=== PATIENT | female | born 2000 | race Caucasian/White ===

== ENCOUNTER 2023-02-03 07:01 | Outpatient (RCR) | payer OTHER, SELFPAY | END 2023-02-16 14:00 | disposition home or self-care (01) | LOC: PT 07:01 | PROVIDERS: PCP Nurse Practitioner; Visit Provider Podiatrist Foot & Ankle Surgery | DX: M25.871 Other specified joint disorders, right ankle and foot (principal); M72.2 Plantar fascial fibromatosis | CPT/HCPCS: 97010; 97035; 97110; 97112; 97140; G0283 ==

== ENCOUNTER 2023-04-07 08:38 | Outpatient (OUT) | payer OTHER, SELFPAY ==
--- NOTE | 2023-04-07 08:46 | MR_ITS ---
The [place] [id number] Patient Name: MACY BYRD MRN: [id number] date: 2000 Sex: F Assigned Patient Location: MRI Current Patient Location: Accession/Order Number: [id number] Exam Date: 04/07/2023 08:56 Report Date: 04/08/2023 08:11 At the request of: SUZIE MENDOZA Procedure: MR ankle RT wo con EXAM: MR ankle RT wo con HISTORY: Plantar Fascial Fibromatosis, Ankle Instability right ankle pain COMPARISON: Right ankle x-rays 06/23/2022. TECHNIQUE: Multi planar, multisequence MR imaging of the right ankle without contrast. Findings: Bones and cartilage: No acute fracture or malalignment. No focal bone marrow edema. No significant degenerative change. No articular erosions. No osteochondral abnormality. Small region of susceptibility artifact anterior to the tibial plafond. No significant joint effusion. Muscles and tendons: No abnormal signal within the visualized musculature. The Achilles, anterior, medial and lateral tendons about the ankle are intact. No significant tendinosis or tenosynovitis. Ligaments: The medial and lateral ligaments about the ankle are intact. There is increased signal and thickening of the anterior talofibular ligament. The spring ligament is intact. Fat signal persists within the sinus Tarsi. Miscellaneous: There is mild increased signal thickening of the central band of the plantar fascia likely representing fasciitis. MR/MR ankle RT wo con IMPRESSION: 1. Mild plantar fasciitis. 2. Increased signal thickening of the anterior talofibular ligament may be postsurgical or related to sprain. Electronically authenticated by: CHARLES MCCLAIN Date: 04/08/2023 08:11
== END 2023-04-07 08:39 | disposition home or self-care (01) ==
LOC: MRI 08:40
PROVIDERS: PCP Nurse Practitioner; Visit Provider Podiatrist Foot & Ankle Surgery
DX: M72.2 Plantar fascial fibromatosis (principal); M25.371 Other instability, right ankle; M25.871 Other specified joint disorders, right ankle and foot
CPT/HCPCS: 73721

== ENCOUNTER 2023-05-23 09:02 | Outpatient (OUT) | payer OTHER, SELFPAY ==
--- NOTE | 2023-05-23 09:48 | PM.PRESUREVA ---
History of Present Illness History of Present Illness Chief complaint: plantar fascial fibromatosis Narrative: Patient presents for preadmission testing. Please see HPI from Dr. Li dated 05/04/2023. Review of Systems ROS Narrative REVIEW OF SYSTEMS: Constitutional: No fever , chills, weakness ENT: No sore throat or epistaxis Cardiovascular: No edema, chest pain, palpitations, or activity intolerance Respiratory: No shortness of breath, cough, or wheezing Gastrointestinal: No abdominal pain, constipation, diarrhea, or vomiting Genitourinary: No dysuria or hematuria Neurological: No numbness, tingling, weakness, or headache Psychiatric: No mood changes PFSH PFS Medical History (Updated 05/23/23 @ 09:44 by Julia Barkley NP) (08/2020) Surgical History (Updated 05/23/23 @ 09:44 by Julia Barkley NP) (2011) (10/18/22) (2020) Family History (Updated 05/23/23 @ 09:44 by Julia Barkley NP) Other Blood coagulation disorder Family history of heart disease Social History (Updated 05/23/23 @ 09:47 by Julia Barkley NP) Within the past year, how often did you have a drink containing alcohol: never Score interpretation: A score less than 3 is consistent with normal alcohol consumption. 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 Highest level of school completed/degree received: Bachelor's degree Meds Home Medications and Allergies Allergies Allergy/AdvReac Type Severity Reaction Status Date / Time latex Allergy Rash Verified 05/23/23 09:46 Exam Narrative Exam Narrative: Constitutional: Awake, alert, comfortable, well-appearing, nontoxic, interactive, vital signs as charted Head: Normocephalic, atraumatic Neck: Supple, normal appearance, normal range of motion, no meningeal signs, no lymphadenopathy Respiratory: No respiratory distress, breath sounds clear Cardiovascular: Regular rate and rhythm, strong and regular heart tones Skin: No rashes or induration, no lesions, only visible skin inspected Neuro: No neurological deficits, normal sensation Psychiatric: Oriented ?3, normal affect Assessment and Plan Assessment and Plan (1) Deformity of right lower extremity: (2) Plantar fascial fibromatosis: Plan Right endoscopic plantar fasciotomy, gastrocnemius recession scheduled with Dr. Li 05/30/2023.
[2023-05-23 09:57] LABS: Partial Thromboplastin Time 30.2 sec (22.3-36.2); Prothrombin Time 9.8 sec (9.0-11.6)
[2023-05-23 10:00] LABS: INR <0.93
== END 2023-05-23 09:03 | disposition home or self-care (01) ==
LOC: PST 09:03
PROVIDERS: PCP Nurse Practitioner; Visit Provider Podiatrist Foot & Ankle Surgery
DX: Z01.812 Encounter for preprocedural laboratory examination (principal); M72.2 Plantar fascial fibromatosis; M21.861 Other specified acquired deformities of right lower leg
CPT/HCPCS: 85610; 85730; G0463

== ENCOUNTER 2023-05-30 06:28 | Day surgery (SDC) | payer OTHER, SELFPAY ==
[2023-05-23 09:44] VITALS: BP 125/76; PULSE 57; RESP 14; TEMP 36.3; O2SAT 98; BMI 37.3
[2023-05-30] VITALS (12 sets, daily range): BP systolic 110–137; BP diastolic 74–88; PULSE 62–81; RESP 10–26; TEMP 36.3–36.4; O2SAT 92–98; BMI 36.9
[2023-05-30 06:44] LABS: Glucometer 86 mg/dL (74-106)
[2023-05-30 07:03] LABS: INR 0.94; Partial Thromboplastin Time 30.9 sec (22.3-36.2)
[2023-05-30 07:06] LABS: HCG Qualitative NEGATIVE (NEGATIVE)
[2023-05-30] MEDS: LACTATED RINGER'S SOLUTION 1,000 ML 50 ML IV (07:17)
[2023-05-30] MEDS: SCOPOLAMINE 1 MG/3 DAYS TRANSDERM PATCH 1 PATCH TD (07:18)
[2023-05-30] MEDS: CEFAZOLIN SODIUM/DEXTROSE,ISO 2 GM/50 ML PIGGYBACK IV (07:24)
[2023-05-30] MEDS: BETAMETHASONE ACE/BETAMETHASONE SOD PHOS 30 MG/5 ML 12 MG IM (08:00)
[2023-05-30] MEDS: BUPIVACAINE HCL 0.5% PF 50 MG/10 ML VIAL 20 ML INJ (08:02)
[2023-05-30 08:37] LABS: Glucometer 99 mg/dL (74-106)
[2023-05-30] MEDS: HYDROMORPHONE HCL 0.5 MG/0.5 ML SYRINGE IV (08:38)
[2023-05-30] MEDS: OXYCODONE HCL/ACETAMINOPHEN 5MG/325MG 1 TAB PO (08:44)
--- NOTE | 2023-05-30 13:24 | PM.ORONB ---
Brief Operative Note Date of procedure: 05/30/23 Pre-op diagnosis: right plantar fasciitis and equinus Post-op diagnosis: same as pre-op Procedure: PROCEDURES PERFORMED: right endoscopic plantar fasciotomy and gastrocnemius recession INTRAOPERATIVE FINDINGS: findings consistent with chronic plantar fasciitis with the fascia being thickened and very taut. Reduced ankle joint dorsiflexion was also noted prior to surgery PROCEDURE IN DETAIL: Patient was identified in pre op and consent was reviewed. Correct side and site were identified and marked. Pre-op antibiotics were started. Patient was brought to OR suite and place on table in a supine position. General anesthesia was administered. Tourniquet applied. Operative extremity was prepped and draped in usual sterile fashion. Formal time-out was performed and the foot/ankle were exsanguinated and tourniquet inflated. 20 mL of 0.5 percent Marcaine plain were injected around surgical sites A longitudinal incision over the medial aspect of the calf two finger breadths posterior to the posterior aspect of tibia was performed. Combination sharp and blunt dissection with all bleeders being coagulated gained access to the gastrocnemius aponeurosis. Once the aponeurosis was isolated a speculum was inserted from the medial to lateral position just superficial to the aponeurosis. The speculum allowed full visualization of the aponeurosis and the foot was held in maximal dorsiflexed position. A fifteen blade was used to transversely incise the gastrocnemius fascia to two separate location (one proximal and one distal) followed by release of the soleus fascia. 10 degrees of ankle joint dorsiflexion was obtained. The area was flushed with copious sterile saline and skin was closed in layers. Stab incision over the medial aspect of the in-step at the glabrous skin junction was used followed by blunt dissection and the medial band of the plantar fascia was identified. Trochar and cannula were then placed medial to lateral. A lateral stab incision was made to allow passage of the trochar and cannula. Camera was inserted into the lateral portal and a hook blade was placed into the medial portal. 50% of the plantar fascia was released and healthy muscle was noted. The site was flushed with saline and instrumentation was removed. Closure with nylon suture was then undertaken. A dry sterile dressing was placed followed by CAM boot. Patient tolerated the procedure and anesthesia well and was transferred to the recovery room with vital signs stable and brisk capillary refill to the toes. POSTOPERATIVE PLAN:Discharge home under family's care Post op instructions provided verbally and written prescription(s) were placed in chart Weightbearing as tolerated in cam boot for three weeks Patient should sleep in cam boot or night splint Follow-up in 1-3 weeks Implants: none Anesthesia: General-LMA Surgeon: Randall Li Barrel Charrer: Isaías Jacobsen Estimated blood loss (mL): 10 Pathology: none sent Condition: stable Disposition: PACU Preoperative Details Reason for procedure: patient is a 23-year-old female well known to my practice who over the last 6+ months has had right heel pain which was initially treated nonoperatively. Nonoperative treatment included but not limited to meloxicam/ibuprofen, physical therapy and home stretching program, activity and shoe modification. MRI was obtained and was consistent with plantar fasciitis. We reviewed the potential risks and benefits of surgical intervention patient wished to proceed with surgery.
== END 2023-05-30 10:20 | disposition home or self-care (01) ==
PROVIDERS: PCP Nurse Practitioner; Visit Provider Podiatrist Foot & Ankle Surgery
PROC: (CPT 27687; principal; 2023-05-30 07:30)
DX: M72.2 Plantar fascial fibromatosis (principal); M21.861 Other specified acquired deformities of right lower leg; D68.51 Activated protein C resistance; E66.9 Obesity, unspecified; Z68.35 Body mass index [BMI] 35.0-35.9, adult; M25.371 Other instability, right ankle; M25.871 Other specified joint disorders, right ankle and foot
CPT/HCPCS: 27687; 29893; 36415; 82948; 84703; 85610; 85730; J0702; J1170; J2704

== ENCOUNTER 2023-07-29 22:36 | Emergency (ER) | payer OTHER, SELFPAY ==
[2023-07-29] VITALS (12 sets, daily range): BP systolic 119–155; BP diastolic 59–86; PULSE 58–68; RESP 13–22; TEMP 36.8; O2SAT 97–100; BMI 36.6
--- NOTE | 2023-07-29 22:46 | ECG_ITS ---
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
--- NOTE | 2023-07-29 23:13 | ED.GENADUL1 ---
HPI - General Adult General Chief complaint: Nausea/Vomiting/Diarrhea Stated complaint: Vomiting Blood, Epistaxis Time Seen by Provider: 07/29/23 22:47 Source: patient Mode of arrival: walk-in Limitations: no limitations History of Present Illness HPI narrative: patient said that around 9pm she developed bleeding from the right nasal passage and began vomiting blood. She said that initially she vomited thin dark red blood without food,. Then she vomited again and had chunks of blood along with the pizza she ate for dinner. She saw stars and was dizzy after the 2nd episode of vomiting. Bleeding symptoms lasted about 10 minutes. About 30 minutes passed between the 1st and 2nd episode of vomiting. She still has some waxing and waning nausea. She denied any nasal or facial injury preceding the bloody nose and denied blowing, picking or scratching the nose. No abdominal pain No black tarry stool. Related Data Previous Rx's Medication Instructions Recorded famotidine 20 mg tablet (Pepcid) 20 mg PO BID #14 tabs 07/29/23 Allergies Allergy/AdvReac Type Severity Reaction Status Date / Time latex Allergy Rash Verified 05/23/23 09:46 [facility] Medical History (Updated 07/29/23 @ 23:56 by Heriberto Gould) Chronic interstitial cystitis ?N30.10 - Interstitial cystitis (chronic) without hematuria (ICD-10) COVID-19 (08/2020) ?U07.1 - COVID-19 (ICD-10) Deformity of right lower extremity ?M21.951 - Unspecified acquired deformity of right thigh (ICD-10) Factor V deficiency ?D68.2 - Hereditary deficiency of other clotting factors (ICD-10) Instability of ankle joint ?M25.373 - Other instability, unspecified ankle (ICD-10) Plantar fascial fibromatosis ?M72.2 - Plantar fascial fibromatosis (ICD-10) Postoperative nausea and vomiting ?R11.2 - Nausea with vomiting, unspecified (ICD-10) ?Z98.890 - Other specified postprocedural states (ICD-10) Rupture of peroneal tendon of right foot ?S86.311A - Strain of muscle(s) and tendon(s) of peroneal muscle group at lower leg level, right leg, initial encounter (ICD-10) Surgical History (Updated 05/23/23 @ 09:44 by Julia Barkley NP) H/O knee surgery (2011) ?Z98.890 - Other specified postprocedural states (ICD-10) History of ankle surgery (10/18/22) ?Z98.890 - Other specified postprocedural states (ICD-10) History of bladder surgery (2020) ?Z98.890 - Other specified postprocedural states (ICD-10) Family History (Updated 05/23/23 @ 09:44 by Julia Barkley NP) Other Blood coagulation disorder Family history of heart disease Social History (Updated 05/23/23 @ 09:47 by Julia Barkley NP) Within the past year, how often did you have a drink containing alcohol: never Score interpretation: A score less than 3 is consistent with normal alcohol consumption. 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 afebrile General: Well-appearing and in no apparent distress. Skin: Warm, dry, no pallor noted. No rash. Eye: Pupils are equal, round and EOMI. No scleral icterus. Ears, Nose, Mouth, and Throat: TM are clear, no nasal mucosal hypertrophy or sign of recent nosebleed. Oral mucosa is moist, no posterior oropharynx bleeding, uvula is mid-line Cardiovascular: Regular Rate and Rhythm without murmur, gallop or rub. Respiratory: No accessory muscle use or respiratory distress. Back: No CVA tenderness Musculoskeletal: normal ROM GI: Abdomen is soft, non-distended. Normal bowel sounds. No masses appreciated. No tenderness to palpation. No rebound, guarding, or rigidity noted. Neurological: A&O x4. No cranial nerve dysfunction observed. No truncal ataxia. Moves all extremities. Sensation intact. Psychiatric: Cooperative and interactive. Normal mood and affect. Constitutional Vital Signs, click to edit/add: Last Vital Signs Temp 98.2 F 07/29/23 22:37 Pulse 60 07/29/23 23:11 Resp 18 07/29/23 22:37 BP 119/59 07/29/23 23:11 Pulse Ox 97 07/29/23 22:37 O2 Del Method Room Air 07/29/23 22:37 Course Vital Signs Vital signs: Vital Signs Temperature 98.2 F 07/29/23 22:37 Pulse Rate 68 07/29/23 22:37 Respiratory Rate 18 07/29/23 22:37 Blood Pressure 155/79 H 07/29/23 22:37 Pulse Oximetry 97 07/29/23 22:37 Oxygen Delivery Method Room Air 07/29/23 22:37 Temperature 98.2 F 07/29/23 22:37 Pulse Rate 60 07/29/23 23:11 Respiratory Rate 18 07/29/23 22:37 Blood Pressure 119/59 07/29/23 23:11 Pulse Oximetry 97 07/29/23 22:37 Oxygen Delivery Method Room Air 07/29/23 22:37 Medical Decision Making MDM Narrative Medical decision making narrative: peripheral IV established. blood drawn and sent for testing. The patient received IV Protonix and IV Zofran. BUN and Cr barely elevated above upper limit of normal - I do not have comparison of prior labs available to review. PTT increased at 36.2 but PT and INR normal. Normal platelets, WBC and Hb. Electrolytes normal. LFTs normal except for elevated AST at 890 - likely reactionary from vomiting. Patient informed of results. She felt better after ED treatment and was discharged home with prescription for pepcid and recommendation to maintain a soft bland diet for the next 2 days. She sees Allison Aragon and can follow up with her PCP or return to the ED if she worsens. Medical Records Medical records reviewed: Yes I reviewed the patient's medical records Lab Data Lab results reviewed: Yes I reviewed the patient's lab results Labs: Lab Results 07/29/23 Range/Units 22:52 WBC 10.5 (4.0-11.0) 10^3/uL RBC 4.71 (4.20-5.40) 10^6/uL Hgb 13.8 (12.0-16.0) g/dL Hct 42.7 (36.0-48.0) % MCV 90.7 (81.0-99.0) fL MCH 29.3 (26.7-34.0) pg MCHC 32.3 (29.9-35.2) g/dL RDW 12.3 (11.0-15.0) % Plt Count 245 (150-450) 10^3/uL MPV 10.8 (9.5-13.5) fL Neut % (Auto) 72.6 (43.0-75.0) % Lymph % (Auto) 20.0 L (20.5-60.0) % [place] % (Auto) 6.0 (1.7-12.0) % Eos % (Auto) 0.8 L (0.9-7.0) % Baso % (Auto) 0.3 (0.2-2.0) % Neut # (Auto) 7.6 H (1.4-6.5) 10^3/uL Lymph # (Auto) 2.1 (1.2-3.8) 10^3/uL [place] # (Auto) 0.6 (0.3-0.8) 10^3/uL Eos # (Auto) 0.1 (0.0-0.7) 10^3/uL Baso # (Auto) 0.0 (0.0-0.1) 10^3/uL Abs Immat Gran (auto) 0.03 (0.00-0.03) 10^3/uL Imm/Tot Granulo (auto) 0.3 (0.0-0.5) % PT 9.7 (9.0-11.6) sec INR <0.93 APTT >36.2 H (22.3-36.2) sec Sodium 140 (136-145) mmol/L Potassium 3.8 (3.5-5.1) mmol/L Chloride 105 (98-107) mmol/L Carbon Dioxide 27.7 (21.0-32.0) mmol/L Anion Gap 11.1 BUN 20.0 H (7.0-18.0) mg/dL Creatinine 1.08 H (0.55-1.02) mg/dL Est GFR ( Amer) >60 (>=60) Est GFR (Non-Af Amer) >60 (>=60) BUN/Creatinine Ratio 18.5 Glucose 95 (74-106) mg/dL Calcium 8.7 (8.5-10.1) mg/dL Total Bilirubin 0.4 (0.2-1.0) mg/dL AST 89 H (15-37) U/L ALT 41 (14-59) U/L Alkaline Phosphatase 75 (46-116) U/L Total Protein 7.3 (6.4-8.2) g/dL Albumin 4.0 (3.4-5.0) g/dL Globulin 3.3 g/dL Albumin/Globulin Ratio 1.2 Discharge Plan Discharge Chief Complaint: Nausea/Vomiting/Diarrhea Clinical Impression: Epistaxis, Gastritis Patient Disposition: Home, Self-Care Time of Disposition Decision: 23:56 Prescriptions / Home Meds: New famotidine [Pepcid] 20 mg tablet 20 mg PO BID Qty: 14 0RF Instructions: Gastritis (ED), Nosebleed (ED) Stand Alone Forms: Portal Instructions Referrals: Allison Aragon NP [Primary Care Provider] - 1 week
[2023-07-29 23:19] LABS: Basophils Percent Auto 0.3 % (0.2-2.0); Eosinophils Absolute Auto 0.1 10^3/uL (0.0-0.7); Eosinophils Percent Auto 0.8 % (0.9-7.0); Hematocrit 42.7 % (36.0-48.0); Hemoglobin 13.8 g/dL (12.0-16.0); Immature Granulocytes Abs Auto 0.03 10^3/uL (0.00-0.03); Immature Granulocytes Pct Auto 0.3 % (0.0-0.5); Lymphocytes Absolute Auto 2.1 10^3/uL (1.2-3.8); Mean Corpuscular HGB Conc 32.3 g/dL (29.9-35.2); Mean Corpuscular Hemoglobin 29.3 pg (26.7-34.0); Mean Corpuscular Volume 90.7 fL (81.0-99.0); Mean Platelet Volume 10.8 fL (9.5-13.5); Monocytes Absolute Auto 0.6 10^3/uL (0.3-0.8); Neutrophils Absolute Auto 7.6 10^3/uL (1.4-6.5); Neutrophils Percent Auto 72.6 % (43.0-75.0); Platelet Count 245 10^3/uL (150-450); Red Blood Count 4.71 10^6/uL (4.20-5.40); Red Cell Distribution Width 12.3 % (11.0-15.0); White Blood Count 10.5 10^3/uL (4.0-11.0)
[2023-07-29] MEDS: ONDANSETRON PF 4 MG/2 ML VIAL IV (23:23)
[2023-07-29] MEDS: PANTOPRAZOLE SODIUM 40 MG VIAL IV (23:23)
[2023-07-29 23:31] LABS: Prothrombin Time 9.7 sec (9.0-11.6)
[2023-07-29 23:33] LABS: INR <0.93
[2023-07-29 23:34] LABS: Alanine Aminotransferase 41 U/L (14-59); Albumin Globulin Ratio 1.2; Alkaline Phosphatase 75 U/L (46-116); Anion Gap 11.1; Aspartate Amino Transferase 89 U/L (15-37); BUN Creatinine Ratio 18.5; Bilirubin Total 0.4 mg/dL (0.2-1.0); Calcium 8.7 mg/dL (8.5-10.1); Carbon Dioxide 27.7 mmol/L (21.0-32.0); Chloride 105 mmol/L (98-107); Estimated GFR (African America >60 (>=60); Estimated GFR (Non-African Ame >60 (>=60); Globulin 3.3 g/dL; Glucose 95 mg/dL (74-106); Potassium 3.8 mmol/L (3.5-5.1); Sodium 140 mmol/L (136-145); Total Protein 7.3 g/dL (6.4-8.2)
[2023-07-30 00:06] VITALS: BP 118/68; PULSE 78; RESP 17; O2SAT 100
== END 2023-07-30 00:09 | disposition home or self-care (01) ==
PROVIDERS: Emergency Provider Emergency Medicine; PCP Nurse Practitioner
DX: R04.0 Epistaxis (principal); K29.70 Gastritis, unspecified, without bleeding; Z86.16 Personal history of COVID-19; D68.2 Hereditary deficiency of other clotting factors; Z98.890 Other specified postprocedural states
CPT/HCPCS: 36415; 80053; 85025; 85610; 85730; 93005; 96374; 96375; 99284

== ENCOUNTER 2023-08-03 07:01 | Outpatient (RCR) | payer OTHER, SELFPAY | END 2023-09-04 09:00 | disposition home or self-care (01) | LOC: PT 07:01 | PROVIDERS: PCP Nurse Practitioner; Visit Provider Podiatrist Foot & Ankle Surgery | DX: M72.2 Plantar fascial fibromatosis (principal); R26.2 Difficulty in walking, not elsewhere classified | CPT/HCPCS: 20560; 97014; 97035; 97110; 97112; 97140; 97162 ==

== ENCOUNTER 2023-09-05 09:29 | Outpatient (RCR) | payer OTHER, SELFPAY | END 2023-09-06 16:06 | disposition home or self-care (01) | LOC: PT 09:29 | PROVIDERS: PCP Nurse Practitioner; Visit Provider Podiatrist Foot & Ankle Surgery | DX: M72.2 Plantar fascial fibromatosis (principal) ==

== ENCOUNTER 2023-10-05 15:41 | Outpatient (OUT) | payer OTHER, SELFPAY ==
--- NOTE | 2023-10-05 | XR_ITS ---
The [address] [address] Patient Name: MACY BYRD MRN: [id number] date: 2000 Sex: F Assigned Patient Location: RAD Current Patient Location: [facility] Accession/Order Number: [id number] Exam Date: 10/05/2023 15:54 Report Date: 10/05/2023 16:27 At the request of: SUZIE MENDOZA Procedure: XR foot RT min 3V PROCEDURE: XR foot RT min 3V COMPARISON: None. HISTORY: RIGHT FOOT PAIN FINDINGS: BONES:No acute fracture or dislocation. Mild plantar enthesopathic spurring of the calcaneus SOFT TISSUES:Negative. No visible soft tissue swelling. EFFUSION:None visible. OTHER: Negative. XR/XR foot RT min 3V IMPRESSION: Mild plantar calcaneal enthesopathy Electronically authenticated by: MCKENZIE POLLOCK Date: 10/05/2023 16:27
--- OUTSIDE RECORDS SUMMARY | 2023-10-05 15:46 | XMS_ITS | CCD ---
Author Name Unknown Address [address] [place] [address] Organization [facility] Care Team Providers Care Straw Hat Brim Raiser Operator Name Role Phone DILLON VERDIN Unavailable Unavailable [facility] Unavailable Unavailable [facility] Unavailable Unavailable DIALS, LEILA DICKINSON Attending Unavailable DIALS, LEILA DICKINSON Admitting Unavailable NO, PHYSICIAN Primary Care Unavailable Talat Pineda Primary Care Provider No, Physician Primary Care Provider Unavailabl e Mahesh RIVAS, Allison Moreno Primary Care Provider Roosevelt Costa Unavailable [phone] Pako Ahmadi Unavailable AichAllison nvaarro CNP Primary Care Provider Roosevelt Costa Unavailable Pako Ahmadi Unavailable AichholAllison woodall CNP Primary Care Provider [phone] Roosevelt Costa Unavailable Pako Ahmadi Unavailable NO FAMILY, PHYSICIAN Primary Care Provider Unava ilable Allison Aragon Attending Provider [phone] Allison Aragon Attending Unavailable Allison Aragon Admitting Unavailable NO FAMILY, PHYSICIAN Primary Care Unavailable ROBERT ERIC Referring Unavailable ALLISON ARAGON Primary Care Unavailable ROBERT ERIC Attending Unavailable PAKO AHMADI Referring Unavailable ALLISON ARAGON Primary Care Unavailable JASWANT KING Attending Unavailable ALLISON ARAGON Primary Care Unavailable SUZIE MENDOZA Attending Unavailable EVELYN ARAGON Primary Care Unavailable SUZIE MENDOZA D Admitting Unavailable SUZIE MENDOZA Consulting Unavailable KELLY, SUZIE Romero Admitting Unavailable AICHHOLZ, [facility] Primary Care Unavailable KELLY, SUZIE Romero Attending Unavailable ALEJANDRO ANDINO Consulting Unavailable DR SOHAIL COLBY Consulting Unavailable KELLY, SUZIE Romero Admitting Unavailable AICHHOLZ, [facility] FLUSHER ALLISON Primary Care Unavailable KELLY, SUZIE Romero Attending Unavailable SUZIE MENDOZA Consulting Unavailable KELLY, SUZIE Romero Attending Unavailable AICHHOLZ, [facility] Primary Care Unavailable HIGHLANDER, SUZIE Romero Admitting Unavailable NADIR ENGLAND Consulting Unavailable RYANANDER, SZUIE Romero Admitting Unavailable AICHHOLZ, CASING FLUSHER ALLISON Primary Care Unavailable HIGHLMANAN, SUZIE Romero Attending Unavailable KELLY, SUZIE Romero Attending Unavailable DR MCKENZIE POLLOCK V Consulting Unavailable AICHHOLZ, [facility] Primary Care Unavailable HIGHLANDER, SUZIE Romero Admitting Unavailable HIGHLMANAN, SUZIE Romero Consulting Unavailable BENITA RESENDIZ Consulting Unavailable YANI GRIER Consulting Unavailable BG ANDINO Unavailable Allergies Allergy Classification Reported Allergen(s) Allergy Type Date of Onset Reaction(s) Facility (1 source) Latex Drug allergy (disorder) 08-30-2020 [facility] Repository (2 sources) Latex Drug allergy (disorder) [facility] Rep[facility] Medications Current Medications Medication Drug Class(es) Dates Sig (Normalized) Sig (Original) drospirenone, contraceptive, (Slynd) 4 mg (28) Tab (1 source) take 1 tablet by mouth once daily drospirenone, contraceptive, (Slynd) 4 mg (28) Tab Take 4 mg by mouth daily . 0 Active ondansetron 4 mg disintegrating oral tablet (2 sources) Serotonin-3 Receptor Antagonist Start: 09-21-2020 End: 09-24-2020 take 1 tablet by mouth every six hours as needed ondansetron (ZOFRAN-ODT) 4 MG disintegrating tablet Dissolve 1 (one) tablet (4 mg total) on top of tongue every 6 (six) hours as needed . 10 tablet 0 09/21/2020 09/24/2020 Active Start: 09-20-2020 End: 09-20-2020 ondansetron (ZOFRAN) injecti on 4 mg semaglutide, weight loss, (WEGOVY) 0.25 mg/0.5 mL pen injector (2 sources) Start: 06-09-2022 End: 07-07-2022 semaglutide, weight loss, (WEGOVY) 0.25 mg/0.5 mL pen injector Indications: Class 2 obesity due to excess calories without serious comorbidity with body mass index (BMI) of 35.0 to 35.9 in adult Inject 0.5 mL subcutaneously one time a week for 28 days. 2 mL 0 06/09/2022 07/07/2022 Active Comment on above: Inject 0.5 mL subcut aneously one time a week for 28 days. Completed/Discontinued Medications Medication Drug Class(es) Dates Sig (Normalized) Sig (Original) drospirenone, contraceptive, (SLYND) 4 mg (28) tab (4 sources) drospirenone, contraceptive, (SLYND) 4 mg (28) tab Take by mouth. 0 Active Comment on above: Take by mouth. 1000 ml sodium chloride 9 mg/ml injection (2 sources) Start: 09-20-2020 End: 09-21-2020 sodium chloride 0.9% (NS) bolus 1,000 mL Start: 09-20-2020 End: 09-21-2020 sodium chloride (PF) (NS) fl ush 5 mL Problems Active Problems Problem Classification Problem Date Documented Date Episodic/Chronic Alcohol-related disorders (1 source) Alcohol intoxication; Translations: [Alcoholic intoxication with complication (HCC)] Chronic Coagulation and hemorrhagic disorders (1 source) Other primary thrombophilia; Translations: [OTHER PRIMARY THROMBOPHILIA] Onset: 10-21-2022 Chronic Joint disorders and dislocations; trauma-related (8 sources) Chondromalacia of patella; Translations: [Chondromalacia patellae, unspecified knee] Onset: 11-20-2013 11-20-2013 Chronic Nausea and vomiting (1 source) Nausea and vomiting; Translations: [Nausea and vomiting, intractability of vomiting not specified, unspecified vomiting type] Episodic Other connective tissue disease (1 source) Plantar fascial fibromatosis; Translations: [PLANTAR FASCIAL FIBROMATOSIS] Onset: 01-05-2023 Episodic Other non-traumatic joint disorders (5 sources) Other specified joint disorders, right ankle and foot; Translations: [OTHER SPEC JOINT D/O RT ANKLE FOOT] Onset: 10-10-2022 Episodic Other nutritional; endocrine; and metabolic disorders (1 source) Obesity; Translations: [Other obesity due to excess calories] Chronic Unclassified (1 source) Pain in right ankle and joints of right foot; Translations: [Pain in right ankle and joints of right foot] Onset: 06-16-2022 Unclassified (1 source) PERSONAL HISTORY OF COVID-19; Translations: [PERSONAL HISTORY OF COVID-19] Onset: 10-21-2022 Past or Other Problems Problem Classification Problem Date Documented Date Episodic/Chronic Joint disorders and dislocations; trauma-related (7 sources) Dislocation of patellofemoral joint; Translations: [Unspecified dislocation of unspecified patella, initial encounter] Onset: 11-01-2011 11-01-2011 Episodic Other aftercare (1 source) Other director long term care (current) drug therapy; Translations: [OTH LINING REPAIRER CURRENT DRUG THERAPY] Onset: 10-21-2022 Episodic Other connective tissue disease (1 source) Achilles tendinitis, right leg; Translations: [ACHILLES TENDINITIS RIGHT LEG] Onset: 07-06-2022 Episodic Other connective tissue disease (4 sources) Pain in right foot; Translations: [PAIN IN RIGHT FOOT] Onset: 06-23-2022 Episodic Other non-traumatic joint disorders (3 sources) Knee pain; Translations: [Pain, knee] Onset: 07-20-2012 07-20-2012 Episodic Other non-traumatic joint disorders (3 sources) Pain in right knee; Translations: [Pain in joint, lower leg] Onset: 07-20-2012 Episodic Other non-traumatic joint disorders (4 sources) Pain in unspecified knee; Translations: [Pain in joint, lower leg] Onset: 07-20-2012 07-20-2012 Episodic Other non-traumatic joint disorders (5 sources) Other instability, right ankle; Translations: [OTHER INSTABILITY RIGHT ANKLE] Onset: 07-01-2022 Episodic Other non-traumatic joint disorders (1 source) Pain in right ankle and joints of right foot; Translations: [PAIN IN RIGHT ANKLE] Onset: 06-27-2022 Episodic Residual codes; unclassified (3 sources) History of operative procedure on knee; Translations: [S/P knee surgery] Onset: 08-17-2012 08-17-2012 Episodic Sprains and strains (2 sources) Sprain of foot; Translations: [Unspecified sprain of left foot, initial encounter] Onset: 10-21-2022 08-30-2020 Episodic Results Test Name Value Interpretation Reference Range Facility POINT OF CARE GLUCOSEon 10-06 Glucose [Mass/Vol] 125 mg/dL Critically high 74-106 T [facility] Comment on above: Performed By: #### P OCGLUC #### [facility] [address] [address] [address] Alejandrina Monk Glucose [Mass/Vol] 96 mg/dL Normal 74-106 [facility] Comment on above: Performed By: #### P OCGLUC #### [facility] [address] [address] [address] Alejandrina Monk PREG QUANT HCGon 10-18-2022 HCG QUANT 3 mIU/mL Normal [facility] Comment on above: Performed By: #### P REGQNT #### [facility] [address] [address] [address] Alejandrina Monk HCG RANGE SEE BELOW Normal [facility] Comment on above: Result Comment: 5-50 0.2-1 WEEK 50-500 1-2 WEEKS 100-5,000 2-3 WEEKS 500-10,000 3-4 WEEKS 1,000-50,000 4-5 WEEKS 10,000-100,000 5-6 WEEKS 15,000-200,000 6-8 WEEKS 10,000-100,000 2-3 MONTHS Performed By: #### P REGQNT #### [facility] [address] [address] [address] Alejandrina Monk MRI ANKLE RT WO CONon 2021 MRI ANKLE RT WO CON EXAM: MRI ANKLE RT W O CON REASON FOR EXAM: Instability of joint of right ankle. TECHNIQUE: Multiplanar, multisequence imaging of the right ankle was performed without contrast COMPARISON: Plain radiograph 06/23/2022. FINDINGS: Study mildly degraded by motion. The Achilles tendon demonstrates mild thickening and intermediate signal consistent with tendinosis. No tear identified. The plantar fascia is intact without tear. Laterally, there is mild thickening and intermediate signal involving the peroneus longus tendon consistent with tendinosis. No tear identified. The peroneus brevis tendon is intact. The superficial peroneal retinaculum is intact. Thickening and intermediate signal involving the anterior talofibular ligament suggests prior lateral ligamentous injury. No evidence of acute lateral ligamentous injury identified. Medially, the medial flexor tendons demonstrate normal thickness and signal without tendinosis or tear. The deep deltoid ligament is intact. The Lisfranc ligament is intact. Anteriorly, the anterior extensor tendons demonstrate normal thickness and signal without tendinosis or tear. The bone marrow signal is without fracture or osteonecrosis. The talar dome is congruent. The subtalar joints intact. The sinus tarsi is mildly edematous. A small tibiotalar effusion is present. The midfoot appears congruent. The plantar musculature demonstrates normal bulk and signal. Remaining soft tissues are unremarkable. IMPRESSION: 1. Sequela of prior lateral ligamentous injury. No evidence of acute lateral ligamentous injury. 2. Achilles tendinosis without tear. 3. 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 Electronically authenticated by: ALEJANDRO ANDINO Date: 2022-07-05 09:26 Normal [facility] 06-18-[address] [facility] Telephone (ENDOMN) MACY BORJA ([id number]) 2000 F Date Time Provider Department 06/18/22 JASWANT KINGLA During your visit today, we recorded the following information about you: José Miguel Garay [facility] 06/18/2022 4:05 PM Signed Need to call pharmacy for insurance information. Not coming up in either [employer] or [employer] Need pa on wegovy José Miguel Garay [facility] 07/06/2022 2:48 PM Addendum Initiated PA for Wegovy through [employer] via [employer] Christensen: [id number] Waiting for next steps Need to call insurance for determination PA Christensen for Wegovy José Miguel Garay [facility] 07/06/2022 3:02 PM Addendum Called [employer] and PA's need to go through [employer]. Unable to process PA electronically. Requested to fax chart notes to [phone] Transmitted Successfully Can call for determination at [phone] Can take up to 10 days for determination Spent 6 minutes on the call José Miguel Elmore 07/06/2022 3:03 PM Signed Called [facility] for status of PA for Wegovy. Was informed by rep that Wegovy does not require a prior authorization. No further action taken. Allergies As of Date: 06/18/2022 (No Known Allergies) Date Reviewed: 04/14/2022 Reviewed by: Maggie Rodriguez Ma - Fully Assessed Reason for Visit: Insurance Authorization [[id number]] Cmt: Wegovy Prescriptions as of 07/06/2022 - semaglutide, weight loss, (WEGOVY) 0.25 mg/0.5 mL pen injector Inject 0.5 mL subcutaneously one time a week for 28 days. - drospirenone, contraceptive, (SLYND) 4 mg (28) tab Take by mouth. 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] 11/20/2013 Encounter Status:Closed by JOSÉ MIGUEL SCOTT on 06/18/22 Normal [facility] XR ankle RT min 3V*on 2021 XR ankle RT min 3V* [facility] [address] [place] [id number] XRay Report Signed Patient: Macy Borja MR#: [id number] : 2000 Acct:[id number] Age/Sex: 22 / F ADM Date: 06/16/22 Loc: ICXD Room: Type: [facility] Attending Dr: Allison Aragon Copies to: BEAU Jackson Ordering Provider: BEAU Jackson Date of Service: 06/16/22 XR/XR ankle RT min 3V*: pain RIGHT ANKLE - 3 views CLINICAL DATA: Right lateral ankle pain after running a week ago. COMPARISON: None AP, lateral and oblique views were obtained. There is no evidence of fracture or dislocation. The talar dome is intact. There is a tiny plantar calcaneal spur. There is anterolateral soft tissue swelling and a suspected small ankle effusion. XR/XR ankle RT min 3V* IMPRESSION: NO ACUTE BONY INJURY. Impression dictated by: Rosana Denise M.D.06/16/2022 2:30 PM Dictation Location: [place] [address] Transcribed By: [facility] 06/16/22 143 Dictated By: Rosana Denise MD 06/16/22 1429 Signed By: 06/16/[address] [facility] CNOVon 04-14-2022 CNOV Office Visit (ORMIDD ) MACY BORJA ([id number]) 2000 F Date Time Provider Department 04/14/22 9:50 AM ROBERT ERIC During your visit today, we recorded the following information about you: Robert Eric MD 04/14/2022 2:40 PM Signed DATE OF PROCEDURE: 08/08/2012 SURGEON: Heriberto Ramirez M.D. OPERATION: Arthroscopy of the right knee with chondroplasty of the patella and open proximal patellar alignment to include semitendinosus/MPFL reconstruction (modified Ochi technique). History of present illness: Macy Borja is a 21 year old female who comes in today with a chief complaint of right knee pain. Pain is anterior and anterolateral. She is very active. 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 With ADL's her pain is 4 - 6. On active days her pain is 7 - 9. Takes ibuprofen. Cortisone in March and january. No help. Takes glucosamine. Voltarehugh gel. Has seen multiple physicians in the past. Saw Dr. Calloway. Saw [place] doctor in [place]. ALLERGIES No Known Allergies PAST MEDICAL HISTORY Diagnosis Date Factor V Leiden (HCC) Hip pain Right Protein C deficiency (HCC) Seasonal depression (HCC) PAST SURGICAL HISTORY Procedure Laterality Date KNEE SURGERY HX Right 2011 NONE Current Outpatient Medications on File Prior to Visit Medication Sig drospirenone, contraceptive, (SLYND) 4 mg (28) tab Take by mouth. (Patient not taking: Reported on 05/28/2021 ) No current facility-administered medications on file prior to visit. No family history on file. Review of Symptoms: Cardiac: No chest pain Pulmonary: No trouble breathing Constitutional: No fevers, chills GI: No current GI upset Musculoskeletal: As above This is a well appearing, well nourished patient in no acute distress. Head is normocephalic and atraumatic. Patient has white sclera and pink conjunctiva. Mucous membranes are moist. Patient breathes easily and has normal chest wall excursion. Patient has a Normal. affect. Obese. Right knee with crepitance with range of motion. Pain with patellofemoral compression. Pain with squatting. No joint line pain. Trace effusion. Stable knee. Patella is stable. Incisions. Imaging: Plain films from [facility] are personally reviewed by me and demonstrates bilateral patellofemoral degenerative joint disease. Left is worse than right. Impression: Macy Borja is a 21 year old female with a bad problem. Bipolar chondral disease. Overweight. Prior surgery. Plan: Referred to get ready 2. Return to clinic after the MRI 3. Needs sizing x-rays at the next visit 4. Weight loss will be paramount and we probably should optimize her . Robert Eric MD Referring Provider: PAKO AHMADI [[id number]] Allergies As of Date: 04/14/2022 (No Known Allergies) Date Reviewed: 04/14/2022 Reviewed by: Maggie Rodriguez Ma - Fully Assessed Reason for Visit: New [[id number]] Primary Visit Diagnosis:Chronic pain of right knee [M25.561, G89.29] Order(s):MRI KNEE WO IVCON RT [[id number]] Order #: [id number] FUTURE ENDOCRINE MEDICAL WEIGHT MANAGEMENT [[id number]] Order #: [id number]: 1 FUTURE XR KNEE POST OP 3V AP/LAT/MERCHANT RIGHT [[id number]] Order #: [id number] FUTURE Prescriptions as of 04/14/2022 - drospirenone, contraceptive, (SLYND) 4 mg (28) tab Take by mouth. 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 Follow-up and Disposition History for Encounter Date Provider Department Center 04/14/2022 [id number] ERIC [facility] Encounter Status:Closed by ROBERT ERIC on 04/14/22 Normal [facility] XR KNEE 4V AP/PA BOTH+LAT/ME R RTon 04-14-2022 XR KNEE 4V AP/PA BOTH+LAT/MAGNUS RT * * *Final Report* * * DATE OF EXAM: Apr 14 2022 9:46AM MOX 5203 - XR KNEE 4V AP/PA BOTH+LAT/MAGNUS RT / PROCEDURE REASON: Right knee pain, unspecified chronicity * * * * Physician Interpretation * * * * HISTORY: Right knee pain, unspecified chronicity TECHNIQUE: 4 views right knee COMPARISON: None. RESULT: Suture anchors are in the patella from prior surgery. There is no acute fracture. There are tricompartmental marginal osteophytes and mild patellofemoral compartment narrowing from mild degenerative change. No joint effusion. Mild degenerative change of the left knee. IMPRESSION: POSTSURGICAL AND MILD DEGENERATIVE CHANGE Active Directory Systems Administrator: PSCB Transcribe Date/Time: Apr 14 2022 9:49A Dictated by : AUDREY ESTES MD This examination was interpreted and the report reviewed and electronically signed by: AUDREY ESTES MD on Apr 14 2022 9:50AM EST [id number] N Normal [facility] CNPNon 04-07-2022 CNPN Telephone (ORTHMN) ROCHELLEMACY ([id number]) 2000 F Date Time Provider Department 04/07/22 ROBERT ERIC During your visit today, we recorded the following information about you: Allison Ruggiero RN 04/07/2022 3:53 PM Signed Spoke with pt. Advised pt will need XR before seeing Dr Eric. Order is placed and pt to arrive early for her appt. Confirmed appt. Allergies As of Date: 04/07/2022 (No Known Allergies) Date Reviewed: 05/28/2021 Reviewed by: Emmett Calloway MD - Fully Assessed Reason for Visit: Care Coordination [3491] Prescriptions as of 04/07/2022 - drospirenone, contraceptive, (SLYND) 4 mg (28) tab Take by mouth. 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] 11/20/2013 Encounter Status:Closed by ALLISON RUGGIERO on 04/07/22 Normal [facility] Consent Formson 09-11-2021 Consent Forms [id number] [facility] Pulmonary Procedure [id number]#1 [facility] 09-07-2021 [facility] IqpixmerKYg6kSf+PGhlY WQ+RZ5ECWYuR05jjRHquB 8LC2oPDJ3LQCSTLJBZRP0 OMX7mkOC5ZGzdM8EjkrVd YcsgvWKbQX17OEt9ZSH4x NdyWIrwfN4hfGAmB5k3Cu MpQD35zD41YZprQRFoMqN 3LjZpbjsgbWFy Q7hmOoXupVRhSaz+PHRhY mxlIHdpZHRoPScxMDAlJy SicSbtCR7nDq5vJSPwZBE vbGxhcHNlOiBj p5nkEGDwIFbuTD4xhVwzZ 3KeiGQ9HYHbi1y0Rv93wD I+RATcCVI9dAusTVmyr62 2LaOvl6skHPR3 oEAuPPfcXUH8S26oh8L7X FHgDQTsMCV6eJZ3oT8vdP uwnjqiW2QslFPjOrD2MRF 9oWOfwJ7orVwv ijlmdF2nJkq+B46EHD7CR DHMOF0SGqs6Z1XtSzyqmN I+RL09JVWfSI59dPDpfQD te7ajzQi2KkSm CTMhCWR9nHeoUEpyu9GzM HInC52hhYLnd1D5BQYccU idxIPzLgWvfMS1pY6oLDz zkfdkt3ymtezd Pnbsn4bpgx79vK20L79hZ UiuJLYrGDV6ROWnAMBvlC nltv2eqZ2vTc7+NXxrp7g nc4ydlMv6TpRw MEHxzpMdoPpoSTT2n9HvF r79N7RzdSqnd9VaVnk9lp 56fLMxa9E7xUF2SQspHOO mlM7pBRqnNtU9 RZTwYmHxrJ86cVHyXEmaG k3fcAfleYiwQC0jFVJncq tjYJKvvG0cXZEkvYXbtMw hLA7qXCJibwip c164RvTsQDN2YBVnyICpW 1CkkT5tVyPkGVXgEPXpG4 MtgLDdMXkaK218XTcxEmL 3BGUatgDwD1Mr HIKnhBlvGfB3i2U3Ob3Jt 8ZihejxIGK4LPhhTBRxNs CaVqGyAzA7U3OtYkf9IJL qvNsqGK2nP3Tq AJPvttzcfcdyyLJ9CHGxD LNgtS00fQGzJWekLi7nr6 C3t334QVMaUBRanY45Vf6 udDogMTBwdCBU sI4qeqpjh5ewbjppUgEhB OJlLQo7TCg6MBQefGytRn CmEAJ3EsT7CLR3oKSybR9 laMxmpxnqqM8v Oyc+I15vmI1cBNJ8VWZ4f ribVMBvewTdKS46QU82G1 RyPjwvdGFibGU+PGRpdiB khXmuCO6pSiTh t5nsl8XoXXwxY4UoCOTkJ BotMgc1YRChLWH9cTV3pI 4kSZCeYBkcr4U1nMK4P1G xttMlql7ik0xo SSFeHZasY46etBZpf1Z9F PKbwUL3XADtgNvoZpZonF 93Oyc+JXScsVawo0ZoGsn yw6qiy4lihBj8 OcVjJTGtcwUrwTnlKFQ9o 8PrXp36E12cWDzdDBCmBP BqGTNnOZLisAsivd4ywD9 wIi8+PGNvbCB3 qHP1uO1hCHVtCsU3DYwhN 539NpHmvVXzTbgeh7sns3 lmlXn3FiFlTJMsvjPviPa bGCE9t0ScQk21 O71qFQqlTDGzVXWpFISnH QXuwVpioz9hjT2zGq9+PC 0cs3zlfe33uZ16nPU+PHR mUUL2rHurOVri DLFkjB2pLLmeUkT7PAYmH zYkyK76hWNwAHdiDi1ryI hfvLyoBE1tQMMpxdscb22 5LoOyq6ddDXSi oMMoKVybLDA3O01yh3M4T EYtAEEcOHO4gQI6vM4ubD lnbjogbGVmdDsgdmVydGl aOAjvLLmgH615 IHRvcDsnPlBhdGllbnQgT aMyLVc4T9GhTns1SOXmdY wxQB9idFXxZVzkWd0kySz jdPcgVH3sBBAb qvhqk239RuOka2xgFFYsp ETnQPwzIAS1H18vd4C2CL OqHNSkDDY5tFX4sB4vwRn nbjogbGVmdDsg ldQbjDvkDAbnNKncX379U HRvcDsnPkJpcnRoIERhdG N1HI61JF11rAAbc1E5jUP 9K9QmIQNplazp uzurwWV2XLZiNWMslO05X e5kdEtxDx8xCPHvUAP0YJ EgsCYkX1ZnoZ3uHxGuXYS uMVHaR1DsoMQi NFfvQ998YQwiZeJ6ZBCvd kEvO0BcDYWcsFmrEqO8w2 L1Zn2SK0M0SY87UD84tAP lg9B7tPP6A9Ad BBYcrpqhcfjgjST7MZKfD IZucI26Ck2ytMxmXa2hTC BhVIY8PMDrkBKjP2WztZ7 yOiAjMDAwMDAw X6UsgNIvWUivJ794CMshU lS5MNGyevHzZ0BfXFCpgV avRmY5g8G3Bc4IPDb2IO3 6EJ67fCHvy5N2 iOW1M9HtFVBxotzskqhhj DA4JOEmGODouB15Hr8mtI txVb7jFEJhFKK4BHPraNF lT6IodN9kInDg VMStXFCjZ0AwiPIzTSheU 411CCfyYzA4PCCfztSwY6 FyTNMkwXbfCiY9a2W1Qn0 JHFGyMD89REC2 mNM0OS78XD84L5ZvUjtnm GFibGU+PHRhYmxlIHdpZH RoPScxMDAlJyBzdHlsZT0 rMj2zYOTnXQPv hPsuoNYjFhLaz0fmINBmQ JhrZU6wmWqsL6RkbOJ3RQ Apb4t3Sy72X55qJ1UarEC +HJLxoUX1yBM6 cW1aUgLsIgP4TFurR940R lMpwUVtJeknq0ybt6eofH u7FgG4LSJelfTreDqnXUW 6m7RfVk35D16g IHdpZHRoPSIxNSUiIHZhb Qjdzf2guQ6yHb4+PGNvbC W7hDV8uC6dFrDyDqI5UZk zC254HoKxdKFe Uwsrw5rei3nuiIp4HxPoZ IEjftUxhWbhJZQ0o7TvZm 97U9GpuGxca1AcWrp2yh4 4mQIwk3E2fXN3 C2EjBCMcwuzenQTqmBluM F4dABTnrggdRLAsqI3gJI XwL8s7DxUyNkO1BQqzL1F enaT8FQAwfHPy JWjdYCM0K10ec9B5ROXoN CToTTV8iWI9lM5ghJcvxz ogbGVmdDsgdmVydGljYWw hRUcdB786WDYt bFyfPAPdaN4lBBUdnHUdx IrxFZ6rDQEoqyzeWe6KFn RJTiwgQURFTElORSBNQVJ JRTwvdGQ+PHRk QTE3hTmhJEcdYFRtkP2nP SCmE4f3VbZqTdB4ESwhC5 KaNHVekiqoGr41mV2aSiO aAcT0YPdlF9An udR7VEYrgLKyCRwfMNP9D 79uo4H9HRLmRGRcVYV7eI A0uD0jpSfsoiwzjUHmzYx gdmVydGljYWwt GVmdS524ABBljJnpQcB8W rBjPhS7FIt3J4LhHfk8LH CcjRmwSY1oaDLkLOzgQa2 vuTkqvQtxKT4e ODNlpflrKEAmqK2yCVJks JPzdPmhSL7iOXFjzdknn8 19WtWdYNV5YKSeoUZkZ6H tbK1oBkJoFATl KTNyP6PmmIDgBEsjA035X UbpClK4UMPsleTbC3FaYF DdzSpnAmY9o6A8Jm8tApH ZZWFyczwvdGQ+ QQEcLFZ2zXxlFTxaQCElr R0hBFOvO5i0KgRjKvU0MB snT2RkNMRptusgAh60bY2 sFdTtGyN8DXat V8UleoT9XEQboXOtIRopA FS0V22ur3V8DZKgDUAtMA H3sIE5dY2gwXaszakqlAL mdDsgdmVydGlj JMkrYDppG277ZEKftHtkH kZFTUFMRTwvdGQ+PHRkIH C8yUcfYXyrUPGkhS4sWXZ hZ2b9AmJnHrF1 PNokM7SgUWAljiifOl12g V6dWlJxDoB9KCexB9Kbqq G4OKRctDXwSHnlHSK6P13 yt5G7WMMmIBUn SIM7fBN5wD7bqAlgnwwvf GVmdDsgdmVydGljYWwtYW jtQ228OQMtkBatBb4UGP2 7GF96N2IyQndf dGFibGU+PHRhYmxlIHdpZ HRoPScxMDAlJyBzdHlsZT 0iCn4cWUMiLRPfrPhkdZT xTrLnp0gnMPNh TQsnLZ9ipSrpU5VfwAU6J BPqy1q7Vn64J21uI9TklP A+ERTlkOJ1tZX3xX4dJpM oGhP7UOoaR431 OnWwbAVgQukwr4bvc0rhn Yi4HeApPXMxdlVrgAsuUL X6v4NpLp41K82zLCldGPS oPSIyMCUiIHZh vWknqp6esM9dWi2+PGNvb QK3gXP8hE8yUySgFxD5CP yyC480PuDufFBqLtjoT38 sB9QfsJX+PHRy Lcl9NCXbeXxgZU6ztUCxU QltGd9zMXJ4SyIqMmTlST lxW7YlRBEyqoxftwhkxLI 6OWJeWDPmwM95 Zj4esJmdEo0dGANrVYV7G KFxaDKkH3LugQ0zZbHjJX LyGHXtQ2LokJPvMXowQ50 9XWinXxK5GVVp hcDjI4KaYCBfsIllCjN0e 1U6Ld0UpYqaeGWsMS7qDt BnAAj7S4SmFoz3BWLsjSi vZT7vsLJlNCgt Fo4xvFijtQwnBP9qLYJpo rxsx647CnTrd4hpQCXfaK QpFLxbMBA3S42bn9G8WRA gBIZiKHP5eWY5 kH6nsLsxsxycyTWacPsmy kCruKjyHGxmVAzuY212XS CwdDjyTnEHEzr1T9ZbPef 6FEKbyMwdHU2s xLHxVLrbCw2gaQnmgAucU N5fAKBmgklay792WzQsm9 wiMSWjaXDzYJbgGWG3A68 sd4R4FCAeSQAj GXL3jYD0fV0cnShxznfrp GVmdDsgdmVydGljYWwtYW nbE271DXDnvEksCo4IYsp 9N4XjBqj9QVHc oAqxYD6pgCThBTnyPp1or QbboInvLE2fJGFmdgysg6 16MxAgc8ozTWRkmDCkOHa jRIU4H63rv4X3 ZHLiBWZqBOQ8tVU5pR1dt GlnbjogbGVmdDsgdmVydG pwCVasDAocN704LDKgoSc nPlBheWVyOjwv dGQ+FV78oy63B7NtAtloK zk3RDWhVXO1wCR3qO1zTU OmHYsoo1W1eTK6Z5GrpvM ffd0ry6mvJRNi ZTo (more content not included)... Normal [facility] 2019 Novel Coronavirus (CoVI D-19), MEGAN LCon 09-02-2021 SARS-CoV-2 (COVID-19) RNA MEGAN+probe Ql (Unsp spec) Not detected Invalid Interpretation Code Not Detected [facility] Comment on above: Order Comment: [id number] 1 # [phone] Result Comment: This nucleic acid amplification test was developed and its performance characteristics determined by [email or web address]. Nucleic acid amplification tests include RT- PCR and TMA. This test has not been FDA cleared or approved. This test has been authorized by FDA under an Emergency Use Authorization (EUA). This test is only authorized for the duration of time the declaration that circumstances exist justifying the authorization of the emergency use of in vitro diagnostic tests for detection of SARS-CoV-2 virus and/or diagnosis of COVID-19 infection under section 564(b)(1) of the Act, 21 U.S.C. 360bbb-3(b) (1), unless the authorization is terminated or revoked sooner. When diagnostic testing is negative, the possibility of a false negative result should be considered in the context of a patient's recent exposures and the presence of clinical signs and symptoms consistent with COVID-19. An individual without symptoms of COVID-19 and who is not shedding SARS-CoV-2 virus would expect to have a negative (not detected) result in this assay. Performed At: [address] [id number] Abigail Franklin PhD Ph:[phone] Performed By: #### 6 [id number] #### [facility] (DEFAULT) [address] [place] [address] Release of Informationon Release of Information [id number] .[id number] [facility] Coding Summaryon 10-08-2020 Coding Summary CODING DATE: 10/08/2020 [facility] STATUS: Home PAYOR: [employer] ADMIT DX: REASON FOR VISIT DX: E66.9 Obesity, unspecified FINAL DX: PRINCIPAL: E66.9 Obesity, unspecified SECONDARY: PYMT PROC APC STAT DESCRIPTION DOCTOR NAME DATE NOTE: The code number assigned matches the documented diagnosis and / or procedure in the patient's chart. However, the narrative phrase printed from the coding software may appear abbreviated, or result in slightly different terminology. Coded By: Danitza Hernandez Date Saved: 10/08/2020 10:57 am [facility] Insulin LCon 10-08-2020 Insulin LC 16.9 uIU/mL Invalid Interpretation Code 2.6-24.[address] [facility] Comment on above: Result Comment: Perf ormed At: [facility] [address] [id number] Abigail Franklin PhD Ph:[phone] Performed By: #### 1 [id number], 73103199, 9230006989, 6743721084, 5681249, 85341118, 9734891, 6267389 #### [facility] (DEFAULT) [address] [place] [address] Provider Orderson 10-08-2020 Provider Orders [id number] .[id number] [facility] .Auto Diff 1on 10-07-2020 Auto Avery % 8 % Normal 1-[address] [facility] Comment on above: Performed By: #### 1 [id number], 50367464, 9914484362, 7232779922, 8145598, 37437638, 1218523, 8448864 #### [facility] (DEFAULT) [address] [place] [address] Baso Abs# 0.0 x10 Normal 0.0-0.[address] [facility] Comment on above: Performed By: #### 1 [id number], 44125549, 0178360442, 9903821459, 7943754, 10928082, 1808769, 9238251 #### [facility] (DEFAULT) [address] [place] [address] Basophils/100 WBC (Bld) 0.3 % Normal 0.2-2.[address] [facility] Comment on above: Performed By: #### 1 [id number], 13553191, 6158927554, 1657790325, 4445954, 46826622, 4264215, 8017846 #### [facility] (DEFAULT) [address] [place] [address]892 Eos Abs# 0.1 x10 Normal 0.0-0.[address] [facility] Comment on above: Performed By: #### 1 [id number], 62515715, 0882992305, 9979040988, 9236510, 61096017, 7342553, 5204140 #### [facility] (DEFAULT) [address] [place] [address] Eosinophils/100 WBC (Bld) 2.1 % Normal 0.9-4.[address] [facility] Comment on above: Performed By: #### 1 [id number], 13761974, 8134424453, 2262919643, 4074764, 66838615, 4251706, 1894264 #### [facility] (DEFAULT) [address] [place] [address] 75657 Lymph Abs# 1.5 x10 Normal 1.3-2.[address] [facility] Comment on above: Performed By: #### 1 [id number], 12838245, 4474075758, 4781104039, 4892588, 75008785, 3563740, 7571306 #### [facility] (DEFAULT) [address] [place] [address] 30270 Lymphocytes/100 WBC (Bld) 26 % Normal 14-[address] [facility] Comment on above: Performed By: #### 1 [id number], 88759497, 2910313892, 2345618181, 0763136, 10748727, 0691791, 2181244 #### [facility] (DEFAULT) [address] [place] [address]42 Avery Abs# 0.5 x10 Normal 0.0-0.[address] [facility] Comment on above: Performed By: #### 1 [id number], 26844740, 9642628306, 2134558249, 3392759, 22180744, 4720439, 0109287 #### [facility] (DEFAULT) [address] [place] [address] Neut Abs# 3.6 x10 Normal 1.5-9.[address] [facility] Comment on above: Performed By: #### 1 [id number], 04644618, 3401638743, 8822762663, 0640656, 44610499, 9079525, 9140794 #### [facility] (DEFAULT) [address] [place] [address] Neutrophils/100 WBC (Bld) 63 % Normal 44-[address] [facility] Comment on above: Performed By: #### 1 [id number], 84492427, 2425297291, 5702679935, 7311514, 26864843, 8655299, 2076564 #### [facility] (DEFAULT) [address] [place] [address] CBC w/ Auto Diffon Erythrocyte distribution width (RBC) [Ratio] 12.6 % Normal 11.5-15.[address] [facility] Comment on above: Performed By: #### 1 739290770, 36791624, 7886339855, 6660561492, 9033986, 67076071, 5883878, 5014040 #### [facility] (DEFAULT) [address] [place] [address] Hematocrit (Bld) [Volume fraction] 42.4 % High 33.7-40.[address] [facility] Comment on above: Performed By: #### 1 310792106, 81142362, 1168342581, 5279463604, 7265936, 72950833, 0135620, 2644388 #### [facility] (DEFAULT) [address] [place] [address] Hemoglobin (Bld) [Mass/Vol] 14.1 g/dL Normal 11.3-15.[address] [facility] Comment on above: Performed By: #### 1 199886519, 30624575, 1241533268, 2139359219, 7473953, 03062290, 4741868, 6649305 #### [facility] (DEFAULT) [address] [place] [address] Instr WBC 5.8 x10 Invalid Interpretation Code [facility] Comment on above: Performed By: #### 1 [id number], 17103827, 9507279641, 5293178000, 4105849, 93282460, 6226942, 0016182 #### [facility] (DEFAULT) [address] [place] [address] Man Diff? Auto Normal [facility] Comment on above: Performed By: #### 1 769736584, 49196500, 0891814852, 4862310024, 9154741, 90450339, 5225207, 8557551 #### [facility] (DEFAULT) [address] [place] [address] MCH (RBC) [Entitic mass] 28 pg Normal 24-[address] [facility] Comment on above: Performed By: #### 1 054166080, 37537103, 5804425473, 6778414692, 8116174, 79907856, 7400691, 4475774 #### [facility] (DEFAULT) [address] [place] [address] MCHC (RBC) [Mass/Vol] 33 g/dL Normal 26-[address] [facility] Comment on above: Performed By: #### 1 335729836, 76721764, 5734555507, 8953684219, 4824081, 43185929, 5673997, 1574189 #### [facility] (DEFAULT) [address] [place] [address] 92623 MCV (RBC) [Entitic vol] 86 fL Normal 81-[address] [facility] Comment on above: Performed By: #### 1 955644871, 07549913, 3364656354, 5969664896, 4579627, 85538471, 0778829, 0023274 #### [facility] (DEFAULT) [address] [place] [address] 58653 Platelet 264 x10 Normal 138-[address] [facility] Comment on above: Performed By: #### 1 897222959, 92477829, 3717917357, 0562819720, 0988446, 90384070, 7102131, 1273483 #### [facility] (DEFAULT) [address] [place] [address] Platelet mean volume (Bld) [Entitic vol] 9.7 fL Normal 6.3-10.[address] [facility] Comment on above: Performed By: #### 1 237557817, 58342570, 6882534465, 4662505301, 3367334, 80369045, 9477387, 3237759 #### [facility] (DEFAULT) [address] [place] [address] RBC 4.95 x10 Normal 3.70-5.[address] [facility] Comment on above: Performed By: #### 1 578492454, 22548563, 1090680975, 0705604608, 4424062, 60176172, 4243237, 7345540 #### [facility] (DEFAULT) [address] [place] [address] WBC 5.8 x10 Normal 3.5-10.[address] [facility] Comment on above: Performed By: #### 1 155099741, 28827118, 3931654131, 0923306232, 5130233, 46458266, 6032612, 1023559 #### [facility] (DEFAULT) [address] [place] [address] Standardon 10-07-2020 eGFR Non AA >60 Invalid Interpretation Code [facility] Comment on above: Performed By: #### 1 487172109, 26071441, 8296465271, 5545811291, 2079176, 40160302, 3804065, 3656580 #### [facility] (DEFAULT) [address] [place] [address] eGFR AA >60 Invalid Interpretation Code [facility] Comment on above: Result Comment: Certified Drug Counselor 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 Kidney Failure is indicated at less than 15 ml/min/1.73m2 Performed By: #### 1 008476941, 42397665, 7932977752, 1699164998, 5274897, 35167893, 7373238, 7974346 #### [facility] (DEFAULT) [address] [place] [address] Albumin [Mass/Vol] 4.4 g/dL Normal 3.5-5.0 [facility] Comment on above: Performed By: #### 1 116703001, 70479754, 1147381469, 0726396574, 9838016, 58579763, 8081692, 9083275 #### [facility] (DEFAULT) [address] [place] [address] Albumin/Globulin [Mass ratio] 1.5 {ratio} Normal 1.4-2.[address] [facility] Comment on above: Performed By: #### 1 429177190, 20990004, 5827497089, 4783968957, 4254669, 08599480, 0437381, 8536852 #### [facility] (DEFAULT) [address] [place] [address] Alk Phos 65 IU/L Normal 32-[address] [facility] Comment on above: Performed By: #### 1 258373328, 00714097, 3103020953, 0601528511, 5090319, 03367933, 8955958, 0159563 #### [facility] (DEFAULT) [address] [place] [address] ALT [Catalytic activity/Vol] 19.0 U/L Normal 14.0-54.[address] [facility] Comment on above: Performed By: #### 1 914160335, 23433679, 0990773363, 1638476130, 7566224, 13423953, 5989634, 8634357 #### [facility] (DEFAULT) [address] [place] [address] 06041 Anion gap [Moles/Vol] 13.0 mmol/L Normal 5.0-19.[address] [facility] Comment on above: Performed By: #### 1 383579894, 48852447, 9057976675, 2167950000, 5237550, 48871110, 6353297, 0525087 #### [facility] (DEFAULT) [address] [place] [address] 78200 AST [Catalytic activity/Vol] 17 U/L Normal 15-[address] [facility] Comment on above: Performed By: #### 1 273272116, 30691875, 3211306909, 1509685689, 8504272, 15966387, 2524955, 7869812 #### [facility] (DEFAULT) [address] [place] [address] 42440 Bili Total 0.7 mg/dL Normal 0.3-1.[address] [facility] Comment on above: Performed By: #### 1 451782609, 84758770, 1029261543, 2294333828, 4354339, 91102422, 9602473, 8731704 #### [facility] (DEFAULT) [address] [place] [address] 92663 Calcium [Mass/Vol] 9.2 mg/dL Normal 8.9-10.3 [facility] Comment on above: Performed By: #### 1 600030520, 06478041, 7388222730, 1876851342, 3549922, 40836221, 1855435, 3047410 #### [facility] (DEFAULT) [address] [place] [address] 98132 Chloride [Moles/Vol] 107 mmol/L Normal 101-[address] [facility] Comment on above: Performed By: #### 1 521597327, 67149550, 0076831208, 1785590124, 6478378, 88748380, 2190504, 8600305 #### [facility] (DEFAULT) [address] [place] [address] 62928 CO2 [Moles/Vol] 24 mmol/L Normal 21-[address] [facility] Comment on above: Performed By: #### 1 034889640, 96097094, 9023461876, 9450073082, 5086834, 90509744, 5561211, 4394563 #### [facility] (DEFAULT) [address] [place] [address] 93294 Creatinine [Mass/Vol] 0.82 mg/dL Normal 0.60-1.[address] [facility] Comment on above: Performed By: #### 1 217754620, 67168006, 9701672833, 6400792841, 7236100, 91682148, 6338898, 4514049 #### [facility] (DEFAULT) [address] [place] [address] 32907 Globulin (S) [Mass/Vol] 2.9 g/dL Normal 1.5-4.[address] [facility] Comment on above: Performed By: #### 1 527312215, 62710248, 8532368307, 8372081948, 9473303, 37734186, 6566576, 9708829 #### [facility] (DEFAULT) [address] [place] [address] 82206 Glucose [Mass/Vol] 105.0 mg/dL Normal 74.0-118.0 [facility] Comment on above: Performed By: #### 1 820052892, 13994647, 3195553732, 5229233434, 8427263, 97323736, 7036339, 3820922 #### [facility] (DEFAULT) [address] [place] [address] 57436 Osmolality 281 mOsm/L Invalid Interpretation Code [facility] Comment on above: Performed By: #### 1 187201768, 71623419, 3535371522, 6870596196, 3677768, 30806785, 6413714, 1640451 #### [facility] (DEFAULT) [address] [place] [address] 47211 Potassium [Moles/Vol] 3.7 mmol/L Normal 3.6-5.[address] [facility] Comment on above: Performed By: #### 1 403278017, 59910873, 2307206866, 2311220323, 8404353, 88760618, 5027907, 0841219 #### [facility] (DEFAULT) [address] [place] [address] 97963 Protein [Mass/Vol] 7.3 g/dL Normal 6.5-8.1 [facility] Comment on above: Performed By: #### 1 991893903, 48335517, 1844299851, 6225423211, 6964446, 59257424, 3466225, 6748510 #### [facility] (DEFAULT) [address] [place] [address] 03577 Sodium [Moles/Vol] 140.0 mmol/L Normal 136.0-144.0 [facility] Comment on above: Performed By: #### 1 437696431, 31010107, 7615935074, 5825013037, 7274951, 92625171, 8632995, 4940947 #### [facility] (DEFAULT) [address] [place] [address] 40094 Urea nitrogen [Mass/Vol] 16 mg/dL Normal 8-[address] [facility] Comment on above: Performed By: #### 1 199358896, 36094661, 3793617181, 0775846603, 8131195, 18810884, 7303230, 0841800 #### [facility] (DEFAULT) [address] [place] [address] Urea nitrogen/Creatinine [Mass ratio] 20.0 mg/mg High 4.6-16.[address] [facility] Comment on above: Performed By: #### 1 496003074, 82920325, 2855830211, 2062551384, 0430453, 17605265, 4639030, 7347320 #### [facility] (DEFAULT) [address] [place] [address] 59194 Free T4on 10-07-2020 Free T4 [Mass/Vol] 0.94 ng/dL Normal 0.61-1.12 [facility] Comment on above: Result Comment: Spec imens that contain high levels of Biotin may cause false high results Performed By: #### 1 299681273, 80082739, 9595773719, 4440739103, 0010625, 32807185, 0690527, 4638124 #### [facility] (DEFAULT) [address] [place] [address] 93681 HgbA1c Standardon 10-07-2020 .Hb 15.8 Invalid Interpretation Code [facility] Comment on above: Performed By: #### 1 748408335, 73521364, 9490917172, 6978719065, 3964247, 00013863, 1450845, 0496104 #### [facility] (DEFAULT) [address] [place] [address] 95873 .Hgb A1c 0.52 g/dL Invalid Interpretation Code [facility] Comment on above: Performed By: #### 1 164417988, 47249712, 7417321019, 6372689580, 6899516, 08575759, 6930533, 6624740 #### [facility] (DEFAULT) [address] [place] [address] Glucose [Mass/Vol] 102 mg/dL Invalid Interpretation Code [facility] Comment on above: Performed By: #### 1 423485289, 63519317, 2354687940, 6862649900, 5218205, 82702640, 1274447, 6679180 #### [facility] (DEFAULT) [address] [place] [address] HbA1c (Bld) [Mass fraction] 5.2 % Normal 4.6-6.[address] [facility] Comment on above: Performed By: #### 1 058301678, 04258857, 7238093109, 0661299547, 5758777, 49786385, 9736295, 8859655 #### [facility] (DEFAULT) [address] [place] [address] Lipid Panel Standardon 10-07 Cholesterol [Mass/Vol] 106.0 mg/dL Normal 66.0-200.[address] [facility] Comment on above: Result Comment: Zeny rable - Less than 200 mg/dL Borderline high risk - 200-239 mg/dL High risk - 240 mg/dL and over. Performed By: #### 1 417935066, 77018847, 2146371568, 3946821322, 9483034, 22650297, 3262851, 9607135 #### [facility] (DEFAULT) [address] [place] [address] Cholesterol in HDL [Mass/Vol] 38 mg/dL Low 40-[address] [facility] Comment on above: Result Comment: High risk - <40 mg/dL. Performed By: #### 1 884494967, 14159097, 7419957590, 1122775297, 6748804, 83273074, 7222099, 2064685 #### [facility] (DEFAULT) [address] [place] [address] 13443 Cholesterol in LDL [Mass/Vol] 57 mg/dL Normal 1-[address] [facility] Comment on above: Result Comment: Opti mal - Less than 100 mg/dL Borderline high risk - 130-159 mg/dL High risk - 160-189 mg/dL. Performed By: #### 1 188835088, 86445208, 0469011359, 6585288061, 1623918, 43552181, 6249698, 2600110 #### [facility] (DEFAULT) [address] [place] [address] 51944 Cholesterol.total/C holesterol in HDL [Mass ratio] 2.8 {ratio} Normal 0.0-4.[address] [facility] Comment on above: Performed By: #### 1 231555862, 13892137, 9790909775, 0142417924, 2722293, 02752109, 1641809, 9088200 #### [facility] (DEFAULT) [address] [place] [address] 91554 Triglyceride [Mass/Vol] 56.0 mg/dL Normal 0.0-150.[address] [facility] Comment on above: Performed By: #### 1 417692649, 87155204, 6065166023, 0183630452, 7633613, 63376700, 3198000, 5105867 #### [facility] (DEFAULT) [address] [place] [address] 35861 VLDL. 11 mg/dL Normal 5-[address] [facility] Comment on above: Performed By: #### 1 533410336, 38039381, 5456269584, 8641031901, 3001966, 18263600, 5470354, 0443054 #### [facility] (DEFAULT) [address] [place] [address] 01768 TSHon 10-07-2020 TSH Qn 2.03 m[IU]/L Normal 0.45-5.[address] [facility] Comment on above: Result Comment: Gene ral Population (males and non- females, aged 21-88) 0.45 - 5.33 Females, 1st Trimester 0.05 - 3.70 Females, 2nd Trimester 0.31 - 4.35 Females, 3rd Trimester 0.41 - 5.18 Performed By: #### 1 [id number] #### [facility] ([facility]) [address] [place] [address] [id number] Alcohol, Medicalon Ethanol [Mass/Vol] 207.0 mg/dL High <10.0 [facility] BMPon 09-21-2020 Anion gap [Moles/Vol] 18 mmol/L 10 - 20 mmol/L [facility] Calcium [Mass/Vol] 9.4 mg/dL 8.4 - 10. 2 mg/dL [facility] Chloride [Moles/Vol] 109 mmol/L High 98 - 108 mmol/L [facility] Creatinine [Mass/Vol] 1.08 mg/dL 0.40 - 1.10 [facility] GFR/1.73 sq M predicted among non-blacks MDRD (S/P/Bld) [Vol rate/Area] The eGFR should be used for monitoring renal function only and not for medication dosing. [facility] GFR/1.73 sq M.predicted CKD-EPI (S/P/Bld) [Vol rate/Area] 73 >=60 mL/min/1.73 m2 [facility] Glucose [Mass/Vol] 114 mg/dL High 65 - 99 mg/dL [facility] HCO3 [Moles/Vol] 23 mmol/L 21 - 32 mmol/L [facility] Potassium [Moles/Vol] 4.0 mmol/L 3.5 - 5.1 mmol/L [facility] Sodium [Moles/Vol] 146 mmol/L High 135 - 145 mmol/L [facility] Urea nitrogen [Mass/Vol] 13 mg/dL 8 - 25 mg/dL [facility] Urea nitrogen/Creatinine [Mass ratio] 12.0 mg/mg [facility] CBC WITH AUTO DIFFERENTIALon 09-21-2020 Basophils (Bld) [#/Vol] 0.02 10*3/uL [facility] Basophils/100 WBC (Bld) 0.3 % [facility] Eosinophils (Bld) [#/Vol] 0.10 10*3/uL [facility] Eosinophils/100 WBC (Bld) 1.3 % [facility] Erythrocyte distribution width (RBC) [Entitic vol] 11.9 % 11.6 - 14.8 % [facility] Hematocrit (Bld) [Volume fraction] 44.3 % 36.0 - 46.0 % [facility] Hemoglobin (Bld) [Mass/Vol] 14.4 g/dL 12.0 - 16.0 g/dL [facility] Immature granulocytes (Bld) [#/Vol] 0.05 10*3/uL [facility] Immature granulocytes/100 WBC (Bld) 0.60 % [facility] Comment on above: The IG parameter is the percentage of metamyelocytes, myelocytes and promyelocytes. An immature granulocyte count (IG) of 1% or more suggests the possibility of infection, an IG count of 3% is very likely related to an infection. Lymphocytes (Bld) [#/Vol] 2.17 10*3/uL [facility] Lymphocytes/100 WBC (Bld) 27.9 % [facility] MCH (RBC) [Entitic mass] 28.1 pg 26.0 - 34.0 pg [facility] MCHC (RBC) [Mass/Vol] 32.5 g/dL 31.0 - 37.0 g/dL [facility] MCV (RBC) [Entitic vol] 86.4 fL 80.0 - 100.0 fL [facility] Monocytes (Bld) [#/Vol] 0.55 10*3/uL [facility] Monocytes/100 WBC (Bld) 7.1 % [facility] Neutrophils (Bld) [#/Vol] 4.90 10*3/uL [facility] Neutrophils/100 WBC (Bld) 62.8 % [facility] Nucleated RBC (Bld) [#/Vol] 0.00 10*3/uL [facility] Nucleated RBC/100 WBC (Bld) [Ratio] 0.0 % [facility] Platelet mean volume (Bld) [Entitic vol] 9.8 fL 9.4 - 12.4 fL [facility] Platelets (Bld) [#/Vol] 271 10*3/uL [facility] RBC (Bld) [#/Vol] 5.13 10*6/uL [facility] WBC (Bld) [#/Vol] 7.79 10*3/uL [facility] HCG (QUALITATIVE)on 09-21-19 21 Beta HCG ( test) Ql Negative Negative [facility] Interpretation and review of laboratory results Normal [facility] Negative: The result is less than or equal to 5 mIU/mL of HCG. [facility] 09-21-2020 Interpretation and review of laboratory results Abnormal [facility] Vital Signs Date Time Vital Sign Value Performing Clinician Faci lity 06-09-2022 08:46-0400 Body height 185.4 cm Jaswant Christine DO Work Phone: [facility] 06-09-2022 08:46-0400 Body weight 123.38 kg Jaswant Christine DO Work Phone: [facility] 09-21-2020 06:10-0500 Body Temperature 98.8 [degF] [facility] 09-21-2020 06:10-0500 BP Diastolic 76 mm[Hg] [facility] 09-21-2020 06:10-0500 BP Systolic 122 mm[Hg] [facility] 09-21-2020 06:10-0500 Pulse (Heart Rate) 87 /min [facility] 09-21-2020 06:10-0500 Pulse Oximetry 99 % [place] [facility] 09-21-2020 06:10-0500 Respiratory Rate 16 /min [facility] Encounters Encounter Date Encounter Type Care Provider Facility Start: 01-05-2023 End: 02-02-2023 ambulatory SUZIE Romero [facility] Facility:H1 Start: 10-18-2022 End: 10-18-2022 [facility] Start: 10-14-2022 ambulatory SUZIE Romero [facility] Faci lity:H1 Start: 10-10-2022 Encounter for other preprocedural examination SUZIE MENDOZA [facility] Start: 10-08-2022 End: 10-09-2022 ambulatory NADIR ENGLAND Facility:H1 Start: 10-08-2022 End: 10-09-2022 Encounter for other preprocedural examination NADIR ENGLAND Facility:H1 Start: 07-01-2022 End: 07-02-2022 ambulatory SUZIE MENDOZA Facility:[facility]1 Start: 06-23-2022 End: 06-24-[address] SOHAIL COLBY Facility: Start: 06-18-2022 Telephone encounter Jaswant King Endocrinology Comment on above: Insurance Authorizat magalys (Lo) Start: 06-16-2022 End: 06-16-2022 ambulatory Allison Alley Aragon Facility:[facility] Start: 06-16-2022 End: 06-16-2022 ambulatory PHYSICIAN NO [facility] Work Phone: Start: 06-16-2022 End: 06-16-2022 Patient encounter procedure PHYSICIAN NO [facility] [address] Start: 06-09-2022 End: 06-09-2022 ambulatory JASWANT KING Facility:[facility] Start: 06-09-2022 End: 06-09-2022 ambulatory Jaswant Reginaldjuany DO Work Phone: Endocrinology Comment on above: Class 2 obesity due to excess calories without serious comorbidity with body mass index (BMI) of 35.0 to 35.9 in adult (Primary Dx); Chondromalacia of right patella Start: 06-09-2022 End: 06-09-2022 Telemedicine consultation with patient Jaswant King DO Work Phone: [facility] Start: 04-14-2022 End: 04-14-2022 ambulatory ROBERT ERIC Facility:[facility] Start: 04-14-2022 End: 04-14-2022 Patient encounter procedure Robert Eric MD Work Phone: Orthopedics Comment on above: Chronic pain of righ t knee (Primary Dx) Start: 04-07-2022 Orders Only Robert Eric MD Work Phone: Orthopaedics Comment on above: Right knee pain, uns pecified chronicity (Primary Dx) Start: 10-09-2020 End: 10-09-2020 Chart abstracting Gonzalo Diamond Work Phone: Hematology/Oncology Start: 10-07-2020 End: 10-07-2020 Patient encounter procedure External Provider [facility] Start: 10-07-2020 Results Only External Provider [facility] Start: 09-21-2020 End: 09-21-2020 Emergency department patient visit LEILA ROWE [facility] Start: 09-20-2020 End: 09-21-2020 Emergency department patient visit Leila Rowe Work Phone: [facility] Emergency Department Comment on above: Alcoholic intoxicati on with complication (HCC) (Primary Dx); Nausea and vomiting, intractability of vomiting not specified, unspecified vomiting type Start: 05-26-2018 Patient encounter DILLON Kline LAMBERT Jero acility:[facility] Procedures Date Procedure Procedure Detail Performing Clinician Start: 06-16-2022 X-ray of right ankle PH YSICIAN NO FAMILY Start: 10-07-2020 End: 10-07-2020 EXTERNAL LAB External Provider Start: 09-20-2020 Basic metabolic 2000 panel - Serum or Plasma Leila Rowe Work Phone: Start: 09-20-2020 Choriogonadotropin.b eta subunit ( test) [Presence] in Serum or Plasma Leila Dickinson [facility] Work Phone: Start: 09-20-2020 Complete blood count with white cell differential, automated Leila Karey [employer] Work Phone: Start: 09-20-2020 Complete blood count with white cell differential, manual Leila Dickinson [facility] Work Phone: Start: 09-20-2020 Ethanol [Mass/volume ] in Serum or Plasma Leila Dickinson [employer] [facility] Work Phone: Start: 08-17-2012 History of operative procedure on knee S/P knee surgery Robert Eric MD Work Phone: Plan of Treatment Date Care Activity Detail Author Start: 06-09-2022 End: 08-09-2022 CBC panel - Blood by Automated count CBC Lab Routine Class 2 obesity due to excess calories without serious comorbidity with body mass index (BMI) of 35.0 to 35.9 in adult Expected: 06/09/2022, Expires: 08/09/2022 [facility] Work Phone: Comment on above: Expected: 06/09/2022 , Expires: 08/09/2022 Start: 06-09-2022 End: 08-09-2022 Comprehensive metabolic 2000 panel - Serum or Plasma COMP METABOLIC PANEL Lab Routine Class 2 obesity due to excess calories without serious comorbidity with body mass index (BMI) of 35.0 to 35.9 in adult Expected: 06/09/2022, Expires: 08/09/2022 [facility] Work Phone: Comment on above: Expected: 06/09/2022 , Expires: 08/09/2022 Start: 06-09-2022 End: 08-09-2022 Hemoglobin A1c in Blood HGB A1C Lab Routine Class 2 obesity due to excess calories without serious comorbidity with body mass index (BMI) of 35.0 to 35.9 in adult Expected: 06/09/2022, Expires: 08/09/2022 [facility] Work Phone: Comment on above: Expected: 06/09/2022 , Expires: 08/09/2022 Start: 06-09-2022 End: 08-09-2022 Lipid 1996 panel - Serum or Plasma LIPID PANEL BASIC Lab Routine Class 2 obesity due to excess calories without serious comorbidity with body mass index (BMI) of 35.0 to 35.9 in adult Expected: 06/09/2022, Expires: 08/09/2022 [facility] Work Phone: Comment on above: Expected: 06/09/2022 , Expires: 08/09/2022 Start: 05-06-2022 Influenza vaccination INFLUENZA (#1) [facility] Start: 09-05-2021 DEPRESSION ASSESSMENT DEPRESSION ASS ESSMENT [facility] Start: 05-06-2020 Influenza vaccination INFLUENZA (#1) [facility] Start: 2019 PAP TESTING PAP TESTING [facility] Start: 2017 Urine microalbumin profile DTAP,TDAP,TD (1 - Tdap) [facility] Start: 2016 CHLAMYDIA SCREENING (18-24) CHLAMYDIA SCREENING (18-24) [facility] Start: 2016 GC (GONORRHEA) SCREE JANAY (18-24) GC (GONORRHEA) SCREENING (18-24) [facility] Start: 2016 HEPATITIS C SCREENING HEPATITIS C SC REEJANAY [facility] Start: 2016 HIV SCREENING HIV SCREENING [facility] Start: 2014 MENINGOCOCCAL B: Consider based on risk (2 of 2 - Risk Bexsero 2-dose series) MENINGOCOCCAL B: Consider based on risk (2 of 2 - Risk Bexsero 2-dose series) [facility] Start: 10-02-2013 HEPATITIS B (2 of 3 - 3-dose series) HEPATITIS B (2 of 3 - 3-dose series) [facility] Start: 2012 PEDS TO ADULT TRANSI TION ANNUAL ASSESSMENT PEDS TO ADULT TRANSITION ANNUAL ASSESSMENT [facility] Start: 2010 Adult depression screening assessment DEPRESSION SCREENING [facility] Start: 2010 PEDS TO ADULT TRANSI TION INITIAL DISCUSSION PEDS TO ADULT TRANSITION INITIAL DISCUSSION [facility] Start: 2009 HPV VACCINE (1 - 2-d ose series) HPV VACCINE (1 - 2-dose series) [facility] Start: 1998 COVID-19 VACCINE (#1) COVID-19 VACCI NE (#1) [facility] End: 05-14-2023 MRI KNEE WO IVCON RT MRI KNEE WO IVCON RT Radiology Routine Chronic pain of right knee 1 Occurrences starting 04/14/2022 until 05/14/2023 [facility] Work Phone: Comment on above: 1 Occurrences starti ng 04/14/2022 until 05/14/2023 End: 05-07-2023 XR KNEE GENERAL 4V AP BOTH/PA BOTH/LAT/MERC RIGHT XR KNEE GENERAL 4V AP BOTH/PA BOTH/LAT/MERC RIGHT Radiology Routine Right knee pain, unspecified chronicity 1 Occurrences starting 04/08/2022 until 05/07/2023 [facility] Work Phone: Comment on above: 1 Occurrences starti ng 04/08/2022 until 05/07/2023 End: 05-14-2023 XR KNEE POST OP 3V AP/LAT/MERCHANT RIGHT XR KNEE POST OP 3V AP/LAT/MERCHANT RIGHT Radiology Routine Chronic pain of right knee 1 Occurrences starting 04/14/2022 until 05/14/2023 [facility] Work Phone: Comment on above: 1 Occurrences starti ng 04/14/2022 until 05/14/2023 [facility] Immunizations Immunization Date Immunization Notes Care Provider Sven ayanmargarita 09-04-2013 hepatitis B vaccine, unspecified formulation Robert Eric MD Work Phone: [facility] Payers Date Payer Category Payer Self-pay [id number] 2020 Private Health Insurance [facility] [employer] CHO[employer] PLUS [id number] 2020-Present [phone] [address] [address] [place] [address] HMO [id number] 2020 Private Health Insurance [facility] [employer] CHOICE PLUS [id number] 2020-Present [phone] [address] [address] [place] [address] HMO [id number] 2017 Unknown [id number] 2017 Unknown [id number] 1998 Unknown [id number] 1998 Unknown [id number] 1998 Unknown [id number] 1998 Unknown [id number] 1998 Unknown [id number] 1998 Unknown [id number] 1998 Unknown [id number] 1959 Private Health Insurance [id number] 1959 Private Health Insurance [id number] Private Health Insurance [id number] Unknown [id number] Social History Date Type Detail Facility Start: 08-08-2012 Tobacco smoking stat [facility] Unknown if ever smoked [facility] Start: 2000 Sex Assigned At Not on file [facility] Exposure to SARS-CoV -2 (event) Unable to assess [facility] Start: 10-09-2020 End: 04-14-2022 Tobacco smoking status KSIS Never smoker [facility] Start: 10-09-2020 End: 04-14-2022 Tobacco use and exposure Never used [facility] Start: 10-09-2020 End: 04-14-2022 Alcohol intake Current drinker of alcohol (finding) [facility] Start: 1998 Sex Assigned At Female F [facility] Medical Equipment Procedure Code Equipment Code Equipment Origin al Text Equipment Identifier Dates Anchr Sut Gii Qanchr+ Othcrd - [id number] Start: 08-08-2012 Clinical Notes 04-14-2022 to 10-19-2022 Telephone Encounter - José Miguel Garay Adm - 06/18/2022 3:57 PM Galindo King DO - 06/09/2022 8:40 AM Kelly Eric MD - 04/14/2022 10:06 AM EDT Note Date & Type Note Facility 10-19-2022 Note PROCEDURE: XR ANKLE RT 2V COMPARISON: None. HISTORY: Pain FINDINGS: 16 seconds of fluoroscopy. 3 images 3 fluoroscopic images with and without stress. Stress images demonstrate widening of the posterior tibiotalar joint IMPRESSION: Widening of the posterior tibiotalar joint with stress Electronically authenticated by: MCKENZIE POLLOCK Date: 2022-10-19 07:27 [facility] 06-24-2022 Note PROCEDURE: XR ANKLE RT MIN 3 VIEWS, XR FOOT RT MIN 3 VIEWS HISTORY: Pain of right ankle joint ; acute lateral right foot and ankle pain; possible injury from playing tennis COMPARISON: None. FINDINGS: BONES:No fracture, acute abnormality, or significant arthropathy. SOFT TISSUES:Mild lateral soft tissue swelling. EFFUSION:None visible. OTHER: Negative. IMPRESSION: 1. No acute bone abnormality or degenerative joint disease. Electronically authenticated by: SOHAIL COLBY Date: 2022-06-24 06:17 [facility] 06-24-2022 Note PROCEDURE: XR ANKLE RT MIN 3 VIEWS, XR FOOT RT MIN 3 VIEWS HISTORY: Pain of right ankle joint ; acute lateral right foot and ankle pain; possible injury from playing tennis COMPARISON: None. FINDINGS: BONES:No fracture, acute abnormality, or significant arthropathy. SOFT TISSUES:Mild lateral soft tissue swelling. EFFUSION:None visible. OTHER: Negative. IMPRESSION: 1. No acute bone abnormality or degenerative joint disease. Electronically authenticated by: SOHAIL COLBY Date: 2022-06-24 06:17 [facility] 06-18-2022 Miscellaneous Notes Need to call pharmacy for insurance information. Not coming up in either [employer] or covermeds Need pa on lo documented in this encounter [facility] 06-09-2022 Note HNO ID: [id number] Author: Jaswant King, DO Service: ? Author Type: Physician Type: Progress Notes Filed: 06/09/2022 9:16 AM Note Text: [facility] CONSULT - NEW VISIT Macy Borja is here today at request of Dr. Robert Eric specifically for consultation of my opinion in regards to the chief complaint listed below. Correspondence will be shared today via the [facility] electronic health record or through regular mail, where applicable. CHIEF COMPLAINT: Right Knee OA management and medical optimization of its comorbidities (Obesity, elevated BP,) RELATED ENCOUNTERS: 04/14/22 Orthopedic Surgery Encounter HPI copied and Italicized from author Dr. Robert Eric, reviewed and changes have been made or updates noted within my note below. Plan: Referred to get ready 2. Return to clinic after the MRI 3. Needs sizing x-rays at the next visit 4. Weight loss will be paramount and we probably should optimize her . HISTORY OF PRESENT ILLNESS: Macy Borja is a 22 year old female who presents today for weight management/obesity and management of its comorbidities. . Weight Assessment Vitals 05/14/22 WEIGHT in POUNDS 272 lb WEIGHT in KILOGRAMS 123.378 kg HEIGHT in INCHES 73 in. HEIGHT in CM 185.4 cm SITTING BP PULSE OX BODY MASS INDEX 35.89 Was weighed at primary care office and stared phentermine on 05/14/22 Has a follow up appointment with Allison Aragon, EVELYN, [facility] FLUSHER Previously lost 40 lbs in 3 months with phentermine, and gradually gained all of the weight back Nutritional Assessment Do you think that you have a healthy diet? 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 Arthroscopy of the right knee with chondroplasty of the patella and open proximal patellar alignment to include semitendinosus/MPFL reconstruction (modified Ochi technique). Diabetes: no HTN borderline Depression yes, No medications GERD: no Fatty liver disease: no Hernia: no Hypothyroidism: no PCOS: no [place]: no Patient Entered Data PROMIS 10 06/08/2022 In general, would you say your health is: Good In general, would you say your quality of life is: Fair In general, how would you rate your physical health? Very good In general, how would you rate your mental health, including your mood and your ability to think? Poor In general, how would you rate your satisfaction with your social activities and relationships? Fair To what extent are you able to carry out your everyday physical activities such as walking, climbing stairs, carrying groceries, or moving a chair? Completely In general, please rate how well you carry out your usual social activities and roles. (This includes activities at home, at work and in your community, and responsibilities as a parent, child, spouse, employee, friend, etc.) Good How would you rate your pain on average? 6 How would you rate your fatigue on average? Mild How often have you been bothered by emotional problems such as feeling anxious, depressed or irritable? Often PROMIS Adult Short Form-Global Health Score (Physical) 50.8 (Very Good) PROMIS Adult Short Form-Global Health Score (Mental) 31.3 (Fair) No flowsheet data found. Hypoglycemia Questionnaire 06/08/2022 Do you have diabetes? No No flowsheet data found. Obesity Questionnaire 06/08/2022 What was your weight at age [age]? 245 What do you consider your ideal body weight? 189 At what age did you begin to develop a significant weight problem? Adolescence Please indicate any events or factors you believe are related to your weight gain: Eating too much fat and sugar, Stress, Depression, Lack of knowledge about healthful eating and exercise Please select all of your past diets and programs for attempts at weight loss: Self-directed dieting, Medically supervised diet program Have you used [id number] or prescribed weight loss medications? Yes Please select all medications you have used: Phentermine (Adipex) Have you had a surgical procedure for weight l (more content not included)... [facility] 06-09-2022 History of Presen t illness Narrative Images from the original note were not included. [facility] CONSULT - NEW VISIT Macy Borja is here today at request of Dr. Robert Eric specifically for consultation of my opinion in regards to the chief complaint listed below. Correspondence will be shared today via the [employer] electronic health record or through regular mail, where applicable. CHIEF COMPLAINT: Right Knee OA management and medical optimization of its comorbidities (Obesity, elevated BP,) RELATED ENCOUNTERS: 04/14/22 Orthopedic Surgery Encounter HPI copied and Italicized from author Dr. Robert Eric, reviewed and changes have been made or updates noted within my note below. Plan: Referred to get ready 2. Return to clinic after the MRI 3. Needs sizing x-rays at the next visit 4. Weight loss will be paramount and we probably should optimize her . HISTORY OF PRESENT ILLNESS: Macy Borja is a 22 year old female who presents today for weight management/obesity and management of its comorbidities. . Weight Assessment Vitals 05/14/22 WEIGHT in POUNDS 272 lb WEIGHT in KILOGRAMS 123.378 kg HEIGHT in INCHES 73 in. HEIGHT in CM 185.4 cm SITTING BP PULSE OX BODY MASS INDEX 35.89 Was weighed at primary care office and stared phentermine on 05/14/22 Has a follow up appointment with Allison Aragon, CASING FLUSHER, CASING FLUSHER Previously lost 40 lbs in 3 months with phentermine, and gradually gained all of the weight back Nutritional Assessment Do you think that you have a healthy diet? 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 Arthroscopy of the right knee with chondroplasty of the patella and open proximal patellar alignment to include semitendinosus/MPFL reconstruction (modified Ochi technique). Diabetes: no HTN borderline Depression yes, No medications GERD: no Fatty liver disease: no Hernia: no Hypothyroidism: no PCOS: no [place]: no Patient Entered Data PROMIS 10 06/08/2022 In general, would you say your health is: Good In general, would you say your quality of life is: Fair In general, how would you rate your physical health? Very good In general, how would you rate your mental health, including your mood and your ability to think? Poor In general, how would you rate your satisfaction with your social activities and relationships? Fair To what extent are you able to carry out your everyday physical activities such as walking, climbing stairs, carrying groceries, or moving a chair? Completely In general, please rate how well you carry out your usual social activities and roles. (This includes activities at home, at work and in your community, and responsibilities as a parent, child, spouse, employee, friend, etc.) Good How would you rate your pain on average? 6 How would you rate your fatigue on average? Mild How often have you been bothered by emotional problems such as feeling anxious, depressed or irritable? Often PROMIS Adult Short Form-Global Health Score (Physical) 50.8 (Very Good) PROMIS Adult Short Form-Global Health Score (Mental) 31.3 (Fair) No flowsheet data found. Hypoglycemia Questionnaire 06/08/2022 Do you have diabetes? No No flowsheet data found. Obesity Questionnaire 06/08/2022 What was your weight at age [age]? 245 What do you consider your ideal body weight? 189 At what age did you begin to develop a significant weight problem? Adolescence Please indicate any events or factors you believe are related to your weight gain: Eating too much fat and sugar, Stress, Depression, Lack of knowledge about healthful eating and exercise Please select all of your past diets and programs for attempts at weight loss: Self-directed dieting, Medically supervised diet program Have you used [id number] or prescribed weight loss medications? Yes Please select all medications you have used: Phentermine (Adipex) Have you had a surgical procedure for weight loss? No No flowsheet data found. No flowsheet data found. Review of Systems Constitutional: Negative for fatigue, night sweats and recent unintentional weight change. HENT: Negative for trouble swallowing, postnasal drip and thyroid pain (lower neck). Eyes: Negative for visual disturbance. Respiratory: Negative for difficulty breathing. Cardiovascular: Negative for chest pain, leg swelling and claudication. Gastrointestinal: Negative for heartburn, nausea, vomiting, abdominal pain, diarrhea and constipation. Genitourinary: Positive for urgency, frequent urination and menstruating. Negative for slower stream, irregular menses and amenorrhea. Musculoskeletal: Positive for myalgias and bone pain. Negative for muscle weakness. Skin: Negative for skin color change. Neurological: Negative for dizziness, headaches and numbness. Endo/Heme/Allergies: Negative for polydipsia, cold intolerance when others are comfortable, heat intolerance when others are comfortable, hot flashes, flushing and changes in body hair. MEDICATIONS: Current Outpatient Medications on File Prior to Visit Medication Sig drospirenone, contraceptive, (SLYND) 4 mg (28) tab Take by mouth. (Patient not taking: Reported on 05/28/2021 ) No current facility-administered medications on file prior to visit. SIGNIFICANT PAST MEDICAL AND SURGICAL HISTORY: PAST MEDICAL HISTORY Diagnosis Date Factor V Leiden (HCC) Hip pain Right Protein C deficiency (HCC) Seasonal depression (HCC) PAST SURGICAL HISTORY Procedure Laterality Date KNEE SURGERY HX Right 2011 NONE FAMILY HISTORY: No family history on file. SOCIAL HISTORY: Social History Tobacco Use Smoking status: Never Smokeless tobacco: Never Substance Use Topics Alcohol use: Yes Drug use: Never OTIS Modifiable Risk Factors (MoRF) Obesity Unknown Risk High: BMI > 40 Moderate: BMI 30-40 Normal: BMI < 30 Diabetes normal High: A1C > 8 Moderate: A1C 7-8 Normal: A1C < 7 Smoking normal High: Current smoker Normal: Non smoker Anemia normal High: Hgb < 11.5 (women) N/A: Hgb >= 11.5 (women) Nutritional Status normal High: Alb<3.4, or prealb<15, or serum transferrin<200, or total lymphocyte count<1500 Normal: normal labs Narcotics Use normal High:NarxCare >=300 Moderate: 100-299 Normal: 0-99 Obesity: height and/or weight are out of date (There is no height and/or weight reading in the past 365 days, so the below BMI readings may be inaccurate) BMI Readings from Last 3 Encounters: 06/09/22 : 35.89 kg/m 10/10/20 : 35.23 kg/m 11/20/13 : 27.05 kg/m (93 %, Z= 1.46)* * Growth percentiles are based on CDC (Girls, 2-20 Years) data. PHYSICAL EXAMINATION: General Appearance: Well appearing, alert, in no acute distress, well-hydrated, and well nourished Skin: Skin color, texture, turgor normal, no suspicious rashes or lesions noted Psychiatric: mood and affect are appropriate, patient is oriented to time, place and person Cardiovascular: RRR, without murmur and no signs of upper or lower extremity edema Respiratory: Clear to auscultation bilaterally, without wheezing, no labored breathing Neurologic: sensation is grossly intact Lymphatic: no lymph node enlargement noted in the examined area PERTINENT LABORATORY AND IMAGING: All pertinent laboratory results were reviewed. Please see HPI for further details. CLINICAL IMPRESSION / ASSESSMENT: Patient comes today for evaluation and weight management and its comorbidities. Patient has a BMI of BMI 35.89 kg/(m^2) that is consistent with OBESITY CLASS II. Patient tried different weight loss modalities in the past including Phentermine, diet and exercise. Pertinent comorbidities include Knee OA. Patient quality of life is compromised due to current weight and patient is motivated for weight loss. The main risk factors for current weight include increased consumption of high calorie/process foods, irregular eating patterns, suboptimal physical activity. Our goal is to treat obesity to decrease long-term medical complications, comorbidities and improve lifestyle. I discussed with the patient the possibility of starting an interdisciplinary lifestyle intervention-weight loss program involving improvement of her diet, a personalized exercise program and also consider the possibility of using medications to control her appetite in order to help patient to lose weight. Patient is in agreement. 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 -- portion control -- behavior changes -- Appetite control: -- I have also reviewed with the patient the possibility of using weight loss medications in an effort to reduce her appetite. -- I have reviewed the different therapeutic options available including phentermine, phentermine/topiramate, buproprion/naltrexone, and liraglutide -- Exercise -- discussed basic exercise recommendations, the role of exercise on weight loss and maintenance. Discussed the combination of aerobic and resistance exercise. - Fitness and Weight loss goals 4 weeks Weight loss goal is 1-2 pounds a week (8 pounds) Nutrition goal is Start tracking protein Exercise goal is continue to work with skills trainer - Commit Not To Quit Need to change to achieve my goal is get atleast 100grams of protein Willing to do to make my goal happen is Start tracking calories better Might sabotage my plan by over eating, or knee pain limiting exercise Verbal health education was given to patient. Patient verbalizes understanding and agrees with the treatment plan as detailed above. Medical Decision Making: Problems: Moderate: 1+ chronic illnesses with change Data: Unique source(s) for external note(s) reviewed: 1 Risk: Moderate: Drug management Medical Decision Making Level: 4 - Moderate Jaswant King DO documented in this encounter [facility] 04-14-2022 Note HNO ID: [id number] Author: Robert Eric MD Service: ? Author Type: Physician Type: Progress Notes Filed: 04/14/2022 2:40 PM Note Text: DATE OF PROCEDURE: 08/08/2012 SURGEON: Heriberto Ramirez M.D. OPERATION: Arthroscopy of the right knee with chondroplasty of the patella and open proximal patellar alignment to include semitendinosus/MPFL reconstruction (modified Ochi technique). History of present illness: Macy Borja is a 21 year old female who comes in today with a chief complaint of right knee pain. Pain is anterior and anterolateral. She is very active. 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 With ADL's her pain is 4 - 6. On active days her pain is 7 - 9. Takes ibuprofen. Cortisone in March and january. No help. Takes glucosamine. Voltaren gel. Has seen multiple physicians in the past. Saw Dr. Calloway. Saw another doctor in [place]. ALLERGIES No Known Allergies PAST MEDICAL HISTORY Diagnosis Date Factor V Leiden (HCC) Hip pain Right Protein C deficiency (HCC) Seasonal depression (HCC) PAST SURGICAL HISTORY Procedure Laterality Date KNEE SURGERY HX Right 2011 NONE Current Outpatient Medications on File Prior to Visit Medication Sig drospirenone, contraceptive, (SLYND) 4 mg (28) tab Take by mouth. (Patient not taking: Reported on 05/28/2021 ) No current facility-administered medications on file prior to visit. No family history on file. Review of Symptoms: Cardiac: No chest pain Pulmonary: No trouble breathing Constitutional: No fevers, chills GI: No current GI upset Musculoskeletal: As above This is a well appearing, well nourished patient in no acute distress. Head is normocephalic and atraumatic. Patient has white sclera and pink conjunctiva. Mucous membranes are moist. Patient breathes easily and has normal chest wall excursion. Patient has a Normal. affect. Obese. Right knee with crepitance with range of motion. Pain with patellofemoral compression. Pain with squatting. No joint line pain. Trace effusion. Stable knee. Patella is stable. Incisions. Imaging: Plain films from [facility] are personally reviewed by me and demonstrates bilateral patellofemoral degenerative joint disease. Left is worse than right. Impression: Mayc Borja is a 21 year old female with a bad problem. Bipolar chondral disease. Overweight. Prior surgery. Plan: Referred to get ready 2. Return to clinic after the MRI 3. Needs sizing x-rays at the next visit 4. Weight loss will be paramount and we probably should optimize her . Robert Eric MD [facility] 04-14-2022 Note HNO ID: [id number] Author: RT Calista(R) Service: ? Author Type: Technologist Type: Progress Notes Filed: 04/14/2022 9:46 AM Note Text: Radiology Service Progress Note PATIENT NAME: Macy Borja DATE OF SERVICE: April 14, 2022 TIME: 9:46 AM PATIENT IDENTITY VERIFICATION COMPLETED USING TWO (2) IDENTIFIERS: Name and Date of confirmed by patient verbally. FALL SCREENING: Has the patient had 2 falls in the last year or 1 fall with injury or currently using an Ambulatory Assistive Device (Walker, Cane, Wheelchair, Crutches, etc.)? No PATIENT GENDER DATA: Female. status: : No status: NO. PATIENT RELEVANT IMPLANT DATA REVIEWED: Not Applicable RADIOLOGY DEPARTMENT: General X-ray: Exam(s) Completed: Lower Extremity X-Ray(s): Knee, AP / Lat / Tunne / Merchant Right PERIPHERAL IV DATA: Not applicable SIGNED BY: RT Calista(R) April 14, 2022 9:46 AM [facility] 04-14-2022 History of Presen t illness Narrative DATE OF PROCEDURE: 08/08/2012 SURGEON: Heriberto Ramirez M.D. OPERATION: Arthroscopy of the right knee with chondroplasty of the patella and open proximal patellar alignment to include semitendinosus/MPFL reconstruction (modified Ochi technique). History of present illness: Macy Borja is a 21 year old female who comes in today with a chief complaint of right knee pain. Pain is anterior and anterolateral. She is very active. 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 With ADL's her pain is 4 - 6. On active days her pain is 7 - 9. Takes ibuprofen. Cortisone in March and january. No help. Takes glucosamine. Voltaren gel. Has seen multiple physicians in the past. Saw Dr. Calloway. Saw another doctor in [place]. ALLERGIES No Known Allergies PAST MEDICAL HISTORY Diagnosis Date Factor V Leiden (HCC) Hip pain Right Protein C deficiency (HCC) Seasonal depression (HCC) PAST SURGICAL HISTORY Procedure Laterality Date KNEE SURGERY HX Right 2011 NONE Current Outpatient Medications on File Prior to Visit Medication Sig drospirenone, contraceptive, (SLYND) 4 mg (28) tab Take by mouth. (Patient not taking: Reported on 05/28/2021 ) No current facility-administered medications on file prior to visit. No family history on file. Review of Symptoms: Cardiac: No chest pain Pulmonary: No trouble breathing Constitutional: No fevers, chills GI: No current GI upset Musculoskeletal: As above This is a well appearing, well nourished patient in no acute distress. Head is normocephalic and atraumatic. Patient has white sclera and pink conjunctiva. Mucous membranes are moist. Patient breathes easily and has normal chest wall excursion. Patient has a Normal. affect. Obese. Right knee with crepitance with range of motion. Pain with patellofemoral compression. Pain with squatting. No joint line pain. Trace effusion. Stable knee. Patella is stable. Incisions. Imaging: Plain films from [facility] are personally reviewed by me and demonstrates bilateral patellofemoral degenerative joint disease. Left is worse than right. Impression: Macy Borja is a 21 year old female with a bad problem. Bipolar chondral disease. Overweight. Prior surgery. Plan: Referred to get ready 2. Return to clinic after the MRI 3. Needs sizing x-rays at the next visit 4. Weight loss will be paramount and we probably should optimize her . Robert Eric MD documented in this encounter [facility] Evaluation note Diagnosis Right knee pain, unspecified chronicity- Primary [facility] Diagnosis Chronic pain of right knee- Primary [facility]* Diagnosis Class 2 obesity due to excess calories without serious comorbidity with body mass index (BMI) of 35.0 to 35.9 in adult- Primary Chondromalacia of right patella Chondromalacia of patella documented [facility] noteNo assessment information availableOhiohealth [facility] Work Phone: Reason for referral (narrative)* Diagnostic Procedure Only (Routine) - Pending Review Specialty Diagnoses / Procedures Referred By Antwon noe Referred To Contact XR IMAGING Diagnoses Right knee pain, unspecified chronicity Procedures XR KNEE GENERAL 4V AP BOTH/PA BOTH/LAT/MERC RIGHT RADIOLOGIC EXAM KNEE COMPLETE 4/MORE VIEWS Robert Eric MD [address] [place] [address] Xr Imaging Referral ID Status Reason Start Date Expiration Date Visits Requested Visits Authorized [id number] Pending Review Auto-Generat ed Referral 04/08/2022 05/07/2023 1 1 [facility] for referral (narrative)* Diagnostic Procedure Only (Routine) - Pending Review Specialty Diagnoses / Procedures Referred By Contac t Referred To Contact XR IMAGING Diagnoses Chronic pain of right knee Procedures XR KNEE POST OP 3V AP/LAT/MERCHANT RIGHT RADIOLOGIC EXAMINATION KNEE 3 VIEWS Robert Eric MD [address] [place] [address] Xr Imaging Referral ID Status Reason Start Date Expiration Date Visits Requested Visits Authorized [id number] Pending Review Auto-Generat ed Referral 04/14/2022 05/14/2023 1 1 * Consult, Test, Treat (Routine) - Authorized Specialty Diagnoses / Procedures Referred By Contac t Referred To Contact Diagnoses Chronic pain of right knee Procedures ENDOCRINE MEDICAL WEIGHT MANAGEMENT OFFICE/OUTPATIENT [facility] 60-74 MINUTES Robert Eric MD [address] [place] [address] Referral ID Status Reason Start Date Expiration Date Visits Requested Visits Authorized [id number] Authorized PCP Requested Referral 04/14/2022 04/14/2023 1 1 * MRI/CT (Routine) - Pending Review Specialty Diagnoses / Procedures Referred By Contaziza t Referred To Contact MR IMAGING Diagnoses Chronic pain of right knee Procedures MRI KNEE WO IVCON RT MRI ANY JT LOWER EXTREM W/O CONTRAST MATRL Robert Eric MD [address] [place] [address] Mr Imaging Referral ID Status Reason Start Date Expiration Date Visits Requested Visits Authorized [id number] Pending Review Auto-Generat ed Referral 04/14/2022 05/14/2023 1 1 [facility] Summary Purpose Family History No Family History Records FoundNo Family History Records FoundNo Family History Records FoundNo Family History Records FoundNo Family History Records FoundNo Family History Records Found Advance Directives No Advanced Directives Records FoundDocuments on File Type Date Recorded 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 Walk-in primary care visits-- but can also schedule an appointment to establish a new family doctor [facility] [place] [address] [facility] [address] Open Tuesday-Tuesday, 9am-9pm * Attachments The following attachments cannot be sent through Care Everywhere. * Alcohol Intoxication: Acute (Setswana) documented in this encounter Assessments Diagnosis Alcoholic intoxication with complication (HCC)- Primary Nausea and vomiting, intractability of vomiting not specified, unspecified vomiting type Reason for Referral Specialty Diagnoses / Procedures Referred By Antwon noe Referred To Contact Diagnoses Class 2 obesity due to excess calories without serious comorbidity with body mass index (BMI) of 35.0 to 35.9 in adult ReginaldJaswant harringtonDO [address] [place] [address] Referral ID Status Reason Start Date Expiration Date V isits Requested Visits Authorized [id number] Pending Review 1 1 Additional Source Comments INFORMATION SOURCE (unrecogn ized section and content) DATE CREATED AUTHOR 05/06/2018 [facility] DATE CREATED AUTHOR AUTHOR'S ORGANIZ ATION 09/28/2020 [facility] DATE CREATED AUTHOR AUTHOR'S ORGANIZ ATION 09/22/2021 [facility] DATE CREATED AUTHOR AUTHOR'S ORGANIZ ATION 06/29/2022 [facility] DATE CREATED AUTHOR AUTHOR'S ORGANIZ ATION 07/07/2022 [facility] DATE CREATED AUTHOR AUTHOR'S ORGANIZ ATION 02/11/2023 [facility] Source Comments (unrecognize d section and content) In the event this informatio n is protected by the Federal Confidentiality of Alcohol and Drug Abuse Patient Records regulations: The Federal rules restrict any use of the information to criminally investigate or prosecute any alcohol or drug abuse patient.[facility] the event this information is protected by the Federal Confidentiality of Alcohol and Drug Abuse Patient Records regulations: The Federal rules restrict any use of the information to criminally investigate or prosecute any alcohol or drug abuse patient.[facility] Hospital[facility] the event this information is protected by the Federal Confidentiality of Alcohol and Drug Abuse Patient Records regulations: The Federal rules restrict any use of the information to criminally investigate or prosecute any alcohol or drug abuse patient.[facility] HospitalIn the event this information is protected by the Federal Confidentiality of Alcohol and Drug Abuse Patient Records regulations: The Federal rules restrict any use of the information to criminally investigate or prosecute any alcohol or drug abuse patient.[facility] Hospital[facility] the event this information is protected by the Federal Confidentiality of Alcohol and Drug Abuse Patient Records regulations: The Federal rules restrict any use of the information to criminally investigate or prosecute any alcohol or drug abuse patient.[facility] Hospital[facility] the event this information is protected by the Federal Confidentiality of Alcohol and Drug Abuse Patient Records regulations: The Federal rules restrict any use of the information to criminally investigate or prosecute any alcohol or drug abuse patient.[facility] Hospital[facility] the event this information is protected by the Federal Confidentiality of Alcohol and Drug Abuse Patient Records regulations: The Federal rules restrict any use of the information to criminally investigate or prosecute any alcohol or drug abuse patient.[facility] Reason for Visit (unrecogniz ed section and content) Reason Comments Alcohol Intoxication Reason Comments New Reason Comments Medical Weight Management Reason Comments Insurance Authorization Milka Lopez RN - 09/21/2020 6:31 AM Milka Nicolas RN - 09/21/2020 6:10 AM Milka Nicolas RN - 09/21/2020 5:30 AM Milka Nicolas RN - 09/21/2020 4:30 AM EST ED Notes (unrecognized secti on and content) Lobo, pt friend, contacted regarding pt dispo. Lobo sts he lives just across the street and will walk to the ED entrance to picker and packer patient. Pt provided with belongings and a clean hospital gown/blankets to leave department in. Reviewed AVS with pt, educated pt regarding medications and follow up instructions, encouraged pt to fill out follow-up survey and return upon discharge, pt verbalized understanding. This RN answered all pt questions, no further needs expressed at this time. IV removed with no complications. VSS, NAD, AOx4, GCS 15. Officer Maximus takes patient to ED entrance via wheelchair. Pt provided with water and snacks. Pt reports she feels much better and would like to go home if able. Pt deemed clinically sober by this RN. Dr. Rowe notified. Will attempt to reach patient contact to pick pt up or provide a ride to address given by contact. Pt sleeping on cart in no acute distress. Resps even and unlabored. Skin warm and dry. Siderails up x2. Pt remains in lavender gown. Will continue to monitor. Pt sleeping on cart in no acute distress. Resps even and unlabored. Skin warm and dry. Siderails up x2. Pt remains in lavender gown. Will continue to monitor. Pt ambulates to bathroom with the assistance of this RN. Gait is upright, even and steady. Pt A&O x 3, GCS 15. Pt assisted back into bed. Lavender gown intact. Will continue to monitor. Pt sleeping on cart in no acute distress. Resps even and unlabored. Skin warm and dry. Siderails up x2. Pt remains in lavender gown. Will continue to monitor. Patient has identified the following person as a contact to update throughout their stay: Name: Lobo Acevedo Relationship: Friend Pt resting on cart in no acute distress. Resps even and unlabored. Skin warm and dry. Siderails up x2. Pt remains in lavender gown. Pt denies any additional needs at this time. Will continue to monitor. This RN assumes care for pt at this time. Pt resting on cart in no acute distress. Resps even and unlabored. Skin warm and dry. Pulses palpable x 4. Pt A&O x 2, being disoriented to her location and GCS is 14. Pt is tearful and appears anxious but cooperative. Pt remains in lavender gown. Pt updated on POC. Siderails up x2. Pt denies all complaints. Pt denies any additional needs at this time. Will continue to monitor. PCP - No primary care provider on file. [phone] Chief Complaint Patient presents with Alcohol Intoxication HPI: HPI 20 yo female arrives via EMS after having an elvin of drinking with friends. Friends called 911 after pt started vomiting. Pt shakes her head yes to drinking too much . Pt arrives with vomit in hair and on clothing. She is maintaining her own airway. Review of Systems All other systems reviewed negative except as mentioned above. Review of Systems Unable to perform ROS: Other (intoxicated) Constitutional: Negative for fever. Gastrointestinal: Positive for vomiting. Past Medical History Reviewed No past medical history on file. Past Surgical History Reviewed No past surgical history on file. Family History Reviewed and not pertinent No family history on file. Social History Reviewed Social History Socioeconomic History Marital status: Not on file Spouse name: Not on file Number of children: Not on file Years of education: Not on file Highest education level: Not on file Occupational History Not on file Social Needs Financial resource strain: Not on file Food insecurity Worry: Not on file Inability: Not on file Transportation needs Medical: Not on file Non-medical: Not on file Tobacco Use Smoking status: Not on file Substance and Sexual Activity Alcohol use: Not on file Drug use: Not on file Sexual activity: Not on file Lifestyle Physical activity Days per week: Not on file Minutes per session: Not on file Stress: Not on file Relationships Social connections Talks on phone: Not on file Gets together: Not on file Attends jain service: Not on file Active member of club or organization: Not on file Attends meetings of clubs or organizations: Not on file Relationship status: Not on file Other Topics Concern Not on file Social History Narrative Not on file Allergies Reviewed No Known Allergies Medications Patient's Medications No medications on file Physical Exam Initial Vital Signs BP 135/76 Pulse 76 Temp 98 F (36.7 C) (Oral) Resp 18 LMP (LMP Unknown) SpO2 100% Physical Exam Vitals signs and nursing note reviewed. Constitutional: General: She is not in acute distress. Appearance: Normal appearance. She is well-developed. She is obese. She is not ill-appearing, toxic-appearing or diaphoretic. HENT: Head: Normocephalic and atraumatic. Right Ear: External ear normal. Left Ear: External ear normal. Nose: Nose normal. Mouth/Throat: Mouth: Mucous membranes are moist. Eyes: General: No scleral icterus. Right eye: No discharge. Left eye: No discharge. Extraocular Movements: Extraocular movements intact. Conjunctiva/sclera: Conjunctivae normal. Pupils: Pupils are equal, round, and reactive to light. Neck: Musculoskeletal: Normal range of motion and neck supple. Cardiovascular: Rate and Rhythm: Normal rate and regular rhythm. Pulses: Normal pulses. Heart sounds: Normal heart sounds. Pulmonary: Effort: Pulmonary effort is normal. No respiratory distress. Breath sounds: Normal breath sounds. Abdominal: General: Bowel sounds are normal. Palpations: Abdomen is soft. Musculoskeletal: Normal range of motion. Skin: General: Skin is warm and dry. Neurological: General: No focal deficit present. Mental Status: She is alert and oriented to person, place, and time. Psychiatric: Mood and Affect: Mood normal. Behavior: Behavior normal. Thought Content: Thought content normal. Judgment: Judgment normal. MDM: pt will be monitored until clinically sober with safe ride home. Basic labs obtained with zofran provided. Iv hydration provided. Medical hold in place until clinically sober. Procedures: Procedures Labs Reviewed ALCOHOL, MEDICAL CBC AND DIFFERENTIAL Narrative: The following orders were created for panel order CBC w/ Diff. Procedure Abnormality Status --------- ------ CBC Auto Differential[[id number]] Please view results for these tests on the individual orders. BASIC METABOLIC PANEL CBC WITH AUTO DIFFERENTIAL No orders to display Vital Signs During ED Visit (as charted by nursing) Patient Vitals for the past 24 hrs: BP Temp Temp src Pulse Resp SpO2 09/20/20 2338 98 F (36.7 C) Oral 09/20/20 2337 135/76 76 18 100 % IMPRESSION: 1. Alcoholic intoxication with complication (HCC) This patient was independently seen and evaluated along with the Emergency Medicine Physician. All medical decision making was completed along with the physician. Christina Ha CNP 09/20/20 2348 Pt presents via ems for alcohol intoxication Bed: 19 Expected date: Expected time: Means of arrival: Comments: Medic 2 dials etoh documented in this encounter ED Update Note - Leila Rowe MD - 09/21/2020 6:21 AM ESTED Attestation Note - Leila Rowe MD - 09/21/2020 3:39 AM EST Miscellaneous Notes (unrecog nized section and content) On reevaluation this morning patient is clinically sober. She is amatory with a steady gait. She has had no more emesis in the ED. Patient states she feels well. Patient was discharged with a sober ride. Leila Rowe MD I personally interviewed the patient. I personally examined the patient. I discussed the patient with PARACHUTE PANEL JOINER/PA. I agree with the PARACHUTE PANEL JOINER/PA treatment plan. I agree with the PARACHUTE PANEL JOINER/PA plan of care. I agree with the PARACHUTE PANEL JOINER/PA dispo as documented. A 20-year-old female was brought in by EMS after patient started having nausea and vomiting after drinking alcohol tonight. Patient states she was drinking [place] ice tea with her friends. Patient appears intoxicated. She is alert maintaining her airway. She has vomit in her hair. Sodium 146. Alcohol 207. Glucose 114. White count normal. Patient given IV fluids and Zofran. She had no more emesis in the ED. Patient becoming more alert and clinically sober throughout her stay. Plan for discharge when clinically sober. Leila Rowe MD 09/21/20 documented in this encounter Care Teams (unrecognized sec tion and content) Straw Hat Brim Raiser Operator Relationship Specialty Start Date End Date Allison Aargon, CASING FLUSHER [address] [place] [address] PCP - General Family Practice 04/29/21 Roosevelt Costa [address] [place] [address] Referring Orthopedics 04/29/21 Pako Ahmadi [address] [place] [address] Referring Orthopedics 03/04/22 Straw Hat Brim Raiser Operator Relationship Specialty Start Date End Date Allison Aragon, CASING FLUSHER [address] [place] [address] PCP - General Family Practice 04/29/21 Roosevelt Costa [address] [place] [address] Referring Orthopedics 04/29/21 Pako Ahmadi [address] [place] [address] Referring Orthopedics 03/04/22 Straw Hat Brim Raiser Operator Relationship Specialty Start Date End Date Allison Aragon, CASING FLUSHER [address] [place] [address] PCP - General Family Medicine 04/29/21 Roosevelt Costa [address] [place] [address] Referring Orthopedics 04/29/21 Pako Ahmadi [address] [place] [address] Referring Orthopedics 03/04/22 Team Status: Inactive Member Role Status Dates PHYSICIAN NO FAMILY Primary Care Provider Active Allison Aragon Attending Provider Active Team Status: Active Member Role Status Dates PHYSICIAN NO FAMILY Primary Care Provider Active Straw Hat Brim Raiser Operator Relationship Specialty Start Date End Date Allison Aragon, CASING FLUSHER [address] [place] [address] PCP - General Family Medicine 04/29/21 Roosevelt Costa [address] [place] [address] Referring Orthopedics 04/29/21 Pako Ahmadi [address] [place] [address] Referring Orthopedics 03/04/22 Goals (unrecognized section and content) Goals may be documented in a n alternate section FOR RECORDS PERTAINING TO PATIENTS WHO ARE OR HAVE BEEN ENROLLED IN A CHEMICAL DEPENDENCY/SUBSTANCEABUSE PROGRAM, SOME INFORMATION MAY BE OMITTED. This clinical summary was aggregated from multiple sources. Caution should be exercised in using it in the provision of clinical care. This summary normalizes information from multiple sources, and as a consequence, information in this document may materially change the coding, format and clinical context of patient data. In addition, data may be omitted in some cases. CLINICAL DECISIONS SHOULD BE BASED ON THE PRIMARY CLINICAL RECORDS. [facility] [employer] provides no warranty or guarantee of the accuracy or completeness of information in this document.
== END 2023-10-05 15:42 | disposition home or self-care (01) ==
LOC: RAD 15:41
PROVIDERS: PCP Nurse Practitioner; Visit Provider Podiatrist Foot & Ankle Surgery
DX: M72.2 Plantar fascial fibromatosis (principal)
CPT/HCPCS: 73630

== ENCOUNTER 2023-10-12 08:12 | Outpatient (OUT) | payer OTHER, SELFPAY ==
--- OUTSIDE RECORDS SUMMARY | 2023-10-12 08:16 | XMS_ITS | CCD ---
Author Name Unknown Address [address] [place] [address] Organization [facility] Care Team Providers Care Tow Driver Name Role Phone DILLON VERDIN Unavailable Unavailable [facility] Unavailable Unavailable [facility] Unavailable Unavailable DIALS, LEILA DICKINSON Attending Unavailable DIALS, LEILA DICKINSON Admitting Unavailable NO, PHYSICIAN Primary Care Unavailable Talat Pineda Primary Care Provider [phone] No, Physician Primary Care Provider Unavailabl e Mahesh RIVAS, Allison Moreno Primary Care Provider [phone] Roosevelt Costa Unavailable Pako Ahmadi Unavailable AichAllison navarro CNP Primary Care Provider Roosevelt Costa Unavailable Pako Ahmadi Unavailable AichholAllison woodall CNP Primary Care Provider [phone] Roosevelt Costa Unavailable [phone] Pako Ahmadi Unavailable NO FAMILY, PHYSICIAN Primary Care Provider Unava ilable Allison Aragon Attending Provider Allison Aragon Attending Unavailable Allison Aragon Admitting Unavailable NO FAMILY, PHYSICIAN Primary Care Unavailable ROBERT ERIC Referring Unavailable ALLISON ARAGON Primary Care Unavailable ROBERT ERIC Attending Unavailable PAKO AHMADI Referring Unavailable ALLISON ARAGON Primary Care Unavailable JASWANT KING Attending Unavailable ALLISON RAAGON Primary Care Unavailable SUZIE MENDOZA Attending Unavailable EVELYN ARAGON Primary Care Unavailable SUZIE MENDOZA D Admitting Unavailable SUZIE MENDOZA Consulting Unavailable KELLY, SUZIE Romero Admitting Unavailable AICHHOLZ, [facility] Primary Care Unavailable KELLY, SUZIE Romero Attending Unavailable ALEJANDRO ANDINO Consulting Unavailable DR SOHAIL COLBY Consulting Unavailable KELLY, SUZIE Romero Admitting Unavailable AICHHOLZ, [employer] ALLISON Primary Care Unavailable KELLY, SUZIE Romero Attending Unavailable SUZIE MENDOZA Consulting Unavailable KELLY, SUZIE Romero Attending Unavailable AICHHOLZ, [facility] Primary Care Unavailable HIGHLANDER, SUZIE Romero Admitting Unavailable NADIR ENGLAND Consulting Unavailable RYANANDER, SUZIE Romero Admitting Unavailable AICHHOLZ, [employer] ALLISON Primary Care Unavailable HIGHLMANAN, SUZIE Romero Attending Unavailable KELLY, SUZIE Romero Attending Unavailable DR MCKENZIE POLLOCK V Consulting Unavailable AICHHOLZ, [facility] Primary Care Unavailable HIGHLANDER, SUZIE Romero Admitting Unavailable HIGHLMANAN, SUZIE Romreo Consulting Unavailable BENITA RESENDIZ Consulting Unavailable YANI GRIER Consulting Unavailable BG ANDINO Unavailable Allergies Allergy Classification Reported Allergen(s) Allergy Type Date of Onset Reaction(s) Facility (1 source) Latex Drug allergy (disorder) 08-30-2020 [facility] Repository (2 sources) Latex Drug allergy (disorder) [facility] Repository Medications Current Medications Medication Drug Class(es) [...] 11-01-2011 Episodic Other aftercare (1 source) 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 Alejandrina Monk Glucose [Mass/Vol] 96 mg/dL Normal 74-106 [facility] Comment on above: Performed By: #### P OCGLUC #### [facility] [address] [address] [address] Alejandrina Monk PREG QUANT HCGon 10-18-2022 HCG QUANT 3 mIU/mL Normal [facility] Comment on above: Performed By: #### P REGQNT #### [facility] [address] [address] [address] Alejandrina Mokn HCG RANGE SEE BELOW Normal [facility] Comment on above: Result Comment: 5-50 0.2-1 WEEK 50-500 1-2 WEEKS 100-5,000 2-3 WEEKS 500-10,000 3-4 WEEKS 1,000-50,000 4-5 WEEKS 10,000-100,000 5-6 WEEKS 15,000-200,000 6-8 WEEKS 10,000-100,000 2-3 MONTHS Performed By: #### P REGQNT #### [facility] [address] [address] [address] Alejandrina Monk MRI ANKLE RT WO [...] by: ALEJANDRO ANDINO Date: 2022-07-05 09:26 Normal [facility] 06-18-2022 [facility] Telephone (ENDOMN) MACY BORJA ([id number]) 2000 F Date Time Provider Department 06/18/22 JASWANT KINGAR During your visit today, we recorded the following information about you: José Miguel Garay [facility] 06/18/2022 4:05 PM Signed Need to call pharmacy for insurance information. Not coming up in either [employer] or [employer] Need pa on wegovy José Miguel Garay [facility] 07/06/2022 2:48 PM Addendum Initiated PA for Wegovy through [employer] via [employer] Christensen: [id number] Waiting for next steps Need to call insurance for determination PA Christensen for Wegovy José Miguel Garay [facility] 07/06/2022 3:02 PM Addendum Called [employer] and PA's need to go through [employer]. Unable to process PA electronically. Requested to fax chart notes to [phone] Transmitted Successfully Can call for determination at [phone] Can take up to 10 days for determination Spent 6 minutes on the call José Miguel Elmore 07/06/2022 3:03 PM Signed Called [facility] for status of PA for Wegovy. [...] by JOSÉ MIGUEL SCOTT on 06/18/22 Normal [facility] XR ankle RT min 3V*on 2021 XR ankle RT min 3V* [facility] Main [place] [id number] XRay Report Signed Patient: Macy Borja MR#: [id number] : 2000 Acct:[id number] Age/Sex: 22 / F ADM Date: 06/16/22 Loc: ICXD Room: Type: [facility] Attending Dr: Allison Aragon Copies to: BEAU [...] Rosana Denise M.D.06/16/2022 2:30 PM Dictation Location: [place] [address] Transcribed By: [facility] 06/16/22 143 Dictated By: Rosana Denise MD 06/16/22 1429 Signed By: 06/16/[address] [facility] CNOVon 04-14-2022 CNOV Office Visit (ORMIDD ) MACY BORJA ([id number]) 2000 F Date Time Provider Department 04/14/22 [...] Saw Dr. Calloway. Saw another doctor in [place]. ALLERGIES No Known Allergies PAST MEDICAL HISTORY [...] is stable. Incisions. Imaging: Plain films from [facility] are personally reviewed by me and demonstrates [...] Robert Eric MD Referring Provider: PAKO AHMADI [[id number]] Allergies As of Date: 04/14/2022 (No Known Allergies) Date Reviewed: 04/14/2022 Reviewed by: Maggie Rodriguez Ma - Fully Assessed Reason for Visit: New [[id number]] Primary Visit Diagnosis:Chronic pain of right knee [M25.561, G89.29] Order(s):MRI KNEE WO IVCON RT [[id number]] Order #: [id number] FUTURE ENDOCRINE MEDICAL WEIGHT MANAGEMENT [[id number]] Order #: [id number]: 1 FUTURE XR KNEE POST OP 3V AP/LAT/MERCHANT RIGHT [[id number]] Order #: [id number] FUTURE Prescriptions as of 04/14/2022 - drospirenone, contraceptive, (SLYND) 4 mg (28) tab Take by mouth. 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 Follow-up and Disposition History for Encounter Date Provider Department Center 04/14/2022 [id number] ERIC [facility] Encounter Status:Closed by ROBERT ERIC on 04/14/22 Normal [facility] XR KNEE 4V AP/PA BOTH+LAT/ME R RTon [...] knee. IMPRESSION: POSTSURGICAL AND MILD DEGENERATIVE CHANGE Machine Cloth Measurer: PSCB Transcribe Date/Time: Apr 14 2022 9:49A Dictated by : AUDREY ESTES MD This examination was interpreted and the report reviewed and electronically signed by: AUDREY ESTES MD on Apr 14 2022 9:50AM EST [id number] Normal [facility] CNPNon 04-07-2022 CNPN Telephone (ORTHMN) ROCHELLEMACY ([id number]) 2000 F Date Time Provider Department 04/07/22 [...] Status:Closed by ALLISON RUGGIERO on 04/07/22 Normal [facility] Consent Formson 09-11-2021 Consent Forms [id number]#[facility] Pulmonary Procedure [id number]#1 [facility] C[facility] Summaryon 09-07-2021 [facility] ZlxfmxkiQMx1ePq+PGhlY WQ+VJ4ONWNoF13lgGOrhH 1FS8vYMX6WYTNKPUMKMJ4 YXN8omMX8HSgwW9ZpewKf DprbzSNmTX04LEp0VDG0v FebKQxmmP2qfWPeA4j6Jf BbCC36eU37NRqrLUTuYpC 3LjZpbjsgbWFy X5ubGxGgxQLeUkm+PHRhY mxlIHdpZHRoPScxMDAlJy OamQctFI4vTb8dHQHkFTH vbGxhcHNlOiBj f3znWNAsCLxjEA6iaCijN 9KsrNY7EYNwa7e9Zn25rM I+JLLxPCZ1vXthFYake70 5GtAul8dyMJW5 pVGkARdkYXW4D08xf3M9L LAqWCTzGRS0eJL0dJ5oiU ewfdxcE9GiySFnHoU1MQB 0bGAhlB2yhLko wkubqB6cSto+I23BZV7GU PDAMW0NTwv6M8OgAqsagD I+KM22LODmSK56vLNmlGL uu7ejwPk3JkHk QIRhQIG2eAwgYUzrg4MgW IFiJ06dhVOqo9Y5XMGvgD fkaYMqOaZlcRA7rB6uZYx sigyew4vlshbp Naqhr2uovq93rS51P74wI QkqMKVoAFN6FQAqLHMtxV lmac5hjV2oYe2+OSptn5o xl5vvgYj0JnCk AKTdzfBiaZbxLRA9l3OdU v40Y4QqmXbhd7GqWyb3rj 76hMFfo2H6kGZ8SCzyWLD lbF0dYOmsGvE2 VSBeYvYxfT16iIBvJVwcG q1azIydkXhaII2uQSAagk ypDBJloI1lPPJtqIZocOz hUR0jHJKhupfn i755TlTnZJS8YLNowHHcH 2EffN0pUrUoTXZiNUWgZ7 ZzmLRpQNgdK163RMqyEjA 2KRRuqoRdM8Jw TAEfdMbqKjX4n0Y3Jx7Sz 7KdhlapHSQ7UZqwXKVwEn ReBpEaHhE7N1DyQed3JGE huRqlUR5eT7No XLHkyrctkxbyiZZ4PVTaA YEtcT38qSPbVRrzCj0of1 F9s042UTXbJHMqcB27Eu1 udDogMTBwdCBU aP7oezksa7hsikzkQgWwR SCoMRk2OAe0SSAffWmxMf SwXRF0FvW0MPK7zODepT7 vwOrdacnveC7q Oyc+N03ngK0vDKS0LMP0d ncnVNGxugXiOM45WC10O4 RyPjwvdGFibGU+PGRpdiB koJojBV7kXxFb i0knv2GeOPoxC4NuOFXzT EvrKpq6DYSgMUY6zAS1bO 6eDBTrWZqer5R0fXJ8V1Q uydZdos6mt0wd UYUdTUivI53imNJhx3I4F PIopIM3XLKodMbzYeLrkM 93Oyc+BWSygVqrb2OiLvi aq3mwl8moeFp7 ZeJoAEAkaxSzuOyzTXV9t 7GbDw90T37cOOgiNEYlFY AiYNLhLOOuaQehiy1vqZ3 wIi8+PGNvbCB3 tJK3bT8xCZOgXoO8IHfeM 292BuEkbHLjOznth7bmd0 mjrEn9DlUfUXHbleEwfOs lZCI3e2JaSv43 D41xVJdfSGPcDLPgQUMmB HHbtDmtll7sxK1wSr7+PC 1em7yvyz61xL88kED+PHR cIHZ3xElxOTqx FJOooK7yRXcmKgC1TNGvB yCsoD94mRJvVWbzNj7urH rplJzbGZ0sPQVwwozsz90 5SyZtz6tpMZWe qOKvRQjjXXC8N34px7M4N BXaPRLdUIG6sWQ7pF3zfY lnbjogbGVmdDsgdmVydGl aXDfaKJxlZ207 IHRvcDsnPlBhdGllbnQgT oFwQUr8R8BtPcp2FXJdsB upQN1laDCsBCzmOe5rgTs cyKcaLW6xCGYh cazna178HoPzz1rwTYCqd KNqAIqvKBA0T06se6M7BY HrKHOhSHJ8gSS4eM9szBg nbjogbGVmdDsg ttAurUnqSCgtURaxO679S HRvcDsnPkJpcnRoIERhdG T7QD90WE76gPIbk0V3fRW 5N0EgSZZnoduk vjbcgTI0RILkJMHzhF88O y9fhYuoFl1eHYHlODK3PB ZdvEOoW4AdsO3eRpQpUPJ eIRBnR5LquJPk ZSmiO959DHaqLhT9TSVju vYoN6LgKEWdnGnsRhP1x5 M5Fd8UM8C2VX64HO92aYR wu0O4jQT0X7Fo WMMpysmhatbgsNV9LUMyR UIfeY19Pr9ulTlqFd2mUF UuDJX5DEFqlQObT6AbfA7 yOiAjMDAwMDAw H9RtwMHwCMbnC095XJetX sJ7DXKmluCnX2WsXIIuhF ouUxA7f1K0Ww4LPXg8FU8 0IS34zLNit9Y7 gCR3P7TbIUDrvvfyrabbu TP1ACGnQCPwfA42Sx9lhO nyUc6yAJBsNHU4KWFmiHM gE3IhnV7nJpDn IJPaUMNsQ4YobPGwLTwlE 563ZShnPaP5KPFhsnWgQ4 DkTEPakVwxVhM0i6G8Za1 UUNFvRF74QOR9 wVB7MF01HX27T8AmFwouc GFibGU+PHRhYmxlIHdpZH RoPScxMDAlJyBzdHlsZT0 vZw6wHRHlTCLm bBypzTAlWzDou8qlVWVwW FtgIA0giYmhQ3TgbYQ4HK Ucx8j6Gl74S80cS3LiuST +KHWolTG2rEZ6 aQ7cMxKkYgM2ANkpB582O hMujZFbYiiuv6ave0psmD w9IfY6BGMyqsOxrFzhIVO 9w4RpRr68T18t IHdpZHRoPSIxNSUiIHZhb Ninpw1jrN3pKh3+PGNvbC W2jWY6hX3lJwKdEfY5AOb zJ177SxTqvJJw Yjphi0vfw5mnsWy3LbFnG CUpwoQmuNzvBZD1i3WnIl 84F4MftUiza0PdQqy2gg2 7aTDbt9Q8cBT9 O3EmEXTtqptddPCupEziB E7xJKQwgwqwEVGgaD8fTG WtI3e3TwVwKeF7FZflE3Q uagD5YJDgnJUg VIpvFXL5F98ny2J6PBUdV ZEjTOR1iBZ6mN0siWsjft ogbGVmdDsgdmVydGljYWw yTNptE807YZKj lQsfJUJwdT0jRIUtgABpc ZsdQD4mCXMdqnnnNd2LVe RJTiwgQURFTElORSBNQVJ JRTwvdGQ+PHRk LZM7vYdmSLeyGYQpiZ1jK DNgI3x5WtLwMuX9IVnkH0 KdVCYhxuanZj19bQ1xMtN bUmQ3FTxrN7Fo xjZ0PDAnwFBvXYijVVO4S 43yz0U0UINkKCKrZAX6vQ P1bV0oeGocvlfmhLCnxOd gdmVydGljYWwt QCmlV337OOBnuKtqCwY3E pCyPhA5BCp9B9ZzKgc3DO ErbLcnJX1tcPQxTKutRh5 bxUivdYgkYZ8z HAHocsflQREtpP2qXEEzc SSoyFvqDI2dPMKlnypsa4 91TaZtFYQ5WTEdxYWiI8E aaB8jCgUyQUKl PCXqG1XhhVQdUIinN432D HvhCfL0AVHmjeEzY3SbHH MzuZygNeZ7f5C0Lo4mLbU ZZWFyczwvdGQ+ VPTyPGW3vKawAInfEZKgd R9sAVHvY4o1HgChCnZ8SG xlV8IrKJYlwvcvLy98aQ3 dPuQsFpL1DIcd P7LiobT6SLMkdCBnYWvoF SY6W87bb9U8WWRtDDFbGM V2vMY2pX3rtRarwsgleSC mdDsgdmVydGlj RGpmIJxrT883AQWdpNezQ kZFTUFMRTwvdGQ+PHRkIH B2wMjbPIloAUMniD0cJOS yO2q7LgEtLfV6 LWwbI5FnLALjfehxHl14w J1cQpZpThG0YOueP6Fblm E3APOmcDRjPNcsAVT1Z28 lx2I5DZCcYXVx IEJ6mLL6lA0ggOlcnnwid GVmdDsgdmVydGljYWwtYW ulF191PVJopHybCb2MDA6 5EN94J0LkEvuf dGFibGU+PHRhYmxlIHdpZ HRoPScxMDAlJyBzdHlsZT 3eIc0zQCLtQJOecVbloZJ pScBrb5znRJQd BKdaLP2rcSrnG7VmfEA0O ZSsd2k5Ng23B02dX7VmbV A+BQZmhAC5sGP3jC5bOmB mEcV5IDddW406 ViIhnZFlBewtz3cml7kmk Hx0JqCvNZLdkgJhnEovIG N6d6LdHc38N17gCLdcNOT oPSIyMCUiIHZh cNbosd2roZ3rPd2+PGNvb XQ0lRR3kT4jXwLpQyV6IP eqV760UdBwtHShYphrZ27 fV6XgdOC+PHRy Pxo3LHSfgDgdMT6bpSBkB RroVr0vJGT3AzQrPrPbHD pdE6PjSZCbdneqhgdquPY 3DEMnCREopM91 Hf9zkJimZn4pEQQzFZD0G DPivTKuD0BihX6qTjAiMO ZvZAUaU7HldBJkFMzoU38 5QCyvEzT7VOEr ztHkH7IrDMJhmGalHyW4k 6M3Zo1EpGglhWZbOA2uCo MuLWb8Z7DnOyt7JKKzdQl gQZ7gaWVcJMfz Yp4vlHcgcDyqEC2oKXBoz bmrt434ZwPkj6noZVWcbU UrQZthMKQ9X86hy8E7AVZ qUESfONN4pSW5 lC0prHnsroiuqVNgwAjmc gGqpDxqDFlnJHinH755ZP FazMpvXuTLJlr9U2NyYzg 3BETujZduTS3e fDMfCMvjDq9kzPqotIapU N0yCMSwidhmx332LmQet5 sgIIScvFQkABhtHPL9Q74 vt7J9GQEkVXAo XXV4eQA2lF2vxHfaugqam GVmdDsgdmVydGljYWwtYW tsF002NHTmyFemXc5EZqo 2V6XpFsi3JHPx gRzzRJ3jdDEhQIgnWj4lf WobpMenQB4hPZHnmdwhd5 13OxMes7snTNRedEOsHLb xOOT3P40rz0D6 FKNoSIEkAXN4yUW0xZ2xs GlnbjogbGVmdDsgdmVydG xtSUwgQDzyF074QNBimKz nPlBheWVyOjwv dGQ+QA64cy82J2VuZtqtO ku7HPDvHLN1uQP8qW1sXC AwENzwl5R1pHM1U6ReniG gdx4vd8ejDBDw ZTo (more content not included)... Normal [facility] 2019 Novel Coronavirus (CoVI D-19), MEGAN LCon 09-02-2021 SARS-CoV-2 (COVID-19) RNA MEGAN+probe Ql (Unsp spec) Not detected Invalid Interpretation Code Not Detected [facility] Comment on above: Order Comment: [id number] 1 # [phone] Result Comment: This nucleic acid amplification test was developed and its performance characteristics determined by [employer]. Nucleic acid amplification tests include RT- PCR [...] detected) result in this assay. Performed At: [address] [id number] Abigail rFanklin PhD Ph:[phone] Performed By: #### 6 [id number] #### [facility] (DEFAULT) [address] [place] [address] Release of Informationon Release of Information [id number] .00OTGTIFF [facility] Coding Summaryon 10-08-2020 Coding Summary CODING DATE: 10/08/2020 [facility] STATUS: Home PAYOR: [employer] [...] Danitza Hernandez Date Saved: 10/08/2020 10:57 am [facility] Insulin LCon 10-08-2020 Insulin LC 16.9 uIU/mL Invalid Interpretation Code 2.6-24.9 [facility] Comment on above: Result Comment: Perf ormed At: [facility] [address] [id number] Abigail Franklin PhD Ph:[phone] Performed By: #### 1 [id number], [id number], [id number], [id number], 4795369, 90371216, 1604640, 3932327 #### [facility] (DEFAULT) [address] [place] [address] Provider Orderson 10-08-2020 Provider Orders [id number] .[id number] [facility] .Auto Diff 1on 10-07-2020 Auto [place] % 8 % Normal 1-12 [facility] Comment on above: Performed By: #### 1 [id number], 88774869, 9539857218, 1278887283, 5105088, 37608032, 0579770, 5299764 #### [facility] (DEFAULT) [address] [place] [address] Baso Abs# 0.0 x10 Normal 0.0-0.2 [facility] Comment on above: Performed By: #### 1 [id number], 08354047, 9992708527, 2129944402, 6251878, 09301472, 8383420, 2980534 #### [facility] (DEFAULT) [address] [place] [address] Basophils/100 WBC (Bld) 0.3 % Normal 0.2-2.0 [facility] Comment on above: Performed By: #### 1 [id number], 72224482, 4586082733, 5890993014, 9892146, 98784150, 3505920, 3587545 #### [facility] (DEFAULT) [address] [place] [address] Eos Abs# 0.1 x10 Normal 0.0-0.4 [facility] Comment on above: Performed By: #### 1 [id number], 11420491, 2289078045, 0837572349, 6055444, 10842636, 9786542, 0400104 #### [facility] (DEFAULT) [address] [place] [address] Eosinophils/100 WBC (Bld) 2.1 % Normal 0.9-4.0 [facility] Comment on above: Performed By: #### 1 [id number], 74433044, 6227738514, 2189803382, 8020263, 32285399, 4265959, 2604935 #### [facility] (DEFAULT) [address] [place] [address] Lymph Abs# 1.5 x10 Normal 1.3-2.9 [facility] Comment on above: Performed By: #### 1 [id number], 04343443, 1793495501, 1647701282, 5586034, 42739470, 9690627, 8344085 #### [facility] (DEFAULT) [address] [place] [address] Lymphocytes/100 WBC (Bld) 26 % Normal 14-48 [facility] Comment on above: Performed By: #### 1 [id number], 47020323, 9481064644, 2311768589, 3990499, 14524261, 7063025, 2768977 #### [facility] (DEFAULT) [address] [place] [address] [place] Abs# 0.5 x10 Normal 0.0-0.8 [facility] Comment on above: Performed By: #### 1 854135761, 42207156, 3116251164, 8974745413, 0422491, 98255898, 1738574, 1783364 #### [facility] (DEFAULT) [address] [place] [address] Neut Abs# 3.6 x10 Normal 1.5-9.2 [facility] Comment on above: Performed By: #### 1 [id number], 82178713, 7948395467, 4241249415, 2321651, 76266139, 3768269, 3305462 #### [facility] (DEFAULT) [address] [place] [address] Neutrophils/100 WBC (Bld) 63 % Normal 44-88 [facility] Comment on above: Performed By: #### 1 903759286, 47325415, 2283901357, 8777876514, 0419412, 44642262, 5666740, 0902731 #### [facility] (DEFAULT) [address] [place] [address] CBC w/ Auto Diffon Erythrocyte distribution width (RBC) [Ratio] 12.6 % Normal 11.5-15.0 [facility] Comment on above: Performed By: #### 1 [id number], 55744137, 2173081693, 5096116924, 5271878, 17918737, 3652625, 1456003 #### [facility] (DEFAULT) [address] [place] [address] Hematocrit (Bld) [Volume fraction] 42.4 % High 33.7-40.4 [facility] Comment on above: Performed By: #### 1 058425613, 98723818, 2833546573, 6808542656, 9507899, 91025937, 4703514, 5995775 #### [facility] (DEFAULT) [address] [place] [address] Hemoglobin (Bld) [Mass/Vol] 14.1 g/dL Normal 11.3-15.9 [facility] Comment on above: Performed By: #### 1 [id number], 14937831, 2056848298, 1886224086, 2158768, 03687173, 9217658, 1169950 #### [facility] (DEFAULT) [address] [place] [address] Instr WBC 5.8 x10 Invalid Interpretation Code [facility] Comment on above: Performed By: #### 1 [id number], 91846095, 7199201009, 9140488365, 5474351, 12752918, 5101003, 8191553 #### [facility] (DEFAULT) [address] [place] [address] Man Diff? Auto Normal [facility] Comment on above: Performed By: #### 1 [id number], 47388034, 2157778234, 0605501648, 9541033, 01810625, 7427194, 0606112 #### [facility] (DEFAULT) [address] [place] [address] MCH (RBC) [Entitic mass] 28 pg Normal 24-34 [facility] Comment on above: Performed By: #### 1 [id number], 65836104, 5778655100, 4414861390, 1823819, 62346637, 5562476, 5391068 #### [facility] (DEFAULT) [address] [place] [address] MCHC (RBC) [Mass/Vol] 33 g/dL Normal 26-37 [facility] Comment on above: Performed By: #### 1 [id number], 39561324, 4324811379, 0475989218, 2024144, 24704977, 6106879, 5885711 #### [facility] (DEFAULT) [address] [place] [address] MCV (RBC) [Entitic vol] 86 fL Normal 81-100 [facility] Comment on above: Performed By: #### 1 [id number], 58211506, 4085043571, 7098668015, 4437718, 99785524, 2103519, 8692804 #### [facility] (DEFAULT) [address] [place] [address] Platelet 264 x10 Normal 138-427 [facility] Comment on above: Performed By: #### 1 [id number], 58813637, 3464782530, 0100494373, 7363923, 64320222, 3643248, 9670774 #### [facility] (DEFAULT) [address] [place] [address] Platelet mean volume (Bld) [Entitic vol] 9.7 fL Normal 6.3-10.2 [facility] Comment on above: Performed By: #### 1 [id number], 14934638, 9471324497, 7380192484, 5398612, 48245177, 7508706, 5052307 #### [facility] (DEFAULT) [address] [place] [address] RBC 4.95 x10 Normal 3.70-5.30 [facility] Comment on above: Performed By: #### 1 [id number], 72196024, 3130550680, 7038110598, 5858888, 33509865, 6159903, 8669589 #### [facility] (DEFAULT) [address] [place] [address] WBC 5.8 x10 Normal 3.5-10.5 [facility] Comment on above: Performed By: #### 1 [id number], 32750716, 6113920875, 3757332696, 1527943, 11297364, 7519174, 9988900 #### [facility] (DEFAULT) [address] [place] [address] Standardon 10-07-2020 eGFR Non AA >60 Invalid Interpretation Code [facility] Comment on above: Performed By: #### 1 [id number], 95514795, 4837436556, 2358740625, 8428513, 68441481, 7741833, 0892777 #### [facility] (DEFAULT) [address] [place] [address] eGFR AA >60 Invalid Interpretation Code [facility] Comment on above: Result Comment: Pipeline 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 Kidney Failure is indicated at less than 15 ml/min/1.73m2 Performed By: #### 1 [id number], 16205996, 7709637790, 3434675111, 8728970, 31777508, 9289905, 9878178 #### [facility] (DEFAULT) [address] [place] [address] Albumin [Mass/Vol] 4.4 g/dL Normal 3.5-5.0 [facility] Comment on above: Performed By: #### 1 [id number], 95662572, 8166084058, 6295763842, 2193435, 90010174, 4240402, 0374575 #### [facility] (DEFAULT) [address] [place] [address] Albumin/Globulin [Mass ratio] 1.5 {ratio} Normal 1.4-2.6 [facility] Comment on above: Performed By: #### 1 [id number], 22460401, 2356058468, 1855280015, 1617835, 72271901, 6516884, 9206579 #### [facility] (DEFAULT) [address] [place] [address] Alk Phos 65 IU/L Normal 32-91 [facility] Comment on above: Performed By: #### 1 [id number], 32237057, 5065745726, 9647680075, 0295240, 41994473, 7189044, 3210034 #### [facility] (DEFAULT) [address] [place] [address] ALT [Catalytic activity/Vol] 19.0 U/L Normal 14.0-54.0 [facility] Comment on above: Performed By: #### 1 [id number], 38361697, 0365803230, 5501835544, 2673610, 89101467, 6277010, 5068527 #### [facility] (DEFAULT) [address] [place] [address] Anion gap [Moles/Vol] 13.0 mmol/L Normal 5.0-19.0 [facility] Comment on above: Performed By: #### 1 [id number], 83900303, 5539878246, 5095796945, 2850502, 53371178, 5882869, 0389767 #### [facility] (DEFAULT) [address] [place] [address] 13708 AST [Catalytic activity/Vol] 17 U/L Normal 15-41 [facility] Comment on above: Performed By: #### 1 [id number], 08194124, 4848567655, 5298540811, 9556041, 92108562, 7584123, 3548834 #### [facility] (DEFAULT) [address] [place] [address] 12399 Bili Total 0.7 mg/dL Normal 0.3-1.2 [facility] Comment on above: Performed By: #### 1 605395796, 74589916, 2211308591, 9834543912, 3718634, 90141772, 7054263, 2267110 #### [facility] (DEFAULT) [address] [place] [address] 16153 Calcium [Mass/Vol] 9.2 mg/dL Normal 8.9-10.3 [facility] Comment on above: Performed By: #### 1 [id number], 02177856, 9744803789, 3677618279, 8260499, 75366133, 1473701, 0202861 #### [facility] (DEFAULT) [address] [place] [address] 25208 Chloride [Moles/Vol] 107 mmol/L Normal 101-111 [facility] Comment on above: Performed By: #### 1 506621314, 34191894, 5004630033, 1901873224, 4983146, 89497556, 8282290, 4030158 #### [facility] (DEFAULT) [address] [place] [address] [address] CO2 [Moles/Vol] 24 mmol/L Normal 21-32 [facility] Comment on above: Performed By: #### 1 [id number], [id number], [id number], [id number], 7964802, 83513876, 5288269, 0300697 #### [facility] (DEFAULT) [address] [place] [address] 21762 Creatinine [Mass/Vol] 0.82 mg/dL Normal 0.60-1.30 [facility] Comment on above: Performed By: #### 1 [id number], [id number], [id number], [id number], 0893905, 41943696, 4381985, 5581796 #### [facility] (DEFAULT) [address] [place] [address] 87074 Globulin (S) [Mass/Vol] 2.9 g/dL Normal 1.5-4.3 [facility] Comment on above: Performed By: #### 1 [id number], [id number], [id number], [id number], 5267113, 57778591, 6463287, 7120777 #### [facility] (DEFAULT) [address] [place] [address] 75196 Glucose [Mass/Vol] 105.0 mg/dL Normal 74.0-118.0 [facility] Comment on above: Performed By: #### 1 [id number], [id number], [id number], [id number], 5796062, 82504004, 7695288, 7111245 #### [facility] (DEFAULT) [address] [place] [address] 29532 Osmolality 281 mOsm/L Invalid Interpretation Code [facility] Comment on above: Performed By: #### 1 [id number], [id number], [id number], 9307362422, 6729156, 68996734, 6099568, 8775241 #### [facility] (DEFAULT) [address] [place] [address] 95752 Potassium [Moles/Vol] 3.7 mmol/L Normal 3.6-5.1 [facility] Comment on above: Performed By: #### 1 [id number], 06562046, 7113154557, 5018140069, 5033654, 62778396, 1470839, 4996432 #### [facility] (DEFAULT) [address] [place] [address] 01288 Protein [Mass/Vol] 7.3 g/dL Normal 6.5-8.1 [facility] Comment on above: Performed By: #### 1 [id number], [id number], [id number], 7147132003, 3582903, 19699254, 5741718, 1338702 #### [facility] (DEFAULT) [address] [place] [address] 80396 Sodium [Moles/Vol] 140.0 mmol/L Normal 136.0-144.0 [facility] Comment on above: Performed By: #### 1 [id number], 86543278, 9054892718, 5412442803, 7122948, 27424093, 2366738, 0494728 #### [facility] (DEFAULT) [address] [place] [address] 29483 Urea nitrogen [Mass/Vol] 16 mg/dL Normal 8-26 [facility] Comment on above: Performed By: #### 1 [id number], 32557768, 6262716604, 2476230108, 1253103, 55668102, 2388735, 2820529 #### [facility] (DEFAULT) [address] [place] [address] Urea nitrogen/Creatinine [Mass ratio] 20.0 mg/mg High 4.6-16.2 [facility] Comment on above: Performed By: #### 1 [id number], 04543190, 4166677640, 6226835251, 8958663, 95196700, 3360225, 9378299 #### [facility] (DEFAULT) [address] [place] [address] 35896 Free T4on 10-07-2020 Free T4 [Mass/Vol] 0.94 ng/dL Normal 0.61-1.12 [facility] Comment on above: Result Comment: Spec imens that contain high levels of Biotin may cause false high results Performed By: #### 1 [id number], 41195327, 4779394701, 6752102640, 5570816, 67335427, 6790966, 3199606 #### [facility] (DEFAULT) [address] [place] [address] 23310 HgbA1c Standardon 10-07-2020 .Hb 15.8 Invalid Interpretation Code [facility] Comment on above: Performed By: #### 1 [id number], 71391367, 6526326897, 4454996032, 6421170, 12462240, 3623997, 8666230 #### [facility] (DEFAULT) [address] [place] [address] 82251 .Hgb A1c 0.52 g/dL Invalid Interpretation Code [facility] Comment on above: Performed By: #### 1 [id number], 50184766, 9827444612, 0450011042, 8813602, 28894582, 3087845, 4725372 #### [facility] (DEFAULT) [address] [place] [address] Glucose [Mass/Vol] 102 mg/dL Invalid Interpretation Code [facility] Comment on above: Performed By: #### 1 [id number], 48157164, 3533961507, 1329528522, 9445554, 91059528, 8812456, 4093560 #### [facility] (DEFAULT) [address] [place] [address] HbA1c (Bld) [Mass fraction] 5.2 % Normal 4.6-6.2 [facility] Comment on above: Performed By: #### 1 [id number], 76069688, 4399491511, 2252132373, 7946149, 74002462, 7478599, 9101560 #### [facility] (DEFAULT) [address] [place] [address] Lipid Panel Standardon 10-07 Cholesterol [Mass/Vol] 106.0 mg/dL Normal 66.0-200.0 [facility] Comment on above: Result Comment: Zeny rable - Less than 200 mg/dL Borderline high risk - 200-239 mg/dL High risk - 240 mg/dL and over. Performed By: #### 1 [id number], 33651547, 4682825782, 0430247386, 2895294, 75235517, 6049160, 6966854 #### [facility] (DEFAULT) [address] [place] [address] Cholesterol in HDL [Mass/Vol] 38 mg/dL Low 40-71 [facility] Comment on above: Result Comment: High risk - <40 mg/dL. Performed By: #### 1 [id number], 15073700, 4325738285, 5654362620, 8717961, 90328291, 4617719, 2896276 #### [facility] (DEFAULT) [address] [place] [address] 33568 Cholesterol in LDL [Mass/Vol] 57 mg/dL Normal 1-100 [facility] Comment on above: Result Comment: Opti mal - Less than 100 mg/dL Borderline high risk - 130-159 mg/dL High risk - 160-189 mg/dL. Performed By: #### 1 [id number], 13474038, 8326033064, 3696354667, 6320192, 49876390, 7632346, 8895822 #### [facility] (DEFAULT) [address] [place] [address] 10609 Cholesterol.total/C holesterol in HDL [Mass ratio] 2.8 {ratio} Normal 0.0-4.5 [facility] Comment on above: Performed By: #### 1 [id number], 19716752, 2660286714, 3742752597, 6601450, 04795665, 9482555, 1419710 #### [facility] (DEFAULT) [address] [place] [address] 51357 Triglyceride [Mass/Vol] 56.0 mg/dL Normal 0.0-150.0 [facility] Comment on above: Performed By: #### 1 [id number], 84603590, 2748516712, 5190887249, 8718467, 05695243, 3459223, 5731553 #### [facility] (DEFAULT) [address] [place] [address] 68723 VLDL. 11 mg/dL Normal 5-40 [facility] Comment on above: Performed By: #### 1 [id number], 65366974, 3829372313, 8986716231, 3603340, 19517683, 5343881, 4792527 #### [facility] (DEFAULT) [address] [place] [address] 64212 TSHon 10-07-2020 TSH Qn 2.03 m[IU]/L Normal 0.45-5.33 [facility] Comment on above: Result Comment: Gene ral Population (males and non- females, aged 21-88) 0.45 - 5.33 Females, 1st Trimester 0.05 - 3.70 Females, 2nd Trimester 0.31 - 4.35 Females, 3rd Trimester 0.41 - 5.18 Performed By: #### 1 [id number], 88983487, 6652050549, 0827633109, 0641183, 88696858, 3317268, 3765424 #### [facility] ([facility]) [address] [place] [address] 01007 Alcohol, Medicalon Ethanol [Mass/Vol] 207.0 mg/dL High <10.0 [facility] BMPon 09-21-2020 Anion gap [Moles/Vol] 18 mmol/L 10 - 20 mmol/L [facility] Calcium [Mass/Vol] 9.4 mg/dL 8.4 - 10. 2 mg/dL [facility] Chloride [Moles/Vol] 109 mmol/L High 98 - 108 mmol/L [facility] Creatinine [Mass/Vol] 1.08 mg/dL 0.40 - 1.10 [facility] GFR/1.73 sq M predicted among non-blacks MDRD (S/P/Bld) [Vol rate/Area] The eGFR should be used for monitoring renal function only and not for medication dosing. [facility] GFR/1.73 sq M.predicted CKD-EPI (S/P/Bld) [Vol rate/Area] 73 >=60 mL/min/1.73 m2 [facility] Glucose [Mass/Vol] 114 mg/dL High 65 - 99 mg/dL [facility] HCO3 [Moles/Vol] 23 mmol/L 21 - 32 mmol/L [facility] Potassium [Moles/Vol] 4.0 mmol/L 3.5 - 5.1 mmol/L [facility] Sodium [Moles/Vol] 146 mmol/L High 135 - 145 mmol/L [facility] Urea nitrogen [Mass/Vol] 13 mg/dL 8 - 25 mg/dL [facility] Urea nitrogen/Creatinine [Mass ratio] 12.0 mg/mg [facility] CBC WITH AUTO DIFFERENTIALon 09-21-2020 Basophils (Bld) [#/Vol] 0.02 10*3/uL [facility] Basophils/100 WBC (Bld) 0.3 % [facility] Eosinophils (Bld) [#/Vol] 0.10 10*3/uL [facility] Eosinophils/100 WBC (Bld) 1.3 % [facility] Erythrocyte distribution width (RBC) [Entitic vol] 11.9 % 11.6 - 14.8 % [facility] Hematocrit (Bld) [Volume fraction] 44.3 % 36.0 - 46.0 % [facility] Hemoglobin (Bld) [Mass/Vol] 14.4 g/dL 12.0 - 16.0 g/dL [facility] Immature granulocytes (Bld) [#/Vol] 0.05 10*3/uL [facility] Immature granulocytes/100 WBC (Bld) 0.60 % [facility] Comment on above: The IG parameter is the percentage of metamyelocytes, myelocytes and promyelocytes. An immature granulocyte count (IG) of 1% or more suggests the possibility of infection, an IG count of 3% is very likely related to an infection. Lymphocytes (Bld) [#/Vol] 2.17 10*3/uL [facility] Lymphocytes/100 WBC (Bld) 27.9 % [facility] MCH (RBC) [Entitic mass] 28.1 pg 26.0 - 34.0 pg [facility] MCHC (RBC) [Mass/Vol] 32.5 g/dL 31.0 - 37.0 g/dL [facility] MCV (RBC) [Entitic vol] 86.4 fL 80.0 - 100.0 fL [facility] Monocytes (Bld) [#/Vol] 0.55 10*3/uL [facility] Monocytes/100 WBC (Bld) 7.1 % [facility] Neutrophils (Bld) [#/Vol] 4.90 10*3/uL [facility] Neutrophils/100 WBC (Bld) 62.8 % [facility] Nucleated RBC (Bld) [#/Vol] 0.00 10*3/uL [facility] Nucleated RBC/100 WBC (Bld) [Ratio] 0.0 % [facility] Platelet mean volume (Bld) [Entitic vol] 9.8 fL 9.4 - 12.4 fL [facility] Platelets (Bld) [#/Vol] 271 10*3/uL [facility] RBC (Bld) [#/Vol] 5.13 10*6/uL [facility] WBC (Bld) [#/Vol] 7.79 10*3/uL [facility] HCG (QUALITATIVE)on 09-21-19 21 Beta HCG ( test) Ql Negative Negative [facility] Interpretation and review of laboratory results Normal [facility] Negative: The result is less than or equal to 5 mIU/mL of HCG. [facility] 09-21-2020 Interpretation and review of laboratory results Abnormal [facility] Vital Signs Date Time Vital Sign Value Performing Clinician Faci lity 06-09-2022 08:46-0400 Body height 185.4 cm Jaswant Christine DO Work Phone: [facility] 06-09-2022 08:46-0400 Body weight 123.38 kg Jaswant Christine DO Work Phone: [facility] 09-21-2020 06:10-0500 Body Temperature 98.8 [degF] [facility] 09-21-2020 06:10-0500 BP Diastolic 76 mm[Hg] [facility] 09-21-2020 06:10-0500 BP Systolic 122 mm[Hg] [facility] 09-21-2020 06:10-0500 Pulse (Heart Rate) 87 /min [facility] 09-21-2020 06:10-0500 Pulse Oximetry 99 % [facility] 09-21-2020 06:10-0500 Respiratory Rate 16 /min [facility] Encounters Encounter Date Encounter Type Care Provider Facility Start: 01-05-2023 End: 02-02-2023 ambulatory SUZIE Romreo [facility] Facility:H1 Start: 10-18-2022 End: 10-18-2022 ambulatory [facility] Facility:[facility] Start: 10-14-2022 ambulatory SUZIE Romero [facility] Faci lity:H1 Start: 10-10-2022 Encounter for other preprocedural examination SUZIE MENDOZA [facility] Start: 10-08-2022 End: 10-09-2022 ambulatory NADIR ENGLAND Facility:H1 Start: 10-08-2022 End: 10-09-2022 Encounter for other preprocedural examination NADIR ENGLAND Facility:[facility]1 Start: 07-01-2022 End: 07-02-2022 ambulatory SUZIE MENDOZA Facility:[facility]1 Start: 06-23-2022 End: 06-24-[address] SOHAIL COLBY Facility: Start: 06-18-2022 Telephone encounter Jaswant King Endocrinology Comment on above: Insurance Authorizat magalys (Lo) Start: 06-16-2022 End: 06-16-2022 ambulatory Allison Alley Aragon Facility:[facility] Start: 06-16-2022 End: 06-16-2022 ambulatory PHYSICIAN NO [facility] Work Phone: Start: 06-16-2022 End: 06-16-2022 Patient encounter procedure PHYSICIAN NO [facility] [address] Start: 06-09-2022 End: 06-09-2022 ambulatory JASWANT KING Facility:[facility] Start: 06-09-2022 End: 06-09-2022 ambulatory Jaswant Reginaldjuany DO Work Phone: Endocrinology Comment on above: Class 2 obesity due to excess calories without serious comorbidity with body mass index (BMI) of 35.0 to 35.9 in adult (Primary Dx); Chondromalacia of right patella Start: 06-09-2022 End: 06-09-2022 Telemedicine consultation with patient Jaswant King DO Work Phone: [facility] Start: 04-14-2022 End: 04-14-2022 ambulatory ROBERT ERIC Facility:[facility] Start: 04-14-2022 End: 04-14-2022 Patient encounter procedure [...] End: 10-07-2020 Patient encounter procedure External Provider [facility] Start: 10-07-2020 Results Only External Provider Exter [facility]al[facility] Start: 09-21-2020 End: 09-21-2020 Emergency department patient visit LEILA ROWE [facility] Start: 09-20-2020 End: 09-21-2020 Emergency department patient visit Leila Rowe Work Phone: [facility] Comment on above: Alcoholic intoxicati on with complication (HCC) (Primary Dx); Nausea and vomiting, intractability of vomiting not specified, unspecified vomiting type Start: 05-26-2018 Patient encounter DILLON Kline LAMBERT Jero acility:[facility] Procedures Date Procedure Procedure Detail Performing Clinician Start: 06-16-2022 X-ray of right ankle PH YSICIAN NO FAMILY Start: 10-07-2020 End: 10-07-2020 EXTERNAL LAB External Provider Start: 09-20-2020 Basic metabolic 2000 panel - Serum or Plasma Leila Rowe Work Phone: Start: 09-20-2020 Choriogonadotropin.b eta subunit ( test) [Presence] in Serum or Plasma Leila Dickinson [employer] Work Phone: Start: 09-20-2020 Complete blood count with white cell differential, automated Leila Karey [employer] Work Phone: Start: 09-20-2020 Complete blood count with white cell differential, manual Leila Dickinson [employer] Work Phone: Start: 09-20-2020 Ethanol [Mass/volume ] in Serum or Plasma Leila Dickinson [employer] Work Phone: Start: 08-17-2012 History of operative [...] 35.9 in adult Expected: 06/09/2022, Expires: 08/09/2022 [facility] Work Phone: Comment on above: Expected: 06/09/2022 , Expires: 08/09/2022 Start: 06-09-2022 End: 08-09-2022 Comprehensive metabolic 2000 panel - Serum or Plasma COMP METABOLIC PANEL Lab Routine Class 2 obesity due to excess calories without serious comorbidity with body mass index (BMI) of 35.0 to 35.9 in adult Expected: 06/09/2022, Expires: 08/09/2022 [facility] Work Phone: Comment on above: Expected: 06/09/2022 , Expires: 08/09/2022 Start: 06-09-2022 End: 08-09-2022 Hemoglobin A1c in Blood HGB A1C Lab Routine Class 2 obesity due to excess calories without serious comorbidity with body mass index (BMI) of 35.0 to 35.9 in adult Expected: 06/09/2022, Expires: 08/09/2022 [facility] Work Phone: Comment on above: Expected: 06/09/2022 , Expires: 08/09/2022 Start: 06-09-2022 End: 08-09-2022 Lipid 1996 panel - Serum or Plasma LIPID PANEL BASIC Lab Routine Class 2 obesity due to excess calories without serious comorbidity with body mass index (BMI) of 35.0 to 35.9 in adult Expected: 06/09/2022, Expires: 08/09/2022 [facility] Work Phone: Comment on above: Expected: 06/09/2022 , Expires: 08/09/2022 Start: 05-06-2022 Influenza vaccination INFLUENZA (#1) [facility] Start: 09-05-2021 DEPRESSION ASSESSMENT DEPRESSION ASS ESSMENT [facility] Start: 05-06-2020 Influenza vaccination INFLUENZA (#1) [facility] Start: 2019 PAP TESTING PAP TESTING [facility] Start: 2017 Urine microalbumin profile DTAP,TDAP,TD (1 - Tdap) [facility] Start: 2016 CHLAMYDIA SCREENING (18-24) CHLAMYDIA SCREENING (18-24) [facility] Start: 2016 GC (GONORRHEA) SCREE JANAY (18-24) GC (GONORRHEA) SCREENING (18-24) [facility] Start: 2016 HEPATITIS C SCREENING HEPATITIS C SC REEJANAY [facility] Start: 2016 HIV SCREENING HIV SCREENING [facility] Start: 2014 MENINGOCOCCAL B: Consider based on risk (2 of 2 - Risk Bexsero 2-dose series) MENINGOCOCCAL B: Consider based on risk (2 of 2 - Risk Bexsero 2-dose series) [facility] Start: 10-02-2013 HEPATITIS B (2 of 3 - 3-dose series) HEPATITIS B (2 of 3 - 3-dose series) [facility] Start: 2012 PEDS TO ADULT TRANSI TION ANNUAL ASSESSMENT PEDS TO ADULT TRANSITION ANNUAL ASSESSMENT [facility] Start: 2010 Adult depression screening assessment DEPRESSION SCREENING [facility] Start: 2010 PEDS TO ADULT TRANSI TION INITIAL DISCUSSION PEDS TO ADULT TRANSITION INITIAL DISCUSSION [facility] Start: 2009 HPV VACCINE (1 - 2-d ose series) HPV VACCINE (1 - 2-dose series) [facility] Start: 1998 COVID-19 VACCINE (#1) COVID-19 VACCI NE (#1) [facility] End: 05-14-2023 MRI KNEE WO IVCON RT MRI KNEE WO IVCON RT Radiology Routine Chronic pain of right knee 1 Occurrences starting 04/14/2022 until 05/14/2023 [facility] Work Phone: Comment on above: 1 Occurrences starti ng 04/14/2022 until 05/14/2023 End: 05-07-2023 XR KNEE GENERAL 4V AP BOTH/PA BOTH/LAT/MERC RIGHT XR KNEE GENERAL 4V AP BOTH/PA BOTH/LAT/MERC RIGHT Radiology Routine Right knee pain, unspecified chronicity 1 Occurrences starting 04/08/2022 until 05/07/2023 [facility] Work Phone: Comment on above: 1 Occurrences starti ng 04/08/2022 until 05/07/2023 End: 05-14-2023 XR KNEE POST OP 3V AP/LAT/MERCHANT RIGHT XR KNEE POST OP 3V AP/LAT/MERCHANT RIGHT Radiology Routine Chronic pain of right knee 1 Occurrences starting 04/14/2022 until 05/14/2023 [facility] Work Phone: Comment on above: 1 Occurrences starti ng 04/14/2022 until 05/14/2023 [facility] Immunizations Immunization Date Immunization Notes Care Provider Sven ayanmargarita 09-04-2013 hepatitis B vaccine, unspecified formulation Robert Eric MD Work Phone: [facility] Payers Date Payer Category Payer Self-pay [id number] 2020 Private Health Insurance [facility] [employer] [id number] 2020-Present [phone] [address] [address] [place] [address] HMO [id number] 2020 Private Health Insurance [facility] [employer] [id number] 2020-Present [phone] [address] [address] [place] [address] HMO [id number] 2017 Unknown [id number] 2017 Unknown [id number] 1998 Unknown [id number] 902 1998 Unknown [id number] 593 1998 Unknown [id number]. 593 1998 Unknown [id number] 593 1998 Unknown [id number] [id number]. 593 1998 Unknown [id number] [id number]. 593 1998 Unknown [id number] 593 1959 Private Health Insurance [id number] 1959 Private Health Insurance [id number] Private Health Insurance [id number] Unknown [id number] 531 Social History Date Type Detail Facility Start: 08-08-2012 Tobacco smoking stat [facility] Unknown if ever smoked [facility] Start: 2000 Sex Assigned At Not on file [facility] Exposure to SARS-CoV -2 (event) Unable to assess [facility] Start: 10-09-2020 End: 04-14-2022 Tobacco smoking status IDIS Never smoker [facility] Start: 10-09-2020 End: 04-14-2022 Tobacco use and exposure Never used [facility] Start: 10-09-2020 End: 04-14-2022 Alcohol intake Current drinker of alcohol (finding) [facility] Start: 1998 Sex Assigned At Female F [facility] Medical Equipment Procedure Code Equipment Code Equipment Origin al Text Equipment Identifier Dates Anchr Sut Gii Qanchr+ Othcrd - [id number] Start: 08-08-2012 Clinical Notes 04-14-2022 to [...] authenticated by: MCKENZIE POLLOCK Date: 2022-10-19 07:27 [facility] 06-24-2022 Note PROCEDURE: XR ANKLE RT MIN [...] authenticated by: SOHAIL COLBY Date: 2022-06-24 06:17 [facility] 06-24-2022 Note PROCEDURE: XR ANKLE RT MIN [...] authenticated by: SOHAIL COLBY Date: 2022-06-24 06:17 [facility] 06-18-2022 Miscellaneous Notes Need to call pharmacy for insurance information. Not coming up in either [employer] or covermeds Need pa on lo documented in this encounter [facility] 06-09-2022 Note HNO ID: [id number] Author: Jaswant King, DO Service: ? Author [...] Correspondence will be shared today via the [facility] electronic health record or through regular [...] follow up appointment with Allison Aragon, EVELYN, ELECTRONICS TESTER Previously lost 40 lbs in 3 months with phentermine, and gradually gained all of the weight back Nutritional Assessment Do you think that you have a healthy diet? 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 Yes Please select all medications you have used: Phentermine (Adipex) Have you had a surgical procedure for weight l (more content not included)... [facility] 06-09-2022 History of Presen t illness Narrative Images from the original note were not included. [facility] CONSULT - NEW VISIT Macy Borja is here today at request of Dr. Robert Eric specifically for consultation of my opinion in regards to the chief complaint listed below. Correspondence will be shared today via the [facility] electronic health record or through regular mail, [...] a follow up appointment with Allison Aragon, ELECTRONICS TESTER, ELECTRONICS TESTER Previously lost 40 lbs in 3 months with phentermine, and gradually gained all of the weight back Nutritional Assessment Do you think that you have a healthy diet? 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 Yes Please [...] Exercise goal is continue to work with resident athletic trainer - Commit Not To Quit Need [...] Jaswant King DO documented in this encounter [facility] 04-14-2022 Note HNO ID: [id number] Author: Robert Eric MD Service: ? Author [...] Saw Dr. Calloway. Saw another doctor in [place]. ALLERGIES No Known Allergies PAST MEDICAL HISTORY [...] is stable. Incisions. Imaging: Plain films from [facility] are personally reviewed by me and demonstrates [...] should optimize her . Robert Eric MD [facility] 04-14-2022 Note HNO ID: [id number] Author: RT Calista(R) Service: ? Author Type: [...] RT Calista(R) April 14, 2022 9:46 AM [facility] 04-14-2022 History of Presen t illness Narrative [...] Saw Dr. Calloway. Saw another doctor in [place]. ALLERGIES No Known Allergies PAST MEDICAL HISTORY [...] is stable. Incisions. Imaging: Plain films from [facility] are personally reviewed by me and demonstrates [...] Robert Eric MD documented in this encounter [facility] Evaluation note Diagnosis Right knee pain, unspecified chronicity- Primary documented in this [facility] Diagnosis Chronic pain of right knee- Primary [facility] Diagnosis Class 2 obesity due to excess calories without serious comorbidity with body mass index (BMI) of 35.0 to 35.9 in adult- Primary Chondromalacia of right patella Chondromalacia of patella documented [facility] this [facility] noteNo assessment information availableF[facility] Work Phone: Reason for referral (narrative)* Diagnostic Procedure Only (Routine) - Pending Review Specialty Diagnoses / Procedures Referred By Antwon noe Referred To Contact XR IMAGING Diagnoses Right knee pain, unspecified chronicity Procedures XR KNEE GENERAL 4V AP BOTH/PA BOTH/LAT/MERC RIGHT RADIOLOGIC EXAM KNEE COMPLETE 4/MORE VIEWS Robert Eric MD [address] [place] [address] Xr Imaging Referral ID Status Reason Start Date Expiration Date Visits Requested Visits Authorized [id number] Pending Review Auto-Generat ed Referral 04/08/2022 05/07/[address] [facility] for referral (narrative)* Diagnostic Procedure Only (Routine) - Pending Review Specialty Diagnoses / Procedures Referred By Contac t Referred To Contact XR IMAGING Diagnoses Chronic pain of right knee Procedures XR KNEE POST OP 3V AP/LAT/MERCHANT RIGHT RADIOLOGIC EXAMINATION KNEE 3 VIEWS Robert Eric MD [address] [place] [address] Xr Imaging Referral ID Status Reason Start Date Expiration Date Visits Requested Visits Authorized [id number] Pending Review Auto-Generat ed Referral 04/14/2022 05/14/2023 1 1 * Consult, Test, Treat (Routine) - Authorized Specialty Diagnoses / Procedures Referred By Contac t Referred To Contact Diagnoses Chronic pain of right knee Procedures ENDOCRINE MEDICAL WEIGHT MANAGEMENT OFFICE/OUTPATIENT [facility] 60-74 MINUTES Robert Eric MD [address] [place] [address] Referral ID Status Reason Start Date Expiration Date Visits Requested Visits Authorized [id number] Authorized PCP Requested Referral 04/14/2022 04/14/2023 1 1 * MRI/CT (Routine) - Pending Review Specialty Diagnoses / Procedures Referred By Contaziza t Referred To Contact MR IMAGING Diagnoses Chronic pain of right knee Procedures MRI KNEE WO IVCON RT MRI ANY JT LOWER EXTREM W/O CONTRAST MATRL Robert Eric MD [address] [place] [address] Mr Imaging Referral ID Status Reason Start Date Expiration Date Visits Requested Visits Authorized [id number] Pending Review Auto-Generat ed Referral 04/14/2022 05/14/2023 1 1 [facility] Summary Purpose Family History No Family History Records FoundNo Family History Records FoundNo Family History Records FoundNo Family History Records FoundNo Family History Records FoundNo Family History Records Found Advance Directives No Advanced Directives Records FoundDocuments on File Type Date 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 * Alcohol Intoxication: Acute (Latvian) documented in this encounter Assessments Diagnosis Alcoholic intoxication with complication (HCC)- Primary Nausea and vomiting, intractability of vomiting not specified, unspecified vomiting type Reason for Referral Specialty Diagnoses / Procedures Referred By Antwon noe Referred To Contact Diagnoses Class 2 obesity due to excess calories without serious comorbidity with body mass index (BMI) of 35.0 to 35.9 in adult ReginaldJaswant harringtonDO [address] [place] [address] Referral ID Status Reason Start Date Expiration Date V isits Requested Visits Authorized [id number] Pending Review 1 1 Additional Source Comments INFORMATION SOURCE (unrecogn ized section and content) DATE CREATED AUTHOR 05/06/2018 [facility] DATE CREATED AUTHOR AUTHOR'S ORGANIZ ATION 09/28/2020 [facility] DATE CREATED AUTHOR AUTHOR'S ORGANIZ ATION 09/22/2021 [facility] DATE CREATED AUTHOR AUTHOR'S ORGANIZ ATION 06/29/2022 [facility] DATE CREATED AUTHOR AUTHOR'S ORGANIZ ATION 07/07/2022 [facility] DATE CREATED AUTHOR AUTHOR'S ORGANIZ ATION 02/11/2023 [facility] Source Comments (unrecognize d section and content) In the event this informatio n is protected by the Federal Confidentiality of Alcohol and Drug Abuse Patient Records regulations: The Federal rules restrict any use of the information to criminally investigate or prosecute any alcohol or drug abuse patient.[facility] the event this information is protected by the Federal Confidentiality of Alcohol and Drug Abuse Patient Records regulations: The Federal rules restrict any use of the information to criminally investigate or prosecute any alcohol or drug abuse patient.[facility] the event this information is protected by the Federal Confidentiality of Alcohol and Drug Abuse Patient Records regulations: The Federal rules restrict any use of the information to criminally investigate or prosecute any alcohol or drug abuse patient.[facility] the event this information is protected by the Federal Confidentiality of Alcohol and Drug Abuse Patient Records regulations: The Federal rules restrict any use of the information to criminally investigate or prosecute any alcohol or drug abuse patient.[facility] the event this information is protected by the Federal Confidentiality of Alcohol and Drug Abuse Patient Records regulations: The Federal rules restrict any use of the information to criminally investigate or prosecute any alcohol or drug abuse patient.[facility] the event this information is protected by the Federal Confidentiality of Alcohol and Drug Abuse Patient Records regulations: The Federal rules restrict any use of the information to criminally investigate or prosecute any alcohol or drug abuse patient.[facility] the event this information is protected by the Federal Confidentiality of Alcohol and Drug Abuse Patient Records regulations: The Federal rules restrict any use of the information to criminally investigate or prosecute any alcohol or drug abuse patient.[facility] Reason for Visit (unrecogniz ed section and [...] will walk to the ED entrance to machine pecan picker patient. Pt provided with belongings and a [...] - No primary care provider on file. [phone] Chief Complaint Patient presents with Alcohol Intoxication [...] file Gets together: Not on file Attends shinto service: Not on file Active member of [...] Procedure Abnormality Status --------- ------ CBC Auto Differential[[id number]] Please view results for these tests on [...] the patient. I discussed the patient with SECURITY MANAGEMENT SPECIALIST/PA. I agree with the SECURITY MANAGEMENT SPECIALIST/PA treatment plan. I agree with the SECURITY MANAGEMENT SPECIALIST/PA plan of care. I agree with the SECURITY MANAGEMENT SPECIALIST/PA dispo as documented. A 20-year-old female was brought in by EMS after patient started having nausea and vomiting after drinking alcohol tonight. Patient states she was drinking [place] ice tea with her friends. Patient appears [...] Care Teams (unrecognized sec tion and content) Tow Driver Relationship Specialty Start Date End Date Allison Aragon, ELECTRONICS TESTER [address] [place] [address] PCP - General Family Practice 04/29/21 Roosevelt Costa [address] [place] [address] Referring Orthopedics 04/29/21 Pako Ahmadi [address] [place] [address] Referring Orthopedics 03/04/22 Tow Driver Relationship Specialty Start Date End Date Allison Aragon, ELECTRONICS TESTER [address] [place] [address] PCP - General Family Practice 04/29/21 Roosevelt Costa [address] [place] [address] Referring Orthopedics 04/29/21 Pako Ahmadi [address] [place] [address] Referring Orthopedics 03/04/22 Tow Driver Relationship Specialty Start Date End Date Allison Aragon, ELECTRONICS TESTER [address] [place] [address] PCP - General Family Medicine 04/29/21 Roosevelt Costa [address] [place] [address] Referring Orthopedics 04/29/21 Pako Ahmadi [address] [place] [address] Referring Orthopedics 03/04/22 Team Status: Inactive Member Role Status Dates PHYSICIAN NO FAMILY Primary Care Provider Active Allison Aragon Attending Provider Active Team Status: Active Member Role Status Dates PHYSICIAN NO FAMILY Primary Care Provider Active Tow Driver Relationship Specialty Start Date End Date Allison Aragon, ELECTRONICS TESTER [address] [place] [address] PCP - General Family Medicine 04/29/21 Roosevelt Costa [address] [place] [address] Referring Orthopedics 04/29/21 Pako Ahmadi [address] [place] [address] Referring Orthopedics 03/04/22 Goals (unrecognized section and [...] BE BASED ON THE PRIMARY CLINICAL RECORDS. [facility] [employer] provides no warranty or guarantee of the accuracy or completeness of information in this document.
--- NOTE | 2023-10-12 08:20 | MR_ITS ---
[place] [id number] Patient Name: MACY BYRD MRN: [facility]:[id number] date: 2000 Sex: F Assigned Patient Location: MRI Current Patient Location: MRI Accession/Order Number: [id number] Exam Date: 10/12/2023 08:40 Report Date: 10/12/2023 10:00 At the request of: SUZIE MENDOZA Procedure: MR ankle RT wo con EXAM: MR ankle RT wo con HISTORY: Plantar Fascitis COMPARISON: 10/05/2023, 04/07/2023 TECHNIQUE: MRI images obtained with multiple sequences. MR images obtained by standard department protocol. Noncontrast MRI of the right ankle. FINDINGS: Extensor and flexor tendons are intact. Mild tendinosis of the peroneus brevis posterior to the lateral malleolus. Anterior and posterior syndesmotic ligaments are intact. Anterior talofibular, posterior talofibular and calcaneofibular ligaments are intact. Deltoid ligament fibers are intact. Susceptibility artifact along the lateral aspect of the ankle with bone anchors at the distal fibula from prior surgical intervention. Achilles tendon is intact. Thickening and increased signal of the central plantar fascial fibers, progressed as compared to 04/07/2023, consistent with plantar fasciitis or partial tearing. No significant degeneration of the ankle joint, subtalar joint, calcaneocuboid joint, talonavicular joint, naviculocuneiform joints or tarsometatarsal joints. No acute bone marrow edema. MR/MR ankle RT wo con IMPRESSION: 1. Thickening and increased signal of the central plantar fascial fibers, progressed as compared to 04/07/2023, consistent with plantar fasciitis or partial tearing. 2. No acute ligamentous abnormality. 3. Mild tendinosis of the peroneus brevis posterior to the lateral malleolus. Electronically authenticated by: ROMEO BRODERICK Date: 10/12/2023 10:00
== END 2023-10-12 08:13 | disposition home or self-care (01) ==
LOC: MRI 08:12
PROVIDERS: PCP Nurse Practitioner; Visit Provider Podiatrist Foot & Ankle Surgery
DX: M72.2 Plantar fascial fibromatosis (principal)
CPT/HCPCS: 73721

== ENCOUNTER 2024-01-31 07:14 | Outpatient (OUT) | payer OTHER, SELFPAY ==
--- OUTSIDE RECORDS SUMMARY | 2024-01-31 07:19 | XMS_ITS | CCD ---
Author Organization [facility] Care Team Providers Care Acute Care Occupational Therapist Name Role Phone DILLON VERDIN Unavailable Unavailable IMCA Unavailable Unavailable IMCA Unavailable Unavailable DIALS, LEILA DICKINSON Attending Unavailable DIALS, LEILA DICKINSON Admitting Unavailable NO, PHYSICIAN Primary Care Unavailable Talat Pineda Primary Care Provider [phone] No, Physician Primary Care Provider Unavailabl e Mahesh RIVAS, Allison Moreno Primary Care Provider Roosevelt Costa Unavailable [phone] Pako Ahmadi Unavailable Allison Aragon CNP Primary Care Provider [phone] Roosevelt Costa Unavailable Pako Ahmadi Unavailable Aicwaqas RIVAS, Allison Moreno Primary Care Provider Roosevelt Costa Unavailable [phone] Pako Ahmadi Unavailable NO FAMILY, PHYSICIAN Primary [...] EVELYN ARAGON Primary Care Unavailable SUZIE MENDOZA Admitting Unavailable SUZIE MENDOZA Consulting Unavailable SUZIE MENDOZA Admitting Unavailable AICHHOLZ, WIND TUNNEL MECHANIC ALLISON Primary Care Unavailable RYANANDER, SUZIE Romero Attending Unavailable ALEJANDRO ANDINO Consulting Unavailable LASHA, DR SOHAIL Rendon Consulting Unavailable HIGHLANDER, SUZIE Romero Admitting Unavailable AICHHOLZ, WIND TUNNEL MECHANIC ALLISON Primary Care Unavailable RYANANDER, SUZIE Romero Attending Unavailable SUZIE MENDOZA Consulting Unavailable HIGHLANDER, SUZIE Romero Attending Unavailable AICHHOLZ, WIND TUNNEL MECHANIC ALLISON Primary Care Unavailable KELLY, SUZIE Romero Admitting Unavailable NADIR ENGLAND Consulting Unavailable HIGHLANDER, SUZIE Romero Admitting Unavailable AICHHOLZ, WIND TUNNEL MECHANIC ALLISON Primary Care Unavailable HIGHLANDER, SUZIE Romero Attending Unavailable HIGHLANDER, SUZIE Romero Attending Unavailable MARKHAM, DR MCKENZIE Chavez Consulting Unavailable AICHHOLZ, WIND TUNNEL MECHANIC ALLISON Primary Care Unavailable HIGHLANDER, SUZIE Romero Admitting Unavailable HIGHLANDER, SUZIE Romero Consulting Unavailable BENITA RESENDIZ Consulting Unavailable YANI GRIER Consulting Unavailable BG ANDINO Consulting Unavailable Marlee Mosley MD Primary Care Provider EvinAllison Wren Primary Care Provider AICHHOLZ, ALLISON Attending Unavailable AICHHOLZ, ALLISON Attending Unavailable AICHHOLZ, ALLISON Attending Unavailable AICHHOLZ, ALLISON Attending Unavailable Allergies Allergy Classification Reported Allergen(s) Allergy Type Date of Onset Reaction(s) Facility (1 source) Latex Drug allergy (disorder) 0 [facility] (2 sources) Latex Drug allergy (disorder) [facility] (3 sources) Latex Propensity to adverse reactions 2 [facility] (2 sources) Latex Propensity to adverse reactions to drug 2 [facility] Medications Current Medications Medication Drug Class(es) Dates Sig (Normalized) Sig (Original) amoxicillin 875 mg oral tablet (2 sources) Penicillin-class Antibacterial Start: 09-15-2022 take 1 tablet by mouth in the morning, then take 1 tablet by mouth at bedtime amoxicillin (AMOXIL) 875 mg tablet Take 1 tablet (875 mg total) by mouth in the morning and 1 tablet (875 mg total) before bedtime. 0 09/15/2022 Active apixaban 2.5 mg oral tablet (2 sources) Factor Xa Inhibitor Start: 11-23-2023 End: 12-07-2023 take 1 tablet by mouth in the morning, then take 1 tablet by mouth at bedtime apixaban (ELIQUIS) 2.5 mg tablet Indications: Factor 5 Leiden mutation, heterozygous (CMS-HCC) Take 1 tablet (2.5 mg total) by mouth in the morning and 1 tablet (2.5 mg total) before bedtime. Do all this for 14 days. Start 12-24 hours after procedure.. 28 tablet 0 11/23/2023 12/07/2023 Active celecoxib 100 mg oral capsule (2 sources) Nonsteroidal Anti-inflammatory Drug take 1 capsule by mouth in the morning, then take 1 capsule by mouth at bedtime celecoxib (CeleBREX) 100 mg capsule Indications: Sprain of anterior talofibular ligament of right ankle, initial encounter Take 1 capsule (100 mg total) by mouth in the morning and 1 capsule (100 mg total) before bedtime. 0 Active drospirenone, contraceptive, (Slynd) 4 mg (28) Tab (1 source) take 1 tablet by mouth once daily drospirenone, contraceptive, (Slynd) 4 mg (28) Tab Take 4 mg by mouth daily . 0 Active ammonium lactate 120 mg/ml topical lotion (3 sources) ammonium lactate (Lac-Hydrin) 12 % lotion Apply 1 application topically if needed for dry skin 0 Active meloxicam 7.5 mg oral tablet (5 sources) Nonsteroidal Anti-inflammatory Drug Start: 09-02-2022 take 1 tablet by mouth in the morning meloxicam (MOBIC) 7.5 mg tablet Indications: Sprain of anterior talofibular ligament of right ankle, initial encounter Take 1 tablet (7.5 mg total) by mouth in the morning. 30 tablet 3 09/02/2022 Active take 1 tablet by mouth in the mo rning meloxicam (Mobic) 15 MG tablet Take 15 mg by mouth in the morning. 0 Active ondansetron 4 mg disintegrating oral [...] 09-20-2020 ondansetron (ZOFRAN) injecti on 4 mg phentermine hydrochloride 37.5 mg oral tablet (4 sources) Sympathomimetic Amine Anorectic Start: 10-20-2023 End: 11-19-2023 take 1 tablet by mouth before mealtime phentermine (Adipex-P) 37.5 MG tablet Indications: Weight gain, abnormal , Class 2 obesity due to excess calories without serious comorbidity in adult, unspecified BMI Take 1 tablet (37.5 mg) by mouth in the morning. Take before meals. 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] Onset: 09-20-2022 10-20-2023 Chronic Genitourinary symptoms and ill-defined conditions (3 sources) Urinary incontinence; Translations: [Unspecified urinary incontinence] Onset: 10-20-2023 10-20-2023 Chronic Joint disorders and dislocations; trauma-related (11 sources) Chondromalacia of patella; Translations: [Chondromalacia patellae, unspecified knee] Onset: 11-20-2013 11-20-2013 Chronic Nausea and vomiting (1 source) Nausea and vomiting; Translations: [Nausea and vomiting, intractability of vomiting not specified, unspecified vomiting type] Episodic Osteoarthritis (3 sources) Arthritis; Translations: [Unspecified osteoarthritis, unspecified site] Onset: 10-20-2023 10-20-2023 Chronic Other connective tissue disease (1 source) Plantar fascial fibromatosis; Translations: [PLANTAR FASCIAL FIBROMATOSIS] Onset: 01-05-2023 Episodic Other non-traumatic joint disorders (6 sources) Pain in right knee; Translations: [Pain in joint, lower leg] Onset: 07-20-2012 Episodic Other non-traumatic joint disorders (5 sources) Other specified joint disorders, right ankle and foot; Translations: [OTHER SPEC JOINT D/O RT ANKLE FOOT] Onset: 10-10-2022 Episodic Other non-traumatic joint disorders (3 sources) Impingement syndrome of ankle; Translations: [Other specified joint disorders, right ankle and foot] Onset: 10-20-2023 10-20-2023 Episodic Other non-traumatic joint disorders (3 sources) Instability of joint of right ankle; Translations: [Other instability, right ankle] Onset: 10-20-2023 10-20-2023 Episodic Other non-traumatic joint disorders (3 sources) Ankle pain; Translations: [Pain in right ankle and joints of right foot] Onset: 10-20-2023 10-20-2023 Episodic Other nutritional; endocrine; and metabolic disorders (1 source) Obesity; Translations: [Other obesity due to excess calories] Chronic Other nutritional; endocrine; and metabolic disorders (4 sources) Obesity caused by energy imbalance; Translations: [Other obesity due to excess calories] Onset: 10-20-2023 10-20-2023 Chronic Other nutritional; endocrine; and metabolic disorders (4 sources) Abnormal weight gain; Translations: [Abnormal weight gain] Onset: 10-20-2023 10-20-2023 Episodic Other skin disorders (3 sources) Keratosis pilaris; Translations: [Other specified epidermal thickening] Onset: 10-20-2023 10-20-2023 Episodic Unclassified (1 source) Pain in right ankle and joints of right foot; Translations: [Pain in right ankle and joints of right foot] Onset: 06-16-2022 Unclassified (1 source) PERSONAL HISTORY OF COVID-19; Translations: [PERSONAL HISTORY OF COVID-19] Onset: 10-21-2022 Urinary tract infections (3 sources) Chronic interstitial cystitis; Translations: [Interstitial cystitis (chronic) without hematuria] Onset: 10-20-2023 10-20-2023 Chronic Past or Other Problems Problem Classification Problem Date Documented Date Episodic/Chronic Joint disorders and dislocations; trauma-related (7 sources) Dislocation of patellofemoral joint; Translations: [Unspecified dislocation of unspecified patella, initial encounter] Onset: 11-01-2011 11-01-2011 Episodic Other aftercare (1 source) Other senior care (current) drug therapy; Translations: [[employer] CURRENT DRUG THERAPY] Onset: 10-21-2022 Episodic Other connective tissue disease (1 source) Achilles tendinitis, right leg; Translations: [ACHILLES TENDINITIS RIGHT LEG] Onset: 07-06-2022 Episodic Other connective tissue disease (4 sources) Pain in right foot; Translations: [PAIN IN RIGHT FOOT] Onset: 06-23-2022 Episodic Other non-traumatic joint disorders (3 sources) Knee pain; Translations: [Pain, knee] Onset: 07-20-2012 07-20-2012 Episodic Other non-traumatic joint disorders (4 [...] [S/P knee surgery] Onset: 08-17-2012 08-17-2012 Episodic Residual codes; unclassified (5 sources) Family history of protein S deficiency; Translations: [Family history of diseases of the blood and blood-forming organs and certain disorders involving the immune mechanism] Onset: 09-20-2022 10-20-2023 Episodic Sprains and strains (2 sources) Sprain of foot; Translations: [Unspecified sprain of left foot, initial encounter] Onset: 10-21-2022 08-30-2020 Episodic Results Test Name Value Interpretation Reference Range Facility POINT OF CARE GLUCOSEon 10-06 Glucose [Mass/Vol] 125 mg/dL Critically high 74-106 [facility] Comment on above: Performed By: #### P OCGLUC #### [facility] [address] [address] [address] Alejandrina Monk Glucose [Mass/Vol] 96 mg/dL Normal 74-106 [facility] Comment on above: Performed By: #### P OCGLUC #### [facility] [address] [address] [address] Alejandrina Monk PREG QUANT HCGon 10-18-2022 HCG QUANT 3 mIU/mL Normal [facility] Comment on above: Performed By: #### P REGQNT #### [facility] [address] [address] [address] Alejandrina Monk HCG RANGE SEE BELOW Normal [facility] Comment on above: Result Comment: 5-50 0.2-1 WEEK 50-500 1-2 WEEKS 100-5,000 2-3 WEEKS 500-10,000 3-4 WEEKS 1,000-50,000 4-5 WEEKS 10,000-100,000 5-6 WEEKS 15,000-200,000 6-8 WEEKS 10,000-100,000 2-3 MONTHS Performed By: #### P REGQNT #### [facility] [address] [address] [address] Alejandrina Monk MRI ANKLE RT WO [...] by: ALEJANDRO ANDINO Date: 2022-07-05 09:26 Normal [facility] MACY BORJA ([id number]) 2000 F Date Time Provider Department 06/18/22 JASWANT KING During your visit today, we recorded the following information about you: José Miguel Garay Adm 06/18/2022 4:05 PM Signed Need to call pharmacy for insurance information. Not coming up in either epic or covermymeds Need pa on wegovy José Miguel Garay [facility] 07/06/2022 2:48 PM Addendum Initiated PA for Wegovy through [employer] via [employer] Christensen: [id number] Waiting for next steps Need to call insurance for determination PA Christensen for Wegovy José Miguel Garay [facility] 07/06/2022 3:02 PM Addendum Called [facility] and PA's need to go through [employer]. Unable to process PA electronically. Requested to fax chart notes to [phone] Transmitted Successfully Can call for determination at [phone] Can take up to 10 days for determination Spent 6 minutes on the call José Miguel Garay [facility] 07/06/2022 3:03 PM Signed Called [employer] for status of PA for Wegovy. 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] 11/20/2013 Encounter Status:Closed by CYNTHIA ELMORE JOSÉ MIGUEL on 06/18/22 Normal [facility] XR ankle RT min 3V*on 2021 XR ankle RT min 3V* [facility] [address] [place] [id number] XRay Report Signed Patient: Macy Borja MR#: [id number] : 2000 Acct:[id number] Age/Sex: 22 / F ADM Date: 06/16/22 Loc: ICXD Room: Type: [facility] Attending Dr: Allison Aragon Copies to: BEAU [...] Rosana Denise M.D.06/16/2022 2:30 PM Dictation Location: [place] [address] Transcribed By: [facility] 06/16/22 143 Dictated By: Rosana Denise MD 06/16/22 1429 Signed By: 06/16/22 143 [facility] 04-14-2022 CNOV Office Visit (ORMIDD ) MACY BORJA ([id number]) 2000 F Date Time Provider Department 04/14/22 [...] Saw Dr. Calloway. Saw another doctor in [place]. ALLERGIES No Known Allergies PAST MEDICAL HISTORY [...] is stable. Incisions. Imaging: Plain films from [facility] are personally reviewed by me and demonstrates bilateral patellofemoral degenerative joint disease. Left is worse than right. Impression: Mcay Borja is a 21 year old female with a bad problem. Bipolar chondral disease. Overweight. Prior surgery. Plan: Referred to get ready 2. Return to clinic after the MRI 3. Needs sizing x-rays at the next visit 4. Weight loss will be paramount and we probably should optimize her . Robert Eric MD Referring Provider: PAKO AHMADI [[id number]] Allergies As of Date: 04/14/2022 (No Known Allergies) Date Reviewed: 04/14/2022 Reviewed by: Maggie Rodriguez Ma - Fully Assessed Reason for Visit: New [[id number]] Primary Visit Diagnosis:Chronic pain of right knee [M25.561, G89.29] Order(s):MRI KNEE WO IVCON RT [[id number]] Order #: [id number] FUTURE ENDOCRINE MEDICAL WEIGHT MANAGEMENT [[id number]] Order #: [id number]: 1 FUTURE XR KNEE POST OP 3V AP/LAT/MERCHANT RIGHT [[id number]] Order #: [id number] FUTURE Prescriptions as of 04/14/2022 - drospirenone, contraceptive, (SLYND) 4 mg (28) tab Take by mouth. 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 Follow-up and Disposition History for Encounter Date Provider Department Center 04/14/2022 [id number] ERIC [facility] Encounter Status:Closed by ROBERT ERIC on 04/14/22 [facility] XR KNEE 4V AP/PA BOTH+LAT/ME R RTon [...] knee. IMPRESSION: POSTSURGICAL AND MILD DEGENERATIVE CHANGE Oracle Database Analyst: EARL Transcribe Date/Time: Apr 14 2022 9:49A Dictated by : AUDREY ESTES MD This examination was interpreted and the report reviewed and electronically signed by: AUDREY ESTES MD on Apr 14 2022 9:50AM EST [id number] [facility] CNPNon 04-07-2022 CNPN Telephone (ORTHMN) MACY BORJA ([id number]) 2000 F Date Time Provider Department 04/07/22 ROBERT ERIC ORTHMN During your visit today, we recorded the [...] Encounter Status:Closed by ALLISON RUGGIERO on 04/07/22 [facility] Consent Formson 09-11-2021 Consent Forms [id number] 1 [id number]#1 .00[facility] Pulmonary Procedureon 2021 Pulmonary Procedure [id number]#1 .00[facility] Coding Summaryon 09-07-2021 Coding Summary HTMLBase 64 TxhpgyvcDPm0sMz+PGhlY WQ+OX5CSAZsL51tkEFikN 0GB5qRCM2NVSDMGEGQXM0 PGN3vgKT0XDrwB1LzbjDo VkscuIHtJK82KWb1LLA1x MnpFRcptX5phKBlP9k8Qx JtRE38gB82JGzpHSJgWxJ 3LjZpbjsgbWFy N9peKyPrtTBvPsd+PHRhY mxlIHdpZHRoPScxMDAlJy ZtfQfhUS2qKy2hBLHuWUC vbGxhcHNlOiBj c2wxTPHpRMvjQH0vcEcmN 1IrvHH6MAKql1b1Jy52qI I+IVZxBMV4yFtcHFnll17 0LoSnr0cnKNB0 fJOyKWypBUL1T58zd5M2W MMuYHAfEEF5xVF6uP8ugV exwpoyH8FcjAFsLoC4YKR 1yVRmpI9ekGxp hoqdjJ3jJqy+Y89LMR2RC GDWXV3CKmo4I9BbAwkpsY I+FY57JGOhZH18eTLvaCG ax7vadMd5QdLy GSHqWPZ9bFbsJUhen3JjO RCfA23gmTKog0Z8UGUgqI ijnOFvQkRczDG1cW6sFTc wdumnu3fxxapl Ivjko8svib84pS75X13tU QleVQEqAVK8TNOyFGIznD cxsd6jzQ6aYg8+NAltf7x wx1apnXf9DyYq OVSkdgBtsLjvGOU6g0HzC d02L6MdvEfnm9XeWrn4bx 31mESna1Z3iXY0LXcdWMX lmM3yFThoDvA5 RNQbCkPofM26cHAgWQjdU c9ydRknjUumDB3kMLVoxw vpOLEzjZ0gNZJigCJvjAq rFH5qFKRmlxci r929AzDuWVQ9TWPckJYhM 8UbbY4aBzUrVEAvJEMiU9 JmoQPnNAeoP842CWdnBdV 8SWRqfhHvZ8Du OGBuvIkkHoC6l1I4Bn4Hz 9KygqbcXVU1QNyrEIJgQw WtWbFoCaZ0F9JrJyy1BXG ftIdwFF7lN6Nr UUSrzpwkzimatKL1QFIrS QGzuW65pAHyAKknVd2we5 K7o421HVOkPHDnlO52Hh4 udDogMTBwdCBU rE7yunlpb5pqwslkTxTqP EAzCIb5KKy6POUjmYrgFo HlQON0VwS6FKN1qQPppU6 aaSqphuwqbG4b Oyc+X22mmO0fFPM8NQQ3f ppaVRXtspGgDE01IX47B9 RyPjwvdGFibGU+PGRpdiB zkGeqGI3kRvWt k4whc7IhRNokJ4StVLLkL MbyEjj2BJXgTUA3pEB2hJ 1mJLGsULsha1J3dTQ1B5D opcDqfq6vt1wp PRMoSYcdG31rbVUyv5M3G AAzyFU7BTJmhCwvGeBemC 93Oyc+KPLsmYusd3QsHsm kl4vyp7pxzOa7 PhUyASOcdeXucApaKMC6g 0VyGi49T87aFSzhECUxIR HuAWJuSEQrdIvsjz9poX9 wIi8+PGNvbCB3 eYJ8xQ5mKUUbIkY3BIiqO 134RrRbiUKuEeriy7ljd2 bdfMt5AnZdLEXnomLhzNj yNFL9k1GoVt50 C36nYTmcEWImCCHhJGVbD RZxoLeofb0arC6wUm7+PC 1ul1rvtr34qI92kXJ+PHR xWEQ3wEmtQIpp HYNmhB5jOBasRgF9EHVwN kWwoB15tWWcMYggRc8msQ aelGscGO3kDLGilsajq07 2VuEid1wpKMDc xNFqODrhQJM6Z76fd9W8X BTmFEFmWGU1mKM4qJ3pcJ lnbjogbGVmdDsgdmVydGl iMRfcNTpyL931 IHRvcDsnPlBhdGllbnQgT oSlASc2C0QlEvp3GGXztS zvWU3lwURcKEtiOr2zaHa muOouPM8eYMPr ydfnc824LjFaj3shADNrc HTaHNzhDRW2T83zw2I3JH BmONGaXMH3bCI8tZ1oaPi nbjogbGVmdDsg btPowIliAChuMBbpN915Y HRvcDsnPkJpcnRoIERhdG M7QR08PC26kGOdl8C9xEG 4B7EmQXRbovin ojzryUI0TCNsHLHfbE12O o0caYbbDk0xBCIbMBA3SI AjxFKbA7MpxT2cSsWoZXW sITUuZ9SlrSWm VUigR814ILanAcA8VWXli fAfG9CyLFVoyWkfStG0k1 L7Ps1GX2X4OQ94GS61rKJ ca4A7uES3D5Vn WTKdksnawipyoRU6MLXaR UHkmQ01Yy7xlOciJw1tIF ZqSJU8JZFliDNwO6TqsW6 yOiAjMDAwMDAw N4EdzZQmYBpgU177AYbdI tH4TCLmquQpO8ToSFMxrE xaVgV7c1V3Uz6CRZn8GY7 9BM15jTYfx9X4 mDH2C0PfEWDhctfpayyhx QG0JROuTYJbxF53Va3ikV qhFw5lSOKmCAW0BHXlgAB jL2XufY2mTiQa ZKXrXBGxT1MmoPYvEKrzA 260UMxnCgF2LIPmunVkE3 PgGLDmxWvoOkD3j4D0Yu8 PDGCsMB04FPN3 vGK2RK36TG58X8MkPupwh GFibGU+PHRhYmxlIHdpZH RoPScxMDAlJyBzdHlsZT0 oLs9rSIHmSFPl xAbohOXeSyCvb1cvVYQaR WqmKK1gsCruL3TvlMP4ZL Dgl7s2Eq75J35uB4OvuAN +KTCqnPL5iYE5 bA3wBoCqXiY4FLyfQ535T eVfxVEhFrxvf8gge1cjyQ e4OcX0TUHrucCadCnbBJZ 4m3PnEf45U55l IHdpZHRoPSIxNSUiIHZhb Xqgmj3zlH8jSt0+PGNvbC D4lZV9uZ6zTbWtAyU2QFw vX694ZgSssRQh Gwxyo8shl7moxFi7ZlHgI HVuyvNygTblHJD8e9UbLt 99C9OfrJxdg6KaEej1uo4 8pKRzh7U6iRH0 N2FlBFBfziyjaBLtlWjsD J8jRLTqvibvPVSciN4aKU MbE7b4ImWoDwJ3ANxrD9G itvK8COOncKEf OKymHOY7D77dn2G6RMJyX NJqBIF9jYV1pF7xdZwebo ogbGVmdDsgdmVydGljYWw bGCafR495PRJj cAwbGHOnxB7gNHSxuQTos VllKK5sCHYlolxcAv9YEz RJTiwgQURFTElORSBNQVJ JRTwvdGQ+PHRk GQI0pSduHMviKVOevU7zR IAhG5c5DxWeXeI9PVxrC0 DbFZOwcdjrBd75xM7dEmO vAnR4OXwxC3Fp utF1YKWghUQnYUmpMDQ6B 20jc4X0PWHwIYIyGVR3qV K5jE6wlWelrgbvyCNidFj gdmVydGljYWwt TYsbO312FQLxyRjdZhL3W hQnBdF9OHr5F7RyYuu1AP AoeYcrCQ3kwRYvTFbiRm5 cgZckxYdyPV2q XXOxtbucCQJtyQ4bARFqd PPuvZbvKX2uHJOvlgiws7 47NrIcOZR1HYSebMUzZ8Z odQ3uNsDvRJIt HDOjP0MmeKGiDZspA224I JdeXaC7AFByvfSfD8LnPW LvqKajVbJ6e0J0Ow2cMxZ ZZWFyczwvdGQ+ RVVhFBI5eDqjRSsiNUMxf E6fVDIgY6r1ThYdWcH9PK kbB5TuCYOiucewCy68eZ0 aYaXcSpV8KElz S2DmehI3NVDwgFStRKoeV GH9K00eu6Y9TULhLCMaNH X3kUC3fA2yfTtbkzenmPK mdDsgdmVydGlj TZuqKJxvZ224SMMmpEmaO kZFTUFMRTwvdGQ+PHRkIH C2uAkkYDveEDLzdH4rPUT rH5w5OrGoYrS0 FMjfR4VzVUHcsiltMh62e N3jTtSnVaD5UKeuZ7Woiz Y1JLQgvQTiHRmlUFK9O96 ch5Z2EDQxFLMj AQH8aKV1lE3dyQtflvadt GVmdDsgdmVydGljYWwtYW lzS643EETudIhpOi6FEW2 3GR86A3OfQilg dGFibGU+PHRhYmxlIHdpZ HRoPScxMDAlJyBzdHlsZT 9lWs4xOJXmBPInzDldwEV wSeEln9lwISVz HDygHQ5nnOttQ7AbxRU8M DWgz5n5Gr67L32zF6UzlV A+OLGbeIN3iAX2lR7cUdU dPsL5ZRvdT332 WdBduSIqIenbb8wca2lbn Bq4GxUjZYGhfsPvyUbgRF J1c6LtFv32K20uLSkhHKJ oPSIyMCUiIHZh pOdcnc2enJ7wXu8+PGNvb OL8mSJ7aA3kYxWuAkB4KA lnC797LgDfoXMsBcwwG26 xM4AnhGF+PHRy Pow3RAFhjVloUV6htSFnQ MxrOr1qSLJ1YgEvZsPlPS roN7AwWNKivttzvksjaZR 0SVMeANSoeW12 Lu8jvJfvMs9lZFKaXJO7M VSsqWCyY5BvwE8vVjMgJP BbPYYsY7UddLAjQGmrE16 3PXvkPrG9JJLe ggVeZ5PnASJxoLvqAcD4s 3O4Lb0ByNvaxTIbWX5dJa CbKWz3D6QtGsu7PBYltVn nPA0toGRbBKgj Wk2duJnyqMrqGL3pJHNar tajj887AsScq5ooHUWokI OdDHbzWZK7J45vv3D2REP iNZNcLZO1tQQ9 uP3slXfrmqsorNIfcCyat uZepRqsLZgpNHqhI107NF FohWkaTqCIWfg1Y2DuSwv 2QZFlaWjrYX8j kPJnICorXi2usOhqdZhtM A7eAYQxhahdu720MzRfh2 anRQZzeKVgLGsxHMU0G82 xd8Y1RPLgZGCk CWF1uFZ7eM6plLdfzivev GVmdDsgdmVydGljYWwtYW rsP016PELzyDakWp5ATky 7K4DaKnf3XWLj rNuyHL6beFNfHQwlXi9lf CrinNqhKH9kFQHededct1 02HeFmp0zwRLJkrOSgEAx zKVW1H73vf0M4 UFFaUYMsBAO4mVI8sN7as GlnbjogbGVmdDsgdmVydG vwJFxqRGjxG671ACKdoVt nPlBheWVyOjwv dGQ+QD28rn03T0VoOfogN vb5QUPtVTK7hDD9uD7tIC ZfJUgey3T9aYO4R5XbohJ dsu5cn7etTNZg ZTo (more content not included)... Normal [facility] 2019 Novel Coronavirus (CoVI D-19), MEGAN on 09-02-2021 SARS-CoV-2 (COVID-19) RNA MEGAN+probe Ql (Unsp spec) Not detected Invalid Interpretation Code Not Detected [facility] Comment on above: Order Comment: [id number] 1 # [phone] Result Comment: This nucleic acid amplification test was developed and its performance characteristics determined by [employer]. Nucleic acid amplification tests include RT- PCR [...] detected) result in this assay. Performed At: [address] [id number] Abigail Franklin PhD Ph:[phone] Performed By: #### 6 [id number] #### [facility] (DEFAULT) [address] [place] [address] Release of Informationon Release of Information [id number] .00OTGTIFF [facility] Coding Summaryon 10-08-2020 Coding Summary CODING DATE: 10/08/2020 [facility] STATUS: Home PAYOR: Edward Peralta ADMIT DX: REASON FOR VISIT DX: E66.9 [...] Danitza Hernandez Date Saved: 10/08/2020 10:57 am [facility] Insulin LCon 10-08-2020 Insulin LC 16.9 uIU/mL Invalid Interpretation Code 2.6-24.9 [facility] Comment on above: Result Comment: Perf ormed At: [facility] [address] [id number] Abigail Franklin PhD Ph:[phone] Performed By: #### 1 [id number], [id number], [id number], [id number], [id number], [id number], [id number], [id number] #### [facility] (DEFAULT) [address] [place] [address] Provider Orderson 10-08-2020 Provider Orders [id number]Auto Diff 1on 10-07-2020 Auto Dougherty % 8 % Normal 1-12 [facility] Comment on above: Performed By: #### 1 [id number], [id number], [id number], [id number], 0106362, 57489556, 6438613, 4179745 #### [facility] (DEFAULT) [address] [place] [address] Baso Abs# 0.0 x10 Normal 0.0-0.2 [facility] Comment on above: Performed By: #### 1 [id number], [id number], [id number], [id number], 4389350, 81920279, 6003392, 0511472 #### [facility] (DEFAULT) [address] [place] [address] Basophils/100 WBC (Bld) 0.3 % Normal 0.2-2.0 [facility] Comment on above: Performed By: #### 1 [id number], [id number], [id number], [id number], 4487382, 76028054, 3561337, 5866204 #### [facility] (DEFAULT) [address] [place] [address] Eos Abs# 0.1 x10 Normal 0.0-0.4 [facility] Comment on above: Performed By: #### 1 [id number], [id number], [id number], [id number], 1145568, 43249521, 9580514, 0879067 #### [facility] (DEFAULT) [address] [place] [address] Eosinophils/100 WBC (Bld) 2.1 % Normal 0.9-4.0 [facility] Comment on above: Performed By: #### 1 [id number], [id number], [id number], [id number], 0619828, 99655150, 4512619, 6719833 #### [facility] (DEFAULT) [address] [place] [address] Lymph Abs# 1.5 x10 Normal 1.3-2.9 [facility] Comment on above: Performed By: #### 1 [id number], 72751790, 8107484168, 4285857549, 8066404, 60644450, 8361642, 7194183 #### [facility] (DEFAULT) [address] [place] [address] 62942 Lymphocytes/100 WBC (Bld) 26 % Normal 14-48 [facility] Comment on above: Performed By: #### 1 [id number], 28333149, 9222905394, 5833538373, 9560896, 50056549, 8457547, 8339301 #### [facility] (DEFAULT) [address] [place] [address] Dougherty Abs# 0.5 x10 Normal 0.0-0.8 [facility] Comment on above: Performed By: #### 1 [id number], 38352064, 7893062197, 9812365877, 1024028, 15115862, 8985243, 9567673 #### [facility] (DEFAULT) [address] [place] [address] Neut Abs# 3.6 x10 Normal 1.5-9.2 [facility] Comment on above: Performed By: #### 1 [id number], 41694726, 8702427194, 2920511789, 5268696, 63216137, 5694537, 5175208 #### [facility] (DEFAULT) [address] [place] [address] Neutrophils/100 WBC (Bld) 63 % Normal 44-88 [facility] Comment on above: Performed By: #### 1 [id number], 85621336, 5260951566, 8063008354, 1135547, 69727526, 8772955, 9279340 #### [facility] (DEFAULT) [address] [place] [address] CBC w/ Auto Diffon Erythrocyte distribution width (RBC) [Ratio] 12.6 % Normal 11.5-15.0 [facility] Comment on above: Performed By: #### 1 [id number], 06500481, 6414418116, 9766804878, 6083913, 32727869, 5355314, 9002612 #### [facility] (DEFAULT) [address] [place] [address] Hematocrit (Bld) [Volume fraction] 42.4 % High 33.7-40.4 [facility] Comment on above: Performed By: #### 1 [id number], 22798285, 7932694181, 2829410619, 8377171, 93306584, 0139209, 8901176 #### [facility] (DEFAULT) [address] [place] [address] Hemoglobin (Bld) [Mass/Vol] 14.1 g/dL Normal 11.3-15.9 [facility] Comment on above: Performed By: #### 1 [id number], 95916117, 3999871692, 9960656553, 1508943, 85435673, 5510073, 3069855 #### [facility] (DEFAULT) [address] [place] [address] Instr WBC 5.8 x10 Invalid Interpretation Code [facility] Comment on above: Performed By: #### 1 [id number], 42192345, 6423594724, 7822843038, 0798584, 19115760, 3146060, 7403710 #### [facility] (DEFAULT) [address] [place] [address] Man Diff? Auto Normal [facility] Comment on above: Performed By: #### 1 [id number], 37784834, 1617857570, 4416950037, 2242682, 40925255, 3380640, 6053534 #### [facility] (DEFAULT) [address] [place] [address] MCH (RBC) [Entitic mass] 28 pg Normal 24-34 [facility] Comment on above: Performed By: #### 1 [id number], 66858413, 1173936472, 4518729334, 1775272, 05853575, 2511471, 5665632 #### [facility] (DEFAULT) [address] [place] [address] MCHC (RBC) [Mass/Vol] 33 g/dL Normal 26-37 [facility] Comment on above: Performed By: #### 1 [id number], 81668978, 0720027366, 3159196710, 3026164, 33609578, 0321548, 6985028 #### [facility] (DEFAULT) [address] [place] [address] 81679 MCV (RBC) [Entitic vol] 86 fL Normal 81-100 [facility] Comment on above: Performed By: #### 1 [id number], 27986227, 7266753379, 0629691125, 3140665, 51659451, 1033346, 0288103 #### [facility] (DEFAULT) [address] [place] [address] Platelet 264 x10 Normal 138-427 [facility] Comment on above: Performed By: #### 1 [id number], 01316143, 0579889791, 6171850504, 7688183, 61396536, 7031778, 9144630 #### [facility] (DEFAULT) [address] [place] [address] Platelet mean volume (Bld) [Entitic vol] 9.7 fL Normal 6.3-10.2 [facility] Comment on above: Performed By: #### 1 [id number], 71720407, 2739744597, 7901176221, 6594561, 13138080, 9811907, 2601997 #### [facility] (DEFAULT) [address] [place] [address] RBC 4.95 x10 Normal 3.70-5.30 [facility] Comment on above: Performed By: #### 1 405863745, 18332335, 3529483566, 2819491481, 5431689, 61969973, 4872528, 8088483 #### [facility] (DEFAULT) [address] [place] [address] WBC 5.8 x10 Normal 3.5-10.5 [facility] Comment on above: Performed By: #### 1 381016689, 48710775, 3508711127, 0861830309, 6335220, 12074785, 3846830, 5498694 #### [facility] (DEFAULT) [address] [place] [address] CMP Standardon 10-07-2020 eGFR Non AA >60 Invalid Interpretation Code [facility] Comment on above: Performed By: #### 1 [id number], 52959751, 7934177285, 7931652406, 7570832, 77310048, 1801061, 8254612 #### [facility] (DEFAULT) [address] [place] [address] eGFR AA >60 Invalid Interpretation Code [facility] Comment on above: Result Comment: Operations Representative 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 Kidney Failure is indicated at less than 15 ml/min/1.73m2 Performed By: #### 1 762461455, 03902779, 6422483447, 2496534195, 8617924, 12840680, 5351424, 2106031 #### [facility] (DEFAULT) [address] [place] [address] Albumin [Mass/Vol] 4.4 g/dL Normal 3.5-5.[address] [facility] Comment on above: Performed By: #### 1 518883289, 36238500, 2739584586, 0824215888, 7912930, 84077241, 9747021, 1960665 #### [facility] (DEFAULT) [address] [place] [address] 18169 Albumin/Globulin [Mass ratio] 1.5 {ratio} Normal 1.4-2.6 [facility] Comment on above: Performed By: #### 1 [id number], 38972844, 5529651087, 3798862145, 9021739, 76777993, 5753370, 4298605 #### [facility] (DEFAULT) [address] [place] [address] 16079 Alk Phos 65 IU/L Normal 32-91 [facility] Comment on above: Performed By: #### 1 [id number], 24934281, 9483482243, 4911726912, 0571114, 99473440, 0646737, 1728792 #### [facility] (DEFAULT) [address] [place] [address] 05787 ALT [Catalytic activity/Vol] 19.0 U/L Normal 14.0-54.0 [facility] Comment on above: Performed By: #### 1 521389344, 61807932, 5661600501, 6794183672, 7532814, 64822055, 3883271, 3328415 #### [facility] (DEFAULT) [address] [place] [address] 84301 Anion gap [Moles/Vol] 13.0 mmol/L Normal 5.0-19.0 [facility] Comment on above: Performed By: #### 1 491572170, 50449203, 4665399138, 9035258613, 2694982, 65746670, 1214694, 0356473 #### [facility] (DEFAULT) [address] [place] [address] 58178 AST [Catalytic activity/Vol] 17 U/L Normal 15-41 [facility] Comment on above: Performed By: #### 1 [id number], 09012387, 0868034929, 2236178762, 9130388, 64909822, 7297859, 0788811 #### [facility] (DEFAULT) [address] [place] [address] 32964 Bili Total 0.7 mg/dL Normal 0.3-1.2 [facility] Comment on above: Performed By: #### 1 878592378, 28987705, 6053616620, 1419373552, 0781304, 01077305, 1802071, 1146295 #### [facility] (DEFAULT) [address] [place] [address] 26243 Calcium [Mass/Vol] 9.2 mg/dL Normal 8.9-10.[address] [facility] Comment on above: Performed By: #### 1 664270775, 11537376, 3918991986, 6714388562, 6631095, 64936662, 1653347, 9071650 #### [facility] (DEFAULT) [address] [place] [address] 94322 Chloride [Moles/Vol] 107 mmol/L Normal 101-111 [facility] Comment on above: Performed By: #### 1 113591148, 01820035, 2206735313, 1853692809, 2860484, 61099774, 8722636, 1994440 #### [facility] (DEFAULT) [address] [place] [address] 71766 CO2 [Moles/Vol] 24 mmol/L Normal 21-32 [facility] Comment on above: Performed By: #### 1 507848794, 69247264, 0738916267, 9764529479, 9166213, 59996352, 7111503, 8322000 #### [facility] (DEFAULT) [address] [place] [address] Creatinine [Mass/Vol] 0.82 mg/dL Normal 0.60-1.30 [facility] Comment on above: Performed By: #### 1 008961721, 26052865, 9373232847, 0500293483, 8503698, 71247178, 0107938, 6342956 #### [facility] (DEFAULT) [address] [place] [address] Globulin (S) [Mass/Vol] 2.9 g/dL Normal 1.5-4.3 [facility] Comment on above: Performed By: #### 1 [id number], 05627502, 8237970537, 9272079219, 9173519, 89926002, 2298562, 7094978 #### [facility] (DEFAULT) [address] [place] [address] Glucose [Mass/Vol] 105.0 mg/dL Normal 74.0-118.0 [facility] Comment on above: Performed By: #### 1 845435687, 89782507, 7528574048, 1065799137, 8397683, 50520889, 5430386, 6273189 #### [facility] (DEFAULT) [address] [place] [address] Osmolality 281 mOsm/L Invalid Interpretation Code [facility] Comment on above: Performed By: #### 1 981712578, 30458476, 9174660967, 1305096222, 2809331, 82049826, 2394144, 8612128 #### [facility] (DEFAULT) [address] [place] [address] 64285 Potassium [Moles/Vol] 3.7 mmol/L Normal 3.6-5.1 [facility] Comment on above: Performed By: #### 1 077374980, 10544124, 6968674459, 2703256837, 0759609, 79649528, 4684624, 7664847 #### [facility] (DEFAULT) [address] [place] [address] 01432 Protein [Mass/Vol] 7.3 g/dL Normal 6.5-8.[address] [facility] Comment on above: Performed By: #### 1 683924435, 18403511, 4073223735, 4098434036, 7405499, 51154073, 1632608, 4321600 #### [facility] (DEFAULT) [address] [place] [address] 98864 Sodium [Moles/Vol] 140.0 mmol/L Normal 136.0-144.0 [facility] Comment on above: Performed By: #### 1 360858891, 20343597, 6961166821, 5678209187, 6730391, 76294387, 0680755, 2044383 #### [facility] (DEFAULT) [address] [place] [address] 91394 Urea nitrogen [Mass/Vol] 16 mg/dL Normal 8-26 [facility] Comment on above: Performed By: #### 1 887579359, 56033422, 0403549638, 2045596286, 7975887, 29494045, 7157055, 4001166 #### [facility] (DEFAULT) [address] [place] [address] 15916 Urea nitrogen/Creatinine [Mass ratio] 20.0 mg/mg High 4.6-16.2 [facility] Comment on above: Performed By: #### 1 [id number], 23617560, 4791913776, 5865706234, 0733840, 56269717, 7358714, 6405688 #### [facility] (DEFAULT) [address] [place] [address] 19084 Free T4on 10-07-2020 Free T4 [Mass/Vol] 0.94 ng/dL Normal 0.61-1.[address] [facility] Comment on above: Result Comment: Spec imens that contain high levels of Biotin may cause false high results Performed By: #### 1 446302068, 76903290, 9128001294, 7527943807, 9932504, 03675049, 1955619, 8462732 #### [facility] (DEFAULT) [address] [place] [address] HgbA1c Standardon 10-07-2020 .Hb 15.8 Invalid Interpretation Code [facility] Comment on above: Performed By: #### 1 [id number], 06661818, 9939174468, 4845543607, 3272290, 17967747, 2460813, 7148088 #### [facility] (DEFAULT) [address] [place] [address] .Hgb A1c 0.52 g/dL Invalid Interpretation Code [facility] Comment on above: Performed By: #### 1 150858323, 54769640, 9424595408, 7153140337, 6793251, 92538714, 8659004, 9137515 #### [facility] (DEFAULT) [address] [place] [address] Glucose [Mass/Vol] 102 mg/dL Invalid Interpretation Code [facility] Comment on above: Performed By: #### 1 144639108, 15912016, 8509882197, 2331889445, 0153913, 15901814, 5978872, 5783909 #### [facility] (DEFAULT) [address] [place] [address] HbA1c (Bld) [Mass fraction] 5.2 % Normal 4.6-6.2 [facility] Comment on above: Performed By: #### 1 946395826, 61844362, 0174039579, 1319716572, 0055816, 96291449, 5077125, 3109180 #### [facility] (DEFAULT) [address] [place] [address] Lipid Panel Standardon 10-07 Cholesterol [Mass/Vol] 106.0 mg/dL Normal 66.0-200.0 [facility] Comment on above: Result Comment: Zeny rable - Less than 200 mg/dL Borderline high risk - 200-239 mg/dL High risk - 240 mg/dL and over. Performed By: #### 1 730112898, 04734713, 8481468313, 1349299258, 9299544, 58776136, 5538341, 9457560 #### [facility] (DEFAULT) [address] [place] [address] 83299 Cholesterol in HDL [Mass/Vol] 38 mg/dL Low 40-71 [facility] Comment on above: Result Comment: High risk - <40 mg/dL. Performed By: #### 1 [id number], 43851831, 1341627019, 7882281727, 9804246, 64258010, 0485192, 7594495 #### [facility] (DEFAULT) [address] [place] [address] 21115 Cholesterol in LDL [Mass/Vol] 57 mg/dL Normal 1-100 [facility] Comment on above: Result Comment: Opti mal - Less than 100 mg/dL Borderline high risk - 130-159 mg/dL High risk - 160-189 mg/dL. Performed By: #### 1 604629008, 85554390, 1461288420, 6021737592, 4412852, 78139102, 7903460, 4524394 #### [facility] (DEFAULT) [address] [place] [address] 00465 Cholesterol.total/C holesterol in HDL [Mass ratio] 2.8 {ratio} Normal 0.0-4.5 [facility] Comment on above: Performed By: #### 1 299476651, 63653691, 2126024925, 3200592194, 2552846, 10589578, 5331875, 4712462 #### [facility] (DEFAULT) [address] [place] [address] 53267 Triglyceride [Mass/Vol] 56.0 mg/dL Normal 0.0-150.0 [facility] Comment on above: Performed By: #### 1 [id number], 72093870, 0620441094, 0609600270, 2890815, 06769183, 5768987, 7153745 #### [facility] (DEFAULT) [address] [place] [address] 27891 VLDL. 11 mg/dL Normal 5-40 [facility] Comment on above: Performed By: #### 1 145687624, 16468037, 4085224761, 5110978727, 1458915, 52056968, 7243026, 4581731 #### [facility] (DEFAULT) [address] [place] [address] 57252 TSHon 10-07-2020 TSH Qn 2.03 m[IU]/L Normal 0.45-5.33 [facility] Comment on above: Result Comment: Gene ral Population (males and non- females, aged 21-88) 0.45 - 5.33 Females, 1st Trimester 0.05 - 3.70 Females, 2nd Trimester 0.31 - 4.35 Females, 3rd Trimester 0.41 - 5.18 Performed By: #### 1 [id number], 65512628, 8132344788, 0081995221, 0784911, 46377053, 4084793, 5492922 #### [facility] (DEFAULT) [address] [place] [address] 70341 Alcohol, Medicalon Ethanol [Mass/Vol] 207.0 mg/dL High <10.0 [facility] ealth BMPon 09-21-2020 Anion gap [Moles/Vol] 18 mmol/L 10 - 20 mmol/L [facility] Calcium [Mass/Vol] 9.4 mg/dL 8.4 - 10. 2 mg/dL [facility] Chloride [Moles/Vol] 109 mmol/L High 98 - 108 mmol/L [facility] Creatinine [Mass/Vol] 1.08 mg/dL 0.40 - 1.10 [facility] GFR/1.73 sq M predicted among non-blacks MDRD (S/P/Bld) [Vol rate/Area] The eGFR should be used for monitoring renal function only and not for medication dosing. [facility] GFR/1.73 sq M.predicted CKD-EPI (S/P/Bld) [Vol rate/Area] 73 >=60 mL/min/1.73 m2 [facility] Glucose [Mass/Vol] 114 mg/dL High 65 - 99 mg/dL [facility] o[facility]al HCO3 [Moles/Vol] 23 mmol/L 21 - 32 mmol/L [facility] Potassium [Moles/Vol] 4.0 mmol/L 3.5 - 5.1 mmol/L [facility] Sodium [Moles/Vol] 146 mmol/L High 135 - 145 mmol/L [facility] Urea nitrogen [Mass/Vol] 13 mg/dL 8 - 25 mg/dL [facility] Urea nitrogen/Creatinine [Mass ratio] 12.0 mg/mg [facility] CBC WITH AUTO DIFFERENTIALon 09-21-2020 Basophils (Bld) [#/Vol] 0.02 10*3/uL [facility] Basophils/100 WBC (Bld) 0.3 % [facility] Eosinophils (Bld) [#/Vol] 0.10 10*3/uL [facility] Eosinophils/100 WBC (Bld) 1.3 % [facility] Erythrocyte distribution width (RBC) [Entitic vol] 11.9 % 11.6 - 14.8 % [facility] Hematocrit (Bld) [Volume fraction] 44.3 % 36.0 - 46.0 % [facility] Hemoglobin (Bld) [Mass/Vol] 14.4 g/dL 12.0 - 16.0 g/dL [facility] Immature granulocytes (Bld) [#/Vol] 0.05 10*3/uL [facility] Immature granulocytes/100 WBC (Bld) 0.60 % [facility] Comment on above: The IG parameter is the percentage of metamyelocytes, myelocytes and promyelocytes. An immature granulocyte count (IG) of 1% or more suggests the possibility of infection, an IG count of 3% is very likely related to an infection. Lymphocytes (Bld) [#/Vol] 2.17 10*3/uL [facility] Lymphocytes/100 WBC (Bld) 27.9 % [facility] MCH (RBC) [Entitic mass] 28.1 pg 26.0 - 34.0 pg [facility] MCHC (RBC) [Mass/Vol] 32.5 g/dL 31.0 - 37.0 g/dL [facility] MCV (RBC) [Entitic vol] 86.4 fL 80.0 - 100.0 fL [facility] Monocytes (Bld) [#/Vol] 0.55 10*3/uL [facility] Monocytes/100 WBC (Bld) 7.1 % [facility] Neutrophils (Bld) [#/Vol] 4.90 10*3/uL [facility] Neutrophils/100 WBC (Bld) 62.8 % [facility] Nucleated RBC (Bld) [#/Vol] 0.00 10*3/uL [facility] Nucleated RBC/100 WBC (Bld) [Ratio] 0.0 % [facility] Platelet mean volume (Bld) [Entitic vol] 9.8 fL 9.4 - 12.4 fL [facility] Platelets (Bld) [#/Vol] 271 10*3/uL [facility] RBC (Bld) [#/Vol] 5.13 10*6/uL [facility] ealth WBC (Bld) [#/Vol] 7.79 10*3/uL [facility]alth HCG (QUALITATIVE)on 09-21-19 21 Beta HCG ( test) Ql Negative Negative [facility] Interpretation and review of laboratory results Normal [facility] Negative: The result is less than or equal to 5 mIU/mL of HCG. [facility] Otheron 09-21-2020 Interpretation and review of laboratory results Abnormal [facility] Vital Signs Date Time Vital Sign Value Performing Clinician Olivei lity 10-20-2023 08:39-0500 Body height 185.4 cm Allison Aragon RN CLINICAL Work Phone: [facility] 10-20-2023 08:39-0500 Body mass index (BMI) [Ratio] 37.1 kg/m2 Allison Aragon RN CLINICAL Work Phone: [facility] 10-20-2023 08:39-0500 Body temperature 97.81 [degF] Allison Mahesh RN CLINICAL Work Phone: [facility] 10-20-2023 08:39-0500 Body weight 127.55 kg Allison Aragon RN CLINICAL Work Phone: [facility] 10-20-2023 08:39-0500 Diastolic blood pressure 86 mm[Hg] Allison Aragon RN CLINICAL Work Phone: [facility] 10-20-2023 08:39-0500 Heart rate 70 /min Allison Aragon RN CLINICAL Work Phone: [facility] 10-20-2023 08:39-0500 Respiratory rate 19 /min Allison Aragon RN CLINICAL Work Phone: [facility] 10-20-2023 08:39-0500 SaO2% (BldA) [Mass fraction] 98 % Allison Aichholz RN CLINICAL Work Phone: [facility] 10-20-2023 08:39-0500 Systolic blood pressure 128 mm[Hg] Allison Aichholz RN CLINICAL Work Phone: [facility] 06-09-2022 08:46-0400 Body height 185.4 cm Jaswant King DO Work Phone: [facility] 06-09-2022 08:46-0400 Body weight 123.38 kg Jaswant King DO Work Phone: [facility] 09-21-2020 06:10-0500 Body Temperature 98.8 [degF] [facility] 09-21-2020 06:10-0500 BP Diastolic 76 mm[Hg] [facility] 09-21-2020 06:10-0500 BP Systolic 122 mm[Hg] [facility] 09-21-2020 06:10-0500 Pulse (Heart Rate) 87 /min [facility] 09-21-2020 06:10-0500 Pulse Oximetry 99 % [facility] 09-21-2020 06:10-0500 Respiratory Rate 16 /min [facility] Encounters Encounter Date Encounter Type Care Provider Facility Start: 01-19-2024 End: 01-19-2024 ambulatory ALLISON AICHHOLZ Not Available Start: 12-21-2023 End: 12-21-2023 ambulatory ALLISON AICHHOLZ Not Available Start: 11-23-2023 Orders Only Jaycob Fairchild MD Work Phone: [facility] Comment on above: Factor 5 Leiden muta tion, heterozygous (CMS-HCC) (Primary Dx) Start: 11-21-2023 End: 11-21-2023 ambulatory ALLISON AICHHOLZ Not Available Start: 10-20-2023 Bamboo flowsheet Allison Aichholz RN CLINICAL Work Phone: [facility] Start: 10-20-2023 Bamboo flowsheet Allison Aichholz RN CLINICAL Work Phone: [facility] Start: 10-20-2023 End: 10-20-2023 ambulatory ALLISON ARAGON Not Available Start: 10-20-2023 End: 10-20-2023 Office outpatient visit 15 minutes Allison Aragon RN CLINICAL Work Phone: [facility] Comment on above: Weight gain, abnorma l (Primary Dx); Class 2 obesity due to excess calories without serious comorbidity in adult, unspecified BMI Start: 01-05-2023 End: 02-02-2023 [facility] Start: 10-18-2022 End: 10-18-2022 ambulatory SUZIE Romero [facility] Facility:[facility] Start: 10-14-2022 ambulatory SUZIE MENDOZA Faci lity:H1 Start: 10-10-2022 [facility]: 10-08-2022 End: 10-09-2022 ambulatory NADIR ENGLAND Facility:H1 Start: 10-08-2022 End: 10-09-2022 Encounter for other preprocedural examination NADIR ENGLAND Facility:[facility]1 Start: 07-01-2022 End: 07-02-2022 [facility] Start: 06-23-2022 End: 06-24-[address] SOHAIL COLBY Facility:[facility]1 Start: 06-18-2022 Telephone encounter Jaswant King Endocrinology Comment on above: 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 Start: 06-09-2022 End: 06-09-2022 ambulatory Jaswant King DO Work Phone: Endocrinology Comment on above: Class 2 obesity due to excess calories without serious comorbidity with body mass index (BMI) of 35.0 to 35.9 in adult (Primary Dx); Chondromalacia of right patella Start: 06-09-2022 End: 06-09-2022 Telemedicine consultation with patient Jaswant King DO Work Phone: [facility] Start: 04-14-2022 End: 04-14-2022 ambulatory ROBERT ERIC Facility:[facility] Start: 04-14-2022 End: 04-14-2022 Patient encounter procedure Robert Eric MD Work Phone: Orthopedics Comment on above: Chronic pain of righ t knee (Primary Dx) Start: 04-07-2022 Orders Only Robert Eric MD Work Phone: Orthopaedics Comment on above: Right knee pain, uns pecified chronicity (Primary Dx) Start: 10-09-2020 End: 10-09-2020 Chart abstracting Gonzalo Burger) Lilibethzina Work Phone: Hematology/Oncology Start: 10-07-2020 End: 10-07-2020 Patient encounter procedure External Provider [facility] Start: 10-07-2020 Results Only External Provider [facility]ter [facility] Start: 09-21-2020 End: 09-21-2020 Emergency department patient visit LEILAAYALA ROWE [facility] Start: 09-20-2020 End: 09-21-2020 Emergency department patient visit Leila Rowe Work Phone: [facility] Comment on above: Alcoholic intoxicati on with complication (HCC) (Primary Dx); Nausea and vomiting, intractability of vomiting not specified, unspecified vomiting type Start: 05-26-2018 Patient encounter DILLON Nogueira acility:[facility] Procedures Date Procedure Procedure Detail Performing Clinician Start: 06-16-2022 X-ray of right ankle PH YSICIAN NO FAMILY Start: 10-07-2020 End: 10-07-2020 EXTERNAL LAB External Provider Start: 09-20-2020 Basic metabolic 2000 panel - Serum or Plasma Leila Rowe Work Phone: Start: 09-20-2020 Choriogonadotropin.b eta subunit ( test) [Presence] in Serum or Plasma Leila Dickinson [employer] Work Phone: Start: 09-20-2020 Complete blood count with white cell differential, automated Leila Karey [employer] Work Phone: Start: 09-20-2020 Complete blood count with white cell differential, manual Leila Karey [employer] Work Phone: Start: 09-20-2020 Ethanol [Mass/volume ] in Serum or Plasma Leila [employer] Work Phone: Start: 08-17-2012 History of operative procedure on knee S/P knee surgery Robert Eric MD Work Phone: Plan of Treatment Date Care Activity Detail Author Start: 11-21-2023 End: 11-21-2023 Patient encounter procedure 11/21/2023 6:40 PM EDT Office Visit [facility]ORGE LEWIS [address] [place] [address] Allison Aragon NP [address] [place] [phone] [facility] Start: 10-20-2023 End: 10-20-2023 Patient encounter procedure 10/20/2023 8:40 AM EST Office Visit GEORGE LEWIS [address] [place] [address] Allison Aragon NP [address] [place] [phone] [facility] on above: Arrived Start: 09-20-2023 Adult BMI Screening Adult BMI Screen ing [facility] Start: 09-20-2023 Tobacco Screening Tobacco Screening [facility] Start: 05-06-2023 Influenza vaccination [facility] Start: 06-09-2022 End: 08-09-2022 CBC panel - Blood by Automated count CBC Lab Routine Class 2 obesity due to excess calories without serious comorbidity with body mass index (BMI) of 35.0 to 35.9 in adult Expected: 06/09/2022, Expires: 08/09/2022 [facility] Work Phone: Comment on above: Expected: 06/09/2022 , Expires: 08/09/2022 Start: 06-09-2022 End: 08-09-2022 Comprehensive metabolic 2000 panel - Serum or Plasma COMP METABOLIC PANEL Lab Routine Class 2 obesity due to excess calories without serious comorbidity with body mass index (BMI) of 35.0 to 35.9 in adult Expected: 06/09/2022, Expires: 08/09/2022 [facility] Work Phone: Comment on above: Expected: 06/09/2022 , Expires: 08/09/2022 Start: 06-09-2022 End: 08-09-2022 Hemoglobin A1c in Blood HGB A1C Lab Routine Class 2 obesity due to excess calories without serious comorbidity with body mass index (BMI) of 35.0 to 35.9 in adult Expected: 06/09/2022, Expires: 08/09/2022 [facility] Work Phone: Comment on above: Expected: 06/09/2022 , Expires: 08/09/2022 Start: 06-09-2022 End: 08-09-2022 Lipid 1996 panel - Serum or Plasma LIPID PANEL BASIC Lab Routine Class 2 obesity due to excess calories without serious comorbidity with body mass index (BMI) of 35.0 to 35.9 in adult Expected: 06/09/2022, Expires: 08/09/2022 [facility] Work Phone: Comment on above: Expected: 06/09/2022 , Expires: 08/09/2022 Start: 05-06-2022 Influenza vaccination INFLUENZA (#1) [facility] Start: 09-05-2021 DEPRESSION ASSESSMENT DEPRESSION ASS ESSMENT [facility] Start: 02-17-2021 DTaP,Tdap and Td Vaccines (7 - Td or Tdap) DTaP,Tdap and Td Vaccines (7 - Td or Tdap) [facility] Start: 05-06-2020 Influenza vaccination INFLUENZA (#1) [facility] Start: 2019 PAP TESTING PAP TESTING [facility] Start: 2019 Screening for malign ant neoplasm of cervix Pap Smear [facility] Start: 2017 Urine microalbumin profile DTAP,TDAP,TD (1 - Tdap) [facility] Start: 2016 CHLAMYDIA SCREENING (18-24) CHLAMYDIA SCREENING (18-24) [facility] Start: 2016 GC (GONORRHEA) SCREE JANAY (18-24) GC (GONORRHEA) SCREENING (18-24) [facility] Start: 2016 HEPATITIS C SCREENING HEPATITIS C SC REENING [facility] Start: 2016 HIV SCREENING HIV SCREENING [facility] Start: 2014 MENINGOCOCCAL B: Consider based on risk (2 of 2 - Risk Bexsero 2-dose series) MENINGOCOCCAL B: Consider based on risk (2 of 2 - Risk Bexsero 2-dose series) [facility] Start: 10-02-2013 HEPATITIS B (2 of 3 - 3-dose series) HEPATITIS B (2 of 3 - 3-dose series) [facility] Start: 2012 PEDS TO ADULT TRANSI TION ANNUAL ASSESSMENT PEDS TO ADULT TRANSITION ANNUAL ASSESSMENT [facility] Start: 2010 Adult depression screening assessment DEPRESSION SCREENING [facility] Start: 2010 PEDS TO ADULT TRANSI TION INITIAL DISCUSSION PEDS TO ADULT TRANSITION INITIAL DISCUSSION [facility] Start: 2009 HPV VACCINE (1 - 2-d ose series) HPV VACCINE (1 - 2-dose series) [facility] Start: 1998 COVID-19 VACCINE (#1) COVID-19 VACCI NE (#1) [facility] End: 05-14-2023 MRI KNEE WO IVCON RT MRI KNEE WO IVCON RT Radiology Routine Chronic pain of right knee 1 Occurrences starting 04/14/2022 until 05/14/2023 [facility] Work Phone: Comment on above: 1 Occurrences starti ng 04/14/2022 until 05/14/2023 End: 05-07-2023 XR KNEE GENERAL 4V AP BOTH/PA BOTH/LAT/MERC RIGHT XR KNEE GENERAL 4V AP BOTH/PA BOTH/LAT/MERC RIGHT Radiology Routine Right knee pain, unspecified chronicity 1 Occurrences starting 04/08/2022 until 05/07/2023 [facility] Work Phone: Comment on above: 1 Occurrences starti ng 04/08/2022 until 05/07/2023 End: 05-14-2023 XR KNEE POST OP 3V AP/LAT/MERCHANT RIGHT XR KNEE POST OP 3V AP/LAT/MERCHANT RIGHT Radiology Routine Chronic pain of right knee 1 Occurrences starting 04/14/2022 until 05/14/2023 [facility] Work Phone: Comment on above: 1 Occurrences starti ng 04/14/2022 until 05/14/2023 [facility] Immunizations Immunization Date Immunization Notes Care Provider [facility] 04-08-2016 meningococcal polysaccharide (groups A, C, Y and W-135) diphtheria toxoid conjugate vaccine (MCV4P) Allison Aragon RN CLINICAL Work Phone: [facility] 09-04-2013 hepatitis B vaccine, unspecified formulation Robert Eric MD Work Phone: [facility] 02-17-2011 tetanus toxoid, redu michael diphtheria toxoid, and acellular pertussis vaccine, adsorbed Allisonroque Aragon RN CLINICAL Work Phone: [facility] 02-17-2011 varicella virus vaccine Allison Aragon RN CLINICAL Work Phone: [facility] 07-21-2009 novel Influenza-H1N1 -09, live virus for nasal administration Allison Aragon RN CLINICAL Work Phone: [facility] 07-21-2009 influenza virus vacc ine, unspecified formulation Jaycob Fairchild MD Work Phone: [facility] 07-06-2006 influenza, seasonal, injectable Allison Aragon RN CLINICAL Work Phone: [facility] 07-06-2006 influenza virus vacc ine, unspecified formulation Allison Aragon RN CLINICAL Work Phone: [facility] 10-23-2003 diphtheria, tetanus toxoids and pertussis vaccine Allison Aichholz RN CLINICAL Work Phone: [facility] 10-23-2003 measles, mumps and rubella virus vaccine Allison Aichholz RN CLINICAL Work Phone: [facility] 10-23-2003 poliovirus vaccine, unspecified formulation Allison Aichholz RN CLINICAL Work Phone: [facility] 09-17-1999 diphtheria, tetanus toxoids and acellular pertussis vaccine, unspecified formulation Allison Aichholz RN CLINICAL Work Phone: [facility] 05-12-1999 haemophilus influenz ae type b vaccine, conjugate unspecified formulation Allison Aichholz RN CLINICAL Work Phone: [facility] 05-12-1999 hepatitis B vaccine, pediatric or pediatric/adolescent dosage Allison Aichholz RN CLINICAL Work Phone: [facility] 05-12-1999 measles, mumps and rubella virus vaccine Allison Aichholz RN CLINICAL Work Phone: [facility] 05-12-1999 poliovirus vaccine, inactivated Allison Aichholz RN CLINICAL Work Phone: [facility] 05-12-1999 rubella and mumps vi álvaro vaccine Allison Aichholz RN CLINICAL Work Phone: [facility] 05-12-1999 varicella virus vaccine Allison Aichholz RN CLINICAL Work Phone: [facility] 1998 diphtheria, tetanus toxoids and acellular pertussis vaccine, unspecified formulation Allison Aichholz RN CLINICAL Work Phone: [facility] 1998 haemophilus influenz ae type b vaccine, conjugate unspecified formulation Allison Aichholz RN CLINICAL Work Phone: [facility] 1998 diphtheria, tetanus toxoids and acellular pertussis vaccine, unspecified formulation Allison Aichholz RN CLINICAL Work Phone: [facility] 1998 haemophilus influenz ae type b vaccine, conjugate unspecified formulation Allison Aichholz RN CLINICAL Work Phone: [facility] 1998 poliovirus vaccine, inactivated Allison Aichholz RN CLINICAL Work Phone: [facility] 1998 diphtheria, tetanus toxoids and acellular pertussis vaccine, unspecified formulation Allison Aichholz RN CLINICAL Work Phone: [facility] 1998 haemophilus influenz ae type b vaccine, conjugate unspecified formulation Allison Aichholz RN CLINICAL Work Phone: [facility] 1998 hepatitis B vaccine, pediatric or pediatric/adolescent dosage Allison Aichholz RN CLINICAL Work Phone: [facility] 1998 poliovirus vaccine, inactivated Allison Aichholz RN CLINICAL Work Phone: [facility] 1998 hepatitis B vaccine, pediatric or pediatric/adolescent dosage Allison Aichholz RN CLINICAL Work Phone: [facility] Payers Date Payer Category Payer Self-pay [id number] 2020 Private Health Insurance [facility] CHOICE PLUS [id number] 2020-Present [phone] [address] [address] [place] [address] O [id number] 2019 Private Health Insurance [id number] 2017 Unknown [id number] 2017 Unknown [id number] 1998 Unknown [id number]. 902 1998 Unknown [id number]. 593 1998 Unknown [id number]. 593 1998 Unknown [id number]. 593 1998 Unknown [id number]. 593 1998 Unknown [id number] [id number]. 593 1998 Unknown [id number] [id number]. 593 1998 Unknown [id number] [id number]. 1259 1998 Unknown [id number] [id number]. 1259 1998 Unknown [id number] [id number]. 1259 1998 Unknown [id number] [id number]. 1259 1959 Private Health Insurance [id number] 1959 Private Health Insurance [id number] Private Health Insurance [id number] Unknown [id number] 531 Social History Date Type Detail Facility Start: 08-08-2012 Tobacco smoking stat [facility] Unknown if ever smoked [facility] Start: 1998 Sex Assigned At Not on file [facility] Exposure to SARS-CoV -2 (event) Unable to assess [facility] Start: 10-09-2020 End: 09-02-2022 Tobacco smoking status NHIS Never smoker [facility] Start: 10-09-2020 End: 04-14-2022 Tobacco use and exposure [facility] Start: 10-09-2020 End: 09-20-2022 Alcohol intake Current drinker of alcohol (finding) [facility] Start: 1998 Sex Assigned At Female F [facility] Start: 09-02-2022 End: 10-14-2023 [facility] of [facility] Start: 09-02-2022 End: 10-14-2023 Humiliation, Afraid, Rape, and Kick questionnaire [HARK] [facility] Within the last year , have you been afraid of your partner or ex-partner? No [facility] Do you belong to any clubs or organizations such as yazidi groups, unions, fraternal or athletic groups, or school groups? Yes [facility] Are you now , , , , never or living with a partner? Never [facility] How often to you hav e a drink containing alcohol? 2-4 times a month [facility] How many standard dr inks containing alcohol do you have on a typical day? 1 or 2 [facility] How often do you hav e 6 or more drinks on 1 occasion? Never [facility] How hard is it for y ou to pay for the very basics like food, housing, medical care, and heating Not very hard [facility] Do you feel stress - tense, restless, nervous, or anxious, or unable to sleep at night because your mind is troubled all the time - these days [OSQ] To some extent [facility] (I/We) worried wheth er (my/our) food would run out before (I/we) got money to buy more. Never true [facility] In the past 12 month s, has lack of transportation kept you from medical appointments or from getting medications? No [facility] Start: 10-17-2023 Alcohol Comment caffeine 2-3 c ups per day [facility] Start: 09-04-2021 Alcohol Comment social [facility] Medical Equipment Procedure Code Equipment Code Equipment Origin al Text Equipment Identifier Dates Anchr Sut Gii Qanchr+ Othcrd - [id number] Start: 08-08-2012 Clinical Notes 04-14-2022 to 11-23-2023 Stephanie Lee LPN - 11/23/2023 1:17 PM Megan Aragon NP - 10/20/2023 9:07 AM LYLY COOK - 10/20/2023 8:40 AM Johana Aragon NP - 10/20/2023 8:40 AM EST Note Date & Type Note Facility 11-23-2023 History of Present illness Narrative Office received notice from [employer]. Dr. Fairchild signed paper with recommendations and signed paper and recent office note faxed to [phone] and scanned into file. Stephanie MANUEL [facility] [phone] documented in this encounter [facility] 10-20-2023 History of Present illness Narrative Associated Problem(s): Weight gain, abnormal Pt meets qualifications of OAC 4731-07-09 for weight loss. BMI>30 or >27 with comorbid conditions. Notify office with any symptoms of chest pain, dyspnea, heart palpitations, or any anxiety symptoms. F/U in 4 weeks to document weight loss. Increase physical activity as tolerated, and lower caloric intake to 1600 calories daily if no contraindications OARRS reviewed Goal weight 210, feels better at least at 240 Denies chance of Month #1/3 Subjective Patient ID: Macy Borja is a 23 y.o. female who presents for No chief complaint on file.. HPI Review of Systems Objective Physical Exam Assessment/Plan Patient ID: Macy Borja is a 23 y.o. female. Procedures Images from the original note were not included. Macy Borja is a 23 y.o. female presents with chief complaint of No chief complaint on file. HPI: Here to discuss adipex. Has taken in the past done well 2 foot surgeries in the last year or so, less active during that time. 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 HENT: Negative for congestion, ear pain and sore throat. Eyes: Negative for pain, discharge, redness and visual disturbance. Respiratory: Negative for cough, shortness of breath and wheezing. Cardiovascular: Negative for chest pain, palpitations and leg swelling. Gastrointestinal: Negative for abdominal pain, blood in stool, constipation, diarrhea, nausea and vomiting. Genitourinary: Negative for difficulty urinating, dysuria and frequency. Musculoskeletal: Positive for arthralgias (foot pain). Negative for back pain, joint swelling and myalgias. Skin: Negative for rash and wound. Neurological: Negative for dizziness, tremors, seizures, syncope and headaches. Psychiatric/Behavioral: Negative for behavioral problems, self-injury and suicidal ideas. The patient is not nervous/anxious. Hematological: Does not bruise/bleed easily. Endocrine: Negative for polydipsia, polyphagia and polyuria. Allergic/Immunologic: Negative for environmental allergies and food allergies. PAST MEDICAL HISTORY Past Medical History: Diagnosis Date Abnormal weight gain Acne Ankle impingement syndrome, right 10/20/2023 Arthritis 10/20/2023 Factor V Leiden ([facility]) 10/20/2023 Interstitial cystitis 10/20/2023 Keratosis pilaris 10/20/2023 Peroneal tendon tear, right, subsequent encounter Protein C deficiency ([facility]) 10/20/2023 Right ankle instability 10/20/2023 Right ankle pain 10/20/2023 Right foot pain Right knee pain 10/20/2023 Urinary incontinence in female 10/20/2023 Past Surgical History: Procedure Laterality Date ANKLE LIGAMENT RECONSTRUCTION Right 10/18/2022 CYSTOSCOPY 2020 FOOT SURGERY Right 06/29/2023 planters fascciitis sugery KNEE SURGERY [address] Mckeon [facility] ( Patella realigment) family history includes Cancer in her father's sister; Heart disease in her paternal grandmother; Lung cancer in her paternal grandfather; history of MM in an other family member. OBJECTIVE: Visit Vitals BP 128/86 (BP Location: Left arm, Patient Position: Sitting, BP Cuff Size: Large adult) Pulse 70 Temp 97.8 F (Temporal) Resp 19 Ht 6' 1 Wt 281 lb 3.2 oz SpO2 98% BMI 37.10 kg/m Smoking Status Never BSA 2.57 m Physical Exam Vitals reviewed. Constitutional: General: She is not in acute distress. Appearance: Normal appearance. HENT: Head: Normocephalic and atraumatic. Right Ear: External ear normal. Left Ear: External ear normal. Nose: Nose normal. Mouth/Throat: Mouth: Mucous membranes are moist. Eyes: Extraocular Movements: Extraocular movements intact. Conjunctiva/sclera: Conjunctivae normal. Neck: Vascular: No carotid bruit. Cardiovascular: Rate and Rhythm: Normal rate and regular rhythm. Pulses: Normal pulses. Heart sounds: Normal heart sounds. Pulmonary: Effort: Pulmonary effort is normal. Breath sounds: Normal breath sounds. Abdominal: General: Bowel sounds are normal. There is no distension. Palpations: Abdomen is soft. There is no mass. Tenderness: There is no abdominal tenderness. Musculoskeletal: General: Normal range of motion. Cervical back: Neck supple. Skin: General: Skin is warm and dry. Capillary Refill: Capillary refill takes 2 to 3 seconds. Findings: No rash. Neurological: General: No focal deficit present. Mental Status: She is alert and oriented to person, place, and time. Psychiatric: Mood and Affect: Mood normal. Behavior: Behavior normal. Thought Content: Thought content normal. Judgment: Judgment normal. ASSESSMENT AND PLAN: No follow-ups on file. Problem List Items Addressed This Visit Weight gain, abnormal - Primary Pt meets qualifications of OAC 4731-07-09 for weight loss. BMI>30 or >27 with comorbid conditions. Notify office with any symptoms of chest pain, dyspnea, heart palpitations, or any anxiety symptoms. F/U in 4 weeks to document weight loss. Increase physical activity as tolerated, and lower caloric intake to 1600 calories daily if no contraindications OARRS reviewed Goal weight 210, feels better at least at 240 Denies chance of Month #1/3 Relevant Medications phentermine (Adipex-P) 37.5 MG tablet Class 2 obesity due to excess calories without serious comorbidity in adult Relevant Medications phentermine (Adipex-P) 37.5 MG tablet documented in this encounter [facility] 10-19-2022 Note PROCEDURE: XR ANKLE RT 2V COMPARISON: None. HISTORY: Pain FINDINGS: 16 seconds of fluoroscopy. 3 images 3 fluoroscopic images with and without stress. Stress images demonstrate widening of the posterior tibiotalar joint IMPRESSION: Widening of the posterior tibiotalar joint with stress Electronically authenticated by: MCKENZIE POLLOCK Date: 2022-10-19 07:27 [facility] 06-24-2022 Note PROCEDURE: XR ANKLE RT [...] authenticated by: SOHAIL COLBY Date: 2022-06-24 06:17 [facility] 06-24-2022 Note PROCEDURE: XR ANKLE RT MIN [...] authenticated by: SOHAIL COLBY Date: 2022-06-24 06:17 [facility] 06-18-2022 Miscellaneous Notes Need to call pharmacy for insurance information. Not coming up in either epic or covermymeds Need pa on lo documented in this encounter [facility] 06-09-2022 Note HNO ID: [id number] Author: Jaswant King, DO Service: ? Author [...] Correspondence will be shared today via the [employer] electronic health record or through regular mail, [...] follow up appointment with Allison Aragon, EVELYN, [employer] Previously lost 40 lbs in 3 months with phentermine, and gradually gained all of the weight back Nutritional Assessment Do you think that you have a healthy diet? 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 Yes Please select all medications you have used: Phentermine (Adipex) Have you had a surgical procedure for weight l (more content not included)... [facility] 06-09-2022 History of Present illness Narrative Images from the original note were not included. [facility] CONSULT - NEW VISIT Macy Borja is here today at request of Dr. Robert Eric specifically for consultation of my opinion in regards to the chief complaint listed below. Correspondence will be shared today via the [employer] electronic health record or through regular mail, [...] Has a follow up appointment with Allison Aragon CNP, WIND TUNNEL MECHANIC Previously lost 40 lbs in 3 months with phentermine, and gradually gained all of the weight back Nutritional Assessment Do you think that you have a healthy diet? 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 Yes Please [...] 1.46)* * Growth percentiles are based on [facility] (Girls, 2-20 Years) data. PHYSICAL EXAMINATION: General [...] Exercise goal is continue to work with green jobs trainer - Commit Not To Quit Need [...] Jaswant King DO documented in this encounter [facility] 04-14-2022 Note HNO ID: [id number] Author: Robert Eric MD Service: ? Author [...] Saw Dr. Calloway. Saw another doctor in [place]. ALLERGIES No Known Allergies PAST MEDICAL HISTORY [...] is stable. Incisions. Imaging: Plain films from [facility] are personally reviewed by me and [...] should optimize her . Robert Eric MD [facility] 04-14-2022 Note HNO ID: [id number] Author: RT Calista(R) Service: ? Author Type: [...] RT Calista(R) April 14, 2022 9:46 AM [facility] 04-14-2022 History of Present illness Narrative DATE OF PROCEDURE: 08/08/2012 SURGEON: [...] Saw Dr. Calloway. Saw another doctor in [place]. ALLERGIES No Known Allergies PAST MEDICAL HISTORY [...] is stable. Incisions. Imaging: Plain films from [facility] are personally reviewed by me and [...] Robert Eric MD documented in this encounter [facility] Evaluation note Diagnosis Right knee pain, unspecified chronicity- Primary [facility] Diagnosis Chronic pain of right knee- Primary [facility]* Diagnosis Class 2 obesity due to excess calories without serious comorbidity with body mass index (BMI) of 35.0 to 35.9 in adult- Primary Chondromalacia of right patella Chondromalacia of patella documented [facility] noteNo assessment information availableMer[facility] Work Phone: Evaluation note* Diagnosis Weight gain, abnormal- Primary Class 2 obesity due to excess calories without serious comorbidity in adult, unspecified BMI documented in this encounter [facility]* Diagnosis Factor 5 Leiden mutation, heterozygous ([facility]-H[facility])- Primary documented in this encounter [facility] SystemInstructionsNot on filedocumented in this encounter [facility] SystemReason for referral (narrative)* Diagnostic Procedure Only (Routine) - Pending Review Specialty Diagnoses / Procedures Referred By Contac t Referred To Contact XR IMAGING Diagnoses Right knee pain, unspecified chronicity Procedures XR KNEE GENERAL 4V AP BOTH/PA BOTH/LAT/MERC RIGHT RADIOLOGIC EXAM KNEE COMPLETE 4/MORE VIEWS Robert Eric MD [address] [place] [address] Xr Imaging Referral ID Status Reason Start Date Expiration Date Visits Requested Visits Authorized [id number] Pending Review Auto-Generat ed Referral 04/08/2022 05/07/[address] [facility] for referral (narrative)* Diagnostic Procedure Only (Routine) - Pending Review Specialty Diagnoses / Procedures Referred By Adiaac t Referred To Contact XR IMAGING Diagnoses Chronic pain of right knee Procedures XR KNEE POST OP 3V AP/LAT/MERCHANT RIGHT RADIOLOGIC EXAMINATION KNEE 3 VIEWS Robert Eric MD [address] [place] [address] Xr Imaging Referral ID Status Reason Start Date Expiration Date Visits Requested Visits Authorized [id number] Pending Review Auto-Generat ed Referral 04/14/2022 05/14/2023 1 1 * Consult, Test, Treat (Routine) - Authorized Specialty Diagnoses / Procedures Referred By Contac t Referred To Contact Diagnoses Chronic pain of right knee Procedures ENDOCRINE MEDICAL WEIGHT MANAGEMENT OFFICE/OUTPATIENT [facility] 60-74 MINUTES Robert Eric MD [address] [place] [address] Referral ID Status Reason Start Date Expiration Date Visits Requested Visits Authorized [id number] Authorized PCP Requested Referral 04/14/2022 04/14/2023 1 1 * MRI/CT (Routine) - Pending Review Specialty Diagnoses / Procedures Referred By Contac t Referred To Contact MR IMAGING Diagnoses Chronic pain of right knee Procedures MRI KNEE WO IVCON RT MRI ANY JT LOWER EXTREM W/O CONTRAST Robert Ozuna MD [address] [place] [address] Mr Imaging Referral ID Status Reason Start Date Expiration Date Visits Requested Visits Authorized [id number] Pending Review Auto-Generat ed Referral 04/14/2022 05/14/2023 1 1 [facility] Summary Purpose Family History No Family History Records FoundNo Family History Records FoundNo Family History Records FoundNo Family History Records FoundNo Family History Records FoundNo Family History Records FoundNo Family History Records Found Advance Directives No Advanced Directives Records FoundDocuments on File Type Date Recorded 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 * Alcohol Intoxication: Acute (Malay) documented in this encounter Assessments Diagnosis Alcoholic intoxication with complication (HCC)- Primary Nausea and vomiting, intractability of vomiting not specified, unspecified vomiting type Reason for Referral Specialty Diagnoses / Procedures Referred By Contac t Referred To Contact Diagnoses Class 2 obesity due to excess calories without serious comorbidity with body mass index (BMI) of 35.0 to 35.9 in adult Jaswant King DO [address] [place] [address] Referral ID Status Reason Start Date Expiration Date V isits Requested Visits Authorized [id number] Pending Review 1 1 Specialty Diagnoses / Procedures Referred By Contac t Referred To Contact Diagnoses Weight gain, abnormal Class 2 obesity due to excess calories without serious comorbidity in adult, unspecified BMI Allison Aragon, ADELA [address] [place] [address] Referral ID Status Reason Start Date Expiration Date V isits Requested Visits Authorized [id number] Pending Review 1 1 Additional Source Comments INFORMATION SOURCE (unrecogn ized section and content) DATE CREATED AUTHOR 05/06/2018 [facility] DATE CREATED AUTHOR AUTHOR'S ORGANIZ ATION 09/28/2020 [facility] DATE CREATED AUTHOR AUTHOR'S ORGANIZ ATION 09/22/2021 [facility] DATE CREATED AUTHOR AUTHOR'S ORGANIZ ATION 06/29/2022 [facility] DATE CREATED AUTHOR AUTHOR'S ORGANIZ ATION 07/07/2022 [facility] DATE CREATED AUTHOR AUTHOR'S ORGANIZ ATION 02/11/2023 [facility] DATE CREATED AUTHOR AUTHOR'S ORGANIZ ATION 01/22/2024 [facility] EPIC Source Comments (unrecognize d section and content) In the event this informatio n is protected by the Federal Confidentiality of Alcohol and Drug Abuse Patient Records regulations: The Federal rules restrict any use of the information to criminally investigate or prosecute any alcohol or drug abuse patient.[facility] Hospital[facility] the event this information is protected by the Federal Confidentiality of Alcohol and Drug Abuse Patient Records regulations: The Federal rules restrict any use of the information to criminally investigate or prosecute any alcohol or drug abuse patient.[facility]In the event this information is protected by the Federal Confidentiality of Alcohol and Drug Abuse Patient Records regulations: The Federal rules restrict any use of the information to criminally investigate or prosecute any alcohol or drug abuse patient.[facility] HospitalIn the event this information is protected by the Federal Confidentiality of Alcohol and Drug Abuse Patient Records regulations: The Federal rules restrict any use of the information to criminally investigate or prosecute any alcohol or drug abuse patient.[facility] HospitalIn the event this information is protected by the Federal Confidentiality of Alcohol and Drug Abuse Patient Records regulations: The Federal rules restrict any use of the information to criminally investigate or prosecute any alcohol or drug abuse patient.[facility] HospitalIn the event this information is protected by the Federal Confidentiality of Alcohol and Drug Abuse Patient Records regulations: The Federal rules restrict any use of the information to criminally investigate or prosecute any alcohol or drug abuse patient.[facility] HospitalIn the event this information is protected by the Federal Confidentiality of Alcohol and Drug Abuse Patient Records regulations: The Federal rules restrict any use of the information to criminally investigate or prosecute any alcohol or drug abuse patient.[facility] Reason for Visit (unrecogniz ed section [...] 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 Pt provided with belongings and a [...] - No primary care provider on file. [phone] Chief Complaint Patient presents with Alcohol Intoxication [...] file Gets together: Not on file Attends hinduism service: Not on file Active member of [...] Procedure Abnormality Status --------- ------ CBC Auto Differential[[id number]] Please view results for these tests on [...] with the physician. Christina Ha CNP 09/20/20 1800 Pt presents via ems for alcohol intoxication Bed: 19 Expected date: Expected time: Means of arrival: Comments: Medic 2 bernas etoh documented in this encounter ED Update [...] the patient. I discussed the patient with RN CLINICAL/PA. I agree with the RN CLINICAL/PA treatment plan. I agree with the RN CLINICAL/PA plan of care. I agree with the RN CLINICAL/PA dispo as documented. A 20-year-old female was brought in by EMS after patient started having nausea and vomiting after drinking alcohol tonight. Patient states she was drinking Woodruff ice tea with her friends. Patient appears [...] Care Teams (unrecognized sec tion and content) Acute Care Occupational Therapist Relationship Specialty Start Date End Date Allison Aragon, WIND TUNNEL MECHANIC [address] [place] [address] PCP - General Family Practice 04/29/21 Roosevelt Costa [address] [place] [address] Referring Orthopedics 04/29/21 Pako Ahmadi [address] [place] [address] Referring Orthopedics 03/04/22 Acute Care Occupational Therapist Relationship Specialty Start Date End Date Allison Aragon, WIND TUNNEL MECHANIC [address] [place] [address] PCP - General Family Practice 04/29/21 Roosevelt Costa [address] [place] [address] Referring Orthopedics 04/29/21 Pako Ahmadi [address] [place] [address] Referring Orthopedics 03/04/22 Acute Care Occupational Therapist Relationship Specialty Start Date End Date Allison Aragon, WIND TUNNEL MECHANIC [address] [place] [address] PCP - General Family Medicine 04/29/21 Roosevelt Costa [address] [place] [address] Referring Orthopedics 04/29/21 Pako Ahmadi [address] [place] [address] Referring Orthopedics 03/04/22 Team Status: Inactive Member Role Status Dates PHYSICIAN NO FAMILY Primary Care Provider Active Allison Aragon Attending Provider Active Team Status: Active Member Role Status Dates PHYSICIAN NO FAMILY Primary Care Provider Active Acute Care Occupational Therapist Relationship Specialty Start Date End Date Allison Aragon, WIND TUNNEL MECHANIC [address] [place] [address] PCP - General Family Medicine 04/29/21 Roosevelt Costa [address] [place] [address] Referring Orthopedics 04/29/21 Gald[place] [address] Referring Orthopedics 03/04/22 Acute Care Occupational Therapist Relationship Specialty Start Date End Date Marlee Mosley MD [address] [place] [address] [place] [address] PCP - General Family Medicine 01/11/23 Acute Care Occupational Therapist Relationship Specialty Start Date End Date Marlee Mosley MD [address] [facility] [address] [place] [address] PCP - General Family Medicine 01/11/23 Acute Care Occupational Therapist Relationship Specialty Start Date End Date Allison Aragon, BUILDING MAINTENANCE MECHANIC-WIND TUNNEL MECHANIC [address] [place] [address] PCP - General Nurse Practitioner 09/04/21 Goals (unrecognized section and content) Goals may be documented in a n alternate sectionNot on filedocumented as of this encounterNot on filedocumented as of this encounter FOR RECORDS PERTAINING TO PATIENTS WHO ARE [...] BE BASED ON THE PRIMARY CLINICAL RECORDS. [facility] [employer] [facility]. provides no warranty or guarantee of the accuracy or completeness of information in this document.
[2024-01-31 08:22] LABS: Estimated Average Glucose 100 mg/dL; Glycohemoglobin A1C 5.1 % (4.5-6.2)
[2024-01-31 08:35] LABS: Anion Gap 11.6; BUN Creatinine Ratio 11.6; Carbon Dioxide 27.8 mmol/L (21.0-32.0); Chloride 104 mmol/L (98-107); Estimated GFR (African America >60 (>=60); Estimated GFR (Non-African Ame >60 (>=60); Glucose 91 mg/dL (74-106); Potassium 3.4 mmol/L (3.5-5.1); Sodium 140 mmol/L (136-145)
[2024-02-01 04:07] LABS: Insulin 12.5 uIU/mL (2.6-24.9)
== END 2024-01-31 07:15 | disposition home or self-care (01) ==
LOC: LAB 07:16
PROVIDERS: PCP Nurse Practitioner; Visit Provider Nurse Practitioner
DX: R63.5 Abnormal weight gain (principal)
CPT/HCPCS: 36415; 80048; 83036; 83525

== ENCOUNTER 2024-05-21 12:52 | Outpatient (OUT) | payer OTHER, SELFPAY ==
--- OUTSIDE RECORDS SUMMARY | 2024-05-21 13:14 | XMS_ITS | CCD ---
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 Role Phone DILLON VERDIN Unavailable Unavailable IMCA Unavailable Unavailable IMCA Unavailable Unavailable DIALS, LEILA DICKINSON Attending Unavailable DIALS, LEILA DICKINSON Admitting Unavailable NO, PHYSICIAN Primary Care Unavailable Talat iPneda Primary Care Provider No, Physician Primary Care Provider Unavailabl e Mahesh RIVAS, Allison Moreno Primary Care Provider [phone] Roosevelt Costa Unavailable [phone] Pako Ahmadi Unavailable Allison Aragon CNP Primary Care Provider Roosevelt Costa Unavailable [phone] Pako Ahmadi Unavailable Aicwaqas RIVAS, Allison Moreno Primary Care Provider Roosevelt Costa Unavailable Pako Ahmadi Unavailable NO FAMILY, PHYSICIAN Primary Care Provider Unava ilable Allison Aragon Attending Provider [phone] Allison Aragon Attending Unavailable Allison Aragon [...] Consulting Unavailable SUZIE MENDOZA Admitting Unavailable AICHHOLZ, ROUSTABOUT ALLISON Primary Care Unavailable HIGHLANDER, SUZIE Romero Attending Unavailable ALEJANDRO ANDINO Consulting Unavailable LASHA, DR SOHAIL Rendon Consulting Unavailable HIGHLANDER, SUZIE Romero Admitting Unavailable AICHHOLZ, ROUSTABOUT ALLISON Primary Care Unavailable HIGHLMANAN, SUZIE Romero Attending Unavailable SUZIE MENDOZA Consulting Unavailable HIGHLANDER, SUZIE Romero Attending Unavailable AICHHOLZ, ROUSTABOUT ALLISON Primary Care Unavailable KELLY, SZUIE Romero Admitting Unavailable NADIR ENGLAND Consulting Unavailable HIGHLANDER, PETER Heather Admitting Unavailable AICHHOLZ, ROUSTABOUT ALLISON Primary Care Unavailable HIGHLANDER, SUZIE Romero Attending Unavailable KELLY, USZIE Romero Attending Unavailable EVART, DR MCKENZIE Chavez Consulting Unavailable AICHHOLZ, ROUSTABOUT ALLISON Primary Care Unavailable HIGHLANDER, SUZIE D Admitting Unavailable HIGHLANDER, SUZIE Romero Consulting Unavailable BENITA RESENDIZ Consulting Unavailable YANI GRIER Consulting Unavailable BG ANDINO Consulting Unavailable Marlee Mosely MD Primary Care Provider [facility] YARD OPERATOREVELYN, Allison Hager Primary Care Provider Mendeszoon DPM, Jamel Unavailable Unavailable Mendeszoon DPM, Jamel Unavailable Unavailable Mendeszoon DPM, Jamel Unavailable Unavailable Mendeszoon DPM, Jamel Unavailable Unavailable Mendeszoon DPM, Jamel Unavailable Unavailable AICHHOLZ, ALLISON Attending Unavailable AICHHOLZ, ALLISON Attending Unavailable AICHHOLZ, ALLISON Attending Unavailable AICHHOLZ, ALLISON Attending Unavailable AICHHOLZ, ALLISON Attending Unavailable AICHHOLZ, ALLISON Attending Unavailable MIGUEL GONZALES Attending Unavailable SUZIE MENDOZA Referring Unavailable Allergies Allergy Classification Reported Allergen(s) Allergy Type Date of Onset Reaction(s) Facility (1 source) Latex Drug allergy (disorder) 0 [facility] (2 sources) Latex Drug allergy (disorder) [facility] (3 sources) Latex Propensity to adverse reactions 2 [facility] (2 sources) Latex Propensity to adverse reactions to drug 2 [facility] (5 sources) Cortisone; Translations: [cortisone] Drug Allergy 2 [facility] Medications Current Medications Medication Drug Class(es) Dates Sig (Normalized) Sig (Original) acetaminophen 325 mg / oxyCODONE hydrochloride 5 mg oral tablet (5 sources) Opioid Agonist Start: 11-29-2023 take 1 tablet by mouth every four to six hours as needed Percocet 5 mg-325 mg tablet take 1 tablet by oral route every 4 - 6 hours as needed 1.00 tablet - Active amoxicillin 875 mg oral tablet (2 sources) [...] tablet Indications: Factor 5 Leiden mutation, heterozygous ([facility]) Take 1 tablet (2.5 mg total) by [...] (100 mg total) before bedtime. 0 Active cephalexin 500 mg oral capsule (5 sources) Cephalosporin Antibacterial Start: 11-29-2023 take 1 capsule by mouth every twelve hours cephalexin 500 mg capsule take 1 capsule by oral route every 12 hours 500 MG - Active Diclofenac (5 sources) Nonsteroidal Anti-inflammatory Drug VOLTAREN GEL 1% TOPICAL - Active drospirenone, contraceptive, (Slynd) 4 mg (28) Tab (1 source) take 1 tablet by mouth once daily drospirenone, contraceptive, (Slynd) 4 mg (28) Tab Take 4 mg by mouth daily . 0 Active gabapentin 300 mg oral capsule (5 sources) Anti-epileptic Agent Start: 12-16-2023 take 1 capsule by mouth once daily at bedtime gabapentin 300 mg capsule take 1 capsule by oral route 1 time every day at bedtime - Active ammonium lactate 120 mg/ml topical lotion [...] by mouth in the morning. 0 Active methylPREDNISolone 4 mg oral tablet (6 sources) Corticosteroid Start: 12-16-2023 Medrol (Mich) 4 mg tablets in a dose pack take by oral route as directed per package instructions 0.00 - Active ondansetron 4 mg disintegrating oral tablet [...] 09-20-2020 ondansetron (ZOFRAN) injecti on 4 mg oxyCODONE hydrochloride 5 mg oral tablet (5 sources) Opioid Agonist take 1 tablet by mouth every four hours oxycodone 5 mg tablet take 1 tablet by oral route every 4 - 6 hours as needed as needed 5 MG - Active phentermine hydrochloride 37.5 mg oral tablet (4 sources) Sympathomimetic Amine Anorectic Start: End: take 1 tablet by mouth before mealtime phentermine (Adipex-P) 37.5 MG tablet Indications: Weight gain, abnormal , Class 2 obesity due to excess calories without serious comorbidity in adult, unspecified BMI Take 1 tablet (37.5 mg) by mouth in the morning. Take before meals. 30 tablet 0 10/20/2023 11/19/2023 Active pregabalin 75 mg oral capsule (1 source) Start: take 1 capsule by mouth once daily pregabalin 75 mg capsule take 1 capsule by oral route every day 75 MG - Active semaglutide, weight loss, (WEGOVY) 0.25 mg/0.5 mL pen injector (2 sources) Start: End: semaglutide, weight loss, (WEGOVY) 0.25 mg/0.5 mL [...] 10-20-2023 10-20-2023 Chronic Other connective tissue disease (20 sources) Plantar fascial fibromatosis; Translations: [PLANTAR FASCIAL FIBROMATOSIS] Onset: 01-05-2023 Episodic Other injuries and conditions due to external causes (2 sources) Injury of unspecified nerve at lower leg level, unspecified leg, initial encounter Episodic Other non-traumatic joint disorders (5 sources) [...] right foot] Onset: 10-20-2023 10-20-2023 Episodic Other non-traumatic joint disorders (10 sources) Pain in left knee Episodic Other nutritional; endocrine; and metabolic disorders [...] Other Problems Problem Classification Problem Date Documented Da te Episodic/Chronic Joint disorders and dislocations; trauma-related (7 sources) Dislocation of patellofemoral joint; Translations: [Unspecified dislocation of unspecified patella, initial encounter] Onset: 11-01-2011 11-01-2011 Episodic Other aftercare (1 source) 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; Translations: [[facility] CURRENT DRUG [facility]ERAPY] Onset: 10-21-2022 Episodic Other bone disease and musculoskeletal deformities (10 sources) Chondromalacia, right knee Onset: 10-26-2021 Episodic Other connective tissue disease (1 source) Achilles tendinitis, right leg; Translations: [ACHILLES TENDINITIS RIGHT LEG] Onset: 07-06-2022 Episodic Other connective tissue disease (4 sources) Pain in right foot; Translations: [PAIN IN RIGHT FOOT] Onset: 06-23-2022 Episodic Other non-traumatic joint disorders (3 sources) Knee pain; Translations: [Pain, knee] Onset: 07-20-2012 07-20-2012 Episodic Other non-traumatic joint disorders (16 sources) Pain in right knee; Translations: [Pain [...] Glucose [Mass/Vol] 125 mg/dL Critically high 74-106 [facility] Comment on above: Performed By: #### P OCGLUC #### [facility] [address] [address] [address] Alejandrina Monk Glucose [Mass/Vol] 96 mg/dL Normal 74-106 [facility] Comment on above: Performed By: #### P OCGLUC #### [facility] [address] [address] [address] Alejandrina Monk PREG QUANT HCGon 10-18-2022 HCG QUANT 3 mIU/mL Normal [facility] Comment on above: Performed By: #### P REGQNT #### [facility] [address] [address] [address] Alejandrina Monk HCG RANGE SEE BELOW [facility] Comment on above: Result Comment: 5-50 0.2-1 WEEK 50-500 1-2 WEEKS 100-5,000 2-3 WEEKS 500-10,000 3-4 WEEKS 1,000-50,000 4-5 WEEKS 10,000-100,000 5-6 WEEKS 15,000-200,000 6-8 WEEKS 10,000-100,000 2-3 MONTHS Performed By: #### P REGQNT #### [facility] [address] [address] [address] Alejandrina Monk MRI ANKLE RT WO [...] by: ALEJANDRO ANDINO Date: 2022-07-05 09:26 Normal [facility] 06-18-2022 EVELYNN Telephone (ENDOMN) MACY BORJA ([id number]) 2000 F Date Time Provider Department 06/18/22 JASWANT KING During your visit today, we recorded the following information about you: José Miguel Elmore 06/18/2022 4:05 PM Signed Need to call pharmacy for insurance information. Not coming up in either epic or covermymeds Need pa on wegovy José Miguel Garay [facility] 07/06/2022 2:48 PM Addendum Initiated PA for Wegovy through [employer] via Covermy[employer]ences Christensen: [id number] Waiting for next steps Need to call insurance for determination PA Christensen for Wegovy José Miguel Garay [facility] 07/06/2022 3:02 PM Addendum Called [employer] and PA's need to go through [employer]. Unable to process PA electronically. Requested to fax chart notes to [phone] Transmitted Successfully Can call for determination at [phone] Can take up to 10 days for determination Spent 6 minutes on the call José Miguel Garay [facility] 07/06/2022 3:03 PM Signed Called [employer] for status of PA for Wegovy. Was [...] by JOSÉ MIGUEL SCOTT on 06/18/22 Normal [facility] XR ankle RT min 3V*on 2021 XR ankle RT min 3V* [facility] [place] [address] XRay Report Signed Patient: Macy Borja MR#: [id number] : 2000 Acct:[id number] Age/Sex: 22 / F ADM Date: 06/16/22 Loc: ICXD Room: Type: [facility] Attending Dr: Allison Aragon Copies to: BEAU [...] Rosana Denise M.D.06/16/2022 2:30 PM Dictation Location: [place] [address] Transcribed By: [facility] 06/16/22 1430 Dictated By: Rosana Denise MD 06/16/22 1429 Signed By: 06/16/22 1430 [facility] CNOVon 04-14-2022 CNOV Office Visit (ORMIDD ) MACY BORJA ([id number]) 2000 F Date Time Provider Department 04/14/22 9:50 AM RBOERT ERIC During your visit today, we recorded the following information about you: Robert Eric MD 04/14/2022 2:40 PM Signed DATE OF PROCEDURE: 08/08/2012 SURGEON: Heriberto Ramirez M.D. OPERATION: Arthroscopy of the right knee with chondroplasty of the patella and open proximal patellar alignment to include semitendinosus/MPFL reconstruction (modified Ochi technique). History of present illness: Macy Bojra is a 21 year old female who [...] Saw Dr. Calloway. Saw another doctor in [place]. ALLERGIES No Known Allergies PAST MEDICAL HISTORY [...] is stable. Incisions. Imaging: Plain films from [facility] are personally reviewed by me and demonstrates [...] Robert Eric MD Referring Provider: PAKO AHMADI [[id number]] Allergies As of Date: 04/14/2022 (No Known Allergies) Date Reviewed: 04/14/2022 Reviewed by: Maggie Rodriguez Ma - Fully Assessed Reason for Visit: New [[id number]] Primary Visit Diagnosis:Chronic pain of right knee [M25.561, G89.29] Order(s):MRI KNEE WO IVCON RT [1054780] Order #: [id number] FUTURE ENDOCRINE MEDICAL WEIGHT MANAGEMENT [2138861] Order #: [id number]: 1 FUTURE XR KNEE POST OP 3V AP/LAT/MERCHANT RIGHT [[id number]] Order #: [id number] FUTURE Prescriptions as of 04/14/2022 - drospirenone, contraceptive, (SLYND) 4 mg (28) tab Take by mouth. 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 Follow-up and Disposition History for Encounter Date Provider Department Center 04/14/2022 [id number] ERIC JAMARHeather [facility] Encounter Status:Closed by ROBERT ERIC on 04/14/22 Normal [facility] XR KNEE 4V AP/PA BOTH+LAT/ME R RTon [...] knee. IMPRESSION: POSTSURGICAL AND MILD DEGENERATIVE CHANGE Job Cost Estimator: PSCB Transcribe Date/Time: Apr 14 2022 9:49A Dictated by : AUDREY ESTES MD This examination was interpreted and the report reviewed and electronically signed by: AUDREY ESTES MD on Apr 14 2022 9:50AM EST [id number] Normal [facility] CNPNon 04-07-2022 CNPN Telephone (ORTHMN) MACY BORJA ([id number]) 2000 F Date Time Provider Department 04/07/22 [...] Fully Assessed Reason for Visit: Care Coordination [2731] Prescriptions as of 04/07/2022 - drospirenone, contraceptive, (SLYND) 4 mg (28) tab Take by mouth. 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] 11/20/2013 Encounter Status:Closed by ALLISON RUGGIERO on 04/07/22 [facility] Consent Formson 09-11-2021 Consent Forms [id number] 1 [id number]#[facility] Pulmonary Procedure [id number] 1 [id number]#1 [facility] Coding Summaryon 09-07-2021 Coding Summary HTMLBase 64 ZpfhpovaJWu8uEj+PGhlY WQ+OV3MSDEmW20cdLSgwI 7HU9mSSH5MWEFVTSVHXE1 TXO1gkVI3NEayW3LiqpIw CtexyJGhNP69LNs1KIR7g NvtIAgbyD1goIEkH4r8Wz VpUB52jA54NGaxRQAeXiV 3LjZpbjsgbWFy D2reAsGwuFZmUou+PHRhY mxlIHdpZHRoPScxMDAlJy IfpIriRF0nNg4mBMByCKU vbGxhcHNlOiBj r6pyUWKzQSryTO2wgDhmT 3MraUD5IEZmd8j6Rb02bW I+VZSrBZC9aVuxNBjpz65 3RuKtk0crDWD7 yFJrONfhTWC3G42cn9O8L SVlNSWzBAA3gOH7lR3grZ bqajtqF9YfeSNaAbG3IDJ 6kDKiwK0bqJji znvrtG9rOjp+X37PXU3GY JRCVS6FEyh9Y9OvCblxyP I+QJ76ATKiOO64xBMwvQD zp7rwzPk9ElMi FRNnIMT9cFtcGDdlp1QnF DTlW19kaFPei9E9XBHvnA xzfVAdYzXpoDK2vC2lQGk uknphd1dbppff Smtmd4tnez69cH71D96lA HpaRHDeXAO5RYGxWNFafS nevc0okV7oEl6+QJnou5o mu4mvoEd6RxRo MXAkqhHabGvwLVF8r0HyD i68Y5KuqHxse9BbKgv2dp 07nIJxd3E7sPY4VPqyNXC whX9uTEmuOpY3 YLCjPcQbaP67nDTbBHoyF e0rqFjsnXttVD2yJRJjfh wbTVExdT2uBXItyXWhoOy bDV6uOSBdcnjy r775IfWvNSX2WCMaiSCiK 0CujU9fEhVvYHOyXNOwL7 EfvZKsVBxeP539TNypZbQ 9XDPcnhCcH4Xv YLHjfObbYjQ2f3H7Ad1Ow 2BkjreyMDS0CGfuXKTqGy AhKxGqVwQ3E7TqFop8XNO nhBtgVJ3wD5Lt DUMbofnkhtepgTF0BOUtV JGsdW89tXBgUVooHr5vw7 D4j685ALBjOHNhmB96Xm9 udDogMTBwdCBU dI6fyklss1fnukbeViHvS EGsDHt2TYv0VIMsqOyqRu MePXB8GsX9VGZ7lMEqjT3 ulVggiotoxL8h Oyc+T33nfU3sUPC7EQF6w fytFTIkoqMjMP55BP50A0 RyPjwvdGFibGU+PGRpdiB uiMmaRD4vJhHi w8bhw2BkERcqN6DnCOAdR IarFfd7QTHqEZV6qUH8bK 8eWLEvOEoml7C0dJC8H3G fjiZjrr6fv7lz XIEkGZfuP53dtKOft0S2P APvnRX0PIBnlHakQhApkX 93Oyc+IIKbtHnlj8RiFvg jo6eam5dcpBw9 MjFaMPHqacOptQyyDPD1h 0AtQp22S81lOEemHVWtFB PtUBBhVSLqlVhbxp8niJ9 wIi8+PGNvbCB3 eYM7pL9rDCRkToQ4OEqhG 715WzDgcYMnVwakj3iij3 tiaSs4JrJlEVYqzeZlsZy tQBO3a8SiWe36 D91fBKpwDNBfAXEfNTZcD YXebCdcuv8heI2vVs1+PC 7yg6npfx84oS34jDN+PHR pYPD0oFhhENyh FZKldL4fEQzqSpE9FGLbK gLzoT68uAQyYMfcDk1ncY pdpIbuDP0dHLTzulrik38 1OqUpp3huYGId fSCuPEtxELK9G97di3N8R UQsIWXnXHH7dVD0jE3wlQ lnbjogbGVmdDsgdmVydGl dIFddWOtfK208 IHRvcDsnPlBhdGllbnQgT nEzFUs3G3FsPzv6MLBvlA xaYI3xrWYuQCirOj1taPt kqJcmEG8vEHFz iydve458UbQpq5rbNUIxd ZFwMBhiHAP8J26gw2F3NA YpGEYqZXT7nYY5wW1tuCy nbjogbGVmdDsg bqBflFltPIsnXCgyE353M HRvcDsnPkJpcnRoIERhdG S3GR76TR99kTGdv2K1nYI 8G8GmIEPdsylq ppgebNA0FLXcIMRumB41B s7uzTnjSj8pWPQxZIP3TL RbdCTyD2KvgA5qHcVoVTU wSOGjB4NbkXGd QKrpD269MHloTlD1MXShb cElV3BhCMZxfDolSdK5u8 T7Nk3DR5R4FK76LG76vTA zo8Q1nTJ4B6Wt KOKbynxgzgkknRS8FXHkV BHjrC56Da6ihXqaCr7xNX UlOCA0OGEbePTbW8ZbxM1 yOiAjMDAwMDAw V2ZflAQlTEyyA642EBzaL zF4DTCvcwVzY2EzONLnpS ycUsW6g0K3Xr5KXXr6XT9 0JE61zGHek9Z3 zJC4C8TzFBSnjspndkhba VP8OWOcQDYylF70Qi2bkG ctQh3xISQbTPR3NEEkrDE zP5JgrI6qKzOo VBIcHDHcO5FlaCVdJWhwB 542AFvtVqU2TUYyffBeA6 NtRTGbkFdoXtH5a5V7Vu1 EYEXnCX96XCX0 aDK3PL85ST31C6NdVgtbe GFibGU+PHRhYmxlIHdpZH RoPScxMDAlJyBzdHlsZT0 aMw7oKLWqUTOt vSafrNXvNvZaa9ehGIMjM PyqFJ8vwHnjE6FjaHV4PX Prn4t4Qh05R33wQ1WclPG +IVWtrKA1oTE5 uK4bNjInPiZ2UScgZ313Y bQgiJPnWjbxf0wqp3bdgO s8XaN7WWPkkcGitLpxWZK 3m9NwBl73J84a IHdpZHRoPSIxNSUiIHZhb Ecous7vqN7gOy7+PGNvbC U8kXE2jC4bPvQjCwO4YGd hW406SxYftPNi Rbvwc2dfx0lxbQy3BjRkD JBtwtCtlYvmCZM5r0TtFg 12T0DxpJnvd3YhGac1pc4 4nDKrb9U7tZU9 J0NeDRTxtcwdoBUraKphW I8cVDXcbrguTPHbqK2dWU YiH4k8YhQeWhO6UItqY0A griQ0SHErwLBp DNpqRIY9Z23tv0H6UJSvA MCeIOG2eEZ5yK8ydNvrso ogbGVmdDsgdmVydGljYWw oCOgbV687YSNv aEceJHJneX1dOGIlpDEnk AidBJ3sDVCnipnuWk7FXj RJTiwgQURFTElORSBNQVJ JRTwvdGQ+PHRk ANE3zQspTMxlIFAreP3xY RCoP9t5GwDqFeL4TSusS7 NnPZDekiecUs13fX3yWvG cCkV3JScdR1Fq mrK7QCQelBLjXIuhMQN9S 93pu5G3NTEgZRWtOFW4xS S8fQ4veCksoljcsDYpoOz gdmVydGljYWwt QGcfX487MQTozDdwQnU7R sGbCqE1IBs5E6RpUot3GM PtdSftUT6kdUUnBDjyDe3 itRqnhZkbXX1x RYUiztqoADQsiT4uBYSfj KJjhWyoHA9wTBAdbkckt3 47JqZjJUT5DHUlyCOaN4H oqT0aVeDmJHUp YSBrF0MwhDWvDOvtQ519O FftXwB0ZGJttpIeV6ChSE AgfQpzAyP7j9U7Ij0cNmF ZZWFyczwvdGQ+ WURzBZE3kFllACcnLWOil G9gHDKhF1g3QeOaAvO6ZG btF3ArYSZzycldEr01fH8 nUsXpMiZ5ZQte H2ZhxcL4SPRunLZtXNhzR OO8W10pn6T2IWHdCYCtJM F4yBL1aL8mwRivbvxldJF mdDsgdmVydGlj EZhmFPrnG835NDQsbIhcJ kZFTUFMRTwvdGQ+PHRkIH Z9aRfvMIdzOSJbfC8yZKC sG6m8ViPlVxD3 YVyfK8BkNOHvbawrAw21t Q9fXrJgOpF8WTqmS9Thky R4COJsjYQtFPvbBET8M67 nz6H3VEGgCBZw HKV1gZC1dP9thIynxszzu GVmdDsgdmVydGljYWwtYW hoC943OFTpqEeqVd6RSK3 5OP31E5CsDkyp dGFibGU+PHRhYmxlIHdpZ HRoPScxMDAlJyBzdHlsZT 6vBd5rNRLjQTXteCincXZ oSmPor5lyKUDy UEpeMV8amPevL9DbvDH1H PGcd4d3Mc81L97aH2XmvX A+HQTmlKU6tWY9xB3dCkJ cSjA0ONcaM773 VsQqpCXwFfsar7uny3jom Wz2LhCyORGahdNzcYplTZ R7k3DyUq77N44xHKnbSOK oPSIyMCUiIHZh dXantf4xcE1rDx1+PGNvb BG2bDU0jL7vBiLlQmJ4LT hnG259QzHqaDDpXepfU82 cY4QglWE+PHRy Ueq6BKBtrObhCH2muGCcH JiwDv1dSAS9GwJyMpEePD ayY9RxMQWclsdgyivlrTL 0CINwQBRjzZ58 Bz4lxPwvSy2qOZGjYWH9J PAfdWUkN4PkqW9kIcWmZR HuCSKzX7HdaKJuODffG07 3LCwjScC1WDKf okZiY0OvJSEabAziZnD2i 3B4Nt8FmRflhRPsXT2kNc NeJNs9E3XnEwh3BSOtcDd yKV9bnKLmCTps Up9ghIkhsEeiWQ3iXHKmt ufmm281AfDtf0jrPKYtbU AjGAvsCTJ8B78gh8K0YCT vMKOsOQW8iOD4 kK7xhQxhignglMVpdOpmn rIbzRahHVjrRGjvL431CW YriRxfCfROMjx4I0DuRqf 6MMCqhUsaDK4l pCQbFYzkWy9moPgckBiqL W9eQZIiwfctr659EmHxm2 fePXFtzIZsEVhfYNH7U09 gr2V7CIVpKDEk TSA8fSR4cS1wqAuaqaecv GVmdDsgdmVydGljYWwtYW eiU436TWUcwIzzPi4FEqz 2N4DiAig3JCXs pMnyRO6nuSQiLQrhQs1ym AdmsJxrIT6bVAXfcocys9 63SfJsj5mjUDHnoITyDLr fWWA5I06ce8O1 YTPhPOJhSGS9vLK4xN0ir GlnbjogbGVmdDsgdmVydG zdNDybBAxzY372DOQjpWp nPlBheWVyOjwv dGQ+QH68ca00B0LlYfxuV st5THLeLRL3sND7jY4vEZ FkSGweq7X6nCK6G5IfslY bsl6cw6gjMDSu ZTo (more content not included)... Normal [facility] 2018 Novel Coronavirus (CoVI D-19), MEGAN on 09-02-2021 SARS-CoV-2 (COVID-19) RNA MEGAN+probe Ql (Unsp spec) Not detected Invalid Interpretation Code Not Detected [facility] Comment on above: Order Comment: [id number] 1 # [phone] Result Comment: This nucleic acid amplification test was developed and its performance characteristics determined by [facility]. Nucleic acid amplification tests include RT- PCR [...] detected) result in this assay. Performed At: [address] [id number] Abigail Franklin PhD Ph:[phone] Performed By: #### 6 [id number] #### [facility] (DEFAULT) [address] [place] [address] Release of Informationon Release of Information [id number]#1 .[facility] Coding Summaryon 10-08-2020 Coding Summary CODING DATE: 10/08/2020 FINAL [facility] STATUS: Home PAYOR: [employer] [...] Danitza Hernandez Date Saved: 10/08/2020 10:57 am [facility] Insulin LCon 10-08-2020 Insulin LC 16.9 uIU/mL Invalid Interpretation Code 2.6-24.9 [facility] Comment on above: Result Comment: Perf ormed At: [facility] [address] [id number] Abigail Franklin PhD Ph:[phone] Performed By: #### 1 [id number], [id number], [id number], [id number], [id number], [id number] #### [facility] (DEFAULT) [address] [place] [id number] Provider Orderson 10-08-2020 Provider Orders [id number] .[facility] .Auto Diff 1on 10-07-2020 Auto [place] % 8 % Normal 1-12 [facility] Comment on above: Performed By: #### 1 [id number], [id number], [id number], [id number], [id number], [id number] #### [facility] (DEFAULT) [address] [place] [address] Baso Abs# 0.0 x10 Normal 0.0-0.2 [facility] Comment on above: Performed By: #### 1 [id number], 29112599, 2378239362, 0598519630, 4059576, 48153193, 1266932, 3163001 #### [facility] (DEFAULT) [address] [place] [address]123 Basophils/100 WBC (Bld) 0.3 % Normal 0.2-2.0 [facility] Comment on above: Performed By: #### 1 [id number], 48585130, 1488040383, 2408204578, 0409158, 05380528, 6527641, 7967494 #### [facility] (DEFAULT) [address] [place] [address] 46464 Eos Abs# 0.1 x10 Normal 0.0-0.4 [facility] Comment on above: Performed By: #### 1 [id number], 68908224, 7809266105, 9136198802, 3357063, 43788285, 0784863, 1174868 #### [facility] (DEFAULT) [address] [place] [address] 74063 Eosinophils/100 WBC (Bld) 2.1 % Normal 0.9-4.0 [facility] Comment on above: Performed By: #### 1 [id number], 89126527, 0962712108, 8544551000, 4367191, 66340259, 0469639, 6618722 #### [facility] (DEFAULT) [address] [place] [address] 99965 Lymph Abs# 1.5 x10 Normal 1.3-2.9 [facility] Comment on above: Performed By: #### 1 [id number], 35277532, 1271839436, 4873341333, 2902085, 89581048, 7679963, 4944772 #### [facility] (DEFAULT) [address] [place] [address] 49460 Lymphocytes/100 WBC (Bld) 26 % Normal 14-48 [facility] Comment on above: Performed By: #### 1 [id number], 12485529, 8439671669, 2823390676, 6715460, 34293303, 6490991, 1572407 #### [facility] (DEFAULT) [address] [place] [address] [place] Abs# 0.5 x10 Normal 0.0-0.8 [facility] Comment on above: Performed By: #### 1 [id number], 21058939, 1594011311, 3241603922, 1166912, 92744893, 4060525, 8958238 #### [facility] (DEFAULT) [address] [place] [address] Neut Abs# 3.6 x10 Normal 1.5-9.2 [facility] Comment on above: Performed By: #### 1 [id number], 54871117, 3174974545, 6854633528, 5597002, 94057797, 6508616, 7070290 #### [facility] (DEFAULT) [address] [place] [address] Neutrophils/100 WBC (Bld) 63 % Normal 44-88 [facility] Comment on above: Performed By: #### 1 [id number], 79674374, 4235279752, 3581037352, 1792086, 81257134, 1036533, 4818378 #### [facility] (DEFAULT) [address] [place] [address] CBC w/ Auto Diffon Erythrocyte distribution width (RBC) [Ratio] 12.6 % Normal 11.5-15.0 [facility] Comment on above: Performed By: #### 1 [id number], 60991733, 0314132757, 6494284220, 6458344, 28458050, 9175453, 9579878 #### [facility] (DEFAULT) [address] [place] [address] Hematocrit (Bld) [Volume fraction] 42.4 % High 33.7-40.4 [facility] Comment on above: Performed By: #### 1 [id number], 89488819, 5824767211, 0356632871, 2123361, 87999095, 2851103, 5551006 #### [facility] (DEFAULT) [address] [place] [address] Hemoglobin (Bld) [Mass/Vol] 14.1 g/dL Normal 11.3-15.9 [facility] Comment on above: Performed By: #### 1 [id number], 85853876, 8041454689, 4078071887, 4287130, 94429623, 8358242, 6916182 #### [facility] (DEFAULT) [address] [place] [address] Instr WBC 5.8 x10 Invalid Interpretation Code [facility] Comment on above: Performed By: #### 1 [id number], 99266637, 2262678742, [id number], 7691316, [id number], 1489815, 7332625 #### [facility] (DEFAULT) [address] [place] [address] Man Diff? Auto Normal [facility] Comment on above: Performed By: #### 1 [id number], 31698922, 2868490534, 5854560083, 4382530, 27003955, 1745507, 3381792 #### [facility] (DEFAULT) [address] [place] [address] 88546 MCH (RBC) [Entitic mass] 28 pg Normal 24-34 [facility] Comment on above: Performed By: #### 1 [id number], 41642477, 0867252765, 3082145841, 9555249, 19692067, 7423913, 4677812 #### [facility] (DEFAULT) [address] [place] [address] 56512 MCHC (RBC) [Mass/Vol] 33 g/dL Normal 26-37 [facility] Comment on above: Performed By: #### 1 [id number], 54759577, 6815389689, 1443400127, 4171470, 57201520, 6234673, 1284142 #### [facility] (DEFAULT) [address] [place] [address] 99409 MCV (RBC) [Entitic vol] 86 fL Normal 81-100 [facility] Comment on above: Performed By: #### 1 [id number], 22848367, 2048950374, 0047237305, 6850875, 87207050, 8896971, 0520342 #### [facility] (DEFAULT) [address] [place] [address] 94490 Platelet 264 x10 Normal 138-427 [facility] Comment on above: Performed By: #### 1 [id number], 38101039, 6600273328, 7542570110, 0101851, 48703686, 1261272, 1891868 #### [facility] (DEFAULT) [address] [place] [address] Platelet mean volume (Bld) [Entitic vol] 9.7 fL Normal 6.3-10.2 [facility] Comment on above: Performed By: #### 1 [id number], 55433825, 1217685459, 7536604736, 2949156, 73378727, 4263068, 1597875 #### [facility] (DEFAULT) [address] [place] [address] RBC 4.95 x10 Normal 3.70-5.30 [facility] Comment on above: Performed By: #### 1 [id number], 53452487, 3666391101, 3842369933, 1240792, 56358571, 2171923, 0446215 #### [facility] (DEFAULT) [address] [place] [address] 48711 WBC 5.8 x10 Normal 3.5-10.5 [facility] Comment on above: Performed By: #### 1 [id number], 32969440, 0135611177, 1683986467, 8874988, 61581703, 7118455, 3384131 #### [facility] (DEFAULT) [address] [place] [address] 84604 CMP Standardon 10-07-2020 eGFR Non AA >60 Invalid Interpretation Code [facility] Comment on above: Performed By: #### 1 [id number], 81457673, 1029606571, 5099911040, 6559627, 44081931, 8570206, 0776904 #### [facility] (DEFAULT) [address] [place] [address] 76860 eGFR AA >60 Invalid Interpretation Code [facility] Comment on above: Result Comment: 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 Kidney Failure is indicated at less than 15 ml/min/1.73m2 Performed By: #### 1 [id number], 77380896, 0585820852, 1940158042, 1899096, 56160896, 8458231, 9811167 #### [facility] (DEFAULT) [address] [place] [address] Albumin [Mass/Vol] 4.4 g/dL Normal 3.5-5.0 [facility] Comment on above: Performed By: #### 1 559608230, 91561454, 8844561697, 0161600579, 0863860, 19338793, 7015880, 1462321 #### [facility] (DEFAULT) [address] [place] [address] Albumin/Globulin [Mass ratio] 1.5 {ratio} Normal 1.4-2.6 [facility] Comment on above: Performed By: #### 1 [id number], 02128027, 7791510636, 7078455414, 8967847, 97702564, 1941869, 7967173 #### [facility] (DEFAULT) [address] [place] [address] 89989 Alk Phos 65 IU/L Normal 32-91 [facility] Comment on above: Performed By: #### 1 853369898, 23523811, 3663526927, 2013285658, 6428319, 71840879, 8350888, 1013864 #### [facility] (DEFAULT) [address] [place] [address] 72932 ALT [Catalytic activity/Vol] 19.0 U/L Normal 14.0-54.0 [facility] Comment on above: Performed By: #### 1 090394077, 80084710, 0457465488, 2848151141, 9820103, 95714292, 9175719, 3549801 #### [facility] (DEFAULT) [address] [place] [address] 36914 Anion gap [Moles/Vol] 13.0 mmol/L Normal 5.0-19.0 [facility] Comment on above: Performed By: #### 1 459180631, 27020807, 0452631274, 5847177558, 5902744, 75977267, 0535277, 6563760 #### [facility] (DEFAULT) [address] [place] [address] 25552 AST [Catalytic activity/Vol] 17 U/L Normal 15-41 [facility] Comment on above: Performed By: #### 1 822653901, 88715008, 8135928197, 1716996801, 8789613, 25669455, 3250840, 2884174 #### [facility] (DEFAULT) [address] [place] [address] 73993 Bili Total 0.7 mg/dL Normal 0.3-1.2 [facility] Comment on above: Performed By: #### 1 950119442, 80312334, 4772753924, 8052723345, 9307381, 52326564, 0911672, 4194614 #### [facility] (DEFAULT) [address] [place] [address] 09540 Calcium [Mass/Vol] 9.2 mg/dL Normal 8.9-10.3 [facility] Comment on above: Performed By: #### 1 355328064, 00799953, 4649845339, 6694122529, 8026297, 50456696, 3587665, 7088553 #### [facility] (DEFAULT) [address] [place] [address] 25715 Chloride [Moles/Vol] 107 mmol/L Normal 101-111 [facility] Comment on above: Performed By: #### 1 009482873, 09685990, 7355799552, 2058492472, 1218412, 47226197, 2232119, 8472881 #### [facility] (DEFAULT) [address] [place] [address] 16371 CO2 [Moles/Vol] 24 mmol/L Normal 21-32 [facility] Comment on above: Performed By: #### 1 829656635, 52046649, 5078377438, 5354951186, 9642396, 52439341, 1201011, 7383815 #### [facility] (DEFAULT) [address] [place] [address] 32274 Creatinine [Mass/Vol] 0.82 mg/dL Normal 0.60-1.30 [facility] Comment on above: Performed By: #### 1 063348894, 91322445, 7677530088, 9237342353, 3026855, 34093038, 0424447, 0237838 #### [facility] (DEFAULT) [address] [place] [address] 72545 Globulin (S) [Mass/Vol] 2.9 g/dL Normal 1.5-4.3 [facility] Comment on above: Performed By: #### 1 898850199, 49078831, 1225286635, 9959779594, 6136988, 63563571, 2652701, 6152859 #### [facility] (DEFAULT) [address] [place] [address] 16146 Glucose [Mass/Vol] 105.0 mg/dL Normal 74.0-118.0 [facility] Comment on above: Performed By: #### 1 565885688, 77327790, 2338068374, 6155812827, 3235752, 51100287, 4029684, 7573472 #### [facility] (DEFAULT) [address] [place] [address] 58883 Osmolality 281 mOsm/L Invalid Interpretation Code [facility] Comment on above: Performed By: #### 1 295067604, 44523102, 8088580777, 5168436016, 6972446, 78827811, 6605055, 0962598 #### [facility] (DEFAULT) [address] [place] [address] 77335 Potassium [Moles/Vol] 3.7 mmol/L Normal 3.6-5.1 [facility] Comment on above: Performed By: #### 1 779116428, 37694034, 4750854257, 8052360966, 1936264, 45522684, 6977755, 7410260 #### [facility] (DEFAULT) [address] [place] [address] 94276 Protein [Mass/Vol] 7.3 g/dL Normal 6.5-8.1 [facility] Comment on above: Performed By: #### 1 094710556, 97164999, 8524925344, 0254106152, 4703948, 04122121, 3385497, 5145824 #### [facility] (DEFAULT) [address] [place] [address] 22366 Sodium [Moles/Vol] 140.0 mmol/L Normal 136.0-144.0 [facility] Comment on above: Performed By: #### 1 646908841, 40759182, 5112952373, 2794882994, 5305291, 30566044, 5496373, 7760673 #### [facility] (DEFAULT) [address] [place] [address] 34267 Urea nitrogen [Mass/Vol] 16 mg/dL Normal 8-26 [facility] Comment on above: Performed By: #### 1 130946123, 44629372, 4222632941, 6042854499, 1451269, 65553507, 6443775, 8042971 #### [facility] (DEFAULT) [address] [place] [address] 73942 Urea nitrogen/Creatinine [Mass ratio] 20.0 mg/mg High 4.6-16.2 [facility] Comment on above: Performed By: #### 1 [id number], 59154168, 2455273684, 7873087693, 7138663, 22766050, 6607595, 1793126 #### [facility] (DEFAULT) [address] [place] [address] 37735 Free T4on 10-07-2020 Free T4 [Mass/Vol] 0.94 ng/dL Normal 0.61-1.12 [facility] Comment on above: Result Comment: Spec imens that contain high levels of Biotin may cause false high results Performed By: #### 1 261100205, 76435146, 9137038051, 2865069334, 9230269, 93671048, 1046939, 6278338 #### [facility] (DEFAULT) [address] [place] [address] HgbA1c Standardon 10-07-2020 .Hb 15.8 Invalid Interpretation Code [facility] Comment on above: Performed By: #### 1 052733127, 25046072, 9787586591, 2893287877, 0118273, 28548625, 0655552, 2710712 #### [facility] (DEFAULT) [address] [place] [address] .Hgb A1c 0.52 g/dL Invalid Interpretation Code [facility] Comment on above: Performed By: #### 1 [id number], 59451383, 3430479969, 3637477434, 4520431, 42755767, 1604223, 8236924 #### [facility] (DEFAULT) [address] [place] [address] Glucose [Mass/Vol] 102 mg/dL Invalid Interpretation Code [facility] Comment on above: Performed By: #### 1 328516266, 10869850, 4809508559, 8322197809, 2093278, 07914203, 1046709, 3711521 #### [facility] (DEFAULT) [address] [place] [address] HbA1c (Bld) [Mass fraction] 5.2 % Normal 4.6-6.2 [facility] Comment on above: Performed By: #### 1 739472503, 06325821, 6051504077, 5785260605, 2262947, 56930975, 8117466, 8679758 #### [facility] (DEFAULT) [address] [place] [address] Lipid Panel Standardon 10-07 Cholesterol [Mass/Vol] 106.0 mg/dL Normal 66.0-200.0 [facility] Comment on above: Result Comment: Zeny rable - Less than 200 mg/dL Borderline high risk - 200-239 mg/dL High risk - 240 mg/dL and over. Performed By: #### 1 384400657, 94548952, 5356529838, 0384050464, 7702049, 37203528, 2469754, 9450072 #### [facility] (DEFAULT) [address] [place] [address] 35820 Cholesterol in HDL [Mass/Vol] 38 mg/dL Low 40-71 [facility] Comment on above: Result Comment: High risk - <40 mg/dL. Performed By: #### 1 [id number], 19399503, 6659798170, 4147437416, 9092858, 47585234, 0792976, 8521242 #### [facility] (DEFAULT) [address] [place] [address] 87029 Cholesterol in LDL [Mass/Vol] 57 mg/dL Normal 1-100 [facility] Comment on above: Result Comment: Opti mal - Less than 100 mg/dL Borderline high risk - 130-159 mg/dL High risk - 160-189 mg/dL. Performed By: #### 1 074291486, 20389647, 5734995320, 8666686824, 0002748, 01159491, 6785875, 9208010 #### [facility] (DEFAULT) [address] [place] [address] 53794 Cholesterol.total/C holesterol in HDL [Mass ratio] 2.8 {ratio} Normal 0.0-4.5 [facility] Comment on above: Performed By: #### 1 [id number], 14342953, 6322797991, 3172571988, 6057275, 76492090, 4102759, 8525132 #### [facility] (DEFAULT) [address] [place] [address] 31397 Triglyceride [Mass/Vol] 56.0 mg/dL Normal 0.0-150.0 [facility] Comment on above: Performed By: #### 1 [id number], 44260097, 7205629753, 4813328734, 1193712, 42211889, 0071086, 0139911 #### [facility] (DEFAULT) [address] [place] [address] 66514 VLDL. 11 mg/dL Normal 5-40 [facility] Comment on above: Performed By: #### 1 378566303, 01269699, 4610855632, 4391030152, 0864509, 04344498, 4683856, 6583326 #### [facility] (DEFAULT) [address] [place] [address] TSHon 10-07-2020 TSH Qn 2.03 m[IU]/L Normal 0.45-5.33 [facility] Comment on above: Result Comment: Gene ral Population (males and non- females, aged 21-88) 0.45 - 5.33 Females, 1st Trimester 0.05 - 3.70 Females, 2nd Trimester 0.31 - 4.35 Females, 3rd Trimester 0.41 - 5.18 Performed By: #### 1 [id number], 84864354, 0737196785, 8973182615, 9720171, 82020592, 7689904, 7872781 #### [facility] (DEFAULT) [address] [place] [address] 35606 Alcohol, Medicalon Ethanol [Mass/Vol] 207.0 mg/dL High <10.0 [facility]2020 Anion gap [Moles/Vol] 18 mmol/L 10 - 20 mmol/L [facility] Calcium [Mass/Vol] 9.4 mg/dL 8.4 - 10. 2 mg/dL [facility] Chloride [Moles/Vol] 109 mmol/L High 98 - 108 mmol/L [facility] Creatinine [Mass/Vol] 1.08 mg/dL 0.40 - 1.10 [facility] GFR/1.73 sq M predicted among non-blacks MDRD (S/P/Bld) [Vol rate/Area] The eGFR should be used for monitoring renal function only and not for medication dosing. [facility] GFR/1.73 sq M.predicted CKD-EPI (S/P/Bld) [Vol rate/Area] 73 >=60 mL/min/1.73 m2 [facility] Glucose [Mass/Vol] 114 mg/dL High 65 - 99 mg/dL [facility] HCO3 [Moles/Vol] 23 mmol/L 21 - 32 mmol/L [facility] Potassium [Moles/Vol] 4.0 mmol/L 3.5 - 5.1 mmol/L [facility] Sodium [Moles/Vol] 146 mmol/L High 135 - 145 mmol/L [facility] Urea nitrogen [Mass/Vol] 13 mg/dL 8 - 25 mg/dL [facility] Urea nitrogen/Creatinine [Mass ratio] 12.0 mg/mg [facility] CBC WITH AUTO DIFFERENTIALon 09-21-2020 Basophils (Bld) [#/Vol] 0.02 10*3/uL [facility] Basophils/100 WBC (Bld) 0.3 % [facility] Eosinophils (Bld) [#/Vol] 0.10 10*3/uL [facility] Eosinophils/100 WBC (Bld) 1.3 % [facility] Erythrocyte distribution width (RBC) [Entitic vol] 11.9 % 11.6 - 14.8 % [facility] Hematocrit (Bld) [Volume fraction] 44.3 % 36.0 - 46.0 % [facility] Hemoglobin (Bld) [Mass/Vol] 14.4 g/dL 12.0 - 16.0 g/dL [facility] Immature granulocytes (Bld) [#/Vol] 0.05 10*3/uL [facility] Immature granulocytes/100 WBC (Bld) 0.60 % [facility] Comment on above: The IG parameter is the percentage of metamyelocytes, myelocytes and promyelocytes. An immature granulocyte count (IG) of 1% or more suggests the possibility of infection, an IG count of 3% is very likely related to an infection. Lymphocytes (Bld) [#/Vol] 2.17 10*3/uL [facility] Lymphocytes/100 WBC (Bld) 27.9 % [facility] MCH (RBC) [Entitic mass] 28.1 pg 26.0 - 34.0 pg [facility] MCHC (RBC) [Mass/Vol] 32.5 g/dL 31.0 - 37.0 g/dL [facility] MCV (RBC) [Entitic vol] 86.4 fL 80.0 - 100.0 fL [facility] Monocytes (Bld) [#/Vol] 0.55 10*3/uL [facility] Monocytes/100 WBC (Bld) 7.1 % [facility] Neutrophils (Bld) [#/Vol] 4.90 10*3/uL [facility] Neutrophils/100 WBC (Bld) 62.8 % [facility] Nucleated RBC (Bld) [#/Vol] 0.00 10*3/uL [facility] Nucleated RBC/100 WBC (Bld) [Ratio] 0.0 % [facility] Platelet mean volume (Bld) [Entitic vol] 9.8 fL 9.4 - 12.4 fL [facility] Platelets (Bld) [#/Vol] 271 10*3/uL [facility] RBC (Bld) [#/Vol] 5.13 10*6/uL [facility] WBC (Bld) [#/Vol] 7.79 10*3/uL [facility] HCG (QUALITATIVE)on 09-21-19 21 Beta HCG ( test) Ql Negative Negative [facility] Interpretation and review of laboratory results Normal [facility] Negative: The result is less than or equal to 5 mIU/mL of HCG. [facility] Otheron 09-21-2020 Interpretation and review of laboratory results Abnormal [facility] Vital Signs Date Time Vital Sign Value Performing Clinician Faci lity 10-20-2023 08:39-0500 Body height 185.4 cm Allison Aragon TRASH COLLECTOR Work Phone: [facility] 10-20-2023 08:39-0500 Body mass index (BMI) [Ratio] 37.1 kg/m2 Allison Aragon TRASH COLLECTOR Work Phone: [facility] 10-20-2023 08:39-0500 Body temperature 97.81 [degF] Allison Aragon TRASH COLLECTOR Work Phone: [facility] 10-20-2023 08:39-0500 Body weight 127.55 kg Allison Aragon TRASH COLLECTOR Work Phone: [facility] 10-20-2023 08:39-0500 Diastolic blood pressure 86 mm[Hg] Allison Aragon TRASH COLLECTOR Work Phone: [facility] 10-20-2023 08:39-0500 Heart rate 70 /min Allison Aragon TRASH COLLECTOR Work Phone: [facility] 10-20-2023 08:39-0500 Respiratory rate 19 /min Allison Aragon TRASH COLLECTOR Work Phone: [facility] 10-20-2023 08:39-0500 SaO2% (BldA) [Mass fraction] 98 % Allison Aichholz TRASH COLLECTOR Work Phone: [facility] 10-20-2023 08:39-0500 Systolic blood pressure 128 mm[Hg] Allison Aichholz TRASH COLLECTOR Work Phone: [facility] 06-09-2022 08:46-0400 Body height 185.4 cm Jaswant King DO Work Phone: [facility] 06-09-2022 08:46-0400 Body weight 123.38 kg aJswant King DO Work Phone: [facility] 09-21-2020 06:10-0500 Body Temperature 98.8 [degF] [place] [facility] 09-21-2020 06:10-0500 BP Diastolic 76 mm[Hg] [place] [facility] 09-21-2020 06:10-0500 BP Systolic 122 mm[Hg] [place] [facility] 09-21-2020 06:10-0500 Pulse (Heart Rate) 87 /min [place] [facility] 09-21-2020 06:10-0500 Pulse Oximetry 99 % [place] [facility] 09-21-2020 06:10-0500 Respiratory Rate 16 /min [place] [facility] Encounters Encounter Date Encounter Type Care Provider Facility Start: 04-19-2024 End: 04-19-2024 ambulatory MIGUEL GONZALES Not Available Start: 03-22-2024 End: 03-22-2024 ambulatory ALLISON AICHHOLZ Not Available Start: 03-22-2024 End: 03-22-2024 Office outpatient visit 25 minutes Jamel Francois Work Phone: [facility] Start: 02-23-2024 End: 02-23-2024 ambulatory ALLISON AICHHOLZ Not Available Start: 01-19-2024 End: 01-19-2024 ambulatory ALLISON AICHHOLZ Not Available Start: 12-29-2023 End: 12-29-2023 Encounter identifier Jamel Francois Work Phone: [facility] Start: 12-27-2023 End: 12-27-2023 Encounter identifier Jamel Francois Work Phone: [facility] Start: 12-21-2023 End: 12-21-2023 ambulatory ALLISON AICHHOLZ Not Available Start: 12-16-2023 End: 12-16-2023 Encounter identifier Jamel Francois Work Phone: [facility] Start: 12-15-2023 End: 12-15-2023 Encounter identifier Jamel Francois Work Phone: [facility] Start: 12-05-2023 End: 12-05-2023 Encounter identifier Jamel Francois Work Phone: [facility] Start: 12-05-2023 End: 12-05-2023 Postop follow up visit related to original px Jamel Francois DPM [facility] Start: 11-30-2023 End: 11-30-2023 Encounter identifier Jamel Francois Work Phone: [facility] Start: 11-29-2023 End: 11-29-2023 Encounter identifier Jamel Francois Work Phone: [facility] Start: 11-23-2023 Orders Only Jaycob Fairchild MD Work Phone: [facility] Comment on above: Factor 5 Leiden muta tion, heterozygous (CMS-HCC) (Primary Dx) Start: 11-21-2023 End: 11-21-2023 ambulatory ALLISON AICHHOLZ Not Available Start: 11-03-2023 End: 11-03-2023 Office outpatient new 45 minutes Jamel Francois Work Phone: [facility] Start: 10-20-2023 Bamboo flowsheet Allison Aichholz TRASH COLLECTOR Work Phone: [facility] Start: 10-20-2023 Bamboo flowsheet Allison Aichholz TRASH COLLECTOR Work Phone: [facility] Start: 10-20-2023 End: 10-20-2023 Office outpatient visit 15 minutes Allison Aragon TRASH COLLECTOR Work Phone: [facility] Comment on above: Weight gain, abnorma l (Primary Dx); Class 2 obesity due to excess calories without serious comorbidity in adult, unspecified BMI Start: 10-20-2023 End: 10-20-2023 ambulatory ALLISON MAHESH Not Available Start: 01-05-2023 End: 02-02-2023 ambulatory SUZIE Romero [facility] Facility:[facility] Start: 10-18-2022 End: 10-18-2022 ambulatory SUZIE Romero [facility] Facility:[facility] Start: 10-14-2022 [facility] Start: 10-10-2022 Encounter for other preprocedural examination SUZIE Romero [facility] Start: 10-08-2022 End: 10-09-2022 ambulatory NADIR ENGLAND Facility:[facility] Start: 10-08-2022 End: 10-09-2022 Encounter for other preprocedural examination NADIR ENGLAND Facility:[facility] Start: 07-01-2022 End: 07-02-2022 ambulatory SUZIE Romero [facility] Facility:[facility] Start: 06-23-2022 End: 06-24-[address] SOHAIL COLBY Facility:[facility] Start: 06-18-2022 Telephone encounter Jaswant King Endocrinology Comment on above: 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 ([employer]) Start: 06-16-2022 End: 06-16-2022 ambulatory Allison Aragon Facility:[facility] Start: 06-16-2022 End: 06-16-2022 ambulatory PHYSICIAN NO [facility] Work Phone: Start: 06-16-2022 End: 06-16-2022 Patient encounter procedure PHYSICIAN NO [facility] [address] Start: 06-09-2022 End: 06-09-2022 ambulatory JASWANT KING Facility:[facility] Start: 06-09-2022 End: 06-09-2022 ambulatory Jaswant King DO Work Phone: Endocrinology Comment on above: Class 2 obesity due to excess calories without serious comorbidity with body mass index (BMI) of 35.0 to 35.9 in adult (Primary Dx); Chondromalacia of right patella Start: 06-09-2022 End: 06-09-2022 Telemedicine consultation with patient Jaswant King DO Work Phone: [facility] Start: 04-14-2022 End: 04-14-2022 ambulatory ROBERT ERIC Facility:[facility] Start: 04-14-2022 End: 04-14-2022 Patient encounter procedure Robert Eric MD Work Phone: Orthopedics Comment on above: Chronic pain of righ t knee (Primary Dx) Start: 04-07-2022 Orders Only Robert Eric MD Work Phone: Orthopaedics Comment on above: Right knee pain, uns pecified chronicity (Primary Dx) Start: 10-26-2021 End: 10-26-2021 Office outpatient new 30 minutes Chadd Cuevas Jr Work Phone: [facility] Start: 10-09-2020 End: 10-09-2020 Chart abstracting Gonzalo Burger) Dara Work Phone: Hematology/Oncology Start: 10-07-2020 End: 10-07-2020 Patient encounter procedure External Provider [facility] Start: 10-07-2020 Results Only External Provider Exter [facility] Start: 09-21-2020 End: 09-21-2020 Emergency department patient visit LEILA ALOK ROWE [facility] Start: 09-20-2020 End: 09-21-2020 Emergency department patient visit Leila Rowe Work Phone: [facility] Comment on above: Alcoholic intoxicati on with complication (HCC) (Primary Dx); Nausea and vomiting, intractability of vomiting not specified, unspecified vomiting type Start: 05-26-2018 Patient encounter DILLON Nogueira acility:[facility] Procedures Date Procedure Procedure Detail Performing Clinician Start: 11-30-2023 End: 11-30-2023 Rad resection tumor soft tissue foot/toe 3 cm/> Jamel Francois DPM Start: 06-16-2022 X-ray of right ankle PH YSICIAN NO FAMILY Start: 10-26-2021 End: 10-26-2021 Radiologic exam knee complete 4/more views Jamel Francois DPM Start: 10-07-2020 End: 10-07-2020 EXTERNAL LAB External Provider Start: 09-20-2020 Basic metabolic 2000 panel - Serum or Plasma [facility] Work Phone: Start: 09-20-2020 Choriogonadotropin.b eta subunit ( test) [Presence] in Serum or Plasma [facility] Work Phone: Start: 09-20-2020 Complete blood count with white cell differential, automated [facility] Work Phone: Start: 09-20-2020 Complete blood count with white cell differential, manual [facility] Work Phone: Start: 09-20-2020 Ethanol [Mass/volume ] in Serum or Plasma [facility] Work Phone: Start: 08-17-2012 History of operative procedure on knee S/P knee surgery Robert Eric MD Work Phone: Plan of Treatment Date Care Activity Detail Author Start: 11-21-2023 End: 11-21-2023 Patient encounter procedure 11/21/2023 6:40 PM EDT Office Visit [facility] [address] [place] [address] Allison Aragon NP [address] [place] [phone] [facility] Start: 10-20-2023 End: 10-20-2023 Patient encounter procedure 10/20/2023 8:40 AM EST Office Visit [facility]ORGE LEWIS [address] [place] [address] Allison Aragon, [place] [address] [place] [address] Arrived [facility] Comment on above: Arrived Start: 09-20-2023 Adult BMI Screening Adult BMI Screen ing [facility] Start: 09-20-2023 Tobacco Screening Tobacco Screening [facility] Start: 05-06-2023 Influenza vaccination [facility] Start: 06-09-2022 End: 08-09-2022 CBC panel - Blood by Automated count CBC Lab Routine Class 2 obesity due to excess calories without serious comorbidity with body mass index (BMI) of 35.0 to 35.9 in adult Expected: 06/09/2022, Expires: 08/09/2022 [facility] Work Phone: Comment on above: Expected: 06/09/2022 , Expires: 08/09/2022 Start: 06-09-2022 End: 08-09-2022 Comprehensive metabolic 2000 panel - Serum or Plasma COMP METABOLIC PANEL Lab Routine Class 2 obesity due to excess calories without serious comorbidity with body mass index (BMI) of 35.0 to 35.9 in adult Expected: 06/09/2022, Expires: 08/09/2022 [facility] Work Phone: Comment on above: Expected: 06/09/2022 , Expires: 08/09/2022 Start: 06-09-2022 End: 08-09-2022 Hemoglobin A1c in Blood HGB A1C Lab Routine Class 2 obesity due to excess calories without serious comorbidity with body mass index (BMI) of 35.0 to 35.9 in adult Expected: 06/09/2022, Expires: 08/09/2022 [facility] Work Phone: Comment on above: Expected: 06/09/2022 , Expires: 08/09/2022 Start: 06-09-2022 End: 08-09-2022 Lipid 1996 panel - Serum or Plasma LIPID PANEL BASIC Lab Routine Class 2 obesity due to excess calories without serious comorbidity with body mass index (BMI) of 35.0 to 35.9 in adult Expected: 06/09/2022, Expires: 08/09/2022 [facility] Work Phone: Comment on above: Expected: 06/09/2022 , Expires: 08/09/2022 Start: 05-06-2022 Influenza vaccination INFLUENZA (#1) [facility] Start: 10-26-2021 Patient referral Referrals: Ismael ee control full kneecap [facility] Start: 09-05-2021 DEPRESSION ASSESSMENT DEPRESSION ASS ESSMENT [facility] Start: 02-17-2021 DTaP,Tdap and Td Vaccines (7 - Td or Tdap) DTaP,Tdap and Td Vaccines (7 - Td or Tdap) [facility] Start: 05-06-2020 Influenza vaccination INFLUENZA (#1) [facility] Start: 2019 PAP TESTING PAP TESTING [facility] Start: 2019 Screening for malign ant neoplasm of cervix Pap Smear [facility] Start: 2017 Urine microalbumin profile DTAP,TDAP,TD (1 - Tdap) [facility] Start: 2016 CHLAMYDIA SCREENING (18-24) CHLAMYDIA SCREENING (18-24) [facility] Start: 2016 GC (GONORRHEA) SCREENING (18-24) GC (GONORRHEA) SCREENING (18-24) [facility] Start: 2016 HEPATITIS C SCREENING HEPATITIS C SC JADA [facility] Start: 2016 HIV SCREENING HIV SCREENING [facility] Start: 2014 MENINGOCOCCAL B: Consider based on risk (2 of 2 - Risk Bexsero 2-dose series) MENINGOCOCCAL B: Consider based on risk (2 of 2 - Risk Bexsero 2-dose series) [facility] Start: 10-02-2013 HEPATITIS B (2 of 3 - 3-dose series) HEPATITIS B (2 of 3 - 3-dose series) [facility] Start: 2012 PEDS TO ADULT TRANSITION ANNUAL ASSESSMENT PEDS TO ADULT TRANSITION ANNUAL ASSESSMENT [facility] Start: 2010 Adult depression screening assessment DEPRESSION SCREENING [facility] Start: 2010 PEDS TO ADULT TRANSITION INITIAL DISCUSSION PEDS TO ADULT TRANSITION INITIAL DISCUSSION [facility] Start: 2009 HPV VACCINE (1 - 2-d ose series) HPV VACCINE (1 - 2-dose series) [facility] Start: 1998 COVID-19 VACCINE (#1) COVID-19 VACCI NE (#1) [facility] End: 05-14-2023 MRI KNEE WO IVCON RT MRI KNEE WO IVCON RT Radiology Routine Chronic pain of right knee 1 Occurrences starting 04/14/2022 until 05/14/2023 [facility] Work Phone: Comment on above: 1 Occurrences starti ng 04/14/2022 until 05/14/2023 End: 05-07-2023 XR KNEE GENERAL 4V AP BOTH/PA BOTH/LAT/MERC RIGHT XR KNEE GENERAL 4V AP BOTH/PA BOTH/LAT/MERC RIGHT Radiology Routine Right knee pain, unspecified chronicity 1 Occurrences starting 04/08/2022 until 05/07/2023 [facility] Work Phone: Comment on above: 1 Occurrences starti ng 04/08/2022 until 05/07/2023 End: 05-14-2023 XR KNEE POST OP 3V AP/LAT/MERCHANT RIGHT XR KNEE POST OP 3V AP/LAT/MERCHANT RIGHT Radiology Routine Chronic pain of right knee 1 Occurrences starting 04/14/2022 until 05/14/2023 [facility] Work Phone: Comment on above: 1 Occurrences starti ng 04/14/2022 until 05/14/2023 [facility] Immunizations Immunization Date Immunization Notes Care Provider [facility] 04-08-2016 meningococcal polysaccharide (groups A, C, Y and W-135) diphtheria toxoid conjugate vaccine (MCV4P) Allison Aragon TRASH COLLECTOR Work Phone: [facility] 09-04-2013 hepatitis B vaccine, unspecified formulation Robert Eric MD Work Phone: [facility] 02-17-2011 tetanus toxoid, redu michael diphtheria toxoid, and acellular pertussis vaccine, adsorbed Allison Aragon TRASH COLLECTOR Work Phone: [facility] 02-17-2011 varicella virus vaccine Allison Aragon NP Work Phone: [facility] 07-21-2009 novel Influenza-H1N1 -09, live virus for nasal administration Allison Aichholz TRASH COLLECTOR Work Phone: [facility] 07-21-2009 influenza virus vacc ine, unspecified formulation Jaycob Fairchild MD Work Phone: [facility] 07-06-2006 influenza, seasonal, injectable Allison Aichholz TRASH COLLECTOR Work Phone: [facility] 07-06-2006 influenza virus vacc ine, unspecified formulation Allison Aichholz TRASH COLLECTOR Work Phone: [facility] 10-23-2003 diphtheria, tetanus toxoids and pertussis vaccine Allsion Aichholz TRASH COLLECTOR Work Phone: [facility] 10-23-2003 measles, mumps and rubella virus vaccine Allison Aichholz TRASH COLLECTOR Work Phone: [facility] 10-23-2003 poliovirus vaccine, unspecified formulation Allison Aichholz TRASH COLLECTOR Work Phone: [facility] 09-17-1999 diphtheria, tetanus toxoids and acellular pertussis vaccine, unspecified formulation Allison Aichholz TRASH COLLECTOR Work Phone: [facility] 05-12-1999 haemophilus influenz ae type b vaccine, conjugate unspecified formulation Allison Aichholz TRASH COLLECTOR Work Phone: [facility] 05-12-1999 hepatitis B vaccine, pediatric or pediatric/adolescent dosage Allison Aichholz TRASH COLLECTOR Work Phone: [facility] 05-12-1999 measles, mumps and rubella virus vaccine Allison Aichholz TRASH COLLECTOR Work Phone: [facility] 05-12-1999 poliovirus vaccine, inactivated Allison Aichholz TRASH COLLECTOR Work Phone: [facility] 05-12-1999 rubella and mumps vi álvaro vaccine Allison Aichholz TRASH COLLECTOR Work Phone: [facility] 05-12-1999 varicella virus vaccine Allison Aichholz TRASH COLLECTOR Work Phone: [facility] 1998 diphtheria, tetanus toxoids and acellular pertussis vaccine, unspecified formulation Allison Aichholz TRASH COLLECTOR Work Phone: [facility] 1998 haemophilus influenz ae type b vaccine, conjugate unspecified formulation Allison Aichholz TRASH COLLECTOR Work Phone: [facility] 1998 diphtheria, tetanus toxoids and acellular pertussis vaccine, unspecified formulation Allison Aichholz TRASH COLLECTOR Work Phone: [facility] 1998 haemophilus influenz ae type b vaccine, conjugate unspecified formulation Allison Aichholz TRASH COLLECTOR Work Phone: [facility] 1998 poliovirus vaccine, inactivated Allison Aichholz TRASH COLLECTOR Work Phone: [facility] 1998 diphtheria, tetanus toxoids and acellular pertussis vaccine, unspecified formulation Allison Aichholz TRASH COLLECTOR Work Phone: [facility] 1998 haemophilus influenz ae type b vaccine, conjugate unspecified formulation Allison Aichholz TRASH COLLECTOR Work Phone: [facility] 1998 hepatitis B vaccine, pediatric or pediatric/adolescent dosage Allison Aichholz TRASH COLLECTOR Work Phone: [facility] 1998 poliovirus vaccine, inactivated Allison Aichholz TRASH COLLECTOR Work Phone: [facility] 1998 hepatitis B vaccine, pediatric or pediatric/adolescent dosage Allison Aichholz TRASH COLLECTOR Work Phone: [facility] Payers Date Payer Category Payer Self-pay [id number] 2020 Private Health Insurance [facility] UMR CHOICE PLUS [id number] 2020-Present [phone] [address] [address] [place] [address] [id number] 2019 Private Health Insurance [id number] 2017 Unknown [id number] 2017 Unknown [id number]. [id number] 1998 Unknown [id number] [id number]. 902 1998 Unknown [id number] 2.16.840.1.949937.3.579.2. 593 1998 Unknown [id number] 2.16.840.1.849874.3.579.2. 593 1998 Unknown [id number] 2.16.840.1.207369.3.579.2. 593 1998 Unknown [id number] 2.16840.1.622132.3.579.2. 593 1998 Unknown [id number] 2.16.840.1.113291.3.579.2. 593 1998 Unknown [id number] 2.16.840.1.152532.3.579.2. 593 1998 Unknown [id number] 2.16.840.1.598501.3.579.2. 1259 1998 Unknown [id number] 2.16840.1.809230.3.579.2. 1259 1998 Unknown [id number] 2.16.840.1.753409.3.579.2. 1259 1998 Unknown [id number] 2.16.840.1.272295.3.579.2. 1259 1998 Unknown [id number] 2.16.840.1.297431.3.579.2. 1259 1998 Unknown [id number] 2.16.840.1.116272.3.579.2. 1259 1998 Unknown [id number] 2.16.840.1.959654.3.579.2. 1259 1959 Private Health Insurance [id number] 1959 Private Health Insurance [id number] Private Health Insurance [id number] Unknown [id number]. 531 Social History Date Type Detail Facility Start: 08-08-2012 End: 12-27-2023 Tobacco smoking status NMIS Unknown if ever smoked [facility] Start: 1998 Sex Assigned At Not on file [facility] Exposure to SARS-CoV -2 (event) Unable to assess [facility] Start: 10-09-2020 End: 09-02-2022 Tobacco smoking status NHIS Never smoker [facility] Start: 10-09-2020 End: 04-14-2022 Tobacco use and exposure Never used [facility] Start: 10-09-2020 End: 09-20-2022 Alcohol intake Current drinker of alcohol (finding) [facility] Start: 1998 [facility] Assigned At [facility] Start: 09-02-2022 End: 10-14-2023 History of Social function [facility] Start: 09-02-2022 End: 10-14-2023 Humiliation, Afraid, Rape, and Kick questionnaire [HARK] [facility] Within the last year , have you been afraid of your partner or ex-partner? No [facility] Do you belong to any clubs or organizations such as sabianism groups, unions, fraternal or athletic groups, or school groups? Yes [facility] Are you now , , , , never or living with a partner? Never [facility] How often to you hav e a drink containing alcohol? 2-4 times a month [facility] How many standard drinks containing alcohol do you have on a [...] Healthcare Start: 09-04-2021 Alcohol Comment social [facility] Start: 12-15-2023 Alcohol intake Alcohol Use Details [facility] Start: 12-15-2020 Sexual Orientation Choose not to disclose [facility] Start: 10-10-2023 Sexual Orientation Straight or heterosexual [facility] NEGATED: Highlighted rowStart: 12-15-2023 End: 03-22-2024 Tobacco smoking status NHIS Unknown if ever smoked [facility] Medical Equipment Procedure Code Equipment Code Equipment Origin al Text Equipment Identifier Dates Anchr Sut Gii Qanchr+ Othc[facility] - [id number] Start: 08-08-2012 Clinical Notes 10-26-2021 to 03-22-2024 Note Date & Type Note Facility 03-22-2024 Evaluation note Type assessment Plantar fasciitis of right foot assessment assessment Neurapraxia of lower extremity J assessment [facility] Work Phone: 1(673) 486-217003-20-2024 History of Present illness Narrative* Stephanie Lee LPN - 11/23/2023 1:17 PM EDT Office received notice from [employer] [facility]. Dr. Fairchild signed paper with recommendations and signed paper and recent office note faxed to [phone] and scanned into file. Stephanie MANUEL [facility] [phone] [facility] History of Present illness Narrative* Allison Aragon NP - 10/20/2023 9:07 AM ESTAssociated Problem(s): Weight gain, abnormal Pt meets qualifications [...] at 240 Denies chance of Month #1/3 * LYLY RIVAS - 10/20/2023 8:40 AM EST Subjective Patient ID: Macy Borja is a 23 y.o. female who presents for No chief complaint on file.. HPI Review of Systems Objective Physical Exam Assessment/Plan Patient ID: Macy Borja is a 23 y.o. female. Procedures * Allison Aragon NP - 10/20/2023 8:40 AM EST Images from the original note were not included. Macy Borja is a 23 y.o. female presents with chief complaint of No chief complaint on file. HPI: Here to discuss adipex. Has taken in the past done well 2 foot surgeries in the last year or so, less active during that time. 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 Started meeting with personal injury law specialist last summer, meets regularly, working on meal [...] right 10/20/2023 Arthritis 10/20/2023 Factor V Leiden ([facility]) 10/20/2023 Interstitial cystitis 10/20/2023 Keratosis pilaris 10/20/2023 Peroneal tendon tear, right, subsequent encounter Protein C deficiency ([facility]) 10/20/2023 Right ankle instability 10/20/2023 Right ankle pain 10/20/2023 Right foot pain Right knee pain 10/20/2023 Urinary incontinence in female 10/20/2023 Past Surgical History: Procedure Laterality Date ANKLE LIGAMENT RECONSTRUCTION Right 10/18/2022 CYSTOSCOPY 2020 FOOT SURGERY Right 06/29/[address] [facility] KNEE SURGERY [address] [...] (Adipex-P) 37.5 MG tablet documented in this encounter[facility] [id number] NotePROCEDURE: XR ANKLE RT 2V COMPARISON: None. HISTORY: Pain FINDINGS: 16 seconds of fluoroscopy. 3 images 3 fluoroscopic images with and without stress. Stress images demonstrate widening of the posterior tibiotalar joint IMPRESSION: Widening of the posterior tibiotalar joint with stress Electronically authenticated by: MCKENZIE POLLOCK Date: 2022-10-19 07:27[facility]10-20-2022 NotePROCEDURE: XR ANKLE RT MIN 3 VIEWS, XR [...] Electronically authenticated by: SOHAIL COLBY Date: 2022-06-24 06:17[facility]10-20-2022 NotePROCEDURE: XR ANKLE RT MIN 3 VIEWS, XR [...] Electronically authenticated by: SOHAIL COLBY Date: 2022-06-24 06:17[facility]10-14-2022 Miscellaneous Notes* Telephone Encounter - José Miguel Elmore - 06/18/2022 3:57 PM EDT Need to call pharmacy for insurance information. Not coming up in either [facility] or [facility] Need pa on lo [facility]22 NoteHNO ID: [id number] Author: Jaswant King, DO Service: ? Author [...] Correspondence will be shared today via the [facility] electronic health record or through regular mail, [...] follow up appointment with Allison Aragon, EVELYN, ROUSTABOUT Previously lost 40 lbs in 3 months with phentermine, and gradually gained all of the weight back Nutritional Assessment Do you think that you have a healthy diet? 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 Yes Please select all medications you have used: Phentermine (Adipex) Have you had a surgical procedure for weight l (more content not included)... [facility]10-05-2022 History of Present illness Narrative* Jaswant King, - 06/09/2022 8:40 AM EDT Images from the original note were not included. [facility] CONSULT - NEW VISIT Macy Borja is here today at request of Dr. Robert Eric specifically for consultation of my opinion in regards to the chief complaint listed below. Correspondence will be shared today via the [employer] electronic health record or through regular mail, [...] a follow up appointment with Allison Aragon, ROUSTABOUT, ROUSTABOUT Previously lost 40 lbs in 3 months with phentermine, and gradually gained all of the weight back Nutritional Assessment Do you think that you have a healthy diet? 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 Yes Please [...] no height and/or weight reading in the [id number] days, so the below BMI readings may be inaccurate) BMI Readings from Last 3 Encounters: 10/05/22 : 35.89 kg/m 10/10/20 : 35.23 kg/m 11/20/ : 27.05 kg/m (93 %, Z= 1.46)* * Growth percentiles are based on [facility] (Girls, 2-20 Years) data. PHYSICAL EXAMINATION: General [...] Phentermine, diet and exercise. Pertinent comorbidities include KneeOA. 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 Author [...] Saw Dr. Calloway. Saw another doctor in [place]. ALLERGIES No Known Allergies PAST MEDICAL HISTORY [...] is stable. Incisions. Imaging: Plain films from [facility] are personally reviewed by me and demonstrates [...] we probably should optimize her . Robert Eric, [facility]08-10-2022 NoteHNO ID: [id number] Author: RT Calista(R) Service: ? Author Type: [...] BY: RT Calista(R) April 14, 2022 9:46 [facility]08-10-2022 History of Present illness Narrative* Robert Eric MD - 04/14/2022 10:06 AM EDT DATE OF PROCEDURE: 08/08/2012 SURGEON: Heriberto Ramirez [...] and anterolateral. 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 With ADL's her pain is 4 - 6. On active days her pain is 7 - 9. Takes ibuprofen. Cortisone in March and january. No help. Takes glucosamine. Voltaren gel. Has seen multiple physicians in the past. Saw Dr. Calloway. Saw another doctor in [place]. ALLERGIES No Known Allergies PAST MEDICAL HISTORY [...] is stable. Incisions. Imaging: Plain films from [facility] are personally reviewed by me and demonstrates bilateralpatellofemoral degenerative joint disease. Left is worse than [...] . Robert Eric MD documented in this encounter[facility]02-21-2022 History of Present illness Narrative* Encounter Date Complaint History Of Prese nt Illness New Problem Bilateral Knee Sever ity: Pain is bad enough to have major surgery? Yes. Quality: Sharp. Timing: After getting up in the morning? Yes. Pain with first couple steps? Yes. Context: Difficulty with stairs? Yes. Does the pain limit your ADLs? Yes. Modifying Factors: Ice: makes it better. NSAIDS: makes it better. Narcotics: makes it better. Physical Therapy: makes it better. Previous Medications: Voltaren: Better.. Comments: Patient referred to confirm candidacy for patello femoral resurfacing. Patient states that she has intense sharp pain in the medial and posterior of the right knee and left knee anterior pain. She states that she has a dull tightness on top of right knee. She has had PT on right knee from [id number] and again in 2020. [facility] Work Phone: Consult note* Clinical Note Date No Information [facility] Work Phone: Discharge summary* Clinical Note Date No Information [facility] Phone: Evaluation note* Diagnosis Right knee pain, unspecified chronicity- Primary documented [facility]* Diagnosis Chronic pain of right knee- Primary documented in this encounter [facility] note* Diagnosis Class 2 obesity due to excess calories without serious comorbidity with body mass index (BMI) of 35.0 to 35.9 in adult- Primary Chondromalacia of right patella Chondromalacia of patella documented in this encounter [facility] noteNo assessment information availableK[facility] Work Phone: Evaluation note* Diagnosis Weight gain, abnormal- Primary Class 2 obesity due to excess calories without serious comorbidity in adult, unspecified BMI documented in this [facility]* Diagnosis Factor 5 Leiden mutation, heterozygous ([facility] Primary [facility]* Type Assessment Date No Information [facility] Phone: History and physical note* Clinical Note Date No Information [facility] Phone: InstructionsNot on filedocumented in this encounter [facility] MedicalInstructions* Date Instruction Additional Infor mation No Information [facility] Phone: Progress note* Clinical Note Date No Information [facility] Phone: Reason for referral (narrative)* Diagnostic Procedure Only (Routine) - Pending Review Specialty Diagnoses / Procedures Referred By Contac t Referred To Contact XR IMAGING Diagnoses Right knee pain, unspecified chronicity Procedures XR KNEE GENERAL 4V AP BOTH/PA BOTH/LAT/MERC RIGHT RADIOLOGIC EXAM KNEE COMPLETE 4/MORE VIEWS Robert Eric MD [address] [place] [address] Xr Imaging Referral ID Status Reason Start Date Expiration Date Visits Requested Visits Authorized [id number] Pending Review Auto-Generat ed Referral 04/08/2022 05/07/2023 1 1 [facility] for referral (narrative)* Diagnostic Procedure Only (Routine) - Pending Review Specialty Diagnoses / Procedures Referred By Contac t Referred To Contact XR IMAGING Diagnoses Chronic pain of right knee Procedures XR KNEE POST OP 3V AP/LAT/MERCHANT RIGHT RADIOLOGIC EXAMINATION KNEE 3 VIEWS Robert Eric MD [address] [place] [address] Xr Imaging Referral ID Status Reason Start Date Expiration Date Visits Requested Visits Authorized [id number] Pending Review Auto-Generat ed Referral 04/14/2022 05/14/2023 1 1 * Consult, Test, Treat (Routine) - Authorized Specialty Diagnoses / Procedures Referred By Antwon noe Referred To Contact Diagnoses Chronic pain of right knee Procedures ENDOCRINE MEDICAL WEIGHT MANAGEMENT OFFICE/OUTPATIENT [facility] 60-74 MINUTES Robert Eric MD [address] [place] [address] Referral ID Status Reason Start Date Expiration Date Visits Requested Visits Authorized [id number] Authorized PCP Requested Referral 04/14/2022 04/14/2023 1 1 * MRI/CT (Routine) - Pending Review Specialty Diagnoses / Procedures Referred By Antwon noe Referred To Contact MR IMAGING Diagnoses Chronic pain of right knee Procedures MRI KNEE WO IVCON RT MRI ANY JT LOWER EXTREM W/O CONTRAST MATRL Robert Eric MD [address] [place] [address] Mr Imaging Referral ID Status Reason Start Date Expiration Date Visits Requested Visits Authorized [id number] Pending Review Auto-Generat ed Referral 04/14/2022 05/14/2023 1 1 [facility] for referral (narrative)* Reason For Referral No Information [facility] Work Phone: Summary Purpose Family History No Family History Records Found Family Member Type Diagnosis Age At Onset Paternal Grandfather Problem (finding) Cancer Mother Problem (finding) Family history of Blood clots Paternal Grandmother Problem (finding) Congenital hear t disease Advance Directives No Advanced Directives Records FoundDocuments on File Type Date Recorded 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 * Alcohol Intoxication: Acute (Ecuadorean) documented in this encounter Assessments Diagnosis Alcoholic intoxication with complication (HCC)- Primary Nausea and vomiting, intractability of vomiting not specified, unspecified vomiting type Reason for Referral Specialty Diagnoses / Procedures Referred By Antwon t Referred To Contact Diagnoses Class 2 obesity due to excess calories without serious comorbidity with body mass index (BMI) of 35.0 to 35.9 in adult Jaswant King DO [address] [place] [address] Referral ID Status Reason Start Date Expiration Date V isits Requested Visits Authorized [id number] Pending Review 1 1 Specialty Diagnoses / Procedures Referred By Contac t Referred To Contact Diagnoses Weight gain, abnormal Class 2 obesity due to excess calories without serious comorbidity in adult, unspecified BMI Allison Aragon, ADELA [address] [place] [address] Referral ID Status Reason Start Date Expiration Date V isits Requested Visits Authorized [id number] Pending Review 1 1 Additional Source Comments INFORMATION SOURCE (unrecogn ized section and content) DATE CREATED AUTHOR 05/06/2018 [facility] DATE CREATED AUTHOR AUTHOR'S ORGANIZ ATION 09/28/2020 [facility] DATE CREATED AUTHOR AUTHOR'S ORGANIZ ATION 09/22/2021 [facility] DATE CREATED AUTHOR AUTHOR'S ORGANIZ ATION 06/29/2022 [facility] DATE CREATED AUTHOR AUTHOR'S ORGANIZ ATION 07/07/2022 [facility] DATE CREATED AUTHOR AUTHOR'S ORGANIZ ATION 02/11/2023 [facility] DATE CREATED AUTHOR AUTHOR'S ORGANIZ ATION 04/21/[address] [facility] d[facility] Specialists EPIC Source Comments (unrecognize d section and content) In the event this informatio n is protected by the Federal Confidentiality of Alcohol and Drug Abuse Patient Records regulations: The Federal rules restrict any use of the information to criminally investigate or prosecute any alcohol or drug abuse patient.[facility] the event this information is protected by the Federal Confidentiality of Alcohol and Drug Abuse Patient Records regulations: The Federal rules restrict any use of the information to criminally investigate or prosecute any alcohol or drug abuse patient.[facility] the event this information is protected by the Federal Confidentiality of Alcohol and Drug Abuse Patient Records regulations: The Federal rules restrict any use of the information to criminally investigate or prosecute any alcohol or drug abuse patient.[facility] the event this information is protected by the Federal Confidentiality of Alcohol and Drug Abuse Patient Records regulations: The Federal rules restrict any use of the information to criminally investigate or prosecute any alcohol or drug abuse patient.[facility] the event this information is protected by the Federal Confidentiality of Alcohol and Drug Abuse Patient Records regulations: The Federal rules restrict any use of the information to criminally investigate or prosecute any alcohol or drug abuse patient.[facility] the event this information is protected by the Federal Confidentiality of Alcohol and Drug Abuse Patient Records regulations: The Federal rules restrict any use of the information to criminally investigate or prosecute any alcohol or drug abuse patient.[facility] the event this information is protected by the Federal Confidentiality of Alcohol and Drug Abuse Patient Records regulations: The Federal rules restrict any use of the information to criminally investigate or prosecute any alcohol or drug abuse patient.[facility] Reason for Visit (unrecogniz ed section and [...] 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 Pt provided with belongings and a [...] - No primary care provider on file. [phone] Chief Complaint Patient presents with Alcohol Intoxication [...] file Gets together: Not on file Attends holiness service: Not on file Active member of [...] Procedure Abnormality Status --------- ------ CBC Auto Differential[[id number]] Please view results for these tests on [...] in this encounter ED Update Note - Dials, Leila Dickinson MD - 09/21/2020 6:21 AM ESTED Attestation Note - Dials, Leila Alok, MD - 09/21/2020 3:39 AM EST Miscellaneous [...] the patient. I discussed the patient with TRASH COLLECTOR/PA. I agree with the TRASH COLLECTOR/PA treatment plan. I agree with the TRASH COLLECTOR/PA plan of care. I agree with the TRASH COLLECTOR/PA dispo as documented. A 20-year-old female was brought in by EMS after patient started having nausea and vomiting after drinking alcohol tonight. Patient states she was drinking [place] ice tea with her friends. Patient appears intoxicated. She is alert maintaining her airway. She has vomit in her hair. Sodium 146. Alcohol 207. Glucose 114. White count normal. Patient given IV fluids and Zofran. She had no more emesis in the ED. Patient becoming more alert and clinically sober throughout her stay. Plan for discharge when clinically sober. 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 [address] PCP - General Family Practice 04/29/21 Roosevelt Costa [address] [place] [address] Referring Orthopedics 04/29/21 [place] [address] Referring Orthopedics 03/04/22 [employer] Relationship Specialty Start Date End Date Allison Aragon, ROUSTABOUT [address] [place] [address] PCP - General Family Practice 04/29/21 Roosevelt Costa [address] [place] [address] Referring Orthopedics 04/29/21 Pako Ahmadi [address] 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 [address] PCP - General Family Medicine 04/29/21 Roosevelt Costa [address] [place] [facility] [place] [address] Referring Orthopedics 04/29/21 Pako Ahmadi [address] 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 [address] PCP - General Family Medicine 04/29/21 Roosevelt Costa [address] [place] [address] Referring Orthopedics 04/29/21 Pako Ahmadi [address] [place] [address] Referring Orthopedics 03/04/22 [employer]oring [employer] Relationship Specialty Start Date End Date Marlee Mosley MD [address] [facility] [address] [place] [address] PCP - General Family Medicine 01/11/23 [employer] Relationship Specialty Start Date End Date Marlee Mosley MD [address] [facility] [address] [place] [address] PCP - General Family Medicine 01/11/23 [employer]oring [employer] Relationship Specialty Start Date End Date Allison Aragon, YARD OPERATOR-ROUSTABOUT [address] [place] [address] PCP - General Nurse Practitioner 09/04/21 Name Effective Dates (start - stop) Status Members No Information Goals (unrecognized section and content) Health Concern Goal Type Priority Status No Information FOR RECORDS PERTAINING TO PATIENTS WHO ARE [...] BE BASED ON THE PRIMARY CLINICAL RECORDS. [employer] [facility]. provides no warranty or guarantee of the accuracy or completeness of information in this document.
--- NOTE | 2024-05-21 14:07 | P.CN_ITS ---
Consult Note: HPI Data of Consult Patient: new to practice Consult date: 05/21/24 Requesting Physician: Beulah Nicholas MD Primary Care Provider: Allison Aragon NP Consult Narrative Reason for consult: right calf and foot pain Narrative: 24yof who presents for evaluation. notes several years of worsening right calf and foot pain. has had three foot surgeries, but symptoms of burning, numbness, tingling persist. recently underwent emg, which shows l4-5 radiculopathy. has engaged in a series of provider directed home exercises and physical therapy >6 weeks, without any significant benefit. has used lyrica with some benefit. very active otherwise. denies adverse med side effects. cc:: CC: Beulah Nicholas MD Review of Systems ROS Status of ROS 10 or more systems reviewed and unremark able except as noted in history and below [facility] Medical History (Updated 05/21/24 @ 14:12 by Beulah Nicholas MD) Instability of ankle joint ?M25.373 - Other instability, unspecified ankle (ICD-10) Rupture of peroneal tendon of right foot ?S86.311A - Strain of muscle(s) and tendon(s) of peroneal muscle group at lower leg level, right leg, initial encounter (ICD-10) Chronic interstitial cystitis ?N30.10 - Interstitial cystitis (chronic) without hematuria (ICD-10) COVID-19 (08/2020) ?U07.1 - COVID-19 (ICD-10) Deformity of right lower extremity ?M21.951 - Unspecified acquired deformity of right thigh (ICD-10) Plantar fascial fibromatosis ?M72.2 - Plantar fascial fibromatosis (ICD-10) Factor V deficiency ?D68.2 - Hereditary deficiency of other clotting factors (ICD-10) Postoperative nausea and vomiting ?R11.2 - Nausea with vomiting, unspecified (ICD-10) ?Z98.890 - Other specified postprocedural states (ICD-10) Surgical History H/O knee surgery (2011) ?Z98.890 - Other specified postprocedural states (ICD-10) History of bladder surgery (2020) ?Z98.890 - Other specified postprocedural states (ICD-10) History of ankle surgery (10/18/22) ?Z98.890 - Other specified postprocedural states (ICD-10) Family History Other Blood coagulation disorder Family history of heart disease Social History Within the past year, how often did you have a drink containing alcohol: never Score interpretation: A score less than 3 is consistent with normal alcohol consumption. 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 Highest level of school completed/degree received: Bachelor's degree Meds Home Medications and Allergies Home Medications ?Medication ?Instructions ?Recorded ?Confirmed ?Type famotidine 20 mg tablet (Pepcid) 20 mg PO BID #14 tabs 07/29/23 Rx ascorbate calcium (vitamin C) 500 500 mg PO DAILY 05/21/24 05/21/24 History mg tablet biotin 10,000 mcg chewable tablet mcg PO 05/21/24 History (Hair, Skin and Nails (biotin)) calcium carbonate 333 mg-magnesium 1 tab PO PRN pain 05/21/24 History oxide 133 mg-zinc gluc 5 mg tablet lactobacillus combination no.4 3 3,000 mmu cells PO DAILY 05/21/24 05/21/24 History billion cell capsule (Probiotic) multivitamin 1 tab PO DAILY 05/21/24 05/21/24 History pregabalin 75 mg capsule (Lyrica) 75 mg PO BID 05/21/24 05/21/24 History Allergies Allergy/AdvReac Type Severity Reaction Status Date / Time latex Allergy Rash Verified 05/23/23 09:46 Exam Narrative Exam Narrative: Psych-alert and oriented x 3.? Attentive and appropriate, constitutionally normal, displays normal mood and affect per situation.? There are no obvious deficits in memory, reasoning, or intellect. Examination of the right extremity reveals notable hyperpathia and allodynia.? Notable atrophy and diffuse weakness present in the extremity.? There is notable shiny skin with hair loss and abnormal hair growth denoting trophic changes presently.? Asymmetric color and temperature changes are present which denotes sudomotor changes.? Decreased range of motion and strength is noted in the extremity.? Coordination remains intact.? Gait remains non-antalgic. Assessment and Plan Assessment and Plan (1) Complex regional pain syndrome i of right lower limb: (2) Lumbar stenosis with neurogenic claudication: Plan 24yof who presents for evaluation. failed conservative measures, as noted. testing reviewed, as noted. given symptoms and emg findings, would like her to undergo lumbar mri without contrast. she is in agreement. i do strongly suspect that given her symptoms, surgical history, and initial pain, she has developed complex regional pain syndrome. medications reviewed. agreed to refill lyrica 75mg tid. follow up after mri.
== END 2024-05-21 12:53 | disposition home or self-care (01) ==
PROVIDERS: PCP Nurse Practitioner; Visit Provider Anesthesiology
DX: G90.521 Complex regional pain syndrome I of right lower limb (principal); M48.062 Spinal stenosis, lumbar region with neurogenic claudication
CPT/HCPCS: G0463

== ENCOUNTER 2024-06-04 06:52 | Outpatient (OUT) | payer OTHER, SELFPAY ==
--- OUTSIDE RECORDS SUMMARY | 2024-06-04 06:55 | XMS_ITS | CCD ---
Author Organization [facility] Care Team Providers Care Investor Relations Coordinator Name Role Phone TIFFANIEESTRELLITA DILLON Raisa Unavailable Unavailable IMCA Unavailable Unavailable [facility] Unavailable Unavailable DIALS, LEILA DICKINSON Attending Unavailable DIALS, LEILA DICKINSON Admitting Unavailable NO, PHYSICIAN Primary Care Unavailable Talat Pineda Primary Care Provider No, Physician Primary Care Provider Unavailabl e Mahesh RIVAS, Allison Moreno Primary Care Provider Roosevelt Costa Unavailable Pako Weiss Unavailable Allison Aragon CNP Primary Care Provider [phone] Roosevelt Costa Unavailable Pako Weiss Unavailable AicAllison alan CNP Primary Care Provider Roosevelt Costa Unavailable Pako Weiss Unavailable NO FAMILY, PHYSICIAN Primary Care Provider Unava ilable Allison Aragon Attending Provider [phone] Allison Aragon Attending Unavailable Allison Aragon Admitting Unavailable NO FAMILY, PHYSICIAN Primary Care Unavailable ROBERT ERIC Referring Unavailable ALLISON ARAGON Primary Care Unavailable ROBERT ERIC Attending Unavailable PAKO WEISS Referring Unavailable ALLISON ARAGON Primary Care Unavailable JASWANT TOVAR Attending Unavailable ALLISON ARAGON Primary Care Unavailable SUZIE MENDOZA Attending Unavailable EVELYN ARAGON Primary Care Unavailable SUZIE MENDOZA Admitting Unavailable HIGHLANDER, PETER D Consulting Unavailable HIGHLANDER, PETER D Admitting Unavailable AICHHOLZ, TEST PULLER ALLISON Primary Care Unavailable HIGHLANDER, PETER D Attending Unavailable ALEJANDRO ANDINO Consulting Unavailable LASHA, DR SOHAIL Rendon Consulting Unavailable HIGHLANDER, PETER D Admitting Unavailable AICHHOLZ, TEST PULLER ALLISON Primary Care Unavailable HIGHLANDER, PETER D Attending Unavailable HIGHLANDER, PETER D Consulting Unavailable HIGHLANDER, PETER D Attending Unavailable AICHHOLZ, TEST PULLER ALLISON Primary Care Unavailable HIGHLANDER, PETER D Admitting Unavailable NADIR ENGLAND Consulting Unavailable HIGHLANDER, PETER D Admitting Unavailable AICHHOLZ, TEST PULLER ALLISON Primary Care Unavailable HIGHLANDER, PETER D Attending Unavailable HIGHLANDER, PETER D Attending Unavailable WEST, DR MCKENZIE Chavez Consulting Unavailable AICHHOLZ, TEST PULLER ALLISON Primary Care Unavailable HIGHLANDER, PETER D Admitting Unavailable HIGHLANDER, PETER D Consulting Unavailable BENITA RESENDIZ Consulting Unavailable YANI GRIER Consulting Unavailable BG ANDINO Unavailable Melany HUDSON, Marlee Sandhu Primary Care Provider AicAllison Wren Primary Care Provider Mendeszoon DPM, Jamel Unavailable Unavailable Mendeszoon DPM, Jamel Unavailable Unavailable Mendeszoon DPM, Jamel Unavailable Unavailable Mendeszoon DPM, Jamel Unavailable Unavailable Mendeszoon DPM, Jamel Unavailable Unavailable AICHHOLZ, ALLISON Attending Unavailable AICHHOLZ, ALLISON Attending Unavailable AICHHOLZ, ALLISON Attending Unavailable AICHHOLZ, ALLISON Attending Unavailable AICHHOLZ, ALLISON Attending Unavailable AICHHOLZ, ALLISON Attending Unavailable MIGUEL GONZALES Attending Unavailable HIGHLANDER, PETER D Referring Unavailable YOSEF GUALLPA Attending Unavailable AICHHOLZ, ALLISON Referring Unavailable Yu HUDSON, Beulah Singleton Attending Unavailable Aichholz EVELYN, Allison Moreno Primary Care Provider Igor HUDSON, Roosevelt Tena Unavailable Pako Weiss Unavailable Allergies Allergy Classification Reported Allergen(s) Allergy Type Date of Onset Reaction(s) Facility (1 source) Latex Drug allergy (disorder) [address] [place] [address] Repository (2 sources) Latex Drug allergy (disorder) [facility] Repository (3 sources) Latex Propensity to adverse reactions 2 [facility] (2 sources) Latex Propensity to adverse reactions to drug 2 [facility] (5 sources) Cortisone; Translations: [cortisone] Drug Allergy 2 [facility] Medications Current Medications Medication Drug Class(es) Dates [...] tablet Indications: Factor 5 Leiden mutation, heterozygous ([facility]) Take 1 tablet (2.5 mg total) by [...] mg by mouth daily . 0 Active drospirenone, contraceptive, (SLYND) 4 mg (28) tab (5 sources) drospirenone, contraceptive, (SLYND) 4 mg (28) tab Take by mouth. Active drospirenone, co ntraceptive, (SLYND) 4 mg (28) tab Take by mouth. 0 Active Comment on above: Take by mouth. gabapentin 300 mg oral capsule (5 sources) Anti-epileptic Agent Start: 4 take 1 capsule by mouth once daily at bedtime gabapentin 300 mg capsule take 1 capsule by oral route 1 time every day at bedtime - Active ammonium lactate 120 mg/ml topical lotion (3 sources) ammonium lactate (Lac-Hydrin) 12 % lotion Apply 1 application topically if needed for dry skin 0 Active meloxicam 7.5 mg oral tablet (5 sources) Nonsteroidal Anti-inflammatory Drug Start: 2 take 1 tablet by mouth in the [...] Drug Class(es) Dates Sig (Normalized) Sig (Original) 1000 ml sodium chloride 9 mg/ml injection (2 sources) Start: 09-20-2020 End: 09-21-2020 sodium chloride 0.9% (NS) bolus 1,000 mL Start: 09-20-2020 End: 09-21-2020 sodium chloride (PF) (NS) fl us 5 mL Problems Active Problems Problem Classification [...] 10-20-2023 Chronic Joint disorders and dislocations; trauma-related (12 sources) Chondromalacia of patella; Translations: [Chondromalacia patellae, [...] initial encounter Episodic Other non-traumatic joint disorders (17 sources) Pain in right knee; Translations: [Pain [...] te Episodic/Chronic Joint disorders and dislocations; trauma-related (8 sources) Dislocation of patellofemoral joint; Translations: [Unspecified dislocation of unspecified patella, initial encounter] Onset: 11-01-2011 11-01-2011 Episodic Other aftercare (1 source) Other retirement (current) drug therapy; Translations: [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 Alejandrina Monk Glucose [Mass/Vol] 96 mg/dL Normal 74-106 [facility] Comment on above: Performed By: #### P OCGLUC #### [facility] [address] [address] [address] Alejandrina Monk PREG QUANT HCGon 10-18-2022 HCG QUANT 3 mIU/mL Normal [facility] Comment on above: Performed By: #### P REGQNT #### [facility] [address] [address] [address] Alejandrina Monk HCG RANGE SEE BELOW Normal [facility] Comment on above: Result Comment: 5-50 0.2-1 WEEK 50-500 1-2 WEEKS 100-5,000 2-3 WEEKS 500-10,000 3-4 WEEKS 1,000-50,000 4-5 WEEKS 10,000-100,000 5-6 WEEKS 15,000-200,000 6-8 WEEKS 10,000-100,000 2-3 MONTHS Performed By: #### P REGQNT #### [facility] [address] [address] [address] Alejandrina Monk MRI ANKLE RT WO [...] by: ALEJANDRO ANDINO Date: 2022-07-05 09:26 [facility]INDSEY [facility] (ENDOMN) ROCHELLEMACY ([id number]) 2000 F Date Time Provider Department 06/18/22 JASWANT TOVAR During your visit today, we recorded the following information about you: José Miguel Garay [facility] 06/18/2022 4:05 PM Signed Need to call pharmacy for insurance information. Not coming up in either epic or covermymeds Need pa on wegovy José Miguel Garay [facility] 07/06/2022 2:48 PM Addendum Initiated PA for Wegovy through [employer] via Social IQ (Social Influence Quotient) Christensen: [id number] Waiting for next steps Need to call insurance for determination PA Christensen for Wegovy José Miguel Garay [facility] 07/06/2022 3:02 PM Addendum Called [employer] and PA's need to go through [employer]. Unable to process PA electronically. Requested to fax chart notes to [phone] Transmitted Successfully Can call for determination at [phone] Can take up to 10 days for determination Spent 6 minutes on the call José Miguel Garay [facility] 07/06/2022 3:03 PM Signed Called [employer] for status of PA for Wegovy. Was [...] Status:Closed by JOSÉ MIGUEL SCOTT on 06/18/22 [facility] XR ankle RT min 3V*on 2021 XR ankle RT min 3V* [facility] [place] [address] XRay Report Signed Patient: Macy Borja MR#: [id number] : 2000 Acct:[id number] Age/Sex: 22 / F ADM Date: 06/16/22 Loc: ICXD Room: Type: [facility] Attending Dr: Allison Aragon Copies to: [...] Rosana Denise M.D.06/16/2022 2:30 PM Dictation Location: [place] [address] Transcribed By: [facility] 06/16/221429 Dictated By: Rosana Denise MD 06/16/22 142 Signed By: 06/16/221429 [facility] Nakul 04-14-2022 CNOV Office Visit (ORMIDD ) MACY BORJA ([id number]) 2000 F Date Time Provider Department 04/14/22 [...] Saw Dr. Calloway. Saw another doctor in [place]. ALLERGIES No Known Allergies PAST MEDICAL HISTORY [...] is stable. Incisions. Imaging: Plain films from [facility] are personally reviewed by me and demonstrates [...] . Robert Eric MD Referring Provider: PAKO WEISS [[id number]] Allergies As of Date: 04/14/2022 (No Known Allergies) Date Reviewed: 04/14/2022 Reviewed by: Maggie Rodriguez Ma - Fully Assessed Reason for Visit: New [[id number]] Primary Visit Diagnosis:Chronic pain of right knee [M25.561, G89.29] Order(s):MRI KNEE WO IVCON RT [[id number]] Order #: [id number] FUTURE ENDOCRINE MEDICAL WEIGHT MANAGEMENT [[id number]] Order #: [id number]: 1 FUTURE XR KNEE POST OP 3V AP/LAT/MERCHANT RIGHT [[id number]] Order #: [id number] FUTURE Prescriptions as of 04/14/2022 - drospirenone, contraceptive, (SLYND) 4 mg (28) tab Take by mouth. 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 Follow-up and Disposition History for Encounter Date Provider Department Center 04/14/2022 [id number] ERIC [facility] Encounter Status:Closed by ROBERT ERIC on 04/14/22 Normal [facility] XR KNEE 4V AP/PA BOTH+LAT/ME R [...] knee. IMPRESSION: POSTSURGICAL AND MILD DEGENERATIVE CHANGE Sex Offender Treatment Professional: [facility] Transcribe Date/Time: Apr 14 2022 9:49A Dictated by : AUDREY ESTES MD This examination was interpreted and the report reviewed and electronically signed by: AUDREY ESTES MD on Apr 14 2022 9:50AM EST [id number] Normal [facility] XR Knee - right 4 Viewson IMPRESSION: POSTSURGICAL AND MILD DEGENERATIVE CHANGE Sex Offender Treatment Professional: [facility] Transcribe Date/Time: Apr 14 2022 9:49A Dictated by : AUDREY ESTES MD This examination was interpreted and the report reviewed and electronically signed by: AUDREY ESTES MD on Apr 14 2022 9:50AM EST ZZZ_DO_NOT_USE _DIVISION OF RADIOLOGY * * *Final Report* * * DATE [...] Mild degenerative change of the left knee. ZZZ_DO_NOT_USE _DIVISION OF RADIOLOGY Provider, [facility] Mikhail [facility] - 04/14/2022 * * *Final Report* * * DATE [...] Mild degenerative change of the left knee. IMPRESSION IMPRESSION: POSTSURGICAL AND MILD DEGENERATIVE CHANGE Sex Offender Treatment Professional: [facility] Transcribe Date/Time: Apr 14 2022 9:49A Dictated by : AUDREY ESTES MD This examination was interpreted and the report reviewed and electronically signed by: AUDREY ESTES MD on Apr 14 2022 9:50AM EST [facility] Radiology Study observation (narrative) [facility] XR Knee - right 4 ViewsOrder ed By: Ccf Provider on 04-14-2022 [facility] 04-07-2022 CNPN Telephone (ORTHMN) MACY BORJA ([id number]) 2000 F Date Time Provider Department 04/07/22 ROBERT ERIC ORTHMN During your visit today, we recorded the following information about you: Allison Gagnon, RN 04/07/2022 3:53 PM Signed Spoke with pt. Advised pt will need XR before seeing Dr Eric. Order is placed and pt to arrive early for her appt. Confirmed appt. Allergies As of Date: 04/07/2022 (No Known Allergies) Date Reviewed: 05/28/2021 Reviewed by: Emmett Calloway MD - Fully Assessed Reason for Visit: Care Coordination [1866] Prescriptions as of 04/07/2022 - drospirenone, contraceptive, (SLYND) 4 mg (28) tab Take by mouth. 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] 11/20/2013 Encounter Status:Closed by ALLISON GAGNON on 04/07/22 [facility] Consent Formson 09-11-2021 Consent Forms [id number] 1 [id number]#1 [facility] 2021 Pulmonary Procedure [id number] 1 [id number]#1 [facility] Coding Summaryon 09-07-2021 Coding Summary HTMLBase 64 FtdrjfxnOXv3fVd+PGhlY WQ+KF5CMSIdM70gbRWepW 3YA7jUHN2PAQUPWFKFHG8 GXY2vvTE6UCtuU8HvkvLs JpkiiMYkWI41CRi7BQQ4l DxvILbcuZ0oqFMnQ5l3Eb WyHT93bY98JCeiPPFyTgY 3LjZpbjsgbWFy D5fpVjJjvUTmSoh+PHRhY mxlIHdpZHRoPScxMDAlJy ZvmQgaJW7yAv5zWQUoKUI vbGxhcHNlOiBj e1bhULYhOIeiBE9tuPzvP 7KrrYL1IOAaq7v6Iu43aV I+SQFyQIA9hOabLQrio23 1UgFja9riUDK8 qJZuNSmbLNY2V58zu8X3V EWzDUAjNZD8cAB0rK5ugM dfcpddN0GroCLoClU5HXU 3sARwmM1xrGlv ygmajU7gKvm+F59XYC5AU TOCNL6UXpd1D3MyQersbE I+PH88SESeXW15fPTbsXG bw7swdVt5EqHg EMSgDTZ4qGjuIRvme8CoF YRrK59qjKTxm0D6AKMuwH macLMwEeQgpMS5rG9mFCu bzaphb8kssbww Iznkx7hrji27bG54E83rO DzySNThUSK2EALeBQMaxR zqxn2gpR9sDc5+QAmsj9s ve6eueQc5HfLe BGRmquTwsIeaWDM4j3GaQ b19S2MqhThci3WdQac1gk 21lISmg0H1rDB6KBziNCW xmN9jNSblVcM9 KWGiFoUfaP80lXUiKZmwZ w6rkZcdaPriQO4uVYHpvm hgDJDxhV5aLPWutNGbsDa aDX2pMRMtryok t035FwMjSWU5EQGrlWLlI 2QbfY0fBkSvWTUlCOZfQ5 MmoTPoJNxtA123ITsqNqC 0OTHklpOiQ5Hl FBKbmHziWeD4m3N8Se6Lg 3AwqyitLGR0STipSQFzXj RkXlVjKaO8X2RySba6JSZ uzEdyYC1fU1Xj LDJuuxgzofuocER3QDHhL YVtzI09fMUxYTgcIu6nw7 Q5q859QEYsLHInqF69Lk5 udDogMTBwdCBU lE0ammcqp0lzxparMqFkN FJvYYz7TTr2DEEevBelPp CpRDM2IpS0AMT6zSUkiZ0 gzZwyzjobwX3z Oyc+R19fbH1nOIM0KBH4h aeaBNOtxmIdWJ94RC36S7 RyPjwvdGFibGU+PGRpdiB obMdxFP4vLsTf h1wqe5NeTVwjD8AtLZFbR UxuMks6DYDjKKI2wDR9sE 6tCPUqSSrhq9O6vCY7N2F jkcSvxd5ih9vx DQFuCLdmT67jzLOtt2G9O BNxvAC1LIEtjGzhFrIbdX 93Oyc+MFCwoKlws0RfNve hy9lkw5umuWc8 WsPtVYAjnbRhmRmeXZN5v 6EdDd98K50lLYtiFRLfQX WmDYQvSTQqiYdatm3geK4 wIi8+PGNvbCB3 gUP6rU0aGACtPbP5NMcjG 877KlLmkVHfIazxp5zrx4 uslUw9XhZrTJZxwaOjgAd qGJK1w7TlLl63 O29gFGcsTIHoRNAtRZThA ZJypAgswe7qaN9gWv0+PC 7qe9ntaa27dB02iAL+PHR zQRP7vBkzRXvb GASpdA2pZXpmBlU2PKKyB xUqtD79kEHbVFepPg1nzW lupRttXU9vXIXdxfoaz94 5BaZzy4ukQGEg gJIaNAggLWA8W06ku5R9W EHsZQUhFAN0uLG9cH1lrJ lnbjogbGVmdDsgdmVydGl aQThxOThlY689 IHRvcDsnPlBhdGllbnQgT bVpSRt4D6ElJdu3DYRakD ywRC0bbHEtJReeTu8ivSy rjAtrAG0vOYQx idxzj760BmVsl2raZBFyp XBcRSbeRAZ9B85wx2A4CS VfISAyHSR5lBB5mU3krNu nbjogbGVmdDsg mkWgkDmsKWqaGWorZ431M HRvcDsnPkJpcnRoIERhdG Y4QI16ZO12nIZfc5K7lLO 6F7KlIZFwfrmk gcmbaCQ0XWRiWXWmoH84B s8rnWfbQi9bGBKeKYI6RP CdaRNbK9QjwX0kDkMtJBD lXTUtX3KpxIPe OHciM694YLyaUnP4EVKkh lUqY9TcJLNjiVbiPfF7t4 S2Ib4AH7B9YU87AN98cDI gt0I8jVY9F2Vz FPVpcotjtapdyDH1ZQQwD CMkqY02Tl5gaGziQj7uMK IcVAP8XPJhmSRcB0WbkR2 yOiAjMDAwMDAw K7FwvZBuKMnjG134CPorQ jM4UYAjnaHkN4LqDURwkZ hvRnE1f9I5Td0DMHn7QT2 3RX81mGOxt3D9 hUP8Q0DsUKFbbhllzsrip PF1FLWxTPRgsU77Tw8pjG gyAr1uRNJlOMK8QFPqpAN cH7AarW1bMzZg AFStQHDaF9PzjWXmXAtfQ 509XPsgTgY8ZJBcoaRbG6 DdUKVdsIseHvL7a3L8Za5 ZPLXgYM00IRZ0 fZR5SP90SA39U9MrUlbud GFibGU+PHRhYmxlIHdpZH RoPScxMDAlJyBzdHlsZT0 vIw3iTQWaZTNp yAfxxVPmMdXnr2egSMXvZ UfqKQ0nsVfmQ3WtiGN8PD Tab7w1Sp30I32cU3IiyKK +WGRziXS2jHG7 lA0wLgNcZdH9UEgiT416E lRfhUOcJrhmd8fpi4mqlK e0ExG7OWZszzMvgJqvEUP 2i6NeZk13J46z IHdpZHRoPSIxNSUiIHZhb Vnstl2llD1gTh5+PGNvbC U2mDA8mQ6yNrElRrT1ZXm bX052RtRffPKd Bzvnw1mwi0mtvUb6ItKjV PTcqvNjrTmsOFZ9y6HuYm 87S0OtfTnnn0ZlNyo8ey8 5bJHjy1B6hIK8 Q7WlIHKoqoxgoMWljErtY J4nFWExukvfUTRhrB2sNR XdH8w6AyBcJjS9DRobX3H puiK1HVPwuEVy OGtvUEG7O00to4U9NDSdC LAtRFU0tUT5mR5rvJprrc ogbGVmdDsgdmVydGljYWw fAOdmR233DYGu dPzaUDUbnQ7oMIAwmGQdo OzmVA0zYMLojalgRq9UMn RJTiwgQURFTElORSBNQVJ JRTwvdGQ+PHRk VSH1kKurAPdsJMDijA6lH MXyM5y0LpCfNeU4YAigU2 CfBFJlbkhqTt70hS8zUcV vKzW0CTiqN6Ba ylU2RRQndAFoHVxrCUK5W 20fc6E0UZRtZKJyAXM2kA T7dI9tsSyiomxkcBRfzQb gdmVydGljYWwt DGznP739NQSbeGomNhU0G xBuWxD3TWq7I3PhIsa5PY TttJwuJX4ebEHhLQzsKi1 dpYensIdxSS9b VJBhfewaCWVyzL3oGNQkr XDadCqdQS5zZUJvzkjfc4 37TrFkCXO4EUVncXMvW9O ztI2iVeMkUSVg MRLaS7BhiOWjZYvxC217E RbmWkK2JMPjllGgY5MyFG PkuUmcEaV4w4Y7Jo0lSnF ZZWFyczwvdGQ+ IRBvCGN5zHwqVRawGCWdd F0dVDBqI6u7NdPuZyB8NG iaO3WsYGCukbvqOx45uN5 bSwJhLyE0NVix Q5NnszF0QRZzoGJcUYvcZ EF6T07nx0M3RPSsUKYwJX O5mWP7vO4abTuduikqtAY mdDsgdmVydGlj YKiyOCxpE172JOMebYsnS kZFTUFMRTwvdGQ+PHRkIH C9yPedWVqhJJHjrK0fYWW qD8g4SoOcIlM1 HDjcK5NwIAOuwdcuXm06f F0wHuWjIkL2VQkcW6Fvhr V3AKSaoLFnQBfgNHK8J50 je1M8EKZuFTZo YAK0zVW9gX9ubDlmeyidt GVmdDsgdmVydGljYWwtYW ybD448IFHgqUyxDc2AYO2 7NR38D4LdCeii dGFibGU+PHRhYmxlIHdpZ HRoPScxMDAlJyBzdHlsZT 9qEq0lLJFvFCVnqVdciVJ xViHvt2gpUMWk UKhyPQ8uyVauV3SlsMA2G HAsq5c5Pf36Q94zQ5BppN A+YTJjtSN0xWQ2rG7lIsW sAhX7RUubZ218 CjRpzAEpHpqaj6ack0knh Sh4BcGpZDXqkbKjzPsdME Q6e3GnOx03E65wNQjgKSJ oPSIyMCUiIHZh aLvmhr1tlQ8zQy1+PGNvb HM0mEU7tZ0wShPtYoM8BJ hhN259PyCrnHXuGyddX25 lR0OdrWN+PHRy Ctv8SLVfgUapXZ8jrMPeZ AmdUq1hXOB5FwMvNhQkTR ncK4JlSBQumbsferqnlXA 1IFTzJTYdtK80 Pz8bzPehWs7iSYMjMLN5E XRozHTaI1VnxB2hRiFhSG AuURRnP0KsnDLcMHflF95 1ITeoFqF6QKFq mbQlB6MqWPOmvYhoUpD1u 9R8Lk8HdCgaoVJyYH5vJn UdSBz3K3KcFrg3RNAngAk zAA7zuJUmBRoq Mh4wyNmszYfmER4mYPDhn shet693MrBey7blSKBhsL TePRmfDNQ4W62ft8N9HAG uZPMwUBL0rHS9 dV0jhYidytlijXAezMuiq eBmbAakVBopMXmbV435IR YdsZkpWaOHRuq1U2GaOeo 3XTSxlPjjJO8u zVQrUYkqRm0soZlptWnsG N0lAOMcehvoh175MgIui0 nrCVAneQPvQHojJOY6Q43 gm4H0RTZlIJCl GPN4yOV7gA9lvStrjarnl GVmdDsgdmVydGljYWwtYW vxA667CTShvAdcKw9OIim 9A6PeYpy5BWBb gWhmYS9huHMqEOzkSi0ov MbjjWqdCD7hTUBpuuzju7 41UzZjf6ecUECkzTTjSHv bQPG2Z88xw6O6 VLFcLFOkYVF1sLV3uP1ae GlnbjogbGVmdDsgdmVydG fnMFzhDZsgU621OGSsuDl nPlBheWVyOjwv dGQ+GJ37wv87O2EkXsevI qt0CQZuTSC1aII9bF8pGH EfQIadg8V7uMA7H2QnljK poj2sf7kxFMUd ZTo (more content not included)... Normal [facility] 2019 Novel Coronavirus (CoVI D-19), MEGAN on 09-02-2021 SARS-CoV-2 (COVID-19) RNA MEGAN+probe Ql (Unsp spec) Not detected Invalid Interpretation Code Not Detected [facility] Comment on above: Order Comment: [id number] 1 # [phone] Result Comment: This nucleic acid amplification test was developed and its performance characteristics determined by [employer]. Nucleic acid amplification tests include RT- PCR [...] detected) result in this assay. Performed At: [address] [id number] Abigail Franklin PhD Ph:[phone] Performed By: #### 6 [id number] #### [facility] (DEFAULT) [address] [place] [address] Release of Informationon Release of Information [id number]#1 .00OTGTIFF [facility] Coding Summaryon 10-08-2020 Coding Summary CODING DATE: 10/08/2020 [facility] STATUS: Home PAYOR: [facility] ADMIT DX: REASON FOR VISIT DX: E66.9 [...] Danitza Hernandez Date Saved: 10/08/2020 10:57 am [facility] Insulin LCon 10-08-2020 Insulin LC 16.9 uIU/mL Invalid Interpretation Code 2.6-24.9 [facility] Comment on above: Result Comment: Perf ormed At: [address] [id number] Abigail Franklin PhD Ph:[phone] Performed By: #### 1 [id number] #### [facility] (DEFAULT) [address] [place] [address] Provider Orderson 10-08-2020 Provider Orders [id number] .00OTGTIFF Normal [facility] .Auto Diff 110-07-2020 Auto [place] % 8 % Normal -12 [facility] Comment on above: Performed By: #### 1 [id number], [id number], [id number], [id number], [id number], [id number], [id number] #### [facility] (DEFAULT) [address] [place] [address] Baso Abs# 0.0 x10 Normal 0.0-0.2 [facility] Comment on above: Performed By: #### 1 [id number], [id number], [id number], [id number], [id number], [id number], [id number], [id number] #### [facility] (DEFAULT) [address] [place] [address] Basophils/100 WBC (Bld) 0.3 % Normal 0.2-2.0 [facility] Comment on above: Performed By: #### 1 [id number], [id number], [id number], [id number], 1343093, 07674729, 8991279, 7099718 #### [facility] (DEFAULT) [address] [place] [address] Eos Abs# 0.1 x10 Normal 0.0-0.4 [facility] Comment on above: Performed By: #### 1 [id number], [id number], [id number], [id number], 9735773, 99677788, 6440651, 8049005 #### [facility] (DEFAULT) [address] [place] [address] Eosinophils/100 WBC (Bld) 2.1 % Normal 0.9-4.0 [facility] Comment on above: Performed By: #### 1 [id number], 14306229, [id number], 9294823390, 1876089, 98805679, 3758161, 8275165 #### [facility] (DEFAULT) [address] [place] [address] Lymph Abs# 1.5 x10 Normal 1.3-2.9 [facility] Comment on above: Performed By: #### 1 [id number], 23611381, 5138660544, 2849498858, 3315634, 35367347, 7391966, 3987886 #### [facility] (DEFAULT) [address] [place] [address] Lymphocytes/100 WBC (Bld) 26 % Normal 14-48 [facility] Comment on above: Performed By: #### 1 [id number], [id number], [id number], 6865892397, 8046135, 85645197, 2941301, 9899919 #### [facility] (DEFAULT) [address] [place] [address] [place] Abs# 0.5 x10 Normal 0.0-0.8 [facility] Comment on above: Performed By: #### 1 [id number], 20213247, [id number], 4442333603, 0203510, 70724046, 3993803, 4417518 #### [facility] (DEFAULT) [address] [place] [address] Neut Abs# 3.6 x10 Normal 1.5-9.2 [facility] Comment on above: Performed By: #### 1 [id number], 12071036, [id number], 0088333310, 8561417, 14327114, 5927130, 1730147 #### [facility] (DEFAULT) [address] [place] [address] Neutrophils/100 WBC (Bld) 63 % Normal 44-88 [facility] Comment on above: Performed By: #### 1 [id number], 35795381, 5559800813, 0701305749, 7951127, 60069727, 7824538, 3093324 #### [facility] (DEFAULT) [address] [place] [address] CBC w/ Auto Diffon 1 Erythrocyte distribution width (RBC) [Ratio] 12.6 % Normal 11.5-15.0 [facility] Comment on above: Performed By: #### 1 [id number], 06345417, 8822763543, 1534054297, 7656148, 12686284, 9492440, 6874695 #### [facility] (DEFAULT) [address] [place] [address] Hematocrit (Bld) [Volume fraction] 42.4 % High 33.7-40.4 [facility] Comment on above: Performed By: #### 1 [id number], 76288745, [id number], [id number], 3368556, 87311614, 1895411, 9827040 #### [facility] (DEFAULT) [address] [place] [address] Hemoglobin (Bld) [Mass/Vol] 14.1 g/dL Normal 11.3-15.9 [facility] Comment on above: Performed By: #### 1 [id number], 83083445, [id number], [id number], 2263086, 38590104, 9194499, 9971819 #### [facility] (DEFAULT) [address] [place] [address] Instr WBC 5.8 x10 Invalid Interpretation Code [facility] Comment on above: Performed By: #### 1 [id number], [id number], [id number], [id number], 1952103, 85103998, 1703791, 9726657 #### [facility] (DEFAULT) [address] [place] [address] Man Diff? Auto Normal [facility] Comment on above: Performed By: #### 1 [id number], 89266808, [id number], 4907700914, 4758995, 07434019, 3235523, 4989713 #### [facility] (DEFAULT) [address] [place] [address] MCH (RBC) [Entitic mass] 28 pg Normal 24-34 [facility] Comment on above: Performed By: #### 1 [id number], 16099797, 3773101070, 0649227492, 3728997, 38362663, 7634778, 1952306 #### [facility] (DEFAULT) [address] [place] [address] 45501 MCHC (RBC) [Mass/Vol] 33 g/dL Normal 26-37 [facility] Comment on above: Performed By: #### 1 [id number], 66768890, 6034421521, 5613209429, 8892309, 21580298, 8463465, 0068021 #### [facility] (DEFAULT) [address] [place] [address] MCV (RBC) [Entitic vol] 86 fL Normal 81-100 [facility] Comment on above: Performed By: #### 1 [id number], 52515444, 4308523384, 7429079267, 2825665, 98020516, 7759521, 7430510 #### [facility] (DEFAULT) [address] [place] [address] Platelet 264 x10 Normal 138-427 [facility] Comment on above: Performed By: #### 1 [id number], 54594205, 8401825086, 1056477394, 5747001, 83974931, 4240043, 5246275 #### [facility] (DEFAULT) [address] [place] [address] 71460 Platelet mean volume (Bld) [Entitic vol] 9.7 fL Normal 6.3-10.2 [facility] Comment on above: Performed By: #### 1 [id number], 10096508, 0088840919, 7798857833, 4191866, 96650158, 0642813, 0119645 #### [facility] (DEFAULT) [address] [place] [address] 26877 RBC 4.95 x10 Normal 3.70-5.30 [facility] Comment on above: Performed By: #### 1 [id number], 25743234, 9579578296, 7028431534, 0628127, 85089438, 6789904, 4612871 #### [facility] (DEFAULT) [address] [place] [address] 82634 WBC 5.8 x10 Normal 3.5-10.5 [facility] Comment on above: Performed By: #### 1 [id number], 09998243, 7895872450, 3066289092, 7222495, 36631654, 6154669, 0769926 #### [facility] (DEFAULT) [address] [place] [address] 91181 CMP Standardon 10-07-2020 eGFR Non AA >60 Invalid Interpretation Code [facility] Comment on above: Performed By: #### 1 [id number], 82101114, 1134860379, 1746321354, 9841037, 45633000, 2964327, 2216246 #### [facility] (DEFAULT) [address] [place] [address] 08691 eGFR AA >60 Invalid Interpretation Code [facility] Comment on above: Result Comment: 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 Kidney Failure is indicated at less than 15 ml/min/1.73m2 Performed By: #### 1 [id number], 72726076, 0010663386, 1690000316, 1720461, 37796441, 3195472, 8973110 #### [facility] (DEFAULT) [address] [place] [address] 28824 Albumin [Mass/Vol] 4.4 g/dL Normal 3.5-5.0 [facility] Comment on above: Performed By: #### 1 [id number], 37819083, 8315676943, 4270934117, 1306041, 11725263, 6335739, 8219372 #### [facility] (DEFAULT) [address] [place] [address] 25814 Albumin/Globulin [Mass ratio] 1.5 {ratio} Normal 1.4-2.6 [facility] Comment on above: Performed By: #### 1 [id number], 94243309, 5068406489, 4327958825, 7063173, 84448836, 0270449, 0671321 #### [facility] (DEFAULT) [address] [place] [address] 02791 Alk Phos 65 IU/L Normal 32-91 [facility] Comment on above: Performed By: #### 1 [id number], 42344393, 3178507813, 7156933277, 1274462, 14060980, 4384210, 8158165 #### [facility] (DEFAULT) [address] [place] [address] 84530 ALT [Catalytic activity/Vol] 19.0 U/L Normal 14.0-54.0 [facility] Comment on above: Performed By: #### 1 [id number], 24399602, 4733792238, 4184185812, 0156701, 38640979, 7749405, 7082919 #### [facility] (DEFAULT) [address] [place] [address] 03652 Anion gap [Moles/Vol] 13.0 mmol/L Normal 5.0-19.0 [facility] Comment on above: Performed By: #### 1 [id number], 56958060, 5509534471, 0870724495, 6520806, 97480176, 2674531, 2776779 #### [facility] (DEFAULT) [address] [place] [address] 74394 AST [Catalytic activity/Vol] 17 U/L Normal 15-41 [facility] Comment on above: Performed By: #### 1 [id number], 71315841, 0764085569, 0741428081, 8784780, 80578047, 0552053, 2506297 #### [facility] (DEFAULT) [address] [place] [address] 32688 Bili Total 0.7 mg/dL Normal 0.3-1.2 [facility] Comment on above: Performed By: #### 1 [id number], 16741941, 0966597443, 9124112202, 6377758, 77482094, 8097972, 2631946 #### [facility] (DEFAULT) [address] [place] [address] 89349 Calcium [Mass/Vol] 9.2 mg/dL Normal 8.9-10.3 [facility] Comment on above: Performed By: #### 1 [id number], 65262043, 4897548897, 6457771655, 2684942, 46321895, 2313290, 0259956 #### [facility] (DEFAULT) [address] [place] [address] Chloride [Moles/Vol] 107 mmol/L Normal 101-111 [facility] Comment on above: Performed By: #### 1 [id number], 17634923, 9094521440, 9713984222, 7757015, 62481983, 5179831, 7829375 #### [facility] (DEFAULT) [address] [place] [address] 57891 CO2 [Moles/Vol] 24 mmol/L Normal 21-32 [facility] Comment on above: Performed By: #### 1 [id number], 24946754, 5779873612, 4472925019, 4081841, 58116768, 2261324, 6734064 #### [facility] (DEFAULT) [address] [place] [address] Creatinine [Mass/Vol] 0.82 mg/dL Normal 0.60-1.30 [facility] Comment on above: Performed By: #### 1 [id number], 33889631, 3463042003, 1787967789, 2761726, 33574304, 6008518, 0656271 #### [facility] (DEFAULT) [address] [place] [address] 42656 Globulin (S) [Mass/Vol] 2.9 g/dL Normal 1.5-4.3 [facility] Comment on above: Performed By: #### 1 [id number], 24570149, 0217406529, 0198424572, 6124076, 73394354, 1769789, 8245170 #### [facility] (DEFAULT) [address] [place], [place] [address] Glucose [Mass/Vol] 105.0 mg/dL Normal 74.0-118.0 [facility] Comment on above: Performed By: #### 1 [id number], 32892545, 3511756218, 4648558019, 9953597, 30904595, 4501522, 9383787 #### [facility] (DEFAULT) [address] [place] [address] 10001 Osmolality 281 mOsm/L Invalid Interpretation Code [facility] Comment on above: Performed By: #### 1 [id number], 86680070, 9215985415, 2265536241, 3533677, 40019674, 6411917, 9891834 #### [facility] (DEFAULT) [address] [place] [address] 44910 Potassium [Moles/Vol] 3.7 mmol/L Normal 3.6-5.1 [facility] Comment on above: Performed By: #### 1 498357096, 07324043, 5055458214, 9768864135, 9560117, 13974930, 8391049, 5682323 #### [facility] (DEFAULT) [address] [place] [address] 36148 Protein [Mass/Vol] 7.3 g/dL Normal 6.5-8.1 [facility] Comment on above: Performed By: #### 1 [id number], 61781171, 3035915549, 8284390231, 9916190, 10511887, 8422747, 9566257 #### [facility] (DEFAULT) [address] [place] [address] 34154 Sodium [Moles/Vol] 140.0 mmol/L Normal 136.0-144.0 [facility] Comment on above: Performed By: #### 1 215951470, 52913390, 8148165002, 7265928620, 5916149, 56649068, 6400479, 3675411 #### [facility] (DEFAULT) [address] [place] [address] 95017 Urea nitrogen [Mass/Vol] 16 mg/dL Normal 8-26 [facility] Comment on above: Performed By: #### 1 357508869, 35677881, 6076203688, 6443622115, 1890825, 81762428, 8380848, 2886064 #### [facility] (DEFAULT) [address] [place] [address] 08402 Urea nitrogen/Creatinine [Mass ratio] 20.0 mg/mg High 4.6-16.2 [facility] Comment on above: Performed By: #### 1 [id number], 60528122, 0344709244, 9196126726, 7764401, 57324971, 2346385, 0332681 #### [facility] (DEFAULT) [address] [place] [address] 53623 Free T4on 10-07-2020 Free T4 [Mass/Vol] 0.94 ng/dL Normal 0.61-1.12 [facility] Comment on above: Result Comment: Spec imens that contain high levels of Biotin may cause false high results Performed By: #### 1 226297887, 62375568, 2293897499, 3410376374, 6760010, 44307248, 4386184, 0860759 #### [facility] (DEFAULT) [address] [place] [address] 10939 HgbA1c Standardon 10-07-2020 .Hb 15.8 Invalid Interpretation Code [facility] Comment on above: Performed By: #### 1 [id number], 16855663, 0905588555, 0298198674, 5264389, 99061621, 7360271, 1176574 #### [facility] (DEFAULT) [address] [place] [address] 64993 .Hgb A1c 0.52 g/dL Invalid Interpretation Code [facility] Comment on above: Performed By: #### 1 [id number], 11816831, 4273791792, 7764626301, 9142725, 68196098, 8056036, 1233090 #### [facility] (DEFAULT) [address] [place] [address] 67577 Glucose [Mass/Vol] 102 mg/dL Invalid Interpretation Code [facility] Comment on above: Performed By: #### 1 [id number], 74393035, 3012930289, 8463635022, 7407133, 25353697, 1175209, 3153437 #### [facility] (DEFAULT) [address] [place] [address] 89545 HbA1c (Bld) [Mass fraction] 5.2 % Normal 4.6-6.2 [facility] Comment on above: Performed By: #### 1 [id number], 89137783, 5071582631, 3623517833, 7718983, 73855075, 0191148, 0238530 #### [facility] (DEFAULT) [address] [place] [address] 61848 Lipid Panel Standardon 10-07 Cholesterol [Mass/Vol] 106.0 mg/dL Normal 66.0-200.0 [facility] Comment on above: Result Comment: Zeny rable - Less than 200 mg/dL Borderline high risk - 200-239 mg/dL High risk - 240 mg/dL and over. Performed By: #### 1 [id number], 48803392, 8951678661, 7464822665, 9039550, 79108413, 3547425, 3875299 #### [facility] (DEFAULT) [address] [place] [address] 09369 Cholesterol in HDL [Mass/Vol] 38 mg/dL Low 40-71 [facility] Comment on above: Result Comment: High risk - <40 mg/dL. Performed By: #### 1 [id number], 57475699, 0845458851, 9739606908, 0717903, 15939478, 0087871, 9161652 #### [facility] (DEFAULT) [address] [place] [address] 76792 Cholesterol in LDL [Mass/Vol] 57 mg/dL Normal 1-100 [facility] Comment on above: Result Comment: Opti mal - Less than 100 mg/dL Borderline high risk - 130-159 mg/dL High risk - 160-189 mg/dL. Performed By: #### 1 851469672, 49579445, 3665627059, 1563460238, 3054024, 06348749, 2735997, 5157245 #### [facility] (DEFAULT) [address] [place] [address] 45833 Cholesterol.total/C holesterol in HDL [Mass ratio] 2.8 {ratio} Normal 0.0-4.5 [facility] Comment on above: Performed By: #### 1 [id number], 78527129, 4961770485, 7481972028, 1287948, 98158131, 8950226, 7527795 #### [facility] (DEFAULT) [address] [place] [address] 82588 Triglyceride [Mass/Vol] 56.0 mg/dL Normal 0.0-150.0 [facility] Comment on above: Performed By: #### 1 [id number], 19628594, 0943367074, 6795617924, 5145215, 41736843, 8160800, 2925951 #### [facility] (DEFAULT) [address] [place] [address] VLDL. 11 mg/dL Normal 5-40 [facility] Comment on above: Performed By: #### 1 [id number], 22986867, 1115324979, 2799595739, 9849089, 54302686, 2002471, 3715523 #### [facility] (DEFAULT) [address] [place] [address] 65053 TSHon 10-07-2020 TSH Qn 2.03 m[IU]/L Normal 0.45-5.33 [facility] Comment on above: Result Comment: Gene ral Population (males and non- females, aged 21-88) 0.45 - 5.33 Females, 1st Trimester 0.05 - 3.70 Females, 2nd Trimester 0.31 - 4.35 Females, 3rd Trimester 0.41 - 5.18 Performed By: #### 1 [id number], 76627849, 6997335082, 1984848578, 1422546, 35736277, 5707553, 2070568 #### [facility] (DEFAULT) [address] [place] [address] 23143 Alcohol, Medicalon Ethanol [Mass/Vol] 207.0 mg/dL High <10.0 [facility]2020 Anion gap [Moles/Vol] 18 mmol/L 10 - 20 mmol/L [facility] Calcium [Mass/Vol] 9.4 mg/dL 8.4 - 10. 2 mg/dL [facility] Chloride [Moles/Vol] 109 mmol/L High 98 - 108 mmol/L [facility] Creatinine [Mass/Vol] 1.08 mg/dL 0.40 - 1.10 [facility] GFR/1.73 sq M predicted among non-blacks MDRD (S/P/Bld) [Vol rate/Area] The eGFR should be used for monitoring renal function only and not for medication dosing. [facility] GFR/1.73 sq M.predicted CKD-EPI (S/P/Bld) [Vol rate/Area] 73 >=60 mL/min/1.73 m2 [facility] Glucose [Mass/Vol] 114 mg/dL High 65 - 99 mg/dL [facility] HCO3 [Moles/Vol] 23 mmol/L 21 - 32 mmol/L [facility] Potassium [Moles/Vol] 4.0 mmol/L 3.5 - 5.1 mmol/L [facility] Sodium [Moles/Vol] 146 mmol/L High 135 - 145 mmol/L [facility] Urea nitrogen [Mass/Vol] 13 mg/dL 8 - 25 mg/dL [facility] Urea nitrogen/Creatinine [Mass ratio] 12.0 mg/mg [facility] CBC WITH AUTO DIFFERENTIALon 09-21-2020 Basophils (Bld) [#/Vol] 0.02 10*3/uL [facility] Basophils/100 WBC (Bld) 0.3 % [facility] Eosinophils (Bld) [#/Vol] 0.10 10*3/uL [facility] Eosinophils/100 WBC (Bld) 1.3 % [facility] Erythrocyte distribution width (RBC) [Entitic vol] 11.9 % 11.6 - 14.8 % [facility] Hematocrit (Bld) [Volume fraction] 44.3 % 36.0 - 46.0 % [facility] Hemoglobin (Bld) [Mass/Vol] 14.4 g/dL 12.0 - 16.0 g/dL [facility] Immature granulocytes (Bld) [#/Vol] 0.05 10*3/uL [facility] Immature granulocytes/100 WBC (Bld) 0.60 % [facility] Comment on above: The IG parameter is the percentage of metamyelocytes, myelocytes and promyelocytes. An immature granulocyte count (IG) of 1% or more suggests the possibility of infection, an IG count of 3% is very likely related to an infection. Lymphocytes (Bld) [#/Vol] 2.17 10*3/uL [facility] Lymphocytes/100 WBC (Bld) 27.9 % [facility] MCH (RBC) [Entitic mass] 28.1 pg 26.0 - 34.0 pg [facility] MCHC (RBC) [Mass/Vol] 32.5 g/dL 31.0 - 37.0 g/dL [facility] MCV (RBC) [Entitic vol] 86.4 fL 80.0 - 100.0 fL [facility] Monocytes (Bld) [#/Vol] 0.55 10*3/uL [facility] Monocytes/100 WBC (Bld) 7.1 % [facility] Neutrophils (Bld) [#/Vol] 4.90 10*3/uL [facility] Neutrophils/100 WBC (Bld) 62.8 % [facility] Nucleated RBC (Bld) [#/Vol] 0.00 10*3/uL [facility] Nucleated RBC/100 WBC (Bld) [Ratio] 0.0 % [facility] Platelet mean volume (Bld) [Entitic vol] 9.8 fL 9.4 - 12.4 fL [facility] Platelets (Bld) [#/Vol] 271 10*3/uL [facility] RBC (Bld) [#/Vol] 5.13 10*6/uL [facility] WBC (Bld) [#/Vol] 7.79 10*3/uL [facility] HCG (QUALITATIVE)on 09-21-19 21 Beta HCG ( test) Ql Negative Negative [facility] Interpretation and review of laboratory results Normal [facility] Negative: The result is less than or equal to 5 mIU/mL of HCG. [facility] Otheron 09-21-2020 Interpretation and review of laboratory results Abnormal [facility] Vital Signs Date Time Vital Sign Value Performing Clinician Laura bartlett 10-20-2023 08:39-0500 Body height 185.4 cm Allison Aragon FLIGHT READINESS TECHNICIAN Work Phone: [facility] 10-20-2023 08:39-0500 Body mass index (BMI) [Ratio] 37.1 kg/m2 Allison Aragon NP Work Phone: [facility] 10-20-2023 08:39-0500 Body temperature 97.81 [degF] Allison Aragon FLIGHT READINESS TECHNICIAN Work Phone: [facility] 10-20-2023 08:39-0500 Body weight 127.55 kg Allison Aragon FLIGHT READINESS TECHNICIAN Work Phone: [facility] 10-20-2023 08:39-0500 Diastolic blood pressure 86 mm[Hg] Allison Aragon FLIGHT READINESS TECHNICIAN Work Phone: [facility] 10-20-2023 08:39-0500 Heart rate 70 /min Allison Aragon FLIGHT READINESS TECHNICIAN Work Phone: [facility] 10-20-2023 08:39-0500 Respiratory rate 19 /min Allison Aragon FLIGHT READINESS TECHNICIAN Work Phone: [facility] 10-20-2023 08:39-0500 SaO2% (BldA) [Mass fraction] 98 % Allison Aragon FLIGHT READINESS TECHNICIAN Work Phone: [facility] 10-20-2023 08:39-0500 Systolic blood pressure 128 mm[Hg] Allison Aragon FLIGHT READINESS TECHNICIAN Work Phone: [facility] 06-09-2022 08:46-0400 Body height 185.4 cm Jaswant Tovar DO Work Phone: [facility] 06-09-2022 08:46-0400 Body weight 123.38 kg Jaswant Tovar DO Work Phone: [facility] 09-21-2020 06:10-0500 Body Temperature 98.8 [degF] Leila Dials [facility] 09-21-2020 06:10-0500 BP Diastolic 76 mm[Hg] Leila Dials [facility] 09-21-2020 06:10-0500 BP Systolic 122 mm[Hg] Leila Dials [facility] 09-21-2020 06:10-0500 Pulse (Heart Rate) 87 /min Leila Dials [facility] 09-21-2020 06:10-0500 Pulse Oximetry 99 % Leila Dials [facility] 09-21-2020 06:10-0500 Respiratory Rate 16 /min Leila Dials [facility] Encounters Encounter Date Encounter Type Care Provider Facility Start: 05-21-2024 End: 05-21-2024 ambulatory YOSEF GUALLPA Not Available Start: 05-21-2024 End: 05-21-2024 ambulatory Beulah Nicholas MD Facility: [facility] Start: 04-19-2024 End: 04-19-2024 ambulatory MIGUEL GONZALES Not Available Start: 03-22-2024 End: 03-22-2024 ambulatory ALLISON AICHHOLZ Not Available Start: 03-22-2024 End: 03-22-2024 Office outpatient visit 25 minutes Jamel Francois Work Phone: [facility] Start: 02-23-2024 End: 02-23-2024 ambulatory ALLISON AICHHOLZ Not Available Start: 01-19-2024 End: 01-19-2024 ambulatory ALLISON AICHHOLZ Not Available Start: 12-29-2023 End: 12-29-2023 Encounter identifier Jamel Alley Francois Work Phone: [facility] Start: 12-27-2023 End: 12-27-2023 Encounter identifier Jamel Francois Work Phone: [facility] Start: 12-21-2023 End: 12-21-2023 ambulatory ALLISON AICHHOLZ Not Available Start: 12-16-2023 End: 12-16-2023 Encounter identifier Jamel Francois Work Phone: [facility] Start: 12-15-2023 End: 12-15-2023 Encounter identifier Jamel Francois Work Phone: [facility] Start: 12-05-2023 End: 12-05-2023 Encounter identifier Jamel Francois Work Phone: [facility] Start: 12-05-2023 End: 12-05-2023 Postop follow up visit related to original px Jamel Francois DPM [facility] Start: 11-30-2023 End: 11-30-2023 Encounter identifier Jamel Francois Work Phone: [facility] Start: 11-29-2023 End: 11-29-2023 Encounter identifier Jamel Francois Work Phone: [facility] Start: 11-23-2023 Orders Only Jaycob Fairchild MD Work Phone: [facility] Comment on above: Factor 5 Leiden muta tion, heterozygous (CMS-HCC) (Primary Dx) Start: 11-21-2023 End: 11-21-2023 ambulatory ALLISON AICHHOLZ Not Available Start: 11-03-2023 End: 11-03-2023 Office outpatient new 45 minutes Jamel Caballerotaylor Work Phone: [facility] Start: 10-20-2023 Bamboo flowsheet Lalison Aichholz FLIGHT READINESS TECHNICIAN Work Phone: [facility] Start: 10-20-2023 Bamboo flowsheet Allison Aichholz FLIGHT READINESS TECHNICIAN Work Phone: [facility] Start: 10-20-2023 End: 10-20-2023 Office outpatient visit 15 minutes Allison Aichholz FLIGHT READINESS TECHNICIAN Work Phone: [facility] Comment on above: Weight gain, abnorma l (Primary Dx); Class 2 obesity due to excess calories without serious comorbidity in adult, unspecified BMI Start: 10-20-2023 End: 10-20-2023 ambulatory ALLISON AICHHOLZ Not Available Start: 01-05-2023 End: 02-02-2023 ambulatory SUZIE MENDOZA Facility:[facility] Start: 10-18-2022 End: 10-18-2022 ambulatory SUZIE MENDOZA Facility:[facility] Start: 10-14-2022 ambulatory SUZIE MENDOZA Faci lity:[facility] Start: 10-10-2022 Encounter for other preprocedural examination SUZIE MENDOZA [facility] Start: 10-08-2022 End: 10-09-2022 ambulatory NADIR ENGLAND Facility:[facility] Start: 10-08-2022 End: 10-09-2022 Encounter for other preprocedural examination NADIR ENGLAND Facility:[facility] Start: 07-01-2022 End: 07-02-2022 ambulatory SUZIE MENDOZA Facility:[facility] Start: 06-23-2022 End: 06-24-[address] SOHAIL COLBY Facility:[facility] Start: 06-18-2022 Telephone encounter Jaswant Reginaldjuany Endocrinology Comment on above: 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 ([employer]) Start: 06-16-2022 End: 06-16-2022 ambulatory Allison Aragon Facility:[facility] Start: 06-16-2022 End: 06-16-2022 ambulatory PHYSICIAN MONIKA [facility] Work Phone: Start: 06-16-2022 End: 06-16-2022 Patient encounter procedure PHYSICIAN MONIKA [facility] [address] Start: 06-09-2022 End: 06-09-2022 ambulatory JASWANT GOFFJUANY Facility:[facility] Start: 06-09-2022 End: 06-09-2022 ambulatory Jaswant Tovar DO Work Phone: Endocrinology Comment on above: Class 2 obesity due to excess calories without serious comorbidity with body mass index (BMI) of 35.0 to 35.9 in adult (Primary Dx); Chondromalacia of right patella Start: 06-09-2022 End: 06-09-2022 Telemedicine consultation with patient Jaswant Tovar DO Work Phone: [facility] Start: 04-14-2022 End: 04-14-2022 ambulatory ROBERT ERIC Facility:[facility] Start: 04-14-2022 End: 04-14-2022 Patient encounter procedure Robert Eric MD Work Phone: Orthopedics Comment on above: Chronic pain of righ t knee (Primary Dx) Start: 04-14-2022 End: 04-14-2022 Subsequent hospital visit by physician Marty Ellsworth Work Phone: Radiology Comment on above: Right knee pain, uns pecified chronicity [M25.561] Start: 04-07-2022 Orders Only Robert Eric MD Work Phone: Orthopaedics Comment on above: Right knee pain, uns pecified chronicity (Primary Dx) Start: 10-26-2021 End: 10-26-2021 Office outpatient new 30 minutes Chadd Cuevas Jr Work Phone: [facility] [place] Start: 10-09-2020 End: 10-09-2020 Chart abstracting Gonzalo Burger) Dara Work Phone: Hematology/Oncology Start: 10-07-2020 End: 10-07-2020 Patient encounter procedure External Provider [facility] Start: 10-07-2020 Results Only External Provider Exter nal-[facility] Start: 09-21-2020 End: 09-21-2020 Emergency department patient visit LEILA ROWE [facility] Start: 09-20-2020 End: 09-21-2020 Emergency department patient visit Leila Rowe Work Phone: [facility] Emergency Department Comment on above: Alcoholic intoxicati on with complication (HCC) (Primary Dx); Nausea and vomiting, intractability of vomiting not specified, unspecified vomiting type Start: 05-26-2018 Patient encounter DILLNO Nogueira acility:[facility] Procedures Date Procedure Procedure Detail Performing Clinician Start: 11-30-2023 End: 11-30-2023 Rad resection tumor soft tissue foot/toe 3 cm/> Jamel Francois DPM Start: 06-16-2022 X-ray of right ankle PH [facility] Start: 04-14-2022 Radiologic exam knee complete 4/more views Robert Eric MD Work Phone: Start: 10-26-2021 End: 10-26-2021 Radiologic exam knee complete 4/more views Jamel Francois DPM Start: 10-07-2020 End: 10-07-2020 EXTERNAL LAB External Provider Start: 09-20-2020 Basic metabolic 2000 panel - Serum or Plasma Leila Rowe Work Phone: Start: 09-20-2020 Choriogonadotropin.b eta subunit ( test) [Presence] in Serum or Plasma Leila Rowe Work Phone: Start: 09-20-2020 Complete blood count with white cell differential, automated Leilatung Leemango Work Phone: Start: 09-20-2020 Complete blood count with white cell differential, manual Leila Rowe Work Phone: Start: 09-20-2020 Ethanol [Mass/volume ] in Serum or Plasma Leila Rowe Work Phone: Start: 08-17-2012 History of operative procedure on knee S/P knee surgery Robert Eric MD Work Phone: Plan of Treatment Date Care Activity Detail Author Start: 05-06-2024 Covid-19 Vaccine ( season) Covid-19 Vaccine ( season) [facility] Start: 05-06-2024 Influenza vaccination Influenza Vacc ine (#1) [facility] Start: 11-21-2023 End: 11-21-2023 Patient encounter procedure 11/21/2023 6:40 PM EDT Office Visit [facility] [address] [place] [address] Allison Aragon, ADELA [address] [place] [phone] [facility] Start: 10-20-2023 End: 10-20-2023 Patient encounter procedure 10/20/2023 8:40 AM EST Office Visit [facility] [address] [place] [address] Allison Aragon, ADELA [address] [place] [phone] Arrived [facility] Comment on above: Arrived Start: 09-20-2023 Adult BMI Screening Adult BMI Screen ing [facility] Start: 09-20-2023 Tobacco Screening Tobacco Screening [facility] Start: 05-06-2023 Influenza vaccination N [facility] Start: 06-09-2022 End: 08-09-2022 CBC panel - Blood by Automated count CBC Lab Routine Class 2 obesity due to excess calories without serious comorbidity with body mass index (BMI) of 35.0 to 35.9 in adult Expected: 06/09/2022, Expires: 08/09/2022 [facility] Work Phone: Comment on above: Expected: 06/09/2022 , Expires: 08/09/2022 Start: 06-09-2022 End: 08-09-2022 Comprehensive metabolic 2000 panel - Serum or Plasma COMP METABOLIC PANEL Lab Routine Class 2 obesity due to excess calories without serious comorbidity with body mass index (BMI) of 35.0 to 35.9 in adult Expected: 06/09/2022, Expires: 08/09/2022 [facility] Work Phone: Comment on above: Expected: 06/09/2022 , Expires: 08/09/2022 Start: 06-09-2022 End: 08-09-2022 Hemoglobin A1c in Blood HGB A1C Lab Routine Class 2 obesity due to excess calories without serious comorbidity with body mass index (BMI) of 35.0 to 35.9 in adult Expected: 06/09/2022, Expires: 08/09/2022 [facility] Work Phone: Comment on above: Expected: 06/09/2022 , Expires: 08/09/2022 Start: 06-09-2022 End: 08-09-2022 Lipid 1996 panel - Serum or Plasma LIPID PANEL BASIC Lab Routine Class 2 obesity due to excess calories without serious comorbidity with body mass index (BMI) of 35.0 to 35.9 in adult Expected: 06/09/2022, Expires: 08/09/2022 [facility] Work Phone: Comment on above: Expected: 06/09/2022 , Expires: 08/09/2022 Start: 05-06-2022 Influenza vaccination INFLUENZA (#1) [facility] Start: 10-26-2021 Patient referral Referrals: sImael pascual control full kneecap [facility] Start: 09-05-2021 DEPRESSION ASSESSMENT DEPRESSION ASS ESSMENT [facility] Start: 02-17-2021 DTaP,Tdap and Td Vaccines (7 - Td or Tdap) DTaP,Tdap and Td Vaccines (7 - Td or Tdap) [facility] Start: 02-17-2021 Urine microalbumin profile DTaP,Tdap,Td Vaccine (7 - Td or Tdap) [facility] Start: 05-06-2020 Influenza vaccination INFLUENZA (#1) [facility] Start: 2019 PAP TESTING PAP TESTING [facility] Start: 2019 Screening for malign ant neoplasm of cervix [facility] Start: 2017 Urine microalbumin profile DTAP,TDAP,TD (1 - Tdap) [facility] Start: 2016 Anxiety Screening Anxiety Screening [facility] Start: 2016 CHLAMYDIA SCREENING (18-24) CHLAMYDIA SCREENING (18-24) [facility] Start: 2016 Depression Screening Depression Scre ening [facility] Start: 2016 GC (GONORRHEA) SCREENING (18-24) GC (GONORRHEA) SCREENING (18-24) [facility] Start: 2016 HEPATITIS C SCREENING HEPATITIS C [facility] Start: 2016 Hepatitis C screening Hepatitis C [facility] Start: 2016 HIV SCREENING HIV SCREENING [facility] Start: 2016 HIV screening HIV Screening [facility] Start: 2014 Meningococcal B Vaccine: Consider Based On Risk (2 of 2 - Risk Bexsero 2-dose series) Meningococcal B Vaccine: Consider Based On Risk (2 of 2 - Risk Bexsero 2-dose series) [facility] Start: 2014 MENINGOCOCCAL B: Consider based on risk (2 of 2 - Risk Bexsero 2-dose series) MENINGOCOCCAL B: Consider based on risk (2 of 2 - Risk Bexsero 2-dose series) [facility] Start: 10-02-2013 HEPATITIS B (2 of 3 - 3-dose series) HEPATITIS B (2 of 3 - 3-dose series) [facility] Start: 2013 HPV Vaccine (1 - 3-d ose series) HPV Vaccine (1 - 3-dose series) [facility] Start: 2012 PEDS TO ADULT TRANSITION ANNUAL ASSESSMENT PEDS TO ADULT TRANSITION ANNUAL ASSESSMENT [facility] Start: 2010 Adult depression screening assessment DEPRESSION SCREENING [facility] Start: 2010 PEDS TO ADULT TRANSITION INITIAL DISCUSSION PEDS TO ADULT TRANSITION INITIAL DISCUSSION [facility] Start: 2009 HPV VACCINE (1 - 2-d ose series) HPV VACCINE (1 - 2-dose series) [facility] Start: 1998 COVID-19 VACCINE (#1) COVID-19 VACCI NE (#1) [facility] End: 05-14-2023 MRI KNEE WO IVCON RT MRI KNEE WO IVCON RT Radiology Routine Chronic pain of right knee 1 Occurrences starting 04/14/2022 until 05/14/2023 [facility] Work Phone: Comment on above: 1 Occurrences starti ng 04/14/2022 until 05/14/2023 End: 05-07-2023 XR KNEE GENERAL 4V AP BOTH/PA BOTH/LAT/MERC RIGHT XR KNEE GENERAL 4V AP BOTH/PA BOTH/LAT/MERC RIGHT Radiology Routine Right knee pain, unspecified chronicity 1 Occurrences starting 04/08/2022 until 05/07/2023 [facility] Work Phone: Comment on above: 1 Occurrences starti ng 04/08/2022 until 05/07/2023 End: 05-14-2023 XR KNEE POST OP 3V AP/LAT/MERCHANT RIGHT XR KNEE POST OP 3V AP/LAT/MERCHANT RIGHT Radiology Routine Chronic pain of right knee 1 Occurrences starting 04/14/2022 until 05/14/2023 [facility] Work Phone: Comment on above: 1 Occurrences starti ng 04/14/2022 until 05/14/2023 [facility] Immunizations Immunization Date Immunization Notes Care Provider Sven rob 04-08-2016 meningococcal polysaccharide (groups A, C, Y and W-135) diphtheria toxoid conjugate vaccine (MCV4P) Allison Aragon FLIGHT READINESS TECHNICIAN Work Phone: [facility] 09-04-2013 hepatitis B vaccine, unspecified formulation Robert Eric MD Work Phone: [facility] 02-17-2011 tetanus toxoid, redu michael diphtheria toxoid, and acellular pertussis vaccine, adsorbed Allison Aragon FLIGHT READINESS TECHNICIAN Work Phone: [facility] 02-17-2011 varicella virus vaccine Allison Aragon FLIGHT READINESS TECHNICIAN Work Phone: [facility] 07-21-2009 novel Influenza-H1N1 -09, live virus for nasal administration Allison Mahesh FLIGHT READINESS TECHNICIAN Work Phone: [facility] 07-21-2009 influenza virus vacc ine, unspecified formulation Jaycob Fairchild MD Work Phone: [facility] 07-06-2006 influenza, seasonal, injectable Allison Aichholz FLIGHT READINESS TECHNICIAN Work Phone: [facility] 07-06-2006 influenza virus vacc ine, unspecified formulation Allison Aichholz FLIGHT READINESS TECHNICIAN Work Phone: [facility] 10-23-2003 diphtheria, tetanus toxoids and pertussis vaccine Allison Aichholz FLIGHT READINESS TECHNICIAN Work Phone: [facility] 10-23-2003 measles, mumps and rubella virus vaccine Allison Aichholz FLIGHT READINESS TECHNICIAN Work Phone: [facility] 10-23-2003 poliovirus vaccine, unspecified formulation Allison Aichholz FLIGHT READINESS TECHNICIAN Work Phone: [facility] 09-17-1999 diphtheria, tetanus toxoids and acellular pertussis vaccine, unspecified formulation Allison Aichholz FLIGHT READINESS TECHNICIAN Work Phone: [facility] 05-12-1999 haemophilus influenz ae type b vaccine, conjugate unspecified formulation Allison Aichholz FLIGHT READINESS TECHNICIAN Work Phone: [facility] 05-12-1999 hepatitis B vaccine, pediatric or pediatric/adolescent dosage Allison Aichholz FLIGHT READINESS TECHNICIAN Work Phone: [facility] 05-12-1999 measles, mumps and rubella virus vaccine Allison Aichholz FLIGHT READINESS TECHNICIAN Work Phone: [facility] 05-12-1999 poliovirus vaccine, inactivated Allison Aichholz FLIGHT READINESS TECHNICIAN Work Phone: [facility] 05-12-1999 rubella and mumps vi álvaro vaccine Allison Aichholz FLIGHT READINESS TECHNICIAN Work Phone: [facility] 05-12-1999 varicella virus vaccine Allison Aichholz FLIGHT READINESS TECHNICIAN Work Phone: [facility] 1998 diphtheria, tetanus toxoids and acellular pertussis vaccine, unspecified formulation Allison Aichholz FLIGHT READINESS TECHNICIAN Work Phone: [facility] 1998 haemophilus influenz ae type b vaccine, conjugate unspecified formulation Allison Aichholz FLIGHT READINESS TECHNICIAN Work Phone: [facility] 1998 diphtheria, tetanus toxoids and acellular pertussis vaccine, unspecified formulation Allison Aichholz FLIGHT READINESS TECHNICIAN Work Phone: [facility] 1998 haemophilus influenz ae type b vaccine, conjugate unspecified formulation Allison Aichholz FLIGHT READINESS TECHNICIAN Work Phone: [facility] 1998 poliovirus vaccine, inactivated Allison Aichholz FLIGHT READINESS TECHNICIAN Work Phone: [facility] 1998 diphtheria, tetanus toxoids and acellular pertussis vaccine, unspecified formulation Allison Aichholz FLIGHT READINESS TECHNICIAN Work Phone: [facility] 1998 haemophilus influenz ae type b vaccine, conjugate unspecified formulation Allison Aichholz FLIGHT READINESS TECHNICIAN Work Phone: [facility] 1998 hepatitis B vaccine, pediatric or pediatric/adolescent dosage Allison Aichholz FLIGHT READINESS TECHNICIAN Work Phone: [facility] 1998 poliovirus vaccine, inactivated Allison Aichholz FLIGHT READINESS TECHNICIAN Work Phone: [facility] 1998 hepatitis B vaccine, pediatric or pediatric/adolescent dosage Allison Aichholz FLIGHT READINESS TECHNICIAN Work Phone: [facility] Payers Date Payer Category Payer Self-pay [id number] 2020 Private Health Insurance [facility] UMR CHOICE PLUS [id number] 2020-Present [phone] [address] [address] [place] [address] [facility] [id number] 2019 Private Health Insurance [id number] 2017 Unknown [id number] 2017 Unknown [id number]. [id number] 1998 Unknown [id number] 2.16.840.1.645055.3.579.2. 902 1998 Unknown [id number] 2.16.840.1.176974.3.579.2. 593 1998 Unknown [id number] 2.16.840.1.445921.3.579.2. 593 1998 Unknown [id number] 2.16.840.1.299513.3.579.2. 593 1998 Unknown [id number] 2.16.840.1.503206.3.579.2. 593 1998 Unknown [id number] 2.16.840.1.516185.3.579.2. 593 1998 Unknown [id number] 2.16.840.1.417557.3.579.2. 593 1998 Unknown [id number] 2.16.840.1.244807.3.579.2. 1259 1998 Unknown [id number] 2.16.840.1.567852.3.579.2. 1259 1998 Unknown [id number] 2.16.840.1.443056.3.579.2. 1259 1998 Unknown [id number] 2.16.840.1.023112.3.579.2. 1259 1998 Unknown [id number] 2.16.840.1.971118.3.579.2. 1259 1998 Unknown [id number] 2.16.840.1.226228.3.579.2. 1259 1998 Unknown [id number] 2.16.840.1.961715.3.579.2. 1259 1998 Unknown [id number] 2.16.840.1.787362.3.579.2. 1259 1998 Unknown [id number] 2.16.840.1.464513.3.579.2. 196 1959 Private Health Insurance [id number] 1959 Private Health Insurance [id number] Private Health Insurance [id number] Unknown [id number] [id number]. 531 Social History Date Type Detail Facility Start: 08-08-2012 End: 12-27-2023 Tobacco smoking status LAIS Unknown if ever smoked [facility] Start: 1998 Sex Assigned At Not on file [facility] Exposure to SARS-CoV -2 (event) Unable to assess [facility] Start: 10-09-2020 End: 04-14-2022 Tobacco smoking status LAIS Never smoker [facility] Start: 10-09-2020 End: 04-14-2022 Tobacco use and exposure Never used [facility] Start: 10-09-2020 End: 04-14-2022 Alcohol intake Current drinker of alcohol (finding) [facility] Start: 1998 Sex Assigned At Female F [facility] Start: 04-14-2022 End: 10-14-2023 History of Social function [facility] Start: 04-14-2022 End: 10-14-2023 Humiliation, Afraid, Rape, and Kick questionnaire [HARK] [facility] Within the last year , have you been afraid of your partner or ex-partner? No [facility] Do you belong to any clubs or organizations such as shinto groups, unions, fraternal or athletic groups, or [...] Healthcare Start: 09-04-2021 Alcohol Comment social [facility] Start: 12-15-2023 Alcohol intake Alcohol Use Details [facility] Start: 12-15-2020 Sexual Orientation Choose not to disclose [facility] Start: 10-10-2023 Sexual Orientation Straight or heterosexual [facility] NEGATED: Highlighted rowStart: 12-15-2023 End: 03-22-2024 Tobacco smoking status NHIS Unknown if ever smoked [facility] Medical Equipment Procedure Code Equipment Code Equipment Origin al Text Equipment Identifier Dates Anchr Sut Gii Qanchr+ Othcrd - [id number] Start: 08-08-2012 Clinical Notes 10-26-2021 to 03-22-2024 Note Date & Type Note Facility 03-22-2024 Evaluation note Type assessment Plantar fasciitis of right foot assessment assessment Neurapraxia of lower extremity J assessment [facility] Work Phone: [phone] 663-367503-20-2024 History of Present illness Narrative* Stephanie Lee LPN - 11/23/2023 1:17 PM EDT Office received notice from [employer]. Dr. Fairchild signed paper with recommendations and signed paper and recent office note faxed to [phone] and scanned into file. Stephanie MANUEL [facility] [phone] [facility] History of Present illness Narrative* Allison [...] so is more active Started meeting with clinical trainer last summer, meets regularly, working on meal [...] right 10/20/2023 Arthritis 10/20/2023 Factor V Leiden ([facility]) 10/20/2023 Interstitial cystitis 10/20/2023 Keratosis pilaris 10/20/2023 Peroneal tendon tear, right, subsequent encounter Protein C deficiency ([facility]) 10/20/2023 Right ankle instability 10/20/2023 Right ankle pain 10/20/2023 Right foot pain Right knee pain 10/20/2023 Urinary incontinence in female 10/20/2023 Past Surgical History: Procedure Laterality Date ANKLE LIGAMENT RECONSTRUCTION Right 10/18/2022 CYSTOSCOPY 2020 FOOT SURGERY Right 06/29/2023 [facility] 2011 Rigt knee surgery [...] (Adipex-P) 37.5 MG tablet documented in this encounterPark[facility] [id number] NotePROCEDURE: XR ANKLE RT 2V COMPARISON: None. HISTORY: Pain FINDINGS: 16 seconds of fluoroscopy. 3 images 3 fluoroscopic images with and without stress. Stress images demonstrate widening of the posterior tibiotalar joint IMPRESSION: Widening of the posterior tibiotalar joint with stress Electronically authenticated by: MCKENZIE POLLOCK Date: 2022-10-19 07:27[facility]10-20-2022 NotePROCEDURE: XR ANKLE RT MIN 3 VIEWS, [...] Electronically authenticated by: SOHAIL COLBY Date: 2022-06-24 06:17[facility]10-20-2022 NotePROCEDURE: XR ANKLE RT MIN 3 VIEWS, [...] Electronically authenticated by: SOHAIL COLBY Date: 2022-06-24 06:17[facility]10-14-2022 Miscellaneous Notes* Telephone Encounter - José Miguel Elmore - 06/18/2022 3:57 PM EDT Need to call pharmacy for insurance information. Not coming up in either epic or covermymeds Need pa on wegovy [facility] NoteHNO ID: [id number] Author: Jaswant Tovar, DO Service: ? Author Type: Physician Type: Progress Notes Filed: 06/09/2022 9:16 AM Note Text: [facility] CONSULT - NEW VISIT Macy Borja is here today at request of Dr. Robert Eric specifically for consultation of my opinion in regards to the chief complaint listed below. Correspondence will be shared today via the [employer] electronic health record or through regular mail, [...] a follow up appointment with Allison Aragon, TEST PULLER, TEST PULLER Previously lost 40 lbs in 3 months with phentermine, and gradually gained all of the weight back Nutritional Assessment Do you think that you have a healthy diet? no Weakness: Portions, sweets, pasta Number of meals per day: 2 Typical breakfast: no, sometimes just a banana Typical lunch: Charlotte wraps with fruit, or just left overs Typical dinner: Chicken or pork, rice and veggies Sugary beverages: Redbull with sugar Exercise Assessment Since 05/14/22 Exercises 5 days week at [employer] working with a process trainer once a week Plays tennis twice [...] no Hernia: no Hypothyroidism: no PCOS: no Earling: no Patient Entered Data PROMIS 10 06/08/2022 [...] Medically supervised diet program Have you used cpym-rzv-vhoogny or prescribed weight loss medications? Yes Please select all medications you have used: Phentermine (Adipex) Have you had a surgical procedure for weight l (more content not included)... [facility]10-05-2022 History of Present illness Narrative* Jaswant Christine, DO - 06/09/2022 8:40 AM EDT Images from the original note were not included. [facility] CONSULT - NEW VISIT Macy Borja is here today at request of Dr. Robert Eric specifically for consultation of my opinion in regards to the chief complaint listed below. Correspondence will be shared today via the [employer] electronic health record or through regular mail, [...] a follow up appointment with Allison Aragon, TEST PULLER, TEST PULLER Previously lost 40 lbs in 3 months with phentermine, and gradually gained all of the weight back Nutritional Assessment Do you think that you have a healthy diet? 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 Yes Please [...] no height and/or weight reading in the [id number] days, so the below BMI readings may be inaccurate) BMI Readings from Last 3 Encounters: 06/09/22 : 35.89 kg/m 10/10/20 : 35.23 kg/m 11/20/13 : 27.05 kg/m (93 %, Z= 1.46)* * Growth percentiles are based on [facility] (Girls, 2-20 Years) data. PHYSICAL EXAMINATION: General [...] Exercise goal is continue to work with process trainer - Commit Not To Quit Need [...] Decision Making Level: 4 - Moderate Jaswant Tovar DO documented in [facility]Tr[facility]22 NoteHNO ID: [id number] Author: Robert Eric MD Service: ? Author [...] Saw Dr. Calloway. Saw another doctor in [place]. ALLERGIES No Known Allergies PAST MEDICAL HISTORY [...] is stable. Incisions. Imaging: Plain films from [facility] are personally reviewed by me and demonstrates [...] probably should optimize her . Robert Eric, [facility]08-10-2022 NoteHNO ID: [id number] Author: RT Calista(R) Service: ? Author Type: [...] BY: RT Calista(R) April 14, 2022 9:46 [facility]08-10-2022 History of Present illness Narrative* Robert Eric [...] Saw Dr. Calloway. Saw another doctor in [place]. ALLERGIES No Known Allergies PAST MEDICAL HISTORY [...] is stable. Incisions. Imaging: Plain films from [facility] are personally reviewed by me and demonstrates [...] . Robert Eric MD documented in this encounterTr[facility]08-[facility]-2022 History of Present illness Narrative* Mckenzie Lopez RT(R) - 04/14/2022 9:20 AM EDT Radiology Service Progress Note PATIENT NAME: Macy Borja DATE OF SERVICE: April 14, 2022 TIME: 9:46 AM PATIENT IDENTITY VERIFICATION COMPLETED USING TWO (2) IDENTIFIERS: Name and Date of confirmedby patient verbally. FALL SCREENING: Has the patient had 2 falls in the last year or 1 fall with injury or currently using an Ambulatory Assistive Device (Walker, Cane, Wheelchair, Crutches, etc.)? No PATIENT GENDER DATA: Female. status: : No status: NO. PATIENT RELEVANT IMPLANT DATA REVIEWED: Not Applicable RADIOLOGY DEPARTMENT: General X-ray: Exam(s) Completed: Lower Extremity X- Ray(s): Knee, AP / Lat / Tunne / Merchant Right PERIPHERAL IV DATA: Not applicable SIGNED BY: RT Calista(R) April 14, 2022 9:46 AM documented in this encounterTr[facility]-21-2022 History of Present illness Narrative* Encounter Date [...] has had PT on right knee from [id number] and again in 2020. [facility] Work Phone: Consult note* Clinical Note Date No Information [facility] Work Phone: Discharge summary* Clinical Note Date No Information [facility] Work Phone: Evaluation note* Diagnosis Right knee pain, unspecified chronicity- Primary [facility] Diagnosis Chronic pain of right knee- Primary documented in this encounter [facility] note* Diagnosis Class 2 obesity due to excess calories without serious comorbidity with body mass index (BMI) of 35.0 to 35.9 in adult- Primary Chondromalacia of right patella Chondromalacia of patella documented in this encounter [facility] noteNo assessment information availableVan [facility] Work Phone: Evaluation note* Diagnosis Weight gain, abnormal- Primary Class 2 obesity due to excess calories without serious comorbidity in adult, unspecified BMI [facility] Diagnosis Factor 5 Leiden mutation, heterozygous ([facility])- [facility] Type Assessment Date No Information [facility] Work Phone: Evaluation note* Diagnosis Right knee pain, unspecified chronicity [facility] Clinical Note Date No Information [facility] Work Phone: InstructionsNot on filedocumented in this encounter [facility] [employer] SystemInstructions* Date Instruction Additional Infor mation No Information [facility] Work Phone: Progress note* Clinical Note Date No Information [facility] Work Phone: Reason for referral (narrative)* Diagnostic Procedure Only (Routine) - Pending Review Specialty Diagnoses / Procedures Referred By Antwon noe Referred To Contact XR IMAGING Diagnoses Right knee pain, unspecified chronicity Procedures XR KNEE GENERAL 4V AP BOTH/PA BOTH/LAT/MERC RIGHT RADIOLOGIC EXAM KNEE COMPLETE 4/MORE VIEWS Robert Eric MD [address] [id number] Xr Imaging Referral ID Status Reason Start Date Expiration Date Visits Requested Visits Authorized [id number] Pending Review Auto-Generat ed Referral 04/08/2022 05/07/2023 1 1 [facility] for referral (narrative)* Diagnostic Procedure Only (Routine) - Pending Review Specialty Diagnoses / Procedures Referred By Antwon noe Referred To Contact XR IMAGING Diagnoses Chronic pain of right knee Procedures XR KNEE POST OP 3V AP/LAT/MERCHANT RIGHT RADIOLOGIC EXAMINATION KNEE 3 VIEWS Robert Eric MD [address] [place] [address] Xr Imaging Referral ID Status Reason Start Date Expiration Date Visits Requested Visits Authorized [id number] Pending Review Auto-Generat ed Referral 04/14/2022 05/14/2023 1 1 * Consult, Test, Treat (Routine) - Authorized Specialty Diagnoses / Procedures Referred By Antwon noe Referred To Contact Diagnoses Chronic pain of right knee Procedures ENDOCRINE MEDICAL WEIGHT MANAGEMENT OFFICE/OUTPATIENT [facility] 60-74 MINUTES Robert Eric MD [address] [place] [address] Referral ID Status Reason Start Date Expiration Date Visits Requested Visits Authorized [id number] Authorized PCP Requested Referral 04/14/2022 04/14/2023 1 1 * MRI/CT (Routine) - Pending Review Specialty Diagnoses / Procedures Referred By Antwon noe Referred To Contact MR IMAGING Diagnoses Chronic pain of right knee Procedures MRI KNEE WO IVCON RT MRI ANY JT LOWER EXTREM W/O CONTRAST MATRL Robert Eric MD [address] [place] [address] Mr Imaging Referral ID Status Reason Start Date Expiration Date Visits Requested Visits Authorized [id number] Pending Review Auto-Generat ed Referral 04/14/2022 05/14/2023 1 1 [facility] Reason For Referral No Information [facility] Work Phone: Reason for referral (narrative)* Diagnostic Procedure Only (Routine) - Closed Specialty Diagnoses / Procedures Referred By Antwon noe Referred To Contact XR IMAGING Diagnoses Right knee pain, unspecified chronicity Procedures XR KNEE GENERAL 4V AP BOTH/PA BOTH/LAT/MERC RIGHT RADIOLOGIC EXAM KNEE COMPLETE 4/MORE VIEWS Robert Eric MD [address] [place] [address] Xr Imaging [place] [address] Referral ID Status Reason Start Date Expiration Date V isits Requested Visits Authorized [id number] Closed Auto-Generate d Referral 04/08/2022 05/07/2023 1 1 [facility] Summary Purpose Family History Family Member Type Diagnosis Age At Onset Paternal Grandfather Problem (finding) Cancer Mother Problem (finding) Family history of Blood clots Paternal Grandmother Problem (finding) Congenital hear t disease Advance Directives Documents on File Type Date Recorded 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 Advance Directives and Livin g Will 09/21/2020 12:07 AM Advance Directive Response Recorded Date/ Time Advance Directives No August 2:15pm Directive Yes / No Effective Date File Name No Information Discharge Instructions * Instructions* Leila Rowe MD - 09/21/2020 You are welcome to follow up with [facility] Walk-in primary care visits-- but can also schedule an appointment to establish a new family doctor [facility] [place] [phone] Open Tuesday-Tuesday, 9am-9pm * Attachments The following attachments cannot be sent through Care Everywhere. * Alcohol Intoxication: Acute (Hungarian) documented in this encounter Assessments Diagnosis Alcoholic intoxication with complication (HCC)- Primary Nausea and vomiting, intractability of vomiting not specified, unspecified vomiting type Reason for Referral Specialty Diagnoses / Procedures Referred By Antwon noe Referred To Contact Diagnoses Class 2 obesity due to excess calories without serious comorbidity with body mass index (BMI) of 35.0 to 35.9 in adult Jaswant Tovar DO [address] [place] [address] Referral ID Status Reason Start Date Expiration Date V isits Requested Visits Authorized [id number] Pending Review 1 1 Specialty Diagnoses / Procedures Referred By Antwon noe Referred To Contact Diagnoses Weight gain, abnormal Class 2 obesity due to excess calories without serious comorbidity in adult, unspecified BMI Allison Aragon, ADELA [address] [place] [address] Referral ID Status Reason Start Date Expiration Date V isits Requested Visits Authorized [id number] Pending Review 1 1 Additional Source Comments INFORMATION SOURCE (unrecogn ized section and content) DATE CREATED AUTHOR 05/06/2018 [facility] DATE CREATED AUTHOR AUTHOR'S ORGANIZ ATION 09/28/2020 [facility] DATE CREATED AUTHOR AUTHOR'S ORGANIZ ATION 09/22/2021 [facility] DATE CREATED AUTHOR AUTHOR'S ORGANIZ ATION 06/29/2022 [facility] DATE CREATED AUTHOR AUTHOR'S ORGANIZ ATION 07/07/2022 [facility] DATE CREATED AUTHOR AUTHOR'S ORGANIZ ATION 02/11/2023 [facility] DATE CREATED AUTHOR AUTHOR'S ORGANIZ ATION 05/22/2024 [facility] EPIC DATE CREATED AUTHOR AUTHOR'S ORGANIZ ATION 05/27/[address] [facility] Source Comments (unrecognize d section and content) In the event this informatio n is protected by the Federal Confidentiality of Alcohol and Drug Abuse Patient Records regulations: The Federal rules restrict any use of the information to criminally investigate or prosecute any alcohol or drug abuse patient.[facility] the event this information is protected by the Federal Confidentiality of Alcohol and Drug Abuse Patient Records regulations: The Federal rules restrict any use of the information to criminally investigate or prosecute any alcohol or drug abuse patient.[facility] the event this information is protected by the Federal Confidentiality of Alcohol and Drug Abuse Patient Records regulations: The Federal rules restrict any use of the information to criminally investigate or prosecute any alcohol or drug abuse patient.[facility] Campus[facility] the event this information is protected by the Federal Confidentiality of Alcohol and Drug Abuse Patient Records regulations: The Federal rules restrict any use of the information to criminally investigate or prosecute any alcohol or drug abuse patient.[facility] Campus[facility] the event this information is protected by the Federal Confidentiality of Alcohol and Drug Abuse Patient Records regulations: The Federal rules restrict any use of the information to criminally investigate or prosecute any alcohol or drug abuse patient.[facility] Campus[facility] the event this information is protected by the Federal Confidentiality of Alcohol and Drug Abuse Patient Records regulations: The Federal rules restrict any use of the information to criminally investigate or prosecute any alcohol or drug abuse patient.[facility] the event this information is protected by the Federal Confidentiality of Alcohol and Drug Abuse Patient Records regulations: The Federal rules restrict any use of the information to criminally investigate or prosecute any alcohol or drug abuse patient.[facility] Campus[facility] the event this information is protected by the Federal Confidentiality of Alcohol and Drug Abuse Patient Records regulations: The Federal rules restrict any use of the information to criminally investigate or prosecute any alcohol or drug abuse patient.[facility] Reason for Visit (unrecogniz ed section and content) Reason Comments Alcohol Intoxication Reason Comments New Reason Comments Medical Weight Management Reason Comments Insurance Authorization [employer] Reason Comments Radio Gen RMP Specialty Diagnoses / Procedures Referred By Contac t Referred To Contact XR IMAGING Diagnoses Right knee pain, unspecified chronicity Procedures XR KNEE GENERAL 4V AP BOTH/PA BOTH/LAT/MERC RIGHT RADIOLOGIC EXAM KNEE COMPLETE 4/MORE VIEWS Robert Eric MD [address] [place] [address] [place] [address] Referral ID Status Reason Start Date Expiration Date V isits Requested Visits Authorized [id number] Closed Auto-Generate d Referral 04/08/2022 05/07/2023 1 1 Milka Dvais RN - 09/21/2020 6:31 AM Milka Nicolas RN - 09/21/2020 6:10 AM Milka Nicolas RN - 09/21/2020 5:30 AM Milka Nicolas RN - 09/21/2020 4:30 AM EST ED Notes (unrecognized secti on and content) Lobo, pt friend, contacted regarding pt dispo. 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 Pt provided with belongings and a [...] - No primary care provider on file. [phone] Chief Complaint Patient presents with Alcohol Intoxication [...] file Gets together: Not on file Attends caodaism service: Not on file Active member of [...] Procedure Abnormality Status --------- ------ CBC Auto Differential[[id number]] Please view results for these tests on [...] along with the physician. Christina Ha CNP 09/20/202347 Pt presents via ems for alcohol intoxication [...] the patient. I discussed the patient with FLIGHT READINESS TECHNICIAN/PA. I agree with the FLIGHT READINESS TECHNICIAN/PA treatment plan. I agree with the FLIGHT READINESS TECHNICIAN/PA plan of care. I agree with the FLIGHT READINESS TECHNICIAN/PA dispo as documented. A 20-year-old female was brought in by EMS after patient started having nausea and vomiting after drinking alcohol tonight. Patient states she was drinking Perry ice tea with her friends. Patient appears [...] Care Teams (unrecognized sec tion and content) Investor Relations Coordinator Relationship Specialty Start Date End Date Allison Aragon, TEST PULLER [address] [place] [address] PCP - General Family Practice 04/29/21 Roosevelt Costa [address] [place] [phone] Referring Orthopedics 04/29/21 Pako Weiss [address] [place] [address] Referring Orthopedics 03/04/22 Investor Relations Coordinator Relationship Specialty Start Date End Date Allison Aragon, TEST PULLER [address] [place] [address] PCP - General Family Practice 04/29/21 Roosevelt Costa [address] [place] [phone] Referring Orthopedics 04/29/21 Pako [place] [address] Referring Orthopedics 03/04/22 Investor Relations Coordinator Relationship Specialty Start Date End Date Allison Aragon TEST PULLER [address] [place] [address] PCP - General Family Medicine 04/29/21 Roosevelt Costa [address] [place] [address] Referring Orthopedics 04/29/21 Pako Weiss [address] [place] [address] Referring Orthopedics 03/04/22 Team Status: Inactive Member Role Status Dates PHYSICIAN NO FAMILY Primary Care Provider Active Allison Aragon Attending Provider Active Team Status: Active Member Role Status Dates PHYSICIAN NO FAMILY Primary Care Provider Active Investor Relations Coordinator Relationship Specialty Start Date End Date Allison Aragno, TEST PULLER [address] [place] [address] PCP - General Family Medicine 04/29/21 Roosevelt Costa [address] [place] [address] Referring Orthopedics 04/29/21 Pako Weiss [address] [place] [address] Referring Orthopedics 03/04/22 Investor Relations Coordinator Relationship Specialty Start Date End Date Marlee Mosley MD [address] [place] [address] PCP - General Family Medicine 01/11/23 Investor Relations Coordinator Relationship Specialty Start Date End Date Marlee Mosley MD [address] [place] [address] PCP - General Family Medicine 01/11/23 Investor Relations Coordinator Relationship Specialty Start Date End Date Allison Aragon, POULTRY HANGER-TEST PULLER [address] [place] [address] PCP - General Nurse Practitioner 09/04/21 Name Effective Dates (start - stop) Status Members No Information Investor Relations Coordinator Relationship Specialty Start Date End Date Allison Aragon, TEST PULLER [address] [place] [address] PCP - General Family Medicine 04/29/21 Roosevelt Costa MD [address] [place] [address] Referring Orthopedics 04/29/21 Pako Weiss [address] [place] [address] Referring Orthopedics 03/04/22 Goals (unrecognized section and content) Health Concern [...] BE BASED ON THE PRIMARY CLINICAL RECORDS. [employer] [facility]. provides no warranty or guarantee of the accuracy or completeness of information in this document.
--- NOTE | 2024-06-04 06:56 | MR_ITS ---
The [address] [address] Patient Name: MACY BYRD MRN: [id number] date: 2000 Sex: F Assigned Patient Location: MRI Current Patient Location: MRI Accession/Order Number: [id number] Exam Date: 06/04/2024 07:05 Report Date: 06/04/2024 07:49 At the request of: CHERISE EVERETT Procedure: MR lumbar spine wo con MR lumbar spine wo con, 06/04/2024 7:05 AM EDT INDICATION: lumbar stenosis and neuro claudication COMPARISON: There is no appropriate prior study for comparison. TECHNIQUE: Multiplanar, multisequential MRI images of lumbar spine were obtained without contrast. FINDINGS: For dictation purposes, the lowest complete disc space in the lumbar spine considered as L5-S1. There is normal physiologic lumbar lordosis. The vertebral height is preserved. The conus medullaris is at the level of L1. No signal abnormality within the visualized spinal cord is noted. No neural foraminal narrowing or canal stenoses at the level in lumbar spine is noted. At the level of L3-4, there is a small synovial cyst posterior to the left facet joint measuring approximately 4.5 mm. No neuroforaminal narrowing or canal stenosis. At the level of L4-5, there is disc bulge with no neuroforaminal narrowing and no canal stenosis. At the level of L5-S1, there are disc bulge with superimposed central protrusion with no neuroforaminal narrowing and no canal stenosis. The paraspinal muscles are unremarkable. MR/MR lumbar spine wo con IMPRESSION: Minimal degenerative changes of lumbar spine lower lumbar spine with no significant neuroforaminal narrowing or canal stenosis. Electronically authenticated by: CRISTOFER MALIK Date: 06/04/2024 07:49
== END 2024-06-04 06:53 | disposition home or self-care (01) ==
LOC: MRI 06:52
PROVIDERS: PCP Nurse Practitioner; Visit Provider Nurse Practitioner
DX: M48.062 Spinal stenosis, lumbar region with neurogenic claudication (principal); M51.36 Other intervertebral disc degeneration, lumbar region
CPT/HCPCS: 72148

== ENCOUNTER 2024-06-07 09:28 | Outpatient (OUT) | payer OTHER, SELFPAY ==
--- NOTE | 2024-06-07 09:56 | P.CN_ITS ---
Consult Note: HPI Data of Consult Patient: known to practice within the last 3 years Consult date: 05/21/24 Requesting Physician: Kirsten Kern NP Primary Care Provider: Allison Aragon NP Consult Narrative Reason for consult: right calf and foot pain Narrative: 24yof who presents for evaluation. notes several years of worsening low back, right calf and foot pain. has had three foot surgeries, but symptoms of burning, numbness, tingling persist. recently underwent emg, which shows l4-5 radiculopathy. has engaged in a series of provider directed home exercises and physical therapy >6 weeks, without any significant benefit. has used lyrica with some benefit. very active otherwise. denies adverse med side effects. recent lumbar MRI shows disc bulge at L4-5 L5-S 1 cc:: CC: Kirsten Kern NP Review of Systems ROS Status of ROS 10 or more systems reviewed and unremark able except as noted in history and below Musculoskeletal Reports: back pain and extremity pain [facility] Medical History (Updated 05/21/24 @ 14:12 by Beulah Nicholas MD) Instability of ankle joint ?M25.373 - Other instability, unspecified ankle (ICD-10) Rupture of peroneal tendon of right foot ?S86.311A - Strain of muscle(s) and tendon(s) of peroneal muscle group at lower leg level, right leg, initial encounter (ICD-10) Chronic interstitial cystitis ?N30.10 - Interstitial cystitis (chronic) without hematuria (ICD-10) COVID-19 (08/2020) ?U07.1 - COVID-19 (ICD-10) Deformity of right lower extremity ?M21.951 - Unspecified acquired deformity of right thigh (ICD-10) Plantar fascial fibromatosis ?M72.2 - Plantar fascial fibromatosis (ICD-10) Factor V deficiency ?D68.2 - Hereditary deficiency of other clotting factors (ICD-10) Postoperative nausea and vomiting ?R11.2 - Nausea with vomiting, unspecified (ICD-10) ?Z98.890 - Other specified postprocedural states (ICD-10) Surgical History H/O knee surgery (2011) ?Z98.890 - Other specified postprocedural states (ICD-10) History of bladder surgery (2020) ?Z98.890 - Other specified postprocedural states (ICD-10) History of ankle surgery (10/18/22) ?Z98.890 - Other specified postprocedural states (ICD-10) Family History Other Blood coagulation disorder Family history of heart disease Social History Within the past year, how often did you have a drink containing alcohol: never Score interpretation: A score less than 3 is consistent with normal alcohol consumption. 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 Highest level of school completed/degree received: Bachelor's degree Meds Home Medications and Allergies Home Medications ?Medication ?Instructions ?Recorded ?Confirmed ?Type famotidine 20 mg tablet (Pepcid) 20 mg PO BID #14 tabs 07/29/23 Rx ascorbate calcium (vitamin C) 500 500 mg PO DAILY 05/21/24 05/21/24 History mg tablet biotin 10,000 mcg chewable tablet mcg PO 05/21/24 History (Hair, Skin and Nails (biotin)) calcium carbonate 333 mg-magnesium 1 tab PO PRN pain 05/21/24 History oxide 133 mg-zinc gluc 5 mg tablet lactobacillus combination no.4 3 3,000 mmu cells PO DAILY 05/21/24 05/21/24 History billion cell capsule (Probiotic) multivitamin 1 tab PO DAILY 05/21/24 05/21/24 History pregabalin 75 mg capsule (Lyrica) 75 mg PO BID 05/21/24 05/21/24 History Allergies Allergy/AdvReac Type Severity Reaction Status Date / Time latex Allergy Rash Verified 05/23/23 09:46 Exam Narrative Exam Narrative: Psych-alert and oriented x 3.? Attentive and appropriate, constitutionally normal, displays normal mood and affect per situation.? There are no obvious deficits in memory, reasoning, or intellect. Examination of the right extremity reveals notable hyperpathia and allodynia.? Notable atrophy and diffuse weakness present in the extremity.? There is notable shiny skin with hair loss and abnormal hair growth denoting trophic changes presently.? Asymmetric color and temperature changes are present which denotes sudomotor changes.? Decreased range of motion and strength is noted in the extremity.? Coordination remains intact.? Gait remains non-antalgic. Back & Pelvis Lumbar spine/lower back: pain with ROM and straight leg raise negative bilaterally Other: decreased sensation to right L4,5, S1 pattern strength 5/5 in BLE Assessment and Plan Assessment and Plan (1) Complex regional pain syndrome i of right lower limb: (2) Lumbar stenosis with neurogenic claudication: Plan 24yof who presents for evaluation. failed conservative measures, as noted. testing reviewed, as noted. lumbar MRI reviewed. discussed lumbar sympathetic nerve block x2 vs right L4-5 L5-S1 TFESI. i do strongly suspect that given her symptoms, surgical history, and initial pain, she has developed complex regional pain syndrome. medications reviewed. agreed to refill lyrica 75mg tid. pt has no interest in injection therapy at this time due to complications from previous injections, however she would like to think about further. declining medication adjustment.
== END 2024-06-07 09:29 | disposition home or self-care (01) ==
LOC: PM 09:28
PROVIDERS: PCP Nurse Practitioner; Visit Provider Nurse Practitioner
DX: M48.062 Spinal stenosis, lumbar region with neurogenic claudication (principal); G90.521 Complex regional pain syndrome I of right lower limb
CPT/HCPCS: G0463

== ENCOUNTER 2024-06-18 14:46 | Outpatient (OUT) | payer OTHER, SELFPAY ==
--- OUTSIDE RECORDS SUMMARY | 2024-06-18 15:00 | XMS_ITS | CCD ---
Author Organization [facility] [place] Care Team Providers Care Web Analytics Developer Name Role Phone TIFFANIEESTRELLITA DILLON Raisa Unavailable [...] Provider Roosevelt Costa Unavailable Pako Weiss Unavailable AicAllison alan CNP Primary Care Provider Roosevelt Costa Unavailable Pako Weiss Unavailable NO FAMILY, PHYSICIAN Primary Care Provider Unava ilable Allison Aragon Attending Provider [phone] Allison Aragon Attending Unavailable Allison Aragon [...] Unavailable HIGHLANDER, PETER D Admitting Unavailable AICHHOLZ, CERTIFIED MIDWIFE ALLISON Primary Care Unavailable HIGHLANDER, PETER D Attending Unavailable ALEJANDRO ANDINO Consulting Unavailable LASHA, DR SOHAIL Rendon Consulting Unavailable HIGHLANDER, PETER D Admitting Unavailable AICHHOLZ, CERTIFIED MIDWIFE ALLISON Primary Care Unavailable HIGHLANDER, PETER D Attending Unavailable HIGHLANDER, PETER D Consulting Unavailable HIGHLANDER, PETER D Attending Unavailable AICHHOLZ, CERTIFIED MIDWIFE ALLISON Primary Care Unavailable HIGHLANDER, PETER D Admitting Unavailable NADIR ENGLAND Consulting Unavailable HIGHLANDER, PETER D Admitting Unavailable AICHHOLZ, CERTIFIED MIDWIFE ALLISON Primary Care Unavailable HIGHLANDER, PETER D Attending Unavailable HIGHLANDER, PETER D Attending Unavailable WEST, DR MCKENZIE Chavez Consulting Unavailable AICHHOLZ, CERTIFIED MIDWIFE ALLISON Primary Care Unavailable HIGHLANDER, PETER D [...] Aichholz EVELYN, Allison Moreno Primary Care Provider [phone] Igor HUDSON, Roosevelt Tena Unavailable Pako Weiss Unavailable Allergies Allergy Classification Reported Allergen(s) Allergy Type Date of Onset Reaction(s) Facility (1 source) Latex Drug allergy (disorder) [address] [place] [address] Repository (2 sources) Latex Drug allergy (disorder) [facility] (3 sources) Latex Propensity to adverse reactions 2 [facility] (2 sources) Latex Propensity to adverse reactions to drug 2 [employer] (5 sources) Cortisone; Translations: [cortisone] Drug Allergy 2 [facility] Medications Current Medications Medication Drug Class(es) Dates [...] tablet Indications: Factor 5 Leiden mutation, heterozygous ([facility]) Take 1 tablet (2.5 mg [...] 11-01-2011 Episodic Other aftercare (1 source) Other prison (current) drug therapy; Translations: [OTH AD TAKER CURRENT DRUG THERAPY] Onset: 10-21-2022 Episodic Other [...] Glucose [Mass/Vol] 125 mg/dL Critically high 74-106 [facility] Comment on above: Performed By: #### P OCGLUC #### [facility] [address] [address] [address] Alejandrina Mokn Glucose [Mass/Vol] 96 mg/dL Normal 74-[address] [facility] Comment on above: Performed By: #### P OCGLUC #### [facility] [address] [address] [address] Alejandrina Monk PREG QUANT HCGon 10-18-2022 HCG QUANT 3 mIU/mL Normal [facility] Comment on above: Performed By: #### P REGQNT #### [facility] [address] [address] [address] Alejandrina Monk HCG RANGE SEE BELOW Normal [facility] Comment on above: Result Comment: 5-50 0.2-1 WEEK 50-500 1-2 WEEKS 100-5,000 2-3 WEEKS 500-10,000 3-4 WEEKS 1,000-50,000 4-5 WEEKS 10,000-100,000 5-6 WEEKS 15,000-200,000 6-8 WEEKS 10,000-100,000 2-3 MONTHS Performed By: #### P REGQNT #### [facility] [address] [address] [address] Alejandrina Monk MRI ANKLE RT WO [...] ALEJANDRO ANDINO Date: 2022-07-05 09:26 [facility] LINDSEY [facility] (ENDOMN) ROCHELLEMACY ([id number]) 2000 F Date Time Provider Department 06/18/22 JASWANT TOVAR During your visit today, we recorded the following information about you: José Miguel Garay [facility] 06/18/2022 4:05 PM Signed Need to call pharmacy for insurance information. Not coming up in either epic or covermymeds Need pa on wegovy José Miguel Garay [facility] 07/06/2022 2:48 PM Addendum Initiated PA for Wegovy through [employer] via [employer] Christensen: [id number] Waiting for next steps Need to call insurance for determination PA Christensen for Wegovy José Miguel Garay [facility] 07/06/2022 3:02 PM Addendum Called [employer] and PA's need to go through [employer]. Unable to process PA electronically. Requested to fax chart notes to [phone] Transmitted Successfully Can call for determination at [phone] Can take up to 10 days for determination Spent 6 minutes on the call José Miguel Garay [facility] 07/06/2022 3:03 PM Signed Called [employer] for status of PA for Wegovy. Was [...] Status:Closed by JOSÉ MIGUEL SCOTT on 06/18/22 [facility] XR ankle RT min 3V*on 2021 XR ankle RT min 3V* [facility] [place] [place] [address] XRay Report Signed Patient: Macy Borja MR#: [id number] : 2000 Acct:[id number] Age/Sex: 22 / F ADM Date: 06/16/22 Loc: ICXD Room: Type: [facility] Attending Dr: Allison Aragon Copies to: BEAU [...] Rosana Denise M.D.06/16/2022 2:30 PM Dictation Location: [place] [address] Transcribed By: [facility] 06/16/221429 Dictated By: Rosana Denise MD 06/16/22 142 Signed By: 06/16/221429 [facility] 04-14-2022 CNOV Office Visit (ORMIDD ) MACY BORJA ([id number]) 2000 F Date Time Provider Department 04/14/22 [...] Saw Dr. Calloway. Saw another doctor in [place]. ALLERGIES No Known Allergies PAST MEDICAL HISTORY [...] is stable. Incisions. Imaging: Plain films from [facility] are personally reviewed by me [...] Robert Eric MD Referring Provider: PAKO WEISS [[id number]] Allergies As of Date: 04/14/2022 (No Known Allergies) Date Reviewed: 04/14/2022 Reviewed by: Maggie Rodriguez Ma - Fully Assessed Reason for Visit: New [012648] Primary Visit Diagnosis:Chronic pain of right knee [M25.561, G89.29] Order(s):MRI KNEE WO IVCON RT [[id number]] Order #: [id number] FUTURE ENDOCRINE MEDICAL WEIGHT MANAGEMENT [[id number]] Order #: [id number]: 1 FUTURE XR KNEE POST OP 3V AP/LAT/MERCHANT RIGHT [[id number]] Order #: [id number] FUTURE Prescriptions as of 04/14/2022 - drospirenone, contraceptive, (SLYND) 4 mg (28) tab Take by mouth. 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 Follow-up and Disposition History for Encounter Date Provider Department Center 04/14/2022 [id number][facility] Encounter Status:Closed by ROBERT ERIC on 04/14/22 Normal [facility] XR KNEE 4V AP/PA BOTH+LAT/ME R [...] knee. IMPRESSION: POSTSURGICAL AND MILD DEGENERATIVE CHANGE Application Systems Architect: [facility] Transcribe Date/Time: Apr 14 2022 9:49A Dictated by : AUDREY ESTES MD This examination was interpreted and the report reviewed and electronically signed by: AUDREY ESTES MD on Apr 14 2022 9:50AM EST [id number] Normal [facility] XR Knee - right 4 Viewson IMPRESSION: POSTSURGICAL AND MILD DEGENERATIVE CHANGE Application Systems Architect: [facility] Transcribe Date/Time: Apr 14 2022 9:49A Dictated [...] left knee. ZZZ_DO_NOT_USE _DIVISION OF RADIOLOGY Provider, [facility] Mikhail [facility] - 04/14/2022 * * *Final Report* [...] IMPRESSION IMPRESSION: POSTSURGICAL AND MILD DEGENERATIVE CHANGE Application Systems Architect: [facility] Transcribe Date/Time: Apr 14 2022 9:49A Dictated by : AUDREY ESTES MD This examination was interpreted and the report reviewed and electronically signed by: AUDREY ESTES MD on Apr 14 2022 9:50AM EST [facility] Radiology Study observation (narrative) [facility] XR Knee - right 4 ViewsOrder ed By: Ccf Provider on 04-14-2022 [facility] 04-07-2022 CNPN Telephone (ORTHMN) MACY BORJA ([id number]) 2000 F Date Time Provider Department 04/07/22 [...] Fully Assessed Reason for Visit: Care Coordination [2905] Prescriptions as of 04/07/2022 - drospirenone, contraceptive, (SLYND) 4 mg (28) tab Take by mouth. 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] 11/20/2013 Encounter Status:Closed by ALLISON GAGNON on 04/07/22 [facility] Consent Formson 09-11-2021 Consent Forms [id number]#[facility] Pul[facility] Procedure [id number]#1 [facility] Coding Summaryon 09-07-2021 Coding Summary HTMLBase 64 IepwmwjzCLb8dHn+PGhlY WQ+XX2APHHdL65jjKLfiS 9VD3fFJX8IRBIGBMWQUV7 CDM3oyMA0DPfiZ3XstjXu DkjpyECfSZ21TJs1EPR2a YztQMdylI4riDOiP0e6Ye ShHX98rJ92ARxgFJIaUrD 3LjZpbjsgbWFy J3luPgTkcQQhOau+PHRhY mxlIHdpZHRoPScxMDAlJy UwmPzfVK0lWm9gQVQqRAP vbGxhcHNlOiBj d9biEJXaEYfbSD6ygCgxH 6NeeVG6PCXhz3l6Gl82vR I+KXVxPBD2sHvaPXstt10 3RjJrg7xnDWU5 gZEjQJfgZKD3Z33oz5P7U KErKTFlCIF2hLK5qT9ttQ asybsgE1YhbPCtLaC7PCY 0cDKxeL6nxHov oucjhC6nNpx+W04KVD1AN BAFUR9ELns7J8CcCyjslA I+PG38KLRrAB10eSElzIL yx6qgwWc8VlMq MZTfRJX7gCpyWQrsv0CiI AZnT59vzNUlh8U4WSOuaC igtRKiViQoaZE4lD0dLHx vqijzp8kewzyk Mydmb3gcka96vO61Q17wA OcwSDNaXCB5ZQWmXGDmeC lbfm0gxY0vZt4+IQehp7u zz0bisBm2SjVp TRSkrbPyjDzbTAL7z1YgP u96U3EruAqxp7XwDnd8nj 56ePChi4B7vRQ3GOvcZAA wrK7fYLisMwZ0 VZRzZxMabP90rIQhRCfnG n9hwLhycVysTZ8iILHnzg pcDDPdsZ4pHTKjfBScfGz wMX6vFLKuvfer z455LgCzSVJ2EIAqlUClC 8GicG6oArFzJXDbBTZfW9 JsqWZdTThqZ090AWapFdY 3ZYDeopEwG4Wb HNBidVwrCjE8j5B9Po6Li 9CcjyfkVDB7UIxvTAHwDv VzXyRpQbC4Y6SpBii5ITB fxFjrBQ2jH6Xh SNGrxzvfxstgtDE7BKWdI BHhnZ50nSRwWBnzHk4yh6 S0u196XVVjHCYmgZ35Sw0 udDogMTBwdCBU gW7fjbzwa2xwyhkfOeIfA PZkTJv5JXk6XKPztLkhIy RlWOI7HpC3TAW8lHIftQ1 jiAioevqgzL9b Oyc+M79mtW4cXZU9HKX5l thiRLDledBtRB99HL73R2 RyPjwvdGFibGU+PGRpdiB tdXriAS8eVqPj v3mgh6UtIClsY6MsVCOvY WdtKgt8MGIsCMB3qGW9cV 6fUGXaZNmth5A0iRI5L7C qefIkeq7uq1ut ZCPpHCefN91dhCYsz1L5X BJmmZJ9FKCxqAcmWyNjhK 93Oyc+ZYLifEuhg4HgGhq ll0twd6unmMa6 LlWxMHXbqaGpuYfaBVN1z 1JnXv66K62xZZswAYPyJW IoHLRxZEMgbAhixm6lxM0 wIi8+PGNvbCB3 cVE9oD8hBYGeFdZ6ADnzL 892OfPcvFUxGgyxr6qxq1 ydmOn4CvTkJHOvpnNizPb rPMN9c9ZiDh65 G63bVVyjNDZaESNvKUBbE TEqcWjkud0phW9tJn2+PC 6sd2kbgs40uF23qDQ+PHR iRGX1gUkqWHys TTUfnC4lGMvlIbW5JEKdF oGbgU70wTOrCUlxMu0ryP istShuZB5gYLDnbygaf15 5JiFto8woAIDj xCOlYCqyHHT4N58aw9P1D RCcVFDtIJO7zBG2fF1gaO lnbjogbGVmdDsgdmVydGl vOXffORakW267 IHRvcDsnPlBhdGllbnQgT sJcKYz7I7IoLno1ZNKrwL ctJA8jtOFuYThzPd3srDm sxDqpTR5kUELv wupej793QhSrs4siDVVxl LQfSDmzGRD8S16ba4X0QC GkJIMbOWE6oYH7tX0gfDv nbjogbGVmdDsg gwJqpPieMUguNWaoQ914B HRvcDsnPkJpcnRoIERhdG M5YF27GC38hHHnv9D1xVV 6L4OaVYQkoiaq vdgwgZI3AMSdNCXegK68N h7xiSglPl3pMRJkJMV2HP XxyXKyN3NrqS5fCvEaOJN zDHBoP5EjuEBe RUtrS048AGfxHpR0LEPqj sMfC6HpFXRaoUmaGmY3e7 I7Xz5GL7H3NS90QO35aNF ok8S3eHL5P6Dr FFIcrxmhimjooNY8ZJSfC BJhiX92De5rfCtrIp5qQK GcQOK7GXRksMQzH8FtdC1 yOiAjMDAwMDAw G7QwdWAvUVvlM549WGpaN dW9ICZpqhAkN1HgQAFiyB goYhP2u6U5Zv5HRBu0HZ2 1OY13fQMhf9S1 hVC0T2OnDTCdxvrhabity QZ2SPBfSVLhfV33Ld9epA unHm8vQCNhVAP3GVEvyZD yP3FjeH1sTfQb FEEyHKUlX8YatBMvEFpjF 460PBzvGiY6AJCpjtPhK2 TtJPPpfQmnLvT8x4G9Dd9 JAFShYB85VYI5 yWG0OM12JP10P6GsTfjuo GFibGU+PHRhYmxlIHdpZH RoPScxMDAlJyBzdHlsZT0 mBs1iYNPkQOVd vOzhuBOsMuFlz0mbLNIjS DojGZ6pwGzvW4ZhtKQ5GO Lnn1w1Mo88T09yT7RudUJ +AWVphDJ9wBD9 kZ5mXlSnFrF6GQixS432Y iSpiMSyDseos7cjf3pcuZ g0JzK8FRCummDipPhwXJA 4i4KaLs16T41n IHdpZHRoPSIxNSUiIHZhb Klacf3ssA0zJe1+PGNvbC J8wAX3jP8cBcSxLcK3XQn eP165YyBtwSIg Jszwm6act1velVh7UrJhZ IKkvrBmbJnrXQX1f9TwLl 82T2HyrVhry6IfNju3yx4 5fUXrp3E3lEP7 H3HhTWEikukziHLllEhoT K3uGSWliwwyMGKfqU5zBK EuR4i0LbIiZeE9SFyzF6K wtrX4XCOgqNRe UMnbWAP5L67wo8F0WOGfN FFeXLQ4eYC6qS9ukVmjze ogbGVmdDsgdmVydGljYWw lEAceF723NPGo yWbqSPJrhP6nNHEtsSWbo XawJE5aFXRtgpyiZn1UAf RJTiwgQURFTElORSBNQVJ JRTwvdGQ+PHRk DWD9lOlrPZixBTLajM4hS GUcH0x3SkByJvZ6KPmnE5 YcLYSxdkolSf00dR9qNnP nPnX9PLfrM7Ug voV3VYTgrVQdLVeuDKB4I 54ky2L3USZuXZIkDDB7iD C8vX1ewWrffxwrzZAdtKk gdmVydGljYWwt GAqmX386NMBiiXvfIoC3W fQhRwE9KWz4G5CcVur4KA AhnGvjHL1cyQOkSNwkWo8 znOuwiBwzXB5y CWFcpiflJZFobV7mYNJcv JQcmSuuWQ0oBZCxjtsmy1 58NtPjXSY2PRBsbQFjC5X tiI2vImHlQRFk XTSmP7NyfNSaBUctA109F JihCuW4ENDzxuSxW4QvIW YjySmzTqT2p7G2Kr1oMcN ZZWFyczwvdGQ+ OLFuELG6iVhuKIwwLHPmq V9uVLAwF2f3XcWzAiE3XW unN2UtSGMrkdyaWp54bW9 jSaNoNmI9PCaq Y5SsqwX4ECVtrGKrDMsoD BZ1S95ys2A8QTEfEUQjPS M7jLC4rG3lhDlcoxrggJR mdDsgdmVydGlj VEbyDZdbP785RNGgdXftP kZFTUFMRTwvdGQ+PHRkIH Z0sSeoYBdxUBAmdM6xAHX mS3g7IiHeJoA7 RGdaI4BrXWEqerufDl94y X2fPjRiKgP9XVxgF0Nzgs V7UNDsvGNuSCqbALX2U63 gf0O9CIMjWBYz RAU4yWK8bV9gkSqxuxawh GVmdDsgdmVydGljYWwtYW kuO361ZWCypWjtDu4EIP0 9SE81L2BwAjss dGFibGU+PHRhYmxlIHdpZ HRoPScxMDAlJyBzdHlsZT 5jOk7vGURgDHVxyNrwdAV fWzTzj5ouENQd LTmoBB5ggJtkI0HtmQO4V HTat5l5Cn44J50lD2LqdP A+IAHzaHR4gTO5yR7hMmH rWtI4NYnkC204 KzXhjZNcPkaos5glv8nhk Vn9ZzOjPVDhgxZumIpsGG W7d6HrKr59E20rPAijTYN oPSIyMCUiIHZh tFpsig9diY1bXo7+PGNvb BN2mAS0xS5eUmEdIcG4PK vtX278NlAgtECuYqjkC47 tN0TpzJS+PHRy Uwk2FTRpoDagYF9qhTJkB WwpFl0kBET7OvVkFzVbLJ avA4QsQXWkoeoagabszRF 6IIWdETSxnS99 Ca7ocPqnPf6zSICbKKI7E VWwpNNyG4AzpQ4rIzPmMN LhDUOhX4UefOCpVTpjA52 1NQukWoB2FGRj sqYyG2NtZSCcuJpvIcE1y 1N9Jg1AsHiezURtLK3fKv DxFQs1N5FnAcr9ALFqdJo gGK8ncZPmBHoh Aa2ovKmlcAbgUE7wBKQjj wlcb823EvBwn3wuMCXzpV JtMZkqADB5G18ey0K8JRB uQVBgDQW0aEO2 rW0tgVqnspfmwBHimFxpq vCfdUwsDVvtPPaxK262DE KumSjbUmRYSfx4T2FwEoi 9MFTuzHtjBI3w nKUeAYkiLl2hbXtmuZciB Y0iYUDzlyype794DhTho1 skSIBohTZrVMosDOV7D03 rp8P1RRQfLSKs ZPK1yFK7nY6hgJoxkyodd GVmdDsgdmVydGljYWwtYW ooB117UWUdfKdhYt7EJsq 9U8ViZww3TVLk nMvtML2ecQSbVKjuIp9ma VoytZfsDH1dFSNacvddf1 45CcNmy7ztUIHwuGYoHMw gHCV3V17ua1C5 UYCyTDDhPVI7eUK0tK7ry GlnbjogbGVmdDsgdmVydG rzDYhlRMjoZ396YJQwcBa nPlBheWVyOjwv dGQ+OR37xq68P8UpGurxH hd3PQUrBCD9rWQ2eQ5nSF JlRLxud9V5hCC9T9AiphG sqb7zn8bvNAAl ZTo (more content not included)... Normal [facility] 2019 Novel Coronavirus (CoVI D-19), MEGAN on 09-02-2021 SARS-CoV-2 (COVID-19) RNA MEGAN+probe Ql (Unsp spec) Not detected Invalid Interpretation Code Not Detected [facility] Comment on above: Order Comment: [id number] 1 # [phone] Result Comment: This nucleic acid amplification test was developed and its performance characteristics determined by [employer]. Nucleic acid amplification tests include RT- PCR [...] detected) result in this assay. Performed At: [address] [id number] Abigail Franklin PhD Ph:[phone] Performed By: #### 6 [id number] #### [facility] (DEFAULT) [address] [place] [address] Release of Informationon Release of Information [id number] .00OTGTIFF [facility] Coding Summaryon 10-08-2020 Coding Summary CODING DATE: 10/08/2020 [facility] STATUS: Home PAYOR: [facility] ADMIT DX: REASON FOR VISIT DX: E66.9 [...] Danitza Hernandez Date Saved: 10/08/2020 10:57 am [facility] Insulin LCon 10-08-2020 Insulin LC 16.9 uIU/mL Invalid Interpretation Code 2.6-24.9 [facility] Comment on above: Result Comment: Perf ormed At: [address] [id number] Abigail Franklin PhD Ph:[phone] Performed By: #### 1 [id number], [id number], [id number], [id number], 7980181, 51765459, 4703654, 6342941 #### [facility] (DEFAULT) [address] [place] [address] Provider Orderson 10-08-2020 Provider Orders [id number] .00OTGTIFF Normal [facility] .Auto Diff 110-07-2020 Auto [place] % 8 % Normal -12 [facility] Comment on above: Performed By: #### 1 [id number], [id number], [id number], [id number], 1803161, 80594896, 4437637, 1478424 #### [facility] (DEFAULT) [address] [place] [address] Baso Abs# 0.0 x10 Normal 0.0-0.2 [facility] Comment on above: Performed By: #### 1 [id number], [id number], [id number], 2978433033, 1131240, 11679735, 5859746, 9067176 #### [facility] (DEFAULT) [address] [place] [address] Basophils/100 WBC (Bld) 0.3 % Normal 0.2-2.0 [facility] Comment on above: Performed By: #### 1 [id number], 92840314, 1349966913, 0718974089, 9067524, 48289470, 7051771, 7789706 #### [facility] (DEFAULT) [address] [place] [address] Eos Abs# 0.1 x10 Normal 0.0-0.4 [facility] Comment on above: Performed By: #### 1 [id number], 59699774, 8631120224, 7608364799, 9141228, 83736743, 1403953, 2685740 #### [facility] (DEFAULT) [address] [place] [address] Eosinophils/100 WBC (Bld) 2.1 % Normal 0.9-4.0 [facility] Comment on above: Performed By: #### 1 [id number], 83453629, 2306344741, 3183078430, 9341291, 82701064, 1221003, 9443428 #### [facility] (DEFAULT) [address] [place] [address] Lymph Abs# 1.5 x10 Normal 1.3-2.9 [facility] Comment on above: Performed By: #### 1 [id number], 02150705, 9991276959, 0949645783, 2865160, 57840121, 3679471, 2858002 #### [facility] (DEFAULT) [address] [place] [address] Lymphocytes/100 WBC (Bld) 26 % Normal 14-48 [facility] Comment on above: Performed By: #### 1 [id number], 55101547, 6406985323, 4564142826, 7876837, 03761485, 3415754, 3247768 #### [facility] (DEFAULT) [address] [place] [address] [place] Abs# 0.5 x10 Normal 0.0-0.8 [facility] Comment on above: Performed By: #### 1 [id number], 45411600, 9406037775, 5546572311, 6321055, 00652344, 8880585, 5416389 #### [facility] (DEFAULT) [address] [place] [address] Neut Abs# 3.6 x10 Normal 1.5-9.2 [facility] Comment on above: Performed By: #### 1 [id number], 03441121, 5414708036, 6304075813, 2174700, 05415645, 6601469, 5601697 #### [facility] (DEFAULT) [address] [place] [address] Neutrophils/100 WBC (Bld) 63 % Normal 44-88 [facility] Comment on above: Performed By: #### 1 [id number], 80141635, 2726663068, 5424795957, 9004267, 57009333, 8491532, 1677634 #### [facility] (DEFAULT) [address] [place] [address] CBC w/ Auto Diffon 1 Erythrocyte distribution width (RBC) [Ratio] 12.6 % Normal 11.5-15.0 [facility] Comment on above: Performed By: #### 1 [id number], 06288269, 0803594992, 3006439964, 6836644, 97469341, 3636083, 6979433 #### [facility] (DEFAULT) [address] [place] [address] Hematocrit (Bld) [Volume fraction] 42.4 % High 33.7-40.4 [facility] Comment on above: Performed By: #### 1 [id number], 84910908, 5996117341, 7543957681, 2264265, 23475150, 0768660, 8988757 #### [facility] (DEFAULT) [address] [place] [address] Hemoglobin (Bld) [Mass/Vol] 14.1 g/dL Normal 11.3-15.9 [facility] Comment on above: Performed By: #### 1 [id number], 33954491, [id number], 5688637479, 2629883, 94483233, 4245949, 1151776 #### [facility] (DEFAULT) [address] [place] [address] Instr WBC 5.8 x10 Invalid Interpretation Code [facility] Comment on above: Performed By: #### 1 [id number], 26851558, 0640100367, 3156596964, 6474300, 48116607, 2917653, 1214284 #### [facility] (DEFAULT) [address] [place] [address] Man Diff? Auto Normal [facility] Comment on above: Performed By: #### 1 [id number], 62972492, 2875897792, 6275408035, 6161011, 06330150, 2940854, 6946080 #### [facility] (DEFAULT) [address] [place] [address] MCH (RBC) [Entitic mass] 28 pg Normal 24-34 [facility] Comment on above: Performed By: #### 1 [id number], 44510622, 7454972894, 7344268971, 0426868, 53864466, 4374794, 2587275 #### [facility] (DEFAULT) [address] [place] [address] MCHC (RBC) [Mass/Vol] 33 g/dL Normal 26-37 [facility] Comment on above: Performed By: #### 1 [id number], 71167764, 0937681990, 2164146352, 8203020, 18405806, 7335586, 1254326 #### [facility] (DEFAULT) [address] [place] [address] MCV (RBC) [Entitic vol] 86 fL Normal 81-100 [facility] Comment on above: Performed By: #### 1 [id number], 18541933, 2698740208, 5816940267, 8580151, 82026240, 4792040, 0084144 #### [facility] (DEFAULT) [address] [place] [address] Platelet 264 x10 Normal 138-427 [facility] Comment on above: Performed By: #### 1 [id number], 12697090, 7501649287, 5961122107, 4439799, 38677546, 3517950, 9314271 #### [facility] (DEFAULT) [address] [place] [address]2659 Platelet mean volume (Bld) [Entitic vol] 9.7 fL Normal 6.3-10.2 [facility] Comment on above: Performed By: #### 1 [id number], 89378031, 0630383840, 9395997245, 7934213, 50758251, 0301999, 0241769 #### [facility] (DEFAULT) [address] [place] [address] 97819 RBC 4.95 x10 Normal 3.70-5.30 [facility] Comment on above: Performed By: #### 1 [id number], 02656380, 2840253099, 6757320527, 1129283, 46014086, 5453372, 6024021 #### [facility] (DEFAULT) [address] [place] [address]341 WBC 5.8 x10 Normal 3.5-10.5 [facility] Comment on above: Performed By: #### 1 [id number], 44850187, 4754809721, 7781694433, 6540544, 84837343, 1899957, 8278360 #### [facility] (DEFAULT) [address] [place] [address]65[address] CMP Standardon 10-07-2020 eGFR Non AA >60 Invalid Interpretation Code [facility] Comment on above: Performed By: #### 1 [id number], 18571986, 9493327178, 1706651275, 1771822, 08811332, 4681010, 8592855 #### [facility] (DEFAULT) [address] [place] [address] 49159 eGFR AA >60 Invalid Interpretation Code [facility] Comment on above: Result Comment: Supplies Packer 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 Kidney Failure is indicated at less than 15 ml/min/1.73m2 Performed By: #### 1 [id number], 69552323, 3343156914, 6725083502, 7904051, 83817586, 5900436, 5157673 #### [facility] (DEFAULT) [address] [place] [address] 41799 Albumin [Mass/Vol] 4.4 g/dL Normal 3.5-5.0 [facility] Comment on above: Performed By: #### 1 [id number], 60524393, 7288596823, 2131745753, 8607086, 90154037, 9917637, 6371972 #### [facility] (DEFAULT) [address] [place] [address]25 Albumin/Globulin [Mass ratio] 1.5 {ratio} Normal 1.4-2.6 [facility] Comment on above: Performed By: #### 1 [id number], 85062116, 1083660796, 0390577104, 7023825, 14687482, 9105600, 9478269 #### [facility] (DEFAULT) [address] [place] [address] 39920 Alk Phos 65 IU/L Normal 32-91 [facility] Comment on above: Performed By: #### 1 013170409, 57749273, 2347235487, 1070984125, 2636877, 85166678, 3074326, 7855059 #### [facility] (DEFAULT) [address] [place] [address] 51543 ALT [Catalytic activity/Vol] 19.0 U/L Normal 14.0-54.0 [facility] Comment on above: Performed By: #### 1 [id number], 92122259, 1285753080, 4223157000, 8897821, 63504486, 3326627, 6688452 #### [facility] (DEFAULT) [address] [place] [address] 42868 Anion gap [Moles/Vol] 13.0 mmol/L Normal 5.0-19.0 [facility] Comment on above: Performed By: #### 1 360979349, 70126992, 3575085447, 6358368824, 4728167, 91879651, 8092056, 8340554 #### [facility] (DEFAULT) [address] [place] [address] 66586 AST [Catalytic activity/Vol] 17 U/L Normal 15-41 [facility] [facility] Comment on above: Performed By: #### 1 [id number], [id number], [id number], [id number], 8162303, 86872318, 1369788, 4400810 #### [facility] (DEFAULT) [address] [place] [address] 00945 Bili Total 0.7 mg/dL Normal 0.3-1.2 [facility] Comment on above: Performed By: #### 1 [id number], [id number], [id number], [id number], 2396571, 88524421, 8313208, 8483935 #### [facility] (DEFAULT) [address] [place] [address] 57233 Calcium [Mass/Vol] 9.2 mg/dL Normal 8.9-10.3 [facility] Comment on above: Performed By: #### 1 [id number], [id number], [id number], [id number], 6769118, 21839166, 4942453, 9536353 #### [facility] (DEFAULT) [address] [place] [address] Chloride [Moles/Vol] 107 mmol/L Normal 101-111 [facility] Comment on above: Performed By: #### 1 [id number], [id number], [id number], [id number], 9280460, 87321377, 0702241, 4316678 #### [facility] (DEFAULT) [address] [place] [address] 32460 CO2 [Moles/Vol] 24 mmol/L Normal 21-32 [facility] Comment on above: Performed By: #### 1 [id number], [id number], [id number], [id number], 3690674, 83785992, 9988296, 1165519 #### [facility] (DEFAULT) [address] [place] [address] Creatinine [Mass/Vol] 0.82 mg/dL Normal 0.60-1.30 [facility] Comment on above: Performed By: #### 1 [id number], [id number], [id number], 4785247743, 8342149, 21044626, 0756451, 1731449 #### [facility] (DEFAULT) [address] [place] [address] 64657 Globulin (S) [Mass/Vol] 2.9 g/dL Normal 1.5-4.3 [facility] Comment on above: Performed By: #### 1 [id number], [id number], [id number], 9478375195, 8241974, 07377808, 4085444, 5752610 #### [facility] (DEFAULT) [address] [place], [place] [address] Glucose [Mass/Vol] 105.0 mg/dL Normal 74.0-118.0 [facility] Comment on above: Performed By: #### 1 [id number], 88216157, [id number], [id number], 4864468, 06852895, 2018044, 6486200 #### [facility] (DEFAULT) [address] [place] [address] 43760 Osmolality 281 mOsm/L Invalid Interpretation Code [facility] Comment on above: Performed By: #### 1 [id number], [id number], [id number], [id number], 2566547, 28645231, 3050407, 2205566 #### [facility] (DEFAULT) [address] [place] [address] 07478 Potassium [Moles/Vol] 3.7 mmol/L Normal 3.6-5.1 [facility] Comment on above: Performed By: #### 1 [id number], [id number], 3312006437, 9634578378, 1292348, 79132417, 4720369, 9019483 #### [facility] (DEFAULT) [address] [place] [address] 31527 Protein [Mass/Vol] 7.3 g/dL Normal 6.5-8.1 [facility] Comment on above: Performed By: #### 1 [id number], 14622530, 6145958897, 2649361565, 4992707, 07628943, 2229879, 0264881 #### [facility] (DEFAULT) [address] [place] [address] 36803 Sodium [Moles/Vol] 140.0 mmol/L Normal 136.0-144.0 [facility] Comment on above: Performed By: #### 1 [id number], 32621971, 0480687325, 8425152020, 2315543, 00149030, 5913887, 0753511 #### [facility] (DEFAULT) [address] [place] [address] 33683 Urea nitrogen [Mass/Vol] 16 mg/dL Normal 8-26 [facility] Comment on above: Performed By: #### 1 [id number], 87508754, 3930801556, 1621612760, 1121512, 44162097, 9830704, 6554704 #### [facility] (DEFAULT) [address] [place] [address] 72257 Urea nitrogen/Creatinine [Mass ratio] 20.0 mg/mg High 4.6-16.2 [facility] Comment on above: Performed By: #### 1 [id number], [id number], 7443571471, 6127250088, 8972168, 53368215, 7898705, 0817162 #### [facility] (DEFAULT) [address] [place] [address] 61938 Free T4on 10-07-2020 Free T4 [Mass/Vol] 0.94 ng/dL Normal 0.61-1.12 [facility] Comment on above: Result Comment: Spec imens that contain high levels of Biotin may cause false high results Performed By: #### 1 [id number], 60455584, 2636767193, 7629617127, 3127962, 59247031, 0266085, 4546413 #### [facility] (DEFAULT) [address] [place] [address] 77053 HgbA1c Standardon 10-07-2020 .Hb 15.8 Invalid Interpretation Code [facility] Comment on above: Performed By: #### 1 [id number], 45221095, [id number], 4678341884, 7421160, 32258375, 2670211, 8271014 #### [facility] (DEFAULT) [address] [place] [address] 47819 .Hgb A1c 0.52 g/dL Invalid Interpretation Code [facility] Comment on above: Performed By: #### 1 [id number], 45824839, 4619807052, 5801616667, 7468151, 78256718, 5383539, 6613624 #### [facility] (DEFAULT) [address] [place] [address] 99911 Glucose [Mass/Vol] 102 mg/dL Invalid Interpretation Code [facility] Comment on above: Performed By: #### 1 [id number], 87209837, 5792617016, 7282634179, 4710569, 28890965, 0299239, 1489651 #### [facility] (DEFAULT) [address] [place] [address] 10960 HbA1c (Bld) [Mass fraction] 5.2 % Normal 4.6-6.2 [facility] Comment on above: Performed By: #### 1 [id number], 21777476, 1205401404, 6240191388, 5907649, 66217469, 2805314, 4016175 #### [facility] (DEFAULT) [address] [place] [address] 33813 Lipid Panel Standardon 10-07 Cholesterol [Mass/Vol] 106.0 mg/dL Normal 66.0-200.0 [facility] Comment on above: Result Comment: Zeny rable - Less than 200 mg/dL Borderline high risk - 200-239 mg/dL High risk - 240 mg/dL and over. Performed By: #### 1 [id number], 90464261, [id number], 8792662388, 4158222, 13255060, 2664697, 2582338 #### [facility] (DEFAULT) [address] [place] [address] 42391 Cholesterol in HDL [Mass/Vol] 38 mg/dL Low 40-71 [facility] Comment on above: Result Comment: High risk - <40 mg/dL. Performed By: #### 1 [id number], 67177028, 3890540503, 5212599905, 5461755, 87662947, 8729365, 6270517 #### [facility] (DEFAULT) [address] [place] [address] 66353 Cholesterol in LDL [Mass/Vol] 57 mg/dL Normal 1-100 [facility] Comment on above: Result Comment: Opti mal - Less than 100 mg/dL Borderline high risk - 130-159 mg/dL High risk - 160-189 mg/dL. Performed By: #### 1 [id number], 51950625, 3381038411, 3103443784, 2913622, 83364435, 0976356, 5766097 #### [facility] (DEFAULT) [address] [place] [address] 24568 Cholesterol.total/C holesterol in HDL [Mass ratio] 2.8 {ratio} Normal 0.0-4.5 [facility] Comment on above: Performed By: #### 1 [id number], 93535790, [id number], 5606543910, 0144295, 96903695, 5523828, 0867513 #### [facility] (DEFAULT) [address] [place] [address] 77130 Triglyceride [Mass/Vol] 56.0 mg/dL Normal 0.0-150.0 [facility] Comment on above: Performed By: #### 1 [id number], 49587453, 2253948682, 8748390146, 2841661, 42473731, 5371801, 1941294 #### [facility] (DEFAULT) [address] [place] [address] VLDL. 11 mg/dL Normal 5-40 [facility] Comment on above: Performed By: #### 1 [id number], 06429353, 4100361095, 8483519621, 7295983, 58074839, 3097832, 6153455 #### [facility] (DEFAULT) [address] [place] [address] 44802 TSHon 10-07-2020 TSH Qn 2.03 m[IU]/L Normal 0.45-5.33 [facility] Comment on above: Result Comment: Gene ral Population (males and non- females, aged 21-88) 0.45 - 5.33 Females, 1st Trimester 0.05 - 3.70 Females, 2nd Trimester 0.31 - 4.35 Females, 3rd Trimester 0.41 - 5.18 Performed By: #### 1 [id number], [id number], [id number], 6799879554, 6253707, 09437651, 1216764, 7624375 #### [facility] (DEFAULT) [address] [place] [address] 58985 Alcohol, Medicalon Ethanol [Mass/Vol] 207.0 mg/dL High <10.0 [facility] Anion gap [Moles/Vol] 18 mmol/L 10 - 20 mmol/L [facility] Calcium [Mass/Vol] 9.4 mg/dL 8.4 - 10. 2 mg/dL [facility] Chloride [Moles/Vol] 109 mmol/L High 98 - 108 mmol/L [facility] Creatinine [Mass/Vol] 1.08 mg/dL 0.40 - 1.10 [facility] GFR/1.73 sq M predicted among non-blacks MDRD (S/P/Bld) [Vol rate/Area] The eGFR should be used for monitoring renal function only and not for medication dosing. [facility] GFR/1.73 sq M.predicted CKD-EPI (S/P/Bld) [Vol rate/Area] 73 >=60 mL/min/1.73 m2 [facility] Glucose [Mass/Vol] 114 mg/dL High 65 - 99 mg/dL [facility] HCO3 [Moles/Vol] 23 mmol/L 21 - 32 mmol/L [facility] Potassium [Moles/Vol] 4.0 mmol/L 3.5 - 5.1 mmol/L [facility] Sodium [Moles/Vol] 146 mmol/L High 135 - 145 mmol/L [facility] Urea nitrogen [Mass/Vol] 13 mg/dL 8 - 25 mg/dL [facility] Urea nitrogen/Creatinine [Mass ratio] 12.0 mg/mg [facility] CBC WITH AUTO DIFFERENTIALon 09-21-2020 Basophils (Bld) [#/Vol] 0.02 10*3/uL [facility] Basophils/100 WBC (Bld) 0.3 % [facility] Eosinophils (Bld) [#/Vol] 0.10 10*3/uL [facility] Eosinophils/100 WBC (Bld) 1.3 % [facility] Erythrocyte distribution width (RBC) [Entitic vol] 11.9 % 11.6 - 14.8 % [facility] Hematocrit (Bld) [Volume fraction] 44.3 % 36.0 - 46.0 % [facility] Hemoglobin (Bld) [Mass/Vol] 14.4 g/dL 12.0 - 16.0 g/dL [facility] Immature granulocytes (Bld) [#/Vol] 0.05 10*3/uL [facility] Immature granulocytes/100 WBC (Bld) 0.60 % [facility] Comment on above: The IG parameter is the percentage of metamyelocytes, myelocytes and promyelocytes. An immature granulocyte count (IG) of 1% or more suggests the possibility of infection, an IG count of 3% is very likely related to an infection. Lymphocytes (Bld) [#/Vol] 2.17 10*3/uL [facility] Lymphocytes/100 WBC (Bld) 27.9 % [facility] MCH (RBC) [Entitic mass] 28.1 pg 26.0 - 34.0 pg [facility] MCHC (RBC) [Mass/Vol] 32.5 g/dL 31.0 - 37.0 g/dL [facility] MCV (RBC) [Entitic vol] 86.4 fL 80.0 - 100.0 fL [facility] Monocytes (Bld) [#/Vol] 0.55 10*3/uL [facility] Monocytes/100 WBC (Bld) 7.1 % [facility] Neutrophils (Bld) [#/Vol] 4.90 10*3/uL [facility] Neutrophils/100 WBC (Bld) 62.8 % [facility] Nucleated RBC (Bld) [#/Vol] 0.00 10*3/uL [facility] Nucleated RBC/100 WBC (Bld) [Ratio] 0.0 % [facility] Platelet mean volume (Bld) [Entitic vol] 9.8 fL 9.4 - 12.4 fL [facility] Platelets (Bld) [#/Vol] 271 10*3/uL [facility] RBC (Bld) [#/Vol] 5.13 10*6/uL [facility] WBC (Bld) [#/Vol] 7.79 10*3/uL [facility] HCG (QUALITATIVE)on 09-21-19 21 Beta HCG ( test) Ql Negative Negative [facility] Interpretation and review of laboratory results Normal [facility] Negative: The result is less than or equal to 5 mIU/mL of HCG. [facility] Otheron 09-21-2020 Interpretation and review of laboratory results Abnormal [facility] Vital Signs Date Time Vital Sign Value Performing Clinician Laura bartlett 10-20-2023 08:39-0500 Body height 185.4 cm Allison Aragon ADMIN DIR Work Phone: [facility] 10-20-2023 08:39-0500 Body mass index (BMI) [Ratio] 37.1 kg/m2 Allison Aragon NP Work Phone: [facility] 10-20-2023 08:39-0500 Body temperature 97.81 [degF] Allison Aragon ADMIN DIR Work Phone: [facility] 10-20-2023 08:39-0500 Body weight 127.55 kg Allison Aragon ADMIN DIR Work Phone: [facility] 10-20-2023 08:39-0500 Diastolic blood pressure 86 mm[Hg] Allison Aragon ADMIN DIR Work Phone: [facility] 10-20-2023 08:39-0500 Heart rate 70 /min Allison Aragon ADMIN DIR Work Phone: [facility] 10-20-2023 08:39-0500 Respiratory rate 19 /min Allison Aragon ADMIN DIR Work Phone: [facility] 10-20-2023 08:39-0500 SaO2% (BldA) [Mass fraction] 98 % Allison Aragon ADMIN DIR Work Phone: [facility] 10-20-2023 08:39-0500 Systolic blood pressure 128 mm[Hg] Allison Aragon ADMIN DIR Work Phone: [facility] 06-09-2022 08:46-0400 Body height 185.4 cm Jaswant Tovar DO Work Phone: [facility] 06-09-2022 08:46-0400 Body weight 123.38 kg Jaswant Tovar DO Work Phone: [facility] 09-21-2020 06:10-0500 Body Temperature 98.8 [degF] Leila Dials [facility] 09-21-2020 06:10-0500 BP Diastolic 76 mm[Hg] Leila Dials [facility] 09-21-2020 06:10-0500 BP Systolic 122 mm[Hg] Leila Dials [facility] 09-21-2020 06:10-0500 Pulse (Heart Rate) 87 /min Leila Dials [facility] 09-21-2020 06:10-0500 Pulse Oximetry 99 % Leila Dials [facility] 09-21-2020 06:10-0500 Respiratory Rate 16 /min Leila Dials [facility] Encounters Encounter Date Encounter Type Care Provider Facility Start: 05-21-2024 End: 05-21-2024 ambulatory YOSEF GUALLPA Not Available Start: 05-21-2024 End: 05-21-2024 ambulatory Beulah Nicholas MD Facility: [facility] Start: 04-19-2024 End: 04-19-2024 ambulatory MIGUEL GONZALES Not Available Start: 03-22-2024 End: 03-22-2024 ambulatory ALLISON AICHHOLZ Not Available Start: 03-22-2024 End: 03-22-2024 Office outpatient visit 25 minutes Jamel Francois Work Phone: [facility] [place] Start: 02-23-2024 End: 02-23-2024 ambulatory ALLISON AICHHOLZ Not Available Start: 01-19-2024 End: 01-19-2024 ambulatory ALLISON AICHHOLZ Not Available Start: 12-29-2023 End: 12-29-2023 Encounter identifier Jamel Alley Francois Work Phone: [facility] [place] Start: 12-27-2023 End: 12-27-2023 Encounter identifier Jamel Francois Work Phone: [facility] [place] Start: 12-21-2023 End: 12-21-2023 ambulatory ALLISON AICHHOLZ Not Available Start: 12-16-2023 End: 12-16-2023 Encounter identifier Jamel Francois Work Phone: [facility] [place] Start: 12-15-2023 End: 12-15-2023 Encounter identifier Jamel Francois Work Phone: [facility] [place] Start: 12-05-2023 End: 12-05-2023 Encounter identifier Jamel Francois Work Phone: [facility] [place] Start: 12-05-2023 End: 12-05-2023 Postop follow up visit related to original px Jamel Francois DPM [facility] Start: 11-30-2023 End: 11-30-2023 Encounter identifier Jamel Francois Work Phone: [facility] Start: 11-29-2023 End: 11-29-2023 Encounter identifier Jamel Francois Work Phone: [facility] [place] Start: 11-23-2023 Orders Only Jaycob Fairchild MD Work Phone: [facility] Comment on above: Factor 5 Leiden muta tion, heterozygous (CMS-HCC) (Primary Dx) Start: 11-21-2023 End: 11-21-2023 ambulatory ALLISON AICHHOLZ Not Available Start: 11-03-2023 End: 11-03-2023 Office outpatient new 45 minutes Jamel Caballerotaylor Work Phone: [facility] Start: 10-20-2023 Bamboo flowsheet Allison Aichholz ADMIN DIR Work Phone: [facility] Start: 10-20-2023 Bamboo flowsheet Allison Aichholz ADMIN DIR Work Phone: [facility] Start: 10-20-2023 End: 10-20-2023 Office outpatient visit 15 minutes Allison Aichholz ADMIN DIR Work Phone: [facility] Comment on [...] Encounter for other preprocedural examination SUZIE MENDOZA [facility] Start: 10-08-2022 End: 10-09-2022 ambulatory NADIR ENGLAND Facility:[facility] Start: 10-08-2022 End: 10-09-2022 Encounter for other preprocedural examination NADIR ENGLAND Facility:[facility] Start: 07-01-2022 End: 07-02-2022 ambulatory SUZIE MENDOZA Facility:[facility] Start: 06-23-2022 End: 06-24-[address] SOHAIL COLBY Facility:[facility] Start: 06-18-2022 Telephone encounter Jaswant Reginaldjuany Endocrinology Comment on above: 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 Start: 06-16-2022 End: 06-16-2022 ambulatory PHYSICIAN MONIKA [facility] Work Phone: Start: 06-16-2022 End: 06-16-2022 Patient encounter procedure PHYSICIAN MONIKA [facility] [address] Start: 06-09-2022 End: 06-09-2022 ambulatory JASWANT GOFFJUANY Facility:[facility] Start: 06-09-2022 End: 06-09-2022 ambulatory Jaswant Tovar DO Work Phone: Endocrinology Comment on above: Class 2 obesity due to excess calories without serious comorbidity with body mass index (BMI) of 35.0 to 35.9 in adult (Primary Dx); Chondromalacia of right patella Start: 06-09-2022 End: 06-09-2022 Telemedicine consultation with patient Jaswant Tovar DO Work Phone: [facility] Start: 04-14-2022 End: 04-14-2022 ambulatory ROBERT ERIC Facility:[facility] Start: 04-14-2022 End: 04-14-2022 Patient encounter [...] 30 minutes Chadd Cuevas Jr Work Phone: [facility] Start: 10-09-2020 End: 10-09-2020 Chart abstracting Gonzalo Burger) Dara Work Phone: Hematology/Oncology Start: 10-07-2020 End: 10-07-2020 Patient encounter procedure External Provider [facility] Start: 10-07-2020 Results Only External Provider Exter [facility] Start: 09-21-2020 End: 09-21-2020 Emergency department patient visit LEILA ROWE [facility] Start: 09-20-2020 End: 09-21-2020 Emergency department patient visit Leila Rowe Work Phone: [facility] Comment on above: Alcoholic intoxicati on with complication (HCC) (Primary Dx); Nausea and vomiting, intractability of vomiting not specified, unspecified vomiting type Start: 05-26-2018 Patient encounter DILLON Nogueira acility:[facility] Procedures Date Procedure Procedure Detail Performing [...] Vaccine ( season) Covid-19 Vaccine ( season) [facility] Start: 05-06-2024 Influenza vaccination Influenza Vacc ine (#1) [facility] Start: 11-21-2023 End: 11-21-2023 Patient encounter procedure 11/21/2023 6:40 PM EDT Office Visit [facility] [address] [place] [address] Allison Aragon, ADELA [address] [place] [phone] [facility] Start: 10-20-2023 End: 10-20-2023 Patient encounter procedure 10/20/2023 8:40 AM EST Office Visit [facility] [address] [place] [address] Allison Aragon, ADELA [address] [place] [id number] Arrived [facility] Comment on above: Arrived Start: 09-20-2023 Adult BMI Screening Adult BMI Screen ing [facility] Start: 09-20-2023 Tobacco Screening Tobacco Screening [facility] Start: 05-06-2023 Influenza vaccination [facility] Start: 06-09-2022 End: 08-09-2022 CBC panel - Blood by Automated count CBC Lab Routine Class 2 obesity due to excess calories without serious comorbidity with body mass index (BMI) of 35.0 to 35.9 in adult Expected: 06/09/2022, Expires: 08/09/[address] [facility] Work Phone: Comment on above: Expected: 06/09/2022 , Expires: 08/09/2022 Start: 06-09-2022 End: 08-09-2022 Comprehensive metabolic 2000 panel - Serum or Plasma COMP METABOLIC PANEL Lab Routine Class 2 obesity due to excess calories without serious comorbidity with body mass index (BMI) of 35.0 to 35.9 in adult Expected: 06/09/2022, Expires: 08/09/[address] [facility] Work Phone: Comment on above: Expected: 06/09/2022 , Expires: 08/09/2022 Start: 06-09-2022 End: 08-09-2022 Hemoglobin A1c in Blood HGB A1C Lab Routine Class 2 obesity due to excess calories without serious comorbidity with body mass index (BMI) of 35.0 to 35.9 in adult Expected: 06/09/2022, Expires: 08/09/[address] [facility] Work Phone: Comment on above: Expected: 06/09/2022 , Expires: 08/09/2022 Start: 06-09-2022 End: 08-09-2022 Lipid 1996 panel - Serum or Plasma LIPID PANEL BASIC Lab Routine Class 2 obesity due to excess calories without serious comorbidity with body mass index (BMI) of 35.0 to 35.9 in adult Expected: 06/09/2022, Expires: 08/09/[address] [facility] Work Phone: Comment on above: Expected: 06/09/2022 , Expires: 08/09/2022 Start: 05-06-2022 Influenza vaccination INFLUENZA (#1) [facility] Start: 10-26-2021 Patient referral Referrals: Ismael pascual control full kneecap [facility] Start: 09-05-2021 DEPRESSION ASSESSMENT DEPRESSION ASS ESSMENT [facility] Start: 02-17-2021 DTaP,Tdap and Td Vaccines (7 - Td or Tdap) DTaP,Tdap and Td Vaccines (7 - Td or Tdap) [facility] Start: 02-17-2021 Urine microalbumin profile DTaP,Tdap,Td Vaccine (7 - Td or Tdap) [facility] Start: 05-06-2020 Influenza vaccination INFLUENZA (#1) [facility] Start: 2019 PAP TESTING PAP TESTING [facility] Start: 2019 Screening for malign ant neoplasm of cervix [facility] Start: 2017 Urine microalbumin profile DTAP,TDAP,TD (1 - Tdap) [facility] Start: 2016 Anxiety Screening Anxiety Screening [facility] Start: 2016 CHLAMYDIA SCREENING (18-24) CHLAMYDIA SCREENING (18-24) [facility] Start: 2016 Depression Screening Depression Scre ening [facility] Start: 2016 GC (GONORRHEA) SCREENING (18-24) GC (GONORRHEA) SCREENING (18-24) [facility] Start: 2016 HEPATITIS C SCREENING HEPATITIS C SC [facility] Start: 2016 Hepatitis C screening Hepatitis C [facility] Start: 2016 HIV SCREENING HIV SCREENING [facility] Start: 2016 HIV screening HIV Screening [facility] Start: 2014 Meningococcal B Vaccine: Consider Based On Risk (2 of 2 - Risk Bexsero 2-dose series) Meningococcal B Vaccine: Consider Based On Risk (2 of 2 - Risk Bexsero 2-dose series) [facility] Start: 2014 MENINGOCOCCAL B: Consider based on risk (2 of 2 - Risk Bexsero 2-dose series) MENINGOCOCCAL B: Consider based on risk (2 of 2 - Risk Bexsero 2-dose series) [facility] Start: 10-02-2013 HEPATITIS B (2 of 3 - 3-dose series) HEPATITIS B (2 of 3 - 3-dose series) [facility] Start: 2013 HPV Vaccine (1 - 3-d ose series) HPV Vaccine (1 - 3-dose series) [facility] Start: 2012 PEDS TO ADULT TRANSITION ANNUAL ASSESSMENT PEDS TO ADULT TRANSITION ANNUAL ASSESSMENT [facility] Start: 2010 Adult depression screening assessment DEPRESSION SCREENING [facility] Start: 2010 PEDS TO ADULT TRANSITION INITIAL DISCUSSION PEDS TO ADULT TRANSITION INITIAL DISCUSSION [facility] Start: 2009 HPV VACCINE (1 - 2-d ose series) HPV VACCINE (1 - 2-dose series) [facility] Start: 1998 COVID-19 VACCINE (#1) COVID-19 VACCI NE (#1) [facility] End: 05-14-2023 MRI KNEE WO IVCON RT MRI KNEE WO IVCON RT Radiology Routine Chronic pain of right knee 1 Occurrences starting 04/14/2022 until 05/14/[address] [facility] Work Phone: Comment on above: 1 Occurrences starti ng 04/14/2022 until 05/14/2023 End: 05-07-2023 XR KNEE GENERAL 4V AP BOTH/PA BOTH/LAT/MERC RIGHT XR KNEE GENERAL 4V AP BOTH/PA BOTH/LAT/MERC RIGHT Radiology Routine Right knee pain, unspecified chronicity 1 Occurrences starting 04/08/2022 until 05/07/[address] [facility] Work Phone: Comment on above: 1 Occurrences starti ng 04/08/2022 until 05/07/2023 End: 05-14-2023 XR KNEE POST OP 3V AP/LAT/MERCHANT RIGHT XR KNEE POST OP 3V AP/LAT/MERCHANT RIGHT Radiology Routine Chronic pain of right knee 1 Occurrences starting 04/14/2022 until 05/14/[address] [facility] Work Phone: Comment on above: 1 Occurrences starti ng 04/14/2022 until 05/14/2023 [facility] Immunizations Immunization Date Immunization Notes Care Provider Sven rob 04-08-2016 meningococcal polysaccharide (groups A, C, Y and W-135) diphtheria toxoid conjugate vaccine (MCV4P) Allison Aragon ADMIN DIR Work Phone: [facility] 09-04-2013 hepatitis B vaccine, unspecified formulation Robert Eric MD Work Phone: [facility] 02-17-2011 tetanus toxoid, redu michael diphtheria toxoid, and acellular pertussis vaccine, adsorbed Allison Aragon ADMIN DIR Work Phone: [facility] 02-17-2011 varicella virus vaccine Allison Aragon ADMIN DIR Work Phone: [facility] 07-21-2009 novel Influenza-H1N1 -09, live virus for nasal administration Allison Mahesh ADMIN DIR Work Phone: [facility] 07-21-2009 influenza virus vacc ine, unspecified formulation Jaycob Fairchild MD Work Phone: [facility] 07-06-2006 influenza, seasonal, injectable Allison Aichholz ADMIN DIR Work Phone: [facility] 07-06-2006 influenza virus vacc ine, unspecified formulation Allison Aichholz ADMIN DIR Work Phone: [facility] 10-23-2003 diphtheria, tetanus toxoids and pertussis vaccine Allison Aichholz ADMIN DIR Work Phone: [facility] 10-23-2003 measles, mumps and rubella virus vaccine Allison Aichholz ADMIN DIR Work Phone: [facility] 10-23-2003 poliovirus vaccine, unspecified formulation Allison Aichholz ADMIN DIR Work Phone: [facility] 09-17-1999 diphtheria, tetanus toxoids and acellular pertussis vaccine, unspecified formulation Allison Aichholz ADMIN DIR Work Phone: [facility] 05-12-1999 haemophilus influenz ae type b vaccine, conjugate unspecified formulation Allison Aichholz ADMIN DIR Work Phone: [facility] 05-12-1999 hepatitis B vaccine, pediatric or pediatric/adolescent dosage Allison Aichholz ADMIN DIR Work Phone: [facility] 05-12-1999 measles, mumps and rubella virus vaccine Allison Aichholz ADMIN DIR Work Phone: [facility] 05-12-1999 poliovirus vaccine, inactivated Allison Aichholz ADMIN DIR Work Phone: [facility] 05-12-1999 rubella and mumps vi álvaro vaccine Allison Aichholz ADMIN DIR Work Phone: [facility] 05-12-1999 varicella virus vaccine Allison Aichholz ADMIN DIR Work Phone: [facility] 1998 diphtheria, tetanus toxoids and acellular pertussis vaccine, unspecified formulation Allison Aichholz ADMIN DIR Work Phone: [facility] 1998 haemophilus influenz ae type b vaccine, conjugate unspecified formulation Allison Aichholz ADMIN DIR Work Phone: [facility] 1998 diphtheria, tetanus toxoids and acellular pertussis vaccine, unspecified formulation Allison Aichholz ADMIN DIR Work Phone: [facility] 1998 haemophilus influenz ae type b vaccine, conjugate unspecified formulation Allison Aichholz ADMIN DIR Work Phone: [facility] 1998 poliovirus vaccine, inactivated Allison Aichholz ADMIN DIR Work Phone: [facility] 1998 diphtheria, tetanus toxoids and acellular pertussis vaccine, unspecified formulation Allison Aichholz ADMIN DIR Work Phone: [facility] 1998 haemophilus influenz ae type b vaccine, conjugate unspecified formulation Allison Aichholz ADMIN DIR Work Phone: [facility] 1998 hepatitis B vaccine, pediatric or pediatric/adolescent dosage Allison Aichholz ADMIN DIR Work Phone: [facility] 1998 poliovirus vaccine, inactivated Allison Aichholz ADMIN DIR Work Phone: [facility] 1998 hepatitis B vaccine, pediatric or pediatric/adolescent dosage Allison Aichholz ADMIN DIR Work Phone: [facility] Payers Date Payer Category Payer Self-pay [id number] 2020 Private Health Insurance [facility] UMR CHOICE PLUS [id number] 2020-Present [phone] [address] [address] [place] [address] [facility] [id number] 2019 Private Health Insurance [id number] 2017 Unknown [id number] 2017 Unknown [id number] [id number]. [id number] 1998 Unknown [id number] 2.16.840.1.135572.3.579.2. 902 1998 Unknown [id number] 2.16.840.1.891565.3.579.2. 593 1998 Unknown [id number] 2.16.840.1.985186.3.579.2. 593 1998 Unknown [id number] 2.16.840.1.872593.3.579.2. 593 1998 Unknown [id number] 2.16.840.1.553169.3.579.2. 593 1998 Unknown [id number] 2.16.840.1.527193.3.579.2. 593 1998 Unknown [id number] 2.16.840.1.104435.3.579.2. 593 1998 Unknown [id number] 2.16.840.1.500975.3.579.2. 1259 1998 Unknown [id number] 2.16.840.1.755697.3.579.2. 1259 1998 Unknown [id number] 2.16.840.1.039988.3.579.2. 1259 1998 Unknown [id number] 2.16.840.1.200661.3.579.2. 1259 1998 Unknown [id number] 2.16.840.1.952772.3.579.2. 1259 1998 Unknown [id number] 2.16.840.1.091551.3.579.2. 1259 1998 Unknown [id number] 2.16.840.1.520721.3.579.2. 1259 1998 Unknown [id number] 2.16.840.1.353077.3.579.2. 1259 1998 Unknown [id number] 2.16.840.1.276997.3.579.2. 196 1959 Private Health Insurance [id number] 1959 Private Health Insurance [id number] Private Health Insurance [id number] Unknown [id number] 2.16.840.1.135591.3.579.2. 531 Social History Date Type Detail Facility Start: 08-08-2012 End: 12-27-2023 Tobacco smoking status MTIS Unknown if ever smoked [facility] Start: 1998 Sex Assigned At Not on file [facility] Exposure to SARS-CoV -2 (event) Unable to assess [facility] Start: 10-09-2020 End: 04-14-2022 Tobacco smoking status MTIS Never smoker [facility] Start: 10-09-2020 End: 04-14-2022 Tobacco use and exposure Never used [facility] Start: 10-09-2020 End: 04-14-2022 Alcohol intake Current drinker of alcohol (finding) [facility] Start: 1998 Sex Assigned At Female F [facility] Start: 04-14-2022 End: 10-14-2023 History of Social function [facility] Start: 04-14-2022 End: 10-14-2023 Humiliation, Afraid, Rape, and Kick questionnaire [HARK] [facility] Within the last year , have you been afraid of your partner or ex-partner? No [facility] Do you belong to any clubs or organizations such as scientologist groups, unions, fraternal or athletic groups, or [...] Healthcare Start: 09-04-2021 Alcohol Comment social [facility] Start: 12-15-2023 Alcohol intake Alcohol Use Details [facility] Start: 12-15-2020 Sexual Orientation Choose not to disclose [facility] Start: 10-10-2023 Sexual Orientation Straight or heterosexual [facility] NEGATED: Highlighted rowStart: 12-15-2023 End: 03-22-2024 Tobacco smoking status NHIS Unknown if ever smoked [facility] Medical Equipment Procedure Code Equipment Code Equipment Origin al Text Equipment Identifier Dates Anchr Sut Gii Qanchr+ Othcrd - [id number] Start: 08-08-2012 Clinical Notes 10-26-2021 to 03-22-2024 Note Date & Type Note Facility 03-22-2024 Evaluation note Type assessment Plantar fasciitis of right foot assessment assessment Neurapraxia of lower extremity J assessment [facility] Work Phone: [phone]) 154-547603-20-2024 History of Present illness Narrative* Stephanie Lee LPN - 11/23/2023 1:17 PM EDT Office received notice from [employer]. Dr. Fairchild signed paper with recommendations and signed paper and recent office note faxed to [phone] and scanned into file. Stephanie MANUEL [facility] [phone] [facility] History of Present illness Narrative* Allison [...] so is more active Started meeting with system trainer last summer, meets regularly, working on [...] right 10/20/2023 Arthritis 10/20/2023 Factor V Leiden ([facility]) 10/20/2023 Interstitial cystitis 10/20/2023 Keratosis pilaris 10/20/2023 Peroneal tendon tear, right, subsequent encounter Protein C deficiency ([facility]) 10/20/2023 Right ankle instability 10/20/2023 Right ankle pain 10/20/2023 Right foot pain Right knee pain 10/20/2023 Urinary incontinence in female 10/20/2023 Past Surgical History: Procedure Laterality Date ANKLE LIGAMENT RECONSTRUCTION Right 10/18/2022 CYSTOSCOPY 2020 FOOT SURGERY Right 06/29/2023 [facility] 2011 Rigt knee surgery [...] (Adipex-P) 37.5 MG tablet documented in this encounterUniversity Health [facility] Medical [id number] NotePROCEDURE: XR ANKLE RT 2V COMPARISON: None. HISTORY: Pain FINDINGS: 16 seconds of fluoroscopy. 3 images 3 fluoroscopic images with and without stress. Stress images demonstrate widening of the posterior tibiotalar joint IMPRESSION: Widening of the posterior tibiotalar joint with stress Electronically authenticated by: MCKENZIE POLLOCK Date: 2022-10-19 07:27[facility]10-20-2022 NotePROCEDURE: XR ANKLE RT MIN 3 VIEWS, [...] Electronically authenticated by: SOHAIL COLBY Date: 2022-06-24 06:17[facility]10-20-2022 NotePROCEDURE: XR ANKLE RT MIN 3 VIEWS, [...] Electronically authenticated by: SOHAIL COLBY Date: 2022-06-24 06:17[facility]10-14-2022 Miscellaneous Notes* Telephone Encounter - José Miguel Elmore - 06/18/2022 3:57 PM EDT Need to call pharmacy for insurance information. Not coming up in either epic or covermymeds Need pa on wegovy documented in this encounterUniversity [facility]als [facility]10-[facility]-2022 NoteHNO ID: [id number] Author: Jaswant Tovar, DO Service: ? Author [...] Correspondence will be shared today via the [facility] electronic health record or through regular mail, [...] a follow up appointment with Allison Aragon, CERTIFIED MIDWIFE, CERTIFIED MIDWIFE Previously lost 40 lbs in 3 months with phentermine, and gradually gained all of the weight back Nutritional Assessment Do you think that you have a healthy diet? 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 Yes Please select all medications you have used: Phentermine (Adipex) Have you had a surgical procedure for weight l (more content not included)... [facility]10-05-2022 History of Present illness Narrative* Jaswant [...] Correspondence will be shared today via the [facility] electronic health record or through regular mail, [...] a follow up appointment with Allison Aragon, CERTIFIED MIDWIFE, CERTIFIED MIDWIFE Previously lost 40 lbs in 3 months with phentermine, and gradually gained all of the weight back Nutritional Assessment Do you think that you have a healthy diet? no Weakness: Portions, sweets, pasta Number of meals per day: 2 Typical breakfast: no, sometimes just a banana Typical lunch: [employer] wraps with fruit, or just left overs Typical dinner: Chicken or pork, rice and veggies Sugary beverages: Redbull with sugar Exercise Assessment Since 05/14/22 Exercises 5 days week at [employer] working with a computer trainer once a week Plays tennis twice [...] Medically supervised diet program Have you used [id number] or prescribed weight loss medications? Yes Please [...] no height and/or weight reading in the [id number] days, so the below BMI readings may be inaccurate) BMI Readings from Last 3 Encounters: 06/09/22 : 35.89 kg/m 10/10/20 : 35.23 kg/m 11/20/13 : 27.05 kg/m (93 %, Z= 1.46)* * Growth percentiles are based on [facility] (Girls, 2-20 Years) data. PHYSICAL [...] Exercise goal is continue to work with computer trainer - Commit Not To Quit Need [...] Moderate Jaswant Tovar DO documented in this encounterUniversity Hospitals [facility] Center08-10-2022 NoteHNO ID: [id number] Author: Robert Eric MD Service: ? Author [...] Saw Dr. Calloway. Saw another doctor in [place]. ALLERGIES No Known Allergies PAST MEDICAL HISTORY [...] is stable. Incisions. Imaging: Plain films from [facility] are personally reviewed by me [...] probably should optimize her . Robert Eric, [facility]08-10-2022 NoteHNO ID: [id number] Author: RT Calista(R) Service: ? Author Type: [...] BY: RT Calista(R) April 14, 2022 9:46 [facility]08-10-2022 History of Present illness Narrative* Robert Eric [...] Saw Dr. Calloway. Saw another doctor in [place]. ALLERGIES No Known Allergies PAST MEDICAL HISTORY [...] is stable. Incisions. Imaging: Plain films from [facility] are personally reviewed by me [...] . Robert Eric MD documented in this encounterUniversity Hospitals Ely[facility] Center08-10-2022 History of Present illness Narrative* Mckenzie Lopez [...] 14, 2022 9:46 AM documented in this encounterUniversity Hospitals Ely[facility] Center02-21-2022 History of Present illness Narrative* [...] has had PT on right knee from [id number] and again in 2020. [facility] Work Phone: Consult note* Clinical Note Date No Information [facility] Work Phone: Discharge summary* Clinical Note Date No Information [facility] Work Phone: Evaluation note* Diagnosis Right knee pain, unspecified chronicity- Primary documented in this encounter [facility]* Diagnosis Chronic pain of right knee- Primary documented in this encounter [facility] note* Diagnosis Class 2 obesity due to excess calories without serious comorbidity with body mass index (BMI) of 35.0 to 35.9 in adult- Primary Chondromalacia of right patella Chondromalacia of patella documented in this encounter [facility] noteNo assessment information availableSal[facility] Work Phone: Evaluation note* Diagnosis Weight gain, abnormal- Primary Class 2 obesity due to excess calories without serious comorbidity in adult, unspecified BMI [facility]* Diagnosis Factor 5 Leiden mutation, heterozygous ([facility])- Primary [facility]* Type Assessment Date No Information [facility] Work Phone: Evaluation note* Diagnosis Right knee pain, unspecified chronicity documented [facility]* Clinical Note Date No Information [facility] Work Phone: InstructionsNot on filedocumented in this encounter [facility] [employer] SystemInstructions* Date Instruction Additional Infor mation No Information [facility] Work Phone: Progress note* Clinical Note Date No Information [facility] Work Phone: Reason for referral (narrative)* Diagnostic Procedure Only (Routine) - Pending Review Specialty Diagnoses / Procedures Referred By Antwon noe Referred To Contact XR IMAGING Diagnoses Right knee pain, unspecified chronicity Procedures XR KNEE GENERAL 4V AP BOTH/PA BOTH/LAT/MERC RIGHT RADIOLOGIC EXAM KNEE COMPLETE 4/MORE VIEWS Robert Eric MD [address] [id number] Xr Imaging Referral ID Status Reason Start Date Expiration Date Visits Requested Visits Authorized [id number] Pending Review Auto-Generat ed Referral 04/08/2022 05/07/2023 1 1 [facility] for referral (narrative)* Diagnostic Procedure Only (Routine) - Pending Review Specialty Diagnoses / Procedures Referred By Antwon noe Referred To Contact XR IMAGING Diagnoses Chronic pain of right knee Procedures XR KNEE POST OP 3V AP/LAT/MERCHANT RIGHT RADIOLOGIC EXAMINATION KNEE 3 VIEWS Robert Eric MD [address] [place] [address] Xr Imaging Referral ID Status Reason Start Date Expiration Date Visits Requested Visits Authorized [id number] Pending Review Auto-Generat ed Referral 04/14/2022 05/14/2023 1 1 * Consult, Test, Treat (Routine) - Authorized Specialty Diagnoses / Procedures Referred By Antwon noe Referred To Contact Diagnoses Chronic pain of right knee Procedures ENDOCRINE MEDICAL WEIGHT MANAGEMENT OFFICE/OUTPATIENT [facility] 60-74 MINUTES Robert Eric MD [address] [place] [address] Referral ID Status Reason Start Date Expiration Date Visits Requested Visits Authorized [id number] Authorized PCP Requested Referral 04/14/2022 04/14/2023 1 1 * MRI/CT (Routine) - Pending Review Specialty Diagnoses / Procedures Referred By Antwon noe Referred To Contact MR IMAGING Diagnoses Chronic pain of right knee Procedures MRI KNEE WO IVCON RT MRI ANY JT LOWER EXTREM W/O CONTRAST MATRL Robert Eric MD [address] [place] [address] Mr Imaging Referral ID Status Reason Start Date Expiration Date Visits Requested Visits Authorized [id number] Pending Review Auto-Generat ed Referral 04/14/2022 05/14/2023 1 1 [facility] Reason For Referral No Information [facility] Work Phone: Reason for referral (narrative)* Diagnostic Procedure Only (Routine) - Closed Specialty Diagnoses / Procedures Referred By Antwon noe Referred To Contact XR IMAGING Diagnoses Right knee pain, unspecified chronicity Procedures XR KNEE GENERAL 4V AP BOTH/PA BOTH/LAT/MERC RIGHT RADIOLOGIC EXAM KNEE COMPLETE 4/MORE VIEWS Robert Eric MD [address] [place] [address] Xr Imaging [place] [address] Referral ID Status Reason Start Date Expiration Date V isits Requested Visits Authorized [id number] Closed Auto-Generate d Referral 04/08/2022 05/07/2023 1 1 [facility] Summary Purpose Family History Family Member Type Diagnosis Age At Onset Paternal Grandfather Problem (finding) Cancer Mother Problem (finding) Family history of Blood clots Paternal Grandmother Problem (finding) Congenital hear t disease Advance Directives Documents on File Type Date Recorded 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 Advance Directives and Livin g Will 09/21/2020 12:07 AM Advance Directive Response Recorded Date/ Time Advance Directives No August 2:15pm Directive Yes / No Effective Date File Name No Information Discharge Instructions * Instructions* Leila Rowe MD - 09/21/2020 You are welcome to follow up with [facility] Walk-in primary care visits-- but can also schedule an appointment to establish a new family doctor [facility] [place] [phone] Open Tuesday-Tuesday, 9am-9pm * Attachments The following attachments cannot be sent through Care Everywhere. * Alcohol Intoxication: Acute (Lithuanian) documented in this encounter Assessments Diagnosis Alcoholic intoxication with complication (HCC)- Primary Nausea and vomiting, intractability of vomiting not specified, unspecified vomiting type Reason for Referral Specialty Diagnoses / Procedures Referred By Antwon noe Referred To Contact Diagnoses Class 2 obesity due to excess calories without serious comorbidity with body mass index (BMI) of 35.0 to 35.9 in adult Jaswant Tovar DO [address] [place] [address] Referral ID Status Reason Start Date Expiration Date V isits Requested Visits Authorized [id number] Pending Review 1 1 Specialty Diagnoses / Procedures Referred By Antwon noe Referred To Contact Diagnoses Weight gain, abnormal Class 2 obesity due to excess calories without serious comorbidity in adult, unspecified BMI Allison Aragon, [place] [address] [place] [address] Referral ID Status Reason Start Date Expiration Date V isits Requested Visits Authorized [id number] Pending Review 1 1 Additional Source Comments INFORMATION SOURCE (unrecogn ized section and content) DATE CREATED AUTHOR 05/06/2018 [facility] DATE CREATED AUTHOR AUTHOR'S ORGANIZ ATION 09/28/2020 [facility] DATE CREATED AUTHOR AUTHOR'S ORGANIZ ATION 09/22/2021 [facility] DATE CREATED AUTHOR AUTHOR'S ORGANIZ ATION 06/29/2022 [facility] DATE CREATED AUTHOR AUTHOR'S ORGANIZ ATION 07/07/2022 [facility] DATE CREATED AUTHOR AUTHOR'S ORGANIZ ATION 02/11/2023 [facility] DATE CREATED AUTHOR AUTHOR'S ORGANIZ ATION 05/22/2024 [facility] DATE CREATED AUTHOR AUTHOR'S ORGANIZ ATION 05/27/2024 [facility] Source Comments (unrecognize d section and content) In the event this informatio n is protected by the Federal Confidentiality of Alcohol and Drug Abuse Patient Records regulations: The Federal rules restrict any use of the information to criminally investigate or prosecute any alcohol or drug abuse patient.[facility] CenterIn the event this information is protected by the Federal Confidentiality of Alcohol and Drug Abuse Patient Records regulations: The Federal rules restrict any use of the information to criminally investigate or prosecute any alcohol or drug abuse patient.[facility] CenterIn the event this information is protected by the Federal Confidentiality of Alcohol and Drug Abuse Patient Records regulations: The Federal rules restrict any use of the information to criminally investigate or prosecute any alcohol or drug abuse patient.[facility] CenterIn the event this information is protected by the Federal Confidentiality of Alcohol and Drug Abuse Patient Records regulations: The Federal rules restrict any use of the information to criminally investigate or prosecute any alcohol or drug abuse patient.[facility] CenterIn the event this information is protected by the Federal Confidentiality of Alcohol and Drug Abuse Patient Records regulations: The Federal rules restrict any use of the information to criminally investigate or prosecute any alcohol or drug abuse patient.[facility] CenterIn the event this information is protected by the Federal Confidentiality of Alcohol and Drug Abuse Patient Records regulations: The Federal rules restrict any use of the information to criminally investigate or prosecute any alcohol or drug abuse patient.[facility] CenterIn the event this information is protected by the Federal Confidentiality of Alcohol and Drug Abuse Patient Records regulations: The Federal rules restrict any use of the information to criminally investigate or prosecute any alcohol or drug abuse patient.[facility] CenterIn the event this information is protected by the Federal Confidentiality of Alcohol and Drug Abuse Patient Records regulations: The Federal rules restrict any use of the information to criminally investigate or prosecute any alcohol or drug abuse patient.[facility] Reason for Visit (unrecogniz ed [...] KNEE COMPLETE 4/MORE VIEWS Robert Eric MD [address] [place] [address] [place] [address] Referral ID Status Reason Start Date Expiration Date V isits Requested Visits Authorized [id number] Closed Auto-Generate d Referral 04/08/2022 05/07/2023 1 1 Milka Davis RN - 09/21/2020 6:31 AM Milka Nicolas RN - 09/21/2020 6:10 AM Milka Nicolas RN - 09/21/2020 5:30 AM Milka Nicolas RN - 09/21/2020 4:30 AM EST ED Notes (unrecognized secti on and content) Lobo, pt friend, contacted regarding pt dispo. Lobo sts he lives just across the street and will walk to the ED entrance to pickup driver patient. Pt provided with belongings and a [...] - No primary care provider on file. [phone] Chief Complaint Patient presents with Alcohol Intoxication [...] file Gets together: Not on file Attends catholic service: Not on file Active member of [...] Procedure Abnormality Status --------- ------ CBC Auto Differential[[id number]] Please view results for these tests on [...] the patient. I discussed the patient with ADMIN DIR/PA. I agree with the ADMIN DIR/PA treatment plan. I agree with the ADMIN DIR/PA plan of care. I agree with the ADMIN DIR/PA dispo as documented. A 20-year-old female was brought in by EMS after patient started having nausea and vomiting after drinking alcohol tonight. Patient states she was drinking Alpine ice tea with her friends. Patient appears [...] Care Teams (unrecognized sec tion and content) Web Analytics Developer Relationship Specialty Start Date End Date Allison Aragon, CERTIFIED MIDWIFE [address] [place] [address] PCP - General Family Practice 04/29/21 Roosevelt Costa [address] [place] [phone] Referring Orthopedics 04/29/21 Pako Weiss [address] [place] [address] Referring Orthopedics 03/04/22 Web Analytics Developer Relationship Specialty Start Date End Date Allison Aragon, CERTIFIED MIDWIFE [address] [place] [address] PCP - General Family Practice 04/29/21 Roosevelt Costa [address] [place] [phone] Referring Orthopedics 04/29/21 Pako Weiss [address] [address] Referring Orthopedics 03/04/22 Web Analytics Developer Relationship Specialty Start Date End Date Allison Aragon CERTIFIED MIDWIFE [address] [place] [address] PCP - General Family Medicine 04/29/21 Roosevelt Costa [address] [place] [address] Referring Orthopedics 04/29/21 Pako Weiss [address] [place] [address] Referring Orthopedics 03/04/22 Team Status: Inactive Member Role Status Dates PHYSICIAN NO FAMILY Primary Care Provider Active Allison Aragon Attending Provider Active Team Status: Active Member Role Status Dates PHYSICIAN NO FAMILY Primary Care Provider Active Web Analytics Developer Relationship Specialty Start Date End Date Alilson Aragon, CERTIFIED MIDWIFE [address] [place] [address] PCP - General Family Medicine 04/29/21 Roosevelt Costa [address] [place] [address] Referring Orthopedics 04/29/21 Pako Weiss [address] [place] [address] Referring Orthopedics 03/04/22 Web Analytics Developer Relationship Specialty Start Date End Date Marlee Mosley MD [address] [place] [address] PCP - General Family Medicine 01/11/23 Web Analytics Developer Relationship Specialty Start Date End Date Marlee Mosley MD [address] [place] [address] PCP - General Family Medicine 01/11/23 Web Analytics Developer Relationship Specialty Start Date End Date Allison Aragon, REGULATORY AFFAIRS DIRECTOR-CERTIFIED MIDWIFE [address] [place] [address] PCP - General Nurse Practitioner 09/04/21 Name Effective Dates (start - stop) Status Members No Information Web Analytics Developer Relationship Specialty Start Date End Date Allison Aragon, CERTIFIED MIDWIFE [address] [place] [address] PCP - General Family Medicine 04/29/21 Roosevelt Costa MD [address] [place] [address] Referring Orthopedics 04/29/21 Pako Weiss [address] [place] [address] Referring Orthopedics 03/04/22 Goals (unrecognized section and [...] BE BASED ON THE PRIMARY CLINICAL RECORDS. [employer] [facility]. provides no warranty or guarantee of the accuracy or completeness of information in this document.
--- NOTE | 2024-06-18 15:54 | PM.CN ---
Consult Note: HPI Data of Consult Patient: known to practice within the last 3 years Consult date: 06/18/24 Requesting Physician: Beulah Nicholas MD Primary Care Provider: Allison Aragon NP Consult Narrative Reason for consult: right foot pain Narrative: 24yof who presents for assessment. continues to have right foot and ankle pain. lumbar mri reviewed, which did not show significant pathology to explain her persistent lower extremity symptoms. cc:: CC: Beulah Nicholas MD Review of Systems ROS Status of ROS 10 or more systems reviewed and unremarkable except as noted in history and below [facility] Medical History (Updated 05/21/24 @ 14:12 by Beulah Nicholas MD) Instability of ankle joint ?M25.373 - Other instability, unspecified ankle (ICD-10) Rupture of peroneal tendon of right foot ?S86.311A - Strain of muscle(s) and tendon(s) of peroneal muscle group at lower leg level, right leg, initial encounter (ICD-10) Chronic interstitial cystitis ?N30.10 - Interstitial cystitis (chronic) without hematuria (ICD-10) COVID-19 (08/2020) ?U07.1 - COVID-19 (ICD-10) Deformity of right lower extremity ?M21.951 - Unspecified acquired deformity of right thigh (ICD-10) Plantar fascial fibromatosis ?M72.2 - Plantar fascial fibromatosis (ICD-10) Factor V deficiency ?D68.2 - Hereditary deficiency of other clotting factors (ICD-10) Postoperative nausea and vomiting ?R11.2 - Nausea with vomiting, unspecified (ICD-10) ?Z98.890 - Other specified postprocedural states (ICD-10) Surgical History H/O knee surgery (2011) ?Z98.890 - Other specified postprocedural states (ICD-10) History of bladder surgery (2020) ?Z98.890 - Other specified postprocedural states (ICD-10) History of ankle surgery (10/18/22) ?Z98.890 - Other specified postprocedural states (ICD-10) Family History Other Blood coagulation disorder Family history of heart disease Social History Within the past year, how often did you have a drink containing alcohol: never Score interpretation: A score less than 3 is consistent with normal alcohol consumption. 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 Highest level of school completed/degree received: Bachelor's degree Meds Home Medications and Allergies Home Medications ?Medication ?Instructions ?Recorded ?Confirmed ?Type famotidine 20 mg tablet (Pepcid) 20 mg PO BID #14 tabs 07/29/23 Rx ascorbate calcium (vitamin C) 500 500 mg PO DAILY 05/21/24 05/21/24 History mg tablet biotin 10,000 mcg chewable tablet mcg PO 05/21/24 History (Hair, Skin and Nails (biotin)) calcium 333 mg 1 tab PO PRN pain 05/21/24 History (carbonate)-magnesium 133 mg (oxide)-zinc 5 mg tablet lactobacillus combination no.4 3 3,000 mmu cells PO DAILY 05/21/24 05/21/24 History billion cell capsule (Probiotic) multivitamin 1 tab PO DAILY 05/21/24 05/21/24 History pregabalin 75 mg capsule (Lyrica) 75 mg PO BID 05/21/24 05/21/24 History Allergies Allergy/AdvReac Type Severity Reaction Status Date / Time latex Allergy Rash Verified 05/23/23 09:46 Exam Narrative Exam Narrative: Psych-alert and oriented x 3.? Attentive and appropriate, constitutionally normal, displays normal mood and affect per situation.? There are no obvious deficits in memory, reasoning, or intellect. Examination of the right lower extremity reveals notable hyperpathia and allodynia.? Notable atrophy and diffuse weakness present in the extremity.? There is notable shiny skin with hair loss and abnormal hair growth denoting trophic changes presently.? Asymmetric color and temperature changes are present which denotes sudomotor changes.? Decreased range of motion and strength is noted in the extremity.? Coordination remains intact.? Gait remains non-antalgic. Assessment and Plan Assessment and Plan (1) Complex regional pain syndrome i of right lower limb: Plan 24yof who presents for assessment. failed conservative measures. imaging reviewed, as noted. given symptoms, exam findings, and history of multiple foot surgeries, suspect that patient is suffering from complex regional pain syndrome type i. discussed that it would be prudent to attempt right lumbar sympathetic nerve block x2 under fluoroscopic guidance. she will call to schedule when ready. meds reviewed, no changes. follow up after procedure.
== END 2024-06-18 14:47 | disposition home or self-care (01) ==
LOC: PM 14:46
PROVIDERS: PCP Nurse Practitioner; Visit Provider Anesthesiology
DX: G90.521 Complex regional pain syndrome I of right lower limb (principal)
CPT/HCPCS: G0463

== ENCOUNTER 2024-11-19 11:30 | Outpatient (OUT) | payer OTHER, SELFPAY ==
[2024-11-19 13:08] LABS: HCG Quantitative <1 mIU/mL
== END 2024-11-19 11:31 | disposition home or self-care (01) ==
LOC: LAB 11:32
PROVIDERS: PCP Nurse Practitioner
DX: N92.6 Irregular menstruation, unspecified (principal)
CPT/HCPCS: 36415; 84702